=== PATIENT | male | born 1940 | race Caucasian/White ===

== ENCOUNTER → 2016-12-31 | Outpatient (CLI) | payer BC ==
[~2016-12-31] MED LIST: AMOX875T PO; ASPI81TA28 PO; CALC-20 PO; CALCTAB5 PO; CEPH500C2 PO; EPP3/2 IM; LAMO1TAB21 PO; LAMO200T PO; LAMO25TA PO; LATA0.5S OPR; LEVE500T PO; METO25TA3 PO; SIMV40TA2 PO; SPIR25TA PO; WARF5TAB90 PO; WARF7.5T4 PO
[2016-12-31 11:02] LABS: BASO % 0.8 %; BASO ABS # 0.04 K/uL (0-0.2); COMPLETE YES; EOS % 1.9 %; HEMATOCRIT 43.8 % (42-52); IG% 0.2 %; LYMPH % 28.3 %; LYMPH ABS # 1.47 K/uL (1.2-3.4); MEAN CELL VOLUME 88.8 fL (80-100); MEAN CORPUSCULAR HEMOGLOBIN 27.6 pg (25-34); MEAN CORPUSCULAR HGB CONC 31.1 g/dl (32-36); MEAN PLATELET VOLUME 10.1 fL (7.4-10.4); MONO % 8.1 %; NEUT % 60.7 %; PLATELET COUNT 172 K/uL (130-400); RED BLOOD COUNT 4.93 M/uL (4.7-6.1); WHITE BLOOD COUNT 5.19 K/uL (4.8-10.8)
[2016-12-31 11:06] LABS: ALT/SGPT 27 U/L (12-78); AST/SGOT 15 U/L (15-37); BLOOD UREA NITROGEN 18 mg/dl (7-18); BUN/CREATININE RATIO 14.6 (10-20); CALCIUM 9.4 mg/dl (8.5-10.1); CARBON DIOXIDE 35 mmol/L (21-32); CHLORIDE 104 mmol/L (98-107); CHOLESTEROL 156 mg/dl (0-200); GLUCOSE 95 mg/dl (70-99); POTASSIUM 4.7 mmol/L (3.5-5.1); SODIUM 143 mmol/L (136-145)
[2016-12-31 11:16] LABS: ALB/GLOB RATIO 1.2 (0.9-2); ALKALINE PHOSPHATASE 49 U/L (45-117); CHOLESTEROL/HDL RATIO 3.8; HDL CHOLESTEROL 41 mg/dl; LDL CHOLESTEROL CALCULATED 97 mg/dl; TRIGLYCERIDES 90 mg/dl (0-150); VERY LOW DENSITY LIPOPROT CALC 18 mg/dl
== END | disposition home or self-care (01) ==
LOC: C.LABBC 08:14
PROVIDERS: ATTEND Internal Medicine Pulmonary Disease
DX: G40.909 Epilepsy, unspecified, not intractable, without status epilepticus (principal); I48.91 Unspecified atrial fibrillation; I48.92 Unspecified atrial flutter; G47.33 Obstructive sleep apnea (adult) (pediatric); K43.9 Ventral hernia without obstruction or gangrene; E78.5 Hyperlipidemia, unspecified; E66.9 Obesity, unspecified

== ENCOUNTER → 2017-03-25 | Outpatient (CLI) | payer BC ==
[~2017-03-25] MED LIST changes: -AMOX875T PO; -CALC-20 PO; -LATA0.5S OPR
[2017-03-25 11:56] LABS: BLOOD UREA NITROGEN 12 mg/dl (7-18); BUN/CREATININE RATIO 10.8 (10-20); CALCIUM 9.6 mg/dl (8.5-10.1); CARBON DIOXIDE 30 mmol/L (21-32); CHLORIDE 103 mmol/L (98-107); GLUCOSE 100 mg/dl (70-99); POTASSIUM 4.3 mmol/L (3.5-5.1); SODIUM 139 mmol/L (136-145)
== END | disposition home or self-care (01) ==
LOC: C.LAB1850 09:57
PROVIDERS: ATTEND Physician Assistant Medical
DX: R60.9 Edema, unspecified (principal)

== ENCOUNTER 2017-04-01 01:46 | Emergency (ER) | payer BC ==
[~2017-04-01] VITALS: Ht 167.6 cm; Wt 108.0 kg
[~2017-04-01 01:46] MED LIST changes: -CEPH500C2 PO; -LAMO200T PO; -LAMO25TA PO; -SPIR25TA PO
[2017-04-01 01:53] VITALS: Ht 167.6 cm; Wt 108.0 kg
[2017-04-01] MEDS ORDERED: OXYMETAZOLINE HCL 0.05% NA SPR 15 ML BTL ONE (02:05)
--- NOTE | 2017-04-01 02:25 | EMERGENCY ROOM VISIT NOTE ---
History Report prepared by Raegan: Milagro Acosta Under the Supervision of: Dr. Jose Barrientos D.O. First contact with patient: 01:56 Chief Complaint: NOSE BLEED (MINOR) Stated Complaint: NOSE BLEED, CAN'T STOP IT History of Present Illness The patient is a 76 year old male who presents to the Emergency Room with complaints of persistent nose bleed starting 2100 tonight. He is still bleeding. The bleeding started on the right side. He seems some bleeding from the left side now. He is on Coumadin, but has never had problems with nose bleeds before. His last INR check was 2 weeks ago. It was 2.2 at that time. The patient has no other complaints. Source of History: patient, family Onset: 2100 Position: nose Quality: other (bleed) Timing: other (persistent) Note: Pt denies other complaints. Review of Systems See HPI for pertinent positives & negatives. A total of 10 systems reviewed and were otherwise negative. Past Medical & Surgical Medical Problems: (1) Atrial fibrillation and flutter (2) Bee sting (3) Stroke Surgical Problems: (1) H/O vasectomy Family History Cancer Social History Smoking Status: Never Smoker Drug Use: none Marital Status: Housing Status: lives with significant other Occupation Status: retired Current/Historical Medications Scheduled Aspirin (Aspirin Ec), 81 MG PO DAILY Calcium (Caltrate), 600 MG PO BID Cephalexin Monohydrate (Keflex), 500 MG PO QID Epinephrine (Epipen), 0.3 MG IM UD Lamotrigine (Lamotrigine), 200 MG PO BID Levetiractam (Levetiracetam), 1,000 MG PO BID Metoprolol Succ (Toprol Xl) (Toprol-Xl), 25 MG PO DAILY Simvastatin (Zocor), 40 MG PO QPM Warfarin Sod (Jantoven), 7.5 MG PO UD Warfarin Sodium (Coumadin), 5 MG PO WK Allergies Coded Allergies: BEE STING (Unverified Allergy, Unknown, UNKN, 12/06/15) Physical Exam Vital Signs Date Time Temp Pulse Resp B/P (MAP) Pulse Ox O2 Delivery O2 Flow Rate FiO2 04/01/17 01:53 36.5 110 19 152/91 94 Room Air Physical Exam GENERAL: Patient is awake, alert, and mildly anxious appearing. EYES: The conjunctivae are clear. The pupils are round and reactive. EARS, NOSE, MOUTH AND THROAT: No active bleeding in the left naris, active bleeding noted in the anterior septum on the right. Posterior oropharynx showed clotted blood but no active bleeding. NECK: The neck is nontender and supple. RESPIRATORY: Normal respiratory effort is noted there is no evidence of wheezing rhonchi or rales CARDIOVASCULAR: Irregular rhythm noted to auscultation, systolic murmur suggested on auscultation. GASTROINTESTINAL: The abdomen is mildly distended with ventral hernia noted. MUSCULOSKELETAL/EXTREMITIES: There is no evidence of gross deformity full range of motion is noted in the hips and shoulders SKIN: There is pedal edema bilaterally with venous stasis changes noted. NEUROLOGIC: Patient is awake alert and oriented x3 Medical Decision & Procedures Laboratory Results 04/01/17 02:15 Red Blood Count 4.87, Mean Corpuscular Volume 86.7, Mean Corpuscular Hemoglobin 29.2, Mean Corpuscular Hemoglobin Concent 33.6, Mean Platelet Volume 9.1, Neutrophils (%) (Auto) 64.1, Lymphocytes (%) (Auto) 24.3, Monocytes (%) (Auto) 9.0, Eosinophils (%) (Auto) 2.1, Basophils (%) (Auto) 0.3, Neutrophils # (Auto) 4.01, Lymphocytes # (Auto) 1.52, Monocytes # (Auto) 0.56, Eosinophils # (Auto) 0.13, Basophils # (Auto) 0.02 04/01/17 02:15 Test 04/01/17 02:15 White Blood Count 6.25 K/uL (4.8-10.8) Red Blood Count 4.87 M/uL (4.7-6.1) Hemoglobin 14.2 g/dL (14.0-18.0) Hematocrit 42.2 % (42-52) Mean Corpuscular Volume 86.7 fL (80-100) Mean Corpuscular Hemoglobin 29.2 pg (25-34) Mean Corpuscular Hemoglobin Concent 33.6 g/dl (32-36) Platelet Count 183 K/uL (130-400) Mean Platelet Volume 9.1 fL (7.4-10.4) Neutrophils (%) (Auto) 64.1 % Lymphocytes (%) (Auto) 24.3 % Monocytes (%) (Auto) 9.0 % Eosinophils (%) (Auto) 2.1 % Basophils (%) (Auto) 0.3 % Neutrophils # (Auto) 4.01 K/uL (1.4-6.5) Lymphocytes # (Auto) 1.52 K/uL (1.2-3.4) Monocytes # (Auto) 0.56 K/uL (0.11-0.59) Eosinophils # (Auto) 0.13 K/uL (0-0.5) Basophils # (Auto) 0.02 K/uL (0-0.2) RDW Standard Deviation 43.9 fL (36.4-46.3) RDW Coefficient of Variation 13.9 % (11.5-14.5) Immature Granulocyte % (Auto) 0.2 % Immature Granulocyte # (Auto) 0.01 K/uL (0.00-0.02) Prothrombin Time 34.7 SECONDS (9.0-12.0) Prothromb Time International Ratio 3.1 (0.9-1.1) Activated Partial Thromboplast Time 42.7 SECONDS (21.0-31.0) Partial Thromboplastin Ratio 1.6 Anion Gap 8.0 mmol/L (3-11) Est Creatinine Clear Calc Drug Dose 66.9 ml/min Estimated GFR () 75.7 Estimated GFR (Non- 65.3 BUN/Creatinine Ratio 14.3 (10-20) Calcium Level 9.6 mg/dl (8.5-10.1) Total Bilirubin 0.4 mg/dl (0.2-1) Direct Bilirubin 0.1 mg/dl (0-0.2) Aspartate Amino Transf (AST/SGOT) 18 U/L (15-37) Alanine Aminotransferase (ALT/SGPT) 26 U/L (12-78) Alkaline Phosphatase 63 U/L (45-117) Total Protein 7.6 gm/dl (6.4-8.2) Albumin 4.0 gm/dl (3.4-5.0) Laboratory results per my review. Medications Administered Medications (Trade) Dose Ordered Sig/Rachid Route Start Time Stop Time Status Last Admin Dose Admin Oxymetazoline HCl (Afrin 0.05% Nasal Bend) 75 sprays STK-MED ONCE .ROUTE 04/01/17 02:05 04/01/17 02:06 DC 04/01/17 02:07 75 SPRAYS Cephalexin Monohydrate (Keflex Cap) 500 mg NOW ONCE PO 04/01/17 03:15 04/01/17 03:16 DC 04/01/17 03:22 500 MG Cephalexin Monohydrate (Keflex 500MG Home Pack) 1 homepack NOW ONCE PO 04/01/17 03:15 04/01/17 03:16 DC 04/01/17 03:22 1 HOMEPACK Procedure Anterior Nasal Packing Indication: anterior epistaxis Verbal consent obtained. Risks and benefits were explained with the usual customary discussion. A time out was taken. Clots were removed with suction. The right naris was prepped with Afrin and lidocaine. A 5.5-cm nasal balloon was placed in a standard fashion. The patient tolerated this well. Hemostasis was achieved. No complications. ED Course 0204: The patient was evaluated in room B11B. A complete history and physical examination were performed. 0205: Afrin 0.05% Nasal Bend INH. 0254: I performed an anterior nasal packing according to the procedure note above. 0315: Cephalexin Monohydrate 1 homepack PO, Keflex Cap 500 mg PO. 0342: Upon reevaluation, the patient is resting comfortably. I discussed the results and treatment plan with him. He verbalized agreement of the treatment plan. He was discharged home. Medical Decision Prior records/ancillary studies reviewed. Triage Nursing notes reviewed. Additional history obtained from family. The patient's history was concerning for epistaxis. Differential diagnosis: Etiologies such as anterior epistaxis, coagulopathy, traumatic injury, fracture , septal hematoma, posterior epistaxis as well as other pathologies were entertained. Medication Reconciliation: I attest that I have personally reviewed the patient' s current medications list. Patient was found to have a slightly elevated blood pressure due to circumstances. I do not believe that the patient requires hypertension monitoring. The patient is a 76-year-old male who presented to the emergency department for an evaluation of epistaxis. The patient was noted to have right-sided anterior epistaxis which did not resolve using Afrin spray and pressure. The patient is currently on Coumadin and his INR is therapeutic. The patient had a Rhino Rocket placed in the right nares which appeared to stop the epistaxis nicely. The patient tolerated this procedure well. I discussed the patient's laboratory studies with him. He was encouraged to follow-up with either his family doctor or ENT or return to the emergency department in 48 hours to have the packing removed but also he was encouraged to return to the emergency department immediately if symptoms change worsen or the need arises. Impression Primary Impression: Anterior epistaxis Scribe Attestation The scribe's documentation has been prepared under my direction and personally reviewed by me in its entirety. I confirm that the note above accurately reflects all work, treatment, procedures, and medical decision making performed by me. Departure Information Dispostion Home / Self-Care Prescriptions Cephalexin Monohydrate (KEFLEX) 500 Mg Cap 500 MG PO QID, #20 CAP Prov: Jose Barrientos, DO 04/01/17 Referrals Felipe Blackburn M.D. (PCP) Mc Barnes M.D. Forms HOME CARE DOCUMENTATION FORM, IMPORTANT VISIT INFORMATION, WORK / SCHOOL INSTRUCTIONS Patient Instructions ED Nasal Packing Anterior Removable, My [facility], [facility] Additional Instructions Continue all medications as prescribed. Follow-up with your family doctor or the ear nose and throat physician in 48 hours to have the nasal packing removed. Return to the emergency department immediately if symptoms change worsen or the need arises.
[2017-04-01 02:28] LABS: BASO % 0.3 %; BASO ABS # 0.02 K/uL (0-0.2); COMPLETE YES; EOS % 2.1 %; HEMATOCRIT 42.2 % (42-52); IG% 0.2 %; LYMPH % 24.3 %; LYMPH ABS # 1.52 K/uL (1.2-3.4); MEAN CELL VOLUME 86.7 fL (80-100); MEAN CORPUSCULAR HEMOGLOBIN 29.2 pg (25-34); MEAN CORPUSCULAR HGB CONC 33.6 g/dl (32-36); MEAN PLATELET VOLUME 9.1 fL (7.4-10.4); NEUT % 64.1 %; PLATELET COUNT 183 K/uL (130-400); RED BLOOD COUNT 4.87 M/uL (4.7-6.1); WHITE BLOOD COUNT 6.25 K/uL (4.8-10.8)
[2017-04-01 02:37] LABS: INR 3.1 (0.9-1.1); PARTIAL THROMBOPLASTIN RATIO 1.6; PROTHROMBIN TIME (PATIENT) 34.7 SECONDS (9.0-12.0)
[2017-04-01 02:46] LABS: BUN/CREATININE RATIO 14.3 (10-20); CALCIUM 9.6 mg/dl (8.5-10.1); CREATININE 1.1 mg/dl (0.60-1.40)
[2017-04-01] MEDS ORDERED: CEPH500C2 PO (03:03)
[2017-04-01] MEDS ORDERED: CEPHALEXIN 500MG HOME PACK 1 EA BTL PO ONE (03:15)
[2017-04-01] MEDS ORDERED: CEPHALEXIN MONOHYDRATE 250 MG CAP PO ONE (03:15)
[2017-04-01 03:59] VITALS: BP 170/88; PULSE 78; TEMP 36.5; O2SAT 95
[2017-04-02] MEDS ORDERED: LAMO200T PO (20:07)
[2017-04-02] MEDS ORDERED: LAMO25TA PO (20:08)
[2017-04-02] MEDS ORDERED: SPIR25TA PO (20:38)
[2017-04-02] MEDS ORDERED: CEPH500C2 PO (20:41)
== END 2017-04-01 04:00 | disposition home or self-care (01) ==
LOC: C.EDB 01:47
DX: R04.0 Epistaxis (principal); I48.91 Unspecified atrial fibrillation; Z79.01 Long term (current) use of anticoagulants; Z86.73 Personal history of transient ischemic attack (TIA), and cerebral infarction without residual deficits; Z79.82 Long term (current) use of aspirin; Z79.899 Other long term (current) drug therapy; Z91.030 Bee allergy status; Z80.9 Family history of malignant neoplasm, unspecified

== ENCOUNTER 2017-04-02 19:18 | Emergency (ER) | payer BC ==
[~2017-04-02] VITALS: Ht 167.6 cm; Wt 106.8 kg
[~2017-04-02 19:18] MED LIST changes: +CEPH500C2 PO
[2017-04-02 19:26] VITALS: TEMP 37.2; Ht 167.6 cm; Wt 106.8 kg
[2017-04-02] MEDS ORDERED: OXYMETAZOLINE HCL 0.05% NA SPR 15 ML BTL ONE (20:00)
[2017-04-02] MEDS ORDERED: LAMO200T PO (20:07)
[2017-04-02] MEDS ORDERED: LAMO25TA PO (20:08)
--- NOTE | 2017-04-02 20:15 | EMERGENCY ROOM VISIT NOTE ---
ED Visit Note First contact with patient: 19:34 I have seen and examined this patient with Carter Marsh and generally agree with the treatment plan as discussed. Problem List Medical Problems: (1) Atrial fibrillation and flutter Status: Chronic (2) Bee sting Status: Resolved (3) Stroke Status: Resolved Surgical Problems: (1) H/O vasectomy Status: Resolved Current/Historical Medications Scheduled Aspirin (Aspirin Ec), 81 MG PO DAILY Calcium (Caltrate), 600 MG PO BID Cephalexin Monohydrate (Keflex), 500 MG PO QID Epinephrine (Epipen), 0.3 MG IM UD Lamotrigine (Lamotrigine), 200 MG PO BID Lamotrigine (Lamictal), 200 MG PO BID Lamotrigine (Lamictal), 25 MG PO BID Levetiractam (Levetiracetam), 1,000 MG PO BID Metoprolol Succ (Toprol Xl) (Toprol-Xl), 25 MG PO DAILY Simvastatin (Zocor), 40 MG PO QPM Warfarin Sod (Jantoven), 7.5 MG PO UD Warfarin Sodium (Coumadin), 5 MG PO WK Allergies Coded Allergies: BEE STING (Unverified Allergy, Unknown, UNKN, 04/02/17) Vital Signs Date Time Temp Pulse Resp B/P (MAP) Pulse Ox O2 Delivery O2 Flow Rate FiO2 04/02/17 19:26 37.2 92 20 147/84 96 Room Air Departure Information Referrals Felipe Blackburn M.D. (PCP) Patient Instructions My [facility]
[2017-04-02] MEDS ORDERED: SPIR25TA PO (20:38)
[2017-04-02] MEDS ORDERED: CEPH500C2 PO (20:41)
--- NOTE | 2017-04-02 21:04 | EMERGENCY ROOM VISIT NOTE ---
History First contact with patient: 19:34 Chief Complaint: PACKING REMOVAL Stated Complaint: REMOVE NOSE PACKING PUT IN HERE 2 DAYS AGO Nursing Triage Summary: Patient has a rhino rocket in the right nare. Patient is here to have it removed. Patient had it placed on Saturday morning at 0300. History of Present Illness The patient is a 76 year old male who presents to the Emergency Room for packing removal from the right nostril after being here approximately 18 hours ago for a nosebleed. The patient required a rapid Rhino placement because of persistent bleeding. The patient reports that he has had persistent blood- tinged clear fluid, L from around the packing. He also reports that the packing feels very tight. He denies any postnasal drip, headache, fevers or chills. The patient reports that he does have an up with his scheduled with ENT on . He has been taking Keflex antibiotics as prescribed. Review of Systems 6 system review was performed and was negative except for pertinent positives and negatives as indicated in history of present illness Past Medical/Surgical History Medical Problems: (1) Atrial fibrillation and flutter (2) Bee sting (3) Stroke Surgical Problems: (1) H/O vasectomy Family History Cancer Social History Smoking Status: Never Smoker Drug Use: none Marital Status: Housing Status: lives with significant other Occupation Status: retired Current/Historical Medications Scheduled Aspirin (Aspirin Ec), 81 MG PO DAILY Calcium (Caltrate), 600 MG PO BID Cephalexin Monohydrate (Keflex), 500 MG PO QID Epinephrine (Epipen), 0.3 MG IM UD Lamotrigine (Lamictal), 200 MG PO BID Lamotrigine (Lamictal), 25 MG PO BID Levetiractam (Levetiracetam), 1,000 MG PO BID Metoprolol Succ (Toprol Xl) (Toprol-Xl), 25 MG PO DAILY Simvastatin (Zocor), 40 MG PO QPM Spironolactone (Aldactone), 25 MG PO BID Warfarin Sod (Jantoven), 7.5 MG PO UD Warfarin Sodium (Coumadin), 5 MG PO WK Allergies Coded Allergies: BEE STING (Unverified Allergy, Unknown, UNKN, 04/02/17) Lactose (Verified Adverse Reaction, Intermediate, GI UPSET, 04/02/17) Physical Exam Vital Signs Date Time Temp Pulse Resp B/P (MAP) Pulse Ox O2 Delivery O2 Flow Rate FiO2 04/02/17 19:26 37.2 92 20 147/84 96 Room Air Physical Exam CONSTITUTIONAL: Healthy and well nourished. Alert and oriented X 3 with positive affect. HEENT: Normocephalic, atraumatic. Pupils equal, round and reactive. There is no drainage from around the packing. NECK: Full active range of motion without discomfort. RESPIRATORY: Clear to auscultation bilaterally with no wheezing, crackles, rhonchi or stridor. INTEGUMENTARY: No rash or other significant dermatologic conditions noted. NEUROLOGIC: Facial sensations are intact. Medical Decision & Procedures ED Course Patient history and physical exam were performed. Nurse's notes were reviewed. Vital signs were reviewed and normal. Rapid Rhino packing was carefully removed. The patient had minimal serosanguineous drainage from the nose. Examination with an otoscope shows significantly friable tissue without any active bleeding. At this point, I administered 3 Afrin sprays in the right nostril, followed by a nasal clamp. His was left in place for 30 minutes and removed with no active bleeding. The patient was given the bottle of Afrin spray and another nasal clamp, and encouraged to perform two Afrin sprays before bedtime with nasal clamps as needed. The patient usually wears a CPAP, but reports that he can sleep in a seated position without CPAP. He was encouraged to do that tonight. If he has any persistent active bleeding that he cannot control with direct pressure, he was instructed to return to the emergency department. Otherwise he will keep his appointment on with ENT as scheduled. The patient voiced understanding of all discharge instructions, and was happy with plan of care. The patient was also examined by Dr. Barry, ED attending physician, who agrees with workup and plan of care. Medical Decision Impression Primary Impression: Right-sided epistaxis Departure Information Dispostion Home / Self-Care Forms HOME CARE DOCUMENTATION FORM, IMPORTANT VISIT INFORMATION Patient Instructions My [facility] Additional Instructions Continue with direct pressure this evening. Administer to Afrin sprays in the right nostril before bedtime, and upon awakening in the morning. Return to the emergency department for any persistent/uncontrollable bleeding. Keep your appointment on with ENT as scheduled.
[2017-04-02 21:20] VITALS: BP 148/78; PULSE 88; O2SAT 98
== END 2017-04-02 21:22 | disposition home or self-care (01) ==
LOC: C.EDB 19:20 → C.EDD 21:22
DX: R04.0 Epistaxis (principal); I48.91 Unspecified atrial fibrillation; Z79.82 Long term (current) use of aspirin; Z79.01 Long term (current) use of anticoagulants

== ENCOUNTER 2017-08-22 00:07 | Emergency (ER) | payer BC ==
[~2017-08-22] VITALS: Ht 168.9 cm; Wt 108.9 kg
[~2017-08-22 00:07] MED LIST changes: -CEPH500C2 PO; -LAMO1TAB21 PO; +LAMO200T PO; +LAMO25TA PO
[2017-08-22 00:18] VITALS: Ht 168.9 cm; Wt 108.9 kg
[2017-08-22 01:04] VITALS: TEMP 37
--- NOTE | 2017-08-22 02:28 | EMERGENCY ROOM VISIT NOTE ---
History Report prepared by Raegan: Milagro Acosta Under the Supervision of: Dr. Norma Neal D.O. First contact with patient: 01:35 Chief Complaint: WOUND INFECTION Stated Complaint: HAS RIGHT LEG WOUND THAT IS RED AND HOT/NOT HEALIN Nursing Triage Summary: Two weeks ago patient got scrape on his right leg, patient is on blood thinners and was having a hard time healing. Patient to be seen in wound clinic on saturday. R lower leg that is red, hot and swollen, mcmillan draining clear fluids. History of Present Illness The patient is a 77 year old male who presents to the Emergency Room with complaints of worsening right leg infection starting 1-2 weeks ago. The patient tripped and scraped his right leg on concrete 1-2 weeks ago. He has been applying bandages. He has had some drainage. Today, his leg became more painful , hot, and red. He has had increased drainage. He has not had an infection there before. He has been eating and drinking well. He denies any nausea, vomiting, fever, or abdominal pain. He has a history of fluid on the legs. He is on Warfarin. He denies any history of DVT or diabetes. He has a history of stroke, hernia, and heart murmur. Source of History: patient, spouse/significant other Onset: 1-2 weeks ago Position: leg (right) Quality: other (infection) Timing: worsening Associated Symptoms: No fevers, No nausea, No vomiting, No abdominal pain Review of Systems See HPI for pertinent positives & negatives. A total of 10 systems reviewed and were otherwise negative. Past Medical & Surgical Medical Problems: (1) Atrial fibrillation and flutter (2) Bee sting (3) Stroke Surgical Problems: (1) H/O vasectomy Family History Cancer Social History Smoking Status: Never Smoker Drug Use: none Marital Status: Housing Status: lives with significant other Occupation Status: retired Current/Historical Medications Scheduled Amoxicillin & Pot Clavulanate (Augmentin 875-125 mg), 875 MG PO BID Aspirin (Aspirin Ec), 81 MG PO DAILY Calcium Carbonate-Vitamin D (Calcium 600 + D), 1 TAB PO BID Epinephrine (Epipen), 0.3 MG IM UD Lamotrigine (Lamictal), 200 MG PO BID Lamotrigine (Lamictal), 25 MG PO BID Latanoprost (Xalatan 0.005% Oph Alejandra), 1 DROPS OPR HS Levetiractam (Levetiracetam), 1,000 MG PO BID Metoprolol Succ (Toprol Xl) (Toprol-Xl), 25 MG PO DAILY Simvastatin (Zocor), 40 MG PO QPM Warfarin Sod (Jantoven), 7.5 MG PO UD Warfarin Sodium (Coumadin), 5 MG PO WK Allergies Coded Allergies: BEE STING (Unverified Allergy, Unknown, UNKN, 08/22/17) Lactose (Verified Adverse Reaction, Intermediate, GI UPSET, 08/22/17) Physical Exam Vital Signs Date Time Temp Pulse Resp B/P (MAP) Pulse Ox O2 Delivery O2 Flow Rate FiO2 08/22/17 05:45 60 18 138/71 97 08/22/17 05:17 60 18 138/71 97 Room Air 08/22/17 03:16 67 18 104/69 97 Room Air 08/22/17 01:04 37.0 56 20 125/65 95 Room Air 08/22/17 00:18 36.7 76 18 143/83 96 Room Air Physical Exam HEENT: Head - normocephalic and atraumatic Pupils are equal, round, and reactive to light. Extraocular eye muscles are intact, and sclera are anicteric. Nose - moist nasal mucosa without discharge. Mouth - moist buccal mucosa. Oropharynx is nonerythematous and there is no tonsillar exudate or edema noted. Neck: Supple; no JVD, nuchal rigidity, cervical lymphadenopathy. Heart: Regular rate and rhythm. There is a 4/6 systolic ejection murmur. No clicks or gallops appreciated. Lungs: Clear to auscultation bilaterally with no wheezes, rales, or rhonchi. Abdomen: Large anterior abdominal wall hernia which is easily reducible. Soft, nontender, nondistended, with good bowel sounds. There are no palpable pulsatile masses or hepatosplenomegaly. There is no guarding, rigidity, or rebound noted. Extremities: RLE with significant venous stasis and an open wound to the right anterior tib fib region, surrounding erythema and warmth. There are easily palpable peripheral pulses. Skin: warm and dry with good turgor and no rashes. Medical Decision & Procedures ER Provider Diagnostic Interpretation: Radiology results as stated below per my review and the [facility] radiologist's interpretation: US Venous Right Lower Extremity: Comparison with exam from 03/23/11. No DVT. Probably lymph node measuring up to 2.7 cm. This may be reactive. Correlate clinically. Fluid collection in the popliteal fossa measuring up to 5.7 cm. This is smaller size compared to the prior study. Laboratory Results 08/22/17 02:35 Red Blood Count 4.67, Mean Corpuscular Volume 88.4, Mean Corpuscular Hemoglobin 29.1, Mean Corpuscular Hemoglobin Concent 32.9, Mean Platelet Volume 9.9, Neutrophils (%) (Auto) 73.8, Lymphocytes (%) (Auto) 12.1, Monocytes (%) (Auto) 12.2, Eosinophils (%) (Auto) 1.4, Basophils (%) (Auto) 0.1, Neutrophils # (Auto ) 7.84, Lymphocytes # (Auto) 1.28, Monocytes # (Auto) 1.29, Eosinophils # (Auto ) 0.15, Basophils # (Auto) 0.01 08/22/17 02:35 Test 08/22/17 02:35 White Blood Count 10.61 K/uL (4.8-10.8) Red Blood Count 4.67 M/uL (4.7-6.1) Hemoglobin 13.6 g/dL (14.0-18.0) Hematocrit 41.3 % (42-52) Mean Corpuscular Volume 88.4 fL (80-100) Mean Corpuscular Hemoglobin 29.1 pg (25-34) Mean Corpuscular Hemoglobin Concent 32.9 g/dl (32-36) Platelet Count 192 K/uL (130-400) Mean Platelet Volume 9.9 fL (7.4-10.4) Neutrophils (%) (Auto) 73.8 % Lymphocytes (%) (Auto) 12.1 % Monocytes (%) (Auto) 12.2 % Eosinophils (%) (Auto) 1.4 % Basophils (%) (Auto) 0.1 % Neutrophils # (Auto) 7.84 K/uL (1.4-6.5) Lymphocytes # (Auto) 1.28 K/uL (1.2-3.4) Monocytes # (Auto) 1.29 K/uL (0.11-0.59) Eosinophils # (Auto) 0.15 K/uL (0-0.5) Basophils # (Auto) 0.01 K/uL (0-0.2) RDW Standard Deviation 45.2 fL (36.4-46.3) RDW Coefficient of Variation 14.0 % (11.5-14.5) Immature Granulocyte % (Auto) 0.4 % Immature Granulocyte # (Auto) 0.04 K/uL (0.00-0.02) Prothrombin Time 29.9 SECONDS (9.0-12.0) Prothromb Time International Ratio 2.9 (0.9-1.1) Activated Partial Thromboplast Time 42.0 SECONDS (21.0-31.0) Partial Thromboplastin Ratio 1.6 Anion Gap 2.0 mmol/L (3-11) Est Creatinine Clear Calc Drug Dose 72.6 ml/min Estimated GFR () 83.4 Estimated GFR (Non- 71.9 BUN/Creatinine Ratio 11.2 (10-20) Calcium Level 9.4 mg/dl (8.5-10.1) Laboratory results per my review. Medications Administered Medications (Trade) Dose Ordered Sig/Rachid Route Start Time Stop Time Status Last Admin Dose Admin Ceftriaxone Sodium (Rocephin Inj) 1 gm NOW STAT IV 08/22/17 04:48 08/22/17 04:49 DC 08/22/17 05:13 1 GM Procedure Medications: Rocephin Inj 1 gm IV. ED Course 0208: The patient was evaluated in room C6. A complete history and physical examination were performed. Nursing notes and previous electronic medical records were reviewed. IV lock was established and labs were drawn as above. The patient went for ultrasound of the right lower extremity to rule out DVT. This is negative. 0443: Upon reevaluation, the patient was resting comfortably. I discussed findings and results with him. He verbalized agreement of the treatment plan. He will be discharged home after IV antibiotics. 0448: Rocephin Inj 1 gm IV. Medical Decision The patient is a 77 year old male who presents to the ED with right leg infection. Differential diagnosis includes cellulitis, wound infection, DVT. Labs: white count 10.3, hemoglobin 13.6, normal renal function, glucose 119, INR 2.9. This is a 77-year-old male patient with a long-standing history of venous stasis. Unfortunately, the patient scratched his right lower leg a couple of days ago. It has now become infected. There is some surrounding cellulitis. The patient has no significant leukocytosis or fever. His INR is therapeutic. I will start him on antibiotics after he receives an IV dose here in the emergency department. He does have a follow-up scheduled in 36 hours with the wound care clinic. This would be appropriate. Medication Reconcilliation Current Medication List: was personally reviewed by me Blood Pressure Screening Patient's blood pressure: Normal blood pressure Blood pressure disposition: Did not require urgent referral Impression Primary Impression: Traumatic open wound of right lower leg with infection Scribe Attestation The scribe's documentation has been prepared under my direction and personally reviewed by me in its entirety. I confirm that the note above accurately reflects all work, treatment, procedures, and medical decision making performed by me. Departure Information Dispostion Home / Self-Care Prescriptions Amoxicillin & Pot Clavulanate (Augmentin 875-125 mg) 1 Tab Tab 875 MG PO BID, #20 TAB Prov: Norma Neal D.O. 08/22/17 Referrals Felipe Blackburn M.D. (PCP) Forms HOME CARE DOCUMENTATION FORM, IMPORTANT VISIT INFORMATION, WORK / SCHOOL INSTRUCTIONS Patient Instructions My [facility], Wound Care Additional Instructions Rest with your right leg elevated. Keep the wound clean and covered. augmentin - 1 tab. ever 12 hours Problem Qualifiers Primary Impression: Traumatic open wound of right lower leg with infection Encounter type: initial encounter Qualified Codes: S81.801A - Unspecified open wound, right lower leg, initial encounter; L08.9 - Local infection of the skin and subcutaneous tissue, unspecified
[2017-08-22 02:45] LABS: BASO % 0.1 %; BASO ABS # 0.01 K/uL (0-0.2); COMPLETE YES; EOS % 1.4 %; HEMATOCRIT 41.3 % (42-52); IG% 0.4 %; LYMPH % 12.1 %; LYMPH ABS # 1.28 K/uL (1.2-3.4); MEAN CELL VOLUME 88.4 fL (80-100); MEAN CORPUSCULAR HEMOGLOBIN 29.1 pg (25-34); MEAN CORPUSCULAR HGB CONC 32.9 g/dl (32-36); MEAN PLATELET VOLUME 9.9 fL (7.4-10.4); MONO % 12.2 %; NEUT % 73.8 %; PLATELET COUNT 192 K/uL (130-400); RED BLOOD COUNT 4.67 M/uL (4.7-6.1); WHITE BLOOD COUNT 10.61 K/uL (4.8-10.8)
[2017-08-22 02:54] LABS: INR 2.9 (0.9-1.1); PARTIAL THROMBOPLASTIN RATIO 1.6; PROTHROMBIN TIME (PATIENT) 29.9 SECONDS (9.0-12.0)
[2017-08-22 03:00] LABS: BUN/CREATININE RATIO 11.2 (10-20); CALCIUM 9.4 mg/dl (8.5-10.1); CREATININE 1.01 mg/dl (0.60-1.40); POTASSIUM 3.9 mmol/L (3.5-5.1)
[2017-08-22] MEDS ORDERED: CALC-20 PO (04:12)
[2017-08-22] MEDS ORDERED: LATA0.5S OPR (04:13)
[2017-08-22] MEDS ORDERED: CEFTRIAXONE SOD INJ 1 GM ADDVIAL IV STA (04:48)
[2017-08-22] MEDS ORDERED: AMOX875T PO (05:30)
[2017-08-22 05:45] VITALS: BP 138/71; PULSE 60; O2SAT 97
--- NOTE | 2017-08-22 06:34 | DIAGNOSTIC IMAGING REPORT ---
ULTRASOUND R VENOUS DOPP LOWER EXT UNILAT CLINICAL HISTORY: Right leg redness and swelling. COMPARISON STUDY: 03/23/2011 FINDINGS: Real-time and color flow Doppler imaging were performed. Flow was seen within the femoral, popliteal and calf veins with no intraluminal thrombus demonstrated. The saphenous vein is patent. There is a 27 x 12 x 2 cm right inguinal lymph node with a large fatty hilum. There is a complex right popliteal fossa cyst measuring 57 x 15 x 29 mm. IMPRESSION: No evidence of right lower extremity DVT. Electronically signed by: Tushar Pak M.D. 08/22/2017 6:33 AM Dictated Date/Time: 08/22/2017 6:31 AM
== END 2017-08-22 05:52 | disposition home or self-care (01) ==
LOC: C.EDB 00:08 → C.EDA 05:52
DX: S81.801A Unspecified open wound, right lower leg, initial encounter (principal); W45.8XXA Other foreign body or object entering through skin, initial encounter; I48.91 Unspecified atrial fibrillation; Z79.82 Long term (current) use of aspirin; Z79.01 Long term (current) use of anticoagulants; Z51.81 Encounter for therapeutic drug level monitoring

== ENCOUNTER 2017-09-21 11:00 | Emergency (ER) | payer BC ==
[~2017-09-21] VITALS: Ht 167.6 cm; Wt 110.0 kg
[~2017-09-21 11:00] MED LIST changes: +CALC-20 PO; -CALCTAB5 PO; +LATA0.5S OPR
[2017-09-21 11:09] VITALS: TEMP 36.6; Ht 167.6 cm; Wt 110.0 kg
--- NOTE | 2017-09-21 11:30 | EMERGENCY ROOM VISIT NOTE ---
History First contact with patient: 11:18 Chief Complaint: FALL Stated Complaint: LOWER LEG History of Present Illness The patient is a 77 year old male who presents to the Emergency Room via private vehicle with complaints of "fall, lower leg pain". The patient states about 9 days ago he was wearing a jacket which caused him to slip out of bed because it was slippery. He states he fell to the ground striking the anterior portion of his left leg. There is no pain then however now since the time of the fall there is no increased swelling and pain in the left anterior mcmillan region. He also notes redness. There are no fevers or chills. He takes Coumadin with last INR done 1 week ago. He denies other injuries. Review of Systems A complete 6-point Review of Systems was discussed with the patient, with pertinent positives and negatives listed in the History of Present Illness. All remaining Review of Systems questions can be considered negative unless otherwise specified. Past Medical/Surgical History Medical Problems: (1) Atrial fibrillation and flutter (2) Bee sting (3) Stroke Surgical Problems: (1) H/O vasectomy Family History Cancer Social History Smoking Status: Never Smoker Drug Use: none Marital Status: Housing Status: lives with significant other Occupation Status: retired Current/Historical Medications Scheduled Aspirin (Aspirin Ec), 81 MG PO DAILY Calcium Carbonate-Vitamin D (Calcium 600 + D), 1 TAB PO BID Cephalexin Monohydrate (Keflex), 500 MG PO QID Doxycycline (Monohydrate) (Doxycycline), 100 MG PO BID Epinephrine (Epipen), 0.3 MG IM UD Lamotrigine (Lamictal), 200 MG PO BID Lamotrigine (Lamictal), 25 MG PO BID Latanoprost (Xalatan 0.005% Oph Alejandra), 1 DROPS OPR HS Levetiractam (Levetiracetam), 1,000 MG PO BID Metoprolol Succ (Toprol Xl) (Toprol-Xl), 25 MG PO DAILY Simvastatin (Zocor), 40 MG PO QPM Warfarin Sod (Jantoven), 7.5 MG PO [id number] Warfarin Sodium (Coumadin), 5 MG PO WK Physical Exam Vital Signs Date Time Temp Pulse Resp B/P (MAP) Pulse Ox O2 Delivery O2 Flow Rate FiO2 09/21/17 14:24 71 18 139/78 96 09/21/17 13:34 71 18 181/112 96 Room Air 09/21/17 11:09 36.6 83 20 184/90 98 Room Air Physical Exam VITAL SIGNS - Vital signs and nursing notes were reviewed. Stable. Afebrile. Hypertensive. GENERAL -77 -year-old male appearing his stated age who is in no acute distress. Communicates well with provider and answers questions appropriately. SKIN - the left lower leg from the knee down is larger than the right leg. There is no calf tenderness. There is erythema extending from the tibial plateau region inferiorly. This region is the same temperature to palpation as the right leg. There is no drainage. No breaks in the integument. There is tenderness to palpation overlying the left anterior mcmillan. EXTREMITIES - +5/5 strength noted in UE/LE bilaterally. Neurovascularly intact in lower external ease. Please refer to skin for remainder of exam. Medical Decision & Procedures ER Provider Diagnostic Interpretation: ULTRASOUND L VENOUS DOPP LOWER EXT UNILAT CLINICAL HISTORY: L leg pain COMPARISON STUDY: No previous studies for comparison. FINDINGS: Real-time and color flow Doppler imaging were performed. Flow was seen within the femoral, popliteal and calf veins with no intraluminal thrombus demonstrated. The saphenous vein is patent. There is a left popliteal/Mcneal cyst measuring 52 x 29 x 13 mm. IMPRESSION: No evidence of left lower extremity DVT. Electronically signed by: Tushar Pak M.D. 09/21/2017 12:43 PM Dictated Date/Time: 09/21/2017 12:42 PM L TIBIA/FIBULA 2 VIEWS ROUTINE CLINICAL HISTORY: Left lower leg pain status post trauma COMPARISON: None. DISCUSSION: 4 views are provided for interpretation. There are moderate osteoarthritic changes present the level the knee. There are no acute fractures. There is pretibial soft tissue swelling. IMPRESSION: 1. No acute fractures 2. Osteoarthritic changes 3. Soft tissue edema Electronically signed by: Tushar Pak M.D. 09/21/2017 12:21 PM Dictated Date/Time: 09/21/2017 12:20 PM Laboratory Results 09/21/17 11:40 Red Blood Count 4.70, Mean Corpuscular Volume 89.1, Mean Corpuscular Hemoglobin 29.1, Mean Corpuscular Hemoglobin Concent 32.7, Mean Platelet Volume 10.0, Neutrophils (%) (Auto) 73.9, Lymphocytes (%) (Auto) 17.1, Monocytes (%) (Auto) 7.2, Eosinophils (%) (Auto) 1.2, Basophils (%) (Auto) 0.3, Neutrophils # (Auto) 4.92, Lymphocytes # (Auto) 1.14, Monocytes # (Auto) 0.48, Eosinophils # (Auto) 0.08, Basophils # (Auto) 0.02 09/21/17 11:40 Test 09/21/17 11:40 White Blood Count 6.66 K/uL (4.8-10.8) Red Blood Count 4.70 M/uL (4.7-6.1) Hemoglobin 13.7 g/dL (14.0-18.0) Hematocrit 41.9 % (42-52) Mean Corpuscular Volume 89.1 fL (80-100) Mean Corpuscular Hemoglobin 29.1 pg (25-34) Mean Corpuscular Hemoglobin Concent 32.7 g/dl (32-36) Platelet Count 154 K/uL (130-400) Mean Platelet Volume 10.0 fL (7.4-10.4) Neutrophils (%) (Auto) 73.9 % Lymphocytes (%) (Auto) 17.1 % Monocytes (%) (Auto) 7.2 % Eosinophils (%) (Auto) 1.2 % Basophils (%) (Auto) 0.3 % Neutrophils # (Auto) 4.92 K/uL (1.4-6.5) Lymphocytes # (Auto) 1.14 K/uL (1.2-3.4) Monocytes # (Auto) 0.48 K/uL (0.11-0.59) Eosinophils # (Auto) 0.08 K/uL (0-0.5) Basophils # (Auto) 0.02 K/uL (0-0.2) RDW Standard Deviation 47.2 fL (36.4-46.3) RDW Coefficient of Variation 14.6 % (11.5-14.5) Immature Granulocyte % (Auto) 0.3 % Immature Granulocyte # (Auto) 0.02 K/uL (0.00-0.02) Prothrombin Time 33.8 SECONDS (9.0-12.0) Prothromb Time International Ratio 3.3 (0.9-1.1) Activated Partial Thromboplast Time 45.1 SECONDS (21.0-31.0) Partial Thromboplastin Ratio 1.7 Anion Gap 2.0 mmol/L (3-11) Est Creatinine Clear Calc Drug Dose 64.7 ml/min Estimated GFR () 72.8 Estimated GFR (Non- 62.8 BUN/Creatinine Ratio 9.8 (10-20) Calcium Level 9.7 mg/dl (8.5-10.1) Total Bilirubin 0.9 mg/dl (0.2-1) Aspartate Amino Transf (AST/SGOT) 15 U/L (15-37) Alanine Aminotransferase (ALT/SGPT) 24 U/L (12-78) Alkaline Phosphatase 67 U/L (45-117) Total Protein 8.3 gm/dl (6.4-8.2) Albumin 4.2 gm/dl (3.4-5.0) Globulin 4.1 gm/dl (2.5-4.0) Albumin/Globulin Ratio 1.0 (0.9-2) Medications Administered Medications (Trade) Dose Ordered Sig/Rachid Route Start Time Stop Time Status Last Admin Dose Admin Ceftriaxone Sodium (Rocephin Inj) 1 gm NOW STAT IV 09/21/17 13:15 09/21/17 13:16 DC 09/21/17 13:28 1 GM Medical Decision Patient was seen and evaluated as above. He presents to us today with left lower leg pain. There is erythematous on exam. IV access was initiated, and the above workup was performed. He is afebrile. Normal blood cell count slight anemia noted. No evidence of kidney or liver failure. The concern is that this could be cellulitis. He was also seen by the attending physician. He was given 1 g Rocephin here. He'll be placed on doxycycline as well as Keflex. He is on Coumadin with an INR currently of 3.3. This is slightly elevated. I recommend he has this repeated on Saturday. He notes that he will arrange this. He was offered inpatient admission secondary to the amount of erythema just below the knee extending down to the left ankle. It is difficult to appreciate if this is also within the middle portion of the tibia because there is venous stasis changes of the leg. He declined admission, and notes he would like to go home. I believe this is reasonable. He was given strict return precautions in the event that this would worsen. He was educated upon worrisome symptoms in which to return, had questions about discharge, and was discharged home in good condition. DVT was well the ultrasound, and there is no fracture on the x-ray. Blood pressure elevated of late secondary to situation. This was found to be improved upon his departure. Medications reviewed. In evaluation treatment this patient the following differential diagnoses entertained: Cellulitis, DVT, venous stasis skin changes, compartment syndrome, among others. Impression Primary Impression: Fall Additional Impressions: Contusion of leg, left Anemia Departure Information Dispostion Home / Self-Care Condition GOOD Prescriptions Cephalexin Monohydrate (Keflex) 500 Mg Cap 500 MG PO QID for 10 Days, #40 CAP Prov: Iraj Stewart PA-C 09/21/17 Doxycycline (Monohydrate) (Doxycycline) 100 Mg Cap 100 MG PO BID for 10 Days, #20 TABS Prov: Iraj Stewart PA-C 09/21/17 Referrals Felipe Blackburn M.D. (PCP) Patient Instructions My [facility] Additional Instructions You were seen in the emergency Department for leg pain. The antibiotics you're receiving may make your blood thinner, meaning your INR may increase. I highly recommend having your INR rechecked on Saturday to identify of dose adjustments of your Coumadin are necessary At this time the concern is that you're developing an infection of the leg. You were given an IV dose of antibiotics here. I will prescribe you Keflex 500 mg every 6 hours 10 days. Doxycycline 100 mg every 12 hours 10 days. As we discussed if the redness would worsen please return. Your INR was 3.3. There is a Mcneal cyst behind your left knee. This is harmless, however follow- up with the family doctor is recommended. You have been prescribed Doxycycline to be taken as prescribed. This is an antibiotic. All antibiotics have the potential to cause diarrhea. Stop this medication and contact a medical provider if you were to develop any significant adverse side effects including: wheezing, shortness of breath, passing out, vomiting, or a diffuse rash. Always take antibiotics as directed and COMPLETE the ENTIRE course regardless of the improvement of your symptoms. Protect yourself with sunscreen while on this antibiotic as it increases your skin's sensitivity to the light and cause bad sunburns. In addition, you should be sure to take this pill after eating. Make sure the pill is completely swallowed as this medication can cause irritation to the lining of the esophagus. Do NOT drink milk or eat anything with large amounts of Calcium in them 1 hour prior to taking this medication as this will decrease the effectiveness of the medication. Please return if you have any fevers, chills, increased redness. Please call your family doctor to schedule follow-up. Please return with any new/concerning symptoms. Problem Qualifiers
[2017-09-21 11:56] LABS: BASO % 0.3 %; BASO ABS # 0.02 K/uL (0-0.2); EOS % 1.2 %; EOS ABS # 0.08 K/uL (0-0.5); HEMATOCRIT 41.9 % (42-52); HEMOGLOBIN 13.7 g/dL (14.0-18.0); IG# 0.02 K/uL (0.00-0.02); LYMPH % 17.1 %; LYMPH ABS # 1.14 K/uL (1.2-3.4); MEAN CELL VOLUME 89.1 fL (80-100); MEAN CORPUSCULAR HEMOGLOBIN 29.1 pg (25-34); MEAN CORPUSCULAR HGB CONC 32.7 g/dl (32-36); MONO % 7.2 %; MONO ABS # 0.48 K/uL (0.11-0.59); NEUT % 73.9 %; NEUT ABS # 4.92 K/uL (1.4-6.5); PLATELET COUNT 154 K/uL (130-400); RED CELL DISTRIBUTION WIDTH CV 14.6 % (11.5-14.5); RED CELL DISTRIBUTION WIDTH SD 47.2 fL (36.4-46.3); WHITE BLOOD COUNT 6.66 K/uL (4.8-10.8)
[2017-09-21 12:17] LABS: INR 3.3 (0.9-1.1)
[2017-09-21 12:21] LABS: ALBUMIN 4.2 gm/dl (3.4-5.0); CALCIUM 9.7 mg/dl (8.5-10.1); CREATININE 1.13 mg/dl (0.60-1.40); POTASSIUM 4.9 mmol/L (3.5-5.1)
[2017-09-21 12:23] LABS: PTT PATIENT 45.1 SECONDS (21.0-31.0); TOTAL PROTEIN 8.3 gm/dl (6.4-8.2)
--- NOTE | 2017-09-21 12:23 | DIAGNOSTIC IMAGING REPORT ---
L TIBIA/FIBULA 2 VIEWS ROUTINE CLINICAL HISTORY: Left lower leg pain status post trauma COMPARISON: None. DISCUSSION: 4 views are provided for interpretation. There are moderate osteoarthritic changes present the level the knee. There are no acute fractures. There is pretibial soft tissue swelling. IMPRESSION: 1. No acute fractures 2. Osteoarthritic changes 3. Soft tissue edema Electronically signed by: Tushar Pak M.D. 09/21/2017 12:21 PM Dictated Date/Time: 09/21/2017 12:20 PM
--- NOTE | 2017-09-21 12:44 | DIAGNOSTIC IMAGING REPORT ---
ULTRASOUND L VENOUS DOPP LOWER EXT UNILAT CLINICAL HISTORY: L leg pain COMPARISON STUDY: No previous studies for comparison. FINDINGS: Real-time and color flow Doppler imaging were performed. Flow was seen within the femoral, popliteal and calf veins with no intraluminal thrombus demonstrated. The saphenous vein is patent. There is a left popliteal/Mcneal cyst measuring 52 x 29 x 13 mm. IMPRESSION: No evidence of left lower extremity DVT. Electronically signed by: Tushar Pak M.D. 09/21/2017 12:43 PM Dictated Date/Time: 09/21/2017 12:42 PM
--- NOTE | 2017-09-21 13:11 | EMERGENCY ROOM VISIT NOTE ---
ED Visit Note First contact with patient: 11:18 I did evaluate and examine this patient myself. I did guide management for the patient. I agree with the APC's assessment as discussed. Please see the APC's dictation for further details. I did independently review the ultrasound and blood work. He does not have a DVT. He does have cellulitis to his left leg. He was advised to stop using the roller at his gym on his leg. He was given IV antibiotics and discharged on oral antibiotic with close follow up.
[2017-09-21] MEDS ORDERED: CEFTRIAXONE SOD INJ 1 GM ADDVIAL IV STA (13:15)
[2017-09-21] MEDS ORDERED: DOXY-300 PO (13:46)
[2017-09-21] MEDS ORDERED: CEPH500C PO (13:47)
[2017-09-21 14:24] VITALS: BP 139/78; PULSE 71; O2SAT 96
== END 2017-09-21 14:25 | disposition home or self-care (01) ==
LOC: C.EDB 11:01 → C.EDD 14:25
DX: S80.12XA Contusion of left lower leg, initial encounter (principal); W19.XXXA Unspecified fall, initial encounter; I48.92 Unspecified atrial flutter; Z86.73 Personal history of transient ischemic attack (TIA), and cerebral infarction without residual deficits; Z79.01 Long term (current) use of anticoagulants; Z79.82 Long term (current) use of aspirin; Z79.899 Other long term (current) drug therapy; Z98.52 Vasectomy status

== ENCOUNTER → 2017-12-25 | Outpatient (CLI) | payer BC ==
[~2017-12-25] MED LIST changes: +DOXY-300 PO
[2017-12-25 17:18] LABS: BASO % 0.4 %; BASO ABS # 0.02 K/uL (0-0.2); EOS % 1.8 %; HEMATOCRIT 40.7 % (42-52); HEMOGLOBIN 13.3 g/dL (14.0-18.0); IG# 0.01 K/uL (0.00-0.02); LYMPH % 19.5 %; LYMPH ABS # 1.08 K/uL (1.2-3.4); MEAN CELL VOLUME 88.9 fL (80-100); MEAN CORPUSCULAR HGB CONC 32.7 g/dl (32-36); MONO % 8.8 %; MONO ABS # 0.49 K/uL (0.11-0.59); NEUT % 69.3 %; NEUT ABS # 3.84 K/uL (1.4-6.5); PLATELET COUNT 147 K/uL (130-400); RED CELL DISTRIBUTION WIDTH CV 14.5 % (11.5-14.5); RED CELL DISTRIBUTION WIDTH SD 47.2 fL (36.4-46.3); WHITE BLOOD COUNT 5.54 K/uL (4.8-10.8)
[2017-12-25 17:23] LABS: ALBUMIN 3.6 gm/dl (3.4-5.0); ALT/SGPT 23 U/L (12-78); AST/SGOT 18 U/L (15-37); BLOOD UREA NITROGEN 12 mg/dl (7-18); CALCIUM 9.4 mg/dl (8.5-10.1); CARBON DIOXIDE 34 mmol/L (21-32); CREATININE 1.09 mg/dl (0.60-1.40); GLUCOSE 116 mg/dl (70-99); POTASSIUM 3.7 mmol/L (3.5-5.1); SODIUM 139 mmol/L (136-145)
[2017-12-25 17:25] LABS: ALKALINE PHOSPHATASE 62 U/L (45-117); TOTAL PROTEIN 7.2 gm/dl (6.4-8.2)
== END | disposition home or self-care (01) ==
LOC: C.LABBC 12:43
PROVIDERS: ATTEND Psychiatry & Neurology Neurology
DX: G40.909 Epilepsy, unspecified, not intractable, without status epilepticus (principal)

== ENCOUNTER → 2018-01-15 | Outpatient (CLI) | payer BC ==
[2018-01-15 11:12] LABS: BASO % 0.6 %; BASO ABS # 0.03 K/uL (0-0.2); EOS % 2.4 %; EOS ABS # 0.13 K/uL (0-0.5); HEMATOCRIT 41.3 % (42-52); HEMOGLOBIN 13.4 g/dL (14.0-18.0); IG# 0.01 K/uL (0.00-0.02); LYMPH % 20.8 %; LYMPH ABS # 1.13 K/uL (1.2-3.4); MEAN CELL VOLUME 87.1 fL (80-100); MEAN CORPUSCULAR HEMOGLOBIN 28.3 pg (25-34); MEAN CORPUSCULAR HGB CONC 32.4 g/dl (32-36); MEAN PLATELET VOLUME 9.5 fL (7.4-10.4); MONO % 10.3 %; MONO ABS # 0.56 K/uL (0.11-0.59); NEUT % 65.7 %; NEUT ABS # 3.56 K/uL (1.4-6.5); PLATELET COUNT 179 K/uL (130-400); RED CELL DISTRIBUTION WIDTH CV 14.4 % (11.5-14.5); RED CELL DISTRIBUTION WIDTH SD 46.5 fL (36.4-46.3); WHITE BLOOD COUNT 5.42 K/uL (4.8-10.8)
[2018-01-15 11:24] LABS: ALBUMIN 3.8 gm/dl (3.4-5.0); ALT/SGPT 22 U/L (12-78); AST/SGOT 20 U/L (15-37); BLOOD UREA NITROGEN 16 mg/dl (7-18); CALCIUM 9.2 mg/dl (8.5-10.1); CARBON DIOXIDE 31 mmol/L (21-32); CREATININE 1.24 mg/dl (0.60-1.40); GLUCOSE 99 mg/dl (70-99); POTASSIUM 3.6 mmol/L (3.5-5.1); SODIUM 139 mmol/L (136-145)
[2018-01-15 11:35] LABS: ALKALINE PHOSPHATASE 67 U/L (45-117); CHOLESTEROL 146 mg/dl (0-200); LDL CHOLESTEROL CALCULATED 93 mg/dl; TOTAL PROTEIN 7.7 gm/dl (6.4-8.2)
== END | disposition home or self-care (01) ==
LOC: C.LABBC 08:42
PROVIDERS: ATTEND Internal Medicine Pulmonary Disease
DX: G40.909 Epilepsy, unspecified, not intractable, without status epilepticus (principal); I48.91 Unspecified atrial fibrillation; E78.5 Hyperlipidemia, unspecified; G47.33 Obstructive sleep apnea (adult) (pediatric); M17.10 Unilateral primary osteoarthritis, unspecified knee; E66.9 Obesity, unspecified

== ENCOUNTER 2019-06-18 22:44 | Observation (INO) ==
[2019-06-18 23:34] LABS: Basophils # (auto) 0.01 K/uL (0-0.2); Basophils % (auto) 0.1 %; Eosinophils # (auto) 0.11 K/uL (0-0.5); Eosinophils % (auto) 1.3 %; Hematocrit (blood only) 43.8 % (42-52); Hemoglobin 14.5 g/dL (14.0-18.0); Immature Granulocytes # (auto) 0.04 K/uL (0.00-0.02); Immature Granulocytes % (auto) 0.5 %; Lymphocytes # (auto) 2.13 K/uL (1.2-3.4); Lymphocytes % (auto) 25.4 %; Mean Corpuscular Hemoglobin 29.5 pg (25-34); Mean Corpuscular Hgb Conc 33.1 g/dL (32-36); Mean Platelet Volume 9.6 fL (7.4-10.4); Monocytes # (auto) 0.73 K/uL (0.11-0.59); Monocytes % (auto) 8.7 %; Neutrophils # (auto) 5.38 K/uL (1.4-6.5); Platelet Count 175 K/uL (130-400); RDW Coefficient of Variation 14.2 % (11.5-14.5); RDW Standard Deviation 46.2 fL (36.4-46.3); Red Blood Count 4.92 M/uL (4.7-6.1)
[2019-06-19 00:04] LABS: Albumin Globulin Ratio 1.2 (0.9-2); Albumin Level 4.3 gm/dl (3.4-5.0); BUN Creatinine Ratio 17.1 (10-20); Bilirubin,Total 0.4 mg/dl (0.2-1); Calcium 9.1 mg/dl (8.5-10.1); Creatinine Clr Calc Pharmacy 64.8 ml/min; Est GFR (African American) 74.7; Est GFR (Non-African American) 64.4; Globulin 3.6 gm/dl (2.5-4.0); Potassium 3.9 mmol/L (3.5-5.1); Total Protein 7.9 gm/dl (6.4-8.2); Troponin I 0.081 ng/ml (0-0.045)
[2019-06-19] MEDS ORDERED: ASPIRIN CHEW 324 MG PO STA (00:26)
--- NOTE | 2019-06-19 00:37 | Emergency Department Note ---
Entered by Fadi Wallace acting as a scribe for Gerardo Lobo DO History of Present Illness General Chief complaint: Arrhythmia/Palpitations Stated complaint: AFIB Time Seen by Provider: 06/18/19 22:54 Source: patient Limitations: no limitations History of Present Illness Onset (ago): hour(s) 5 Location: chest Pain Consistency: + constant Quality: + other (vibration) Associated symptoms: + denies other symptoms (trouble breathing) The patient is a 78 year old male who presents to the Emergency Room with complaints of constant vibration in his heart starting 5 hours ago. The patient states he had 2 strokes and a seizure 5 years ago. He states he started to feel vibration in his heart a couple days ago but it eventually went away. He notes he occasionally in A-Fib. He denies having any trouble breathing. He notes he feels like a nerve is getting pinched in his right hip, and notes that happens occasionally. Home Medications Home Medications Medication Instructions Recorded Confirmed Type aspirin [Aspirin Low Dose] 81 mg PO DAILY 06/03/18 06/18/19 History calcium carbonate-vitamin D3 1 tab PO BID 06/03/18 06/18/19 History [Calcium 600 + D(3)] epinephrine 0.3 mg IM DIRECTED PRN 06/03/18 06/18/19 History lamotrigine 25 mg PO BID 06/03/18 06/18/19 History lamotrigine 200 mg PO BID 06/03/18 06/18/19 History latanoprost [Xalatan] 1 drp OPR PM 06/03/18 06/18/19 History levetiracetam 1,000 mg PO BID 06/03/18 06/18/19 History metoprolol succinate 25 mg PO DAILY 06/03/18 06/18/19 History simvastatin 40 mg PO PM 06/03/18 06/18/19 History apixaban 5 mg tablet 5 mg PO BID #60 tab 05/13/19 06/18/19 Rx Allergies Allergy/AdvReac Type Severity Reaction Status Date / Time bee venom protein (honey bee) Allergy Unknown UNKN Unverified 06/18/19 23:08 lactose AdvReac Intermediate GI UPSET Verified 06/18/19 23:08 Past Med/Surg History Medical History Atrial fibrillation (Chronic) CVA (cerebral vascular accident) (Chronic) Dyslipidemia (Chronic) Vascular insufficiency (Chronic) Cerebral hemorrhage (Resolved) Vasectomy status (Resolved) Surgical History S/P hernia repair (Resolved) Family History Other No pertinent family history Social History Preferred Language: Burmese Communication Ability: Effective Visual Impairment: No Limitations Hearing Ability: Normal Spa Host Required: No Beliefs That Will Affect Care: None marital status: Current Living Situation: Spouse current occupational status: retired Feels Safe at Home: Yes Smoking Status: Never smoker Tobacco Type: cigarettes ; Hx Alcohol Use: No Hx Substance Use: No Review of Systems See HPI for pertinent positives & negatives. and A total of 10 systems reviewed and were otherwise negative Physical Exam Vital Signs Vital Signs - 24 hr 06/18/19 22:50 06/18/19 23:15 06/19/19 00:17 Temperature 36.8 C Temperature Source Oral Sepsis Recent Fever Within 48 Hours No Sepsis Action Taken by Nursing No Action Required Pulse Rate 68 Pulse Rate [Right] 55 L Pulse Rhythm Regular Pulse Rhythm [Right] Regular Pulse Strength Normal Pulse Strength [Right] Normal Respiratory Rate 18 16 Respiratory Effort / Characteristics Non-Labored Spontaneous Non-Labored Spontaneous Respiratory Depth Normal Normal Respiratory Pattern Regular Blood Pressure 178/89 H Blood Pressure [Right Arm] 118/85 Blood Pressure Mean 118 Blood Pressure Mean [Right Arm] 96 Blood Pressure Position Sitting Blood Pressure Position [Right Arm] Sitting Pulse Oximetry 96 99 95 Oxygen Delivery Method Room Air Room Air Room Air CONSTITUTIONAL/VITAL SIGNS: Reviewed / noted above. GENERAL: Non-toxic in appearance. INTEGUMENTARY: Warm, dry, and Victor. HEAD: Normocephalic. EYES: without scleral icterus or trauma. ENT/OROPHARYNX: clear and moist. LYMPHADENOPATHY/NECK: Is supple without lymphadenopathy or meningismus. RESPIRATORY: Lungs clear and equal. CARDIOVASCULAR: Regular rate and rhythm. GI/ABDOMEN: Soft and nontender. No organomegaly or pulsatile mass. No rebound or guarding. Normal bowel sounds. Patient has a chronic abdominal hernia. EXTREMITIES: Warm and well perfused. BACK: No CVA tenderness. NEUROLOGICAL: Intact without focal deficits. PSYCHIATRIC: normal affect. MUSCULOSKELETAL: Normally developed with good muscle tone. Course 2259: The patient was evaluated in room A10, and a complete history and physical examination were performed. 0035: I discussed the patient's case with Dr. Benítez [facility]. He will evaluate the patient for further management Administered Medications Discontinued Medications Aspirin (Aspirin) 324 mg PO NOW STA Stop: 06/19/19 00:27 Last Admin: 06/19/19 00:34 Dose: 324 mg Documented by: [id number] Medical Decision Making Differential Diagnosis Differential diagnoses includes but is not limited to acute coronary syndrome, myocardial infarction, pericarditis, pulmonary embolus, aortic dissection, pneumonia, pneumothorax, musculoskeletal, shingles, esophageal. Medical Records Attestation: I reviewed the patient's medical records. Home Medications Current Medication List: was personally reviewed by me Laboratory Data Attestation: I reviewed the patient's lab results. Result diagrams: 06/18/19 23:02 06/18/19 23:02 Lab Results 06/18/19 06/18/19 Range/Units 23:02 23:02 WBC 8.40 (4.8-10.8) K/uL RBC 4.92 (4.7-6.1) M/uL Hgb 14.5 (14.0-18.0) g/dL Hct 43.8 (42-52) % MCV 89.0 (80-100) fL MCH 29.5 (25-34) pg MCHC 33.1 (32-36) g/dL RDW Std Deviation 46.2 (36.4-46.3) fL RDW Coeff of Claire 14.2 (11.5-14.5) % Plt Count 175 (130-400) K/uL MPV 9.6 (7.4-10.4) fL Immature Gran % (Auto) 0.5 % Neut % (Auto) 64.0 % Lymph % (Auto) 25.4 % [place] % (Auto) 8.7 % Eos % (Auto) 1.3 % Baso % (Auto) 0.1 % Immature Gran # (Auto) 0.04 H (0.00-0.02) K/uL Neut # (Auto) 5.38 (1.4-6.5) K/uL Lymph # (Auto) 2.13 (1.2-3.4) K/uL [place] # (Auto) 0.73 H (0.11-0.59) K/uL Eos # (Auto) 0.11 (0-0.5) K/uL Baso # (Auto) 0.01 (0-0.2) K/uL Sodium 144 (136-145) mmol/L Potassium 3.9 (3.5-5.1) mmol/L Chloride 103 (98-107) mmol/L Carbon Dioxide 33 H (21-32) mmol/L Anion Gap 8.0 (3-11) BUN 19 H (7-18) mg/dl Creatinine 1.10 (0.6-1.4) mg/dl Est Cr Clr Drug Dosing 64.8 ml/min Est GFR ( Amer) 74.7 Est GFR (Non-Af Amer) 64.4 BUN/Creatinine Ratio 17.1 (10-20) Glucose 98 (70-99) mg/dl Calcium 9.1 (8.5-10.1) mg/dl Total Bilirubin 0.4 (0.2-1) mg/dl AST 17 (15-37) U/L ALT 38 (12-78) U/L Alkaline Phosphatase 68 (45-117) U/L Troponin I 0.081 H* (0-0.045) ng/ml Total Protein 7.9 (6.4-8.2) gm/dl Albumin 4.3 (3.4-5.0) gm/dl Globulin 3.6 (2.5-4.0) gm/dl Albumin/Globulin Ratio 1.2 (0.9-2) Imaging Data Attestation: I personally reviewed and interpreted this imaging study as follows: My Impression: Chest X-Ray 1 View: Cardiomegaly otherwise no acute disease. No pneumonia. No pneumothorax. ECG Data Attestation: I personally reviewed and interpreted this ECG as follows: Indication: palpitations Rate (beats per minute): 85 Rhythm: sinus rhythm Findings: + 1st degree AV block and + RBBB Comparison ECG Date: from (06/03/18) Change: no significant change Blood Pressure Blood Pressure Findings: Elevated blood pressure Blood Pressure Disposition: further management by hospitalist LEIDY Calderón This is a 78-year-old male who presents to the ED with a chief complaint of a vibrating sensation in his chest. The patient states that it occurred about 5 hours ago and lasted until shortly before he came in. The patient was concerned about his heart. He does have a previous history of paroxysmal atrial fibrillation. He is on Eliquis for this. The patient denied any associated symptoms such as shortness of breath, nausea, diaphoresis or palpitations. His physical exam is normal. His EKG shows a sinus rhythm at a rate of 73 with a first-degree AV block and a right bundle branch block. There is some T wave inversions in the inferolateral leads. These appear similar to a previous EKG. the patient CBC and chemistry panel were unremarkable. Troponin is slightly elevated. Chest x-ray did not show acute process. The patient was reassessed until the results of the test. The patient was given aspirin p.o. He will be seen by the hospitalist for further evaluation and care. Impression & Plan Chest pain, Elevated troponin Discharge Plan Visit Data Chief Complaint: Arrhythmia/Palpitations Stated Complaint: AFIB ED Provider: Gerardo Lobo Discharge Problem: Chest pain, Elevated troponin Patient Disposition: Being Evaluated by Hospitalist Forms Stand Alone Forms: My [facility] Prescriptions Prescriptions: No Action Eliquis 5 mg tablet 5 mg PO BID Qty: 60 RF: 2 latanoprost [Xalatan] 0.005 % Drops 1 drp OPR PM RF: 0 lamotrigine 200 mg Tablet 200 mg PO BID RF: 0 calcium carbonate-vitamin D3 [Calcium 600 + D(3)] 600 mg(1,500mg) -200 unit Tablet 1 tab PO BID RF: 0 aspirin [Aspirin Low Dose] 81 mg Tablet,Delayed Release (Dr/Ec) 81 mg PO DAILY RF: 0 simvastatin 40 mg Tablet 40 mg PO PM RF: 0 lamotrigine 25 mg Tablet 25 mg PO BID RF: 0 metoprolol succinate 25 mg Tablet Extended Release 24 Hr 25 mg PO DAILY RF: 0 epinephrine 0.3 mg/0.3 mL Auto-Injector 0.3 mg IM DIRECTED PRN (Reason: Allergic Reaction) RF: 0 levetiracetam 1,000 mg Tablet 1,000 mg PO BID RF: 0 Referrals Referrals: Felipe Blackburn MD [Primary Care Provider] - Discharge Problem: Chest pain Qualifiers: Chest pain type: precordial pain Qualified Code(s): R07.2 - Precordial pain The scribe's documentation has been prepared under my direction and personally reviewed by me in its entirety. I confirm that the note above accurately reflects all work, treatment, procedures, and medical decision making performed by me.
--- NOTE | 2019-06-19 00:57 | History & Physical Report ---
Date of Service June 19, 2019 Assessment & Plan (1) Elevated troponin: 78 y/o M Hx HLD, PAF, , PAD, seizure disorder. Presents with an unusual complaint stating he felt like his chest was vibrating. He compared this to a sensation of running an electric shaver over the chest. He denies pain, SOB, nausea or diaphoresis. He insists that he was not experiencing palpitations. The pt was in a sinus rhythm on arrival to the ER. Initial labs were notable for a mild troponin elevation. An EKG was unchanged from prior and did not support acute ischemia. 1) Vibration in chest with elevated trop - despite a lack of traditional symptoms, this could have resulted from a significant arrhythmia. We will monitor overnight, obtain serial trops, a card consult and an AM echo - ASA is added to Eliquis - statin increased, cont Metoprolol. 2) Seizure disorder - cont Keppra, lamotrigine. 3) HLD - cont statin 4) PAF - Eliquis was taken as scheduled and has now been held pending the echo result and cardiology assessment. Rate is controlled with Metoprolol. Full code, Eliquis prophylaxis Total time for this admit including review of labs, meds, imaging, records - discussion with pt and ER attending - 38 min Present on Admission?: Yes History of Present Illness Chief Complaint: Vibration in chest - elevated troponin Primary Care Provider: Felipe Blackburn MD 78 y/o M Hx HLD, PAF, , PAD, seizure disorder. Presents with an unusual complaint stating he felt like his chest was vibrating. He compared this to a sensation of running an electric shaver over the chest. He denies pain, SOB, nausea or diaphoresis. He insists that he was not experiencing palpitations. The pt was in a sinus rhythm on arrival to the ER. Initial labs were notable for a mild troponin elevation. An EKG was unchanged from prior and did not support acute ischemia. 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 Family: Father age 79 - cause not known Mother age 71 - COPD Allergies Allergy/AdvReac Type Severity Reaction Status Date / Time bee venom protein (honey bee) Allergy Unknown UNKN Unverified 06/18/19 23:08 lactose AdvReac Intermediate GI UPSET Verified 06/18/19 23:08 Home Medications Home Medications Medication Instructions Recorded Confirmed Type aspirin [Aspirin Low Dose] 81 mg PO DAILY 06/03/18 06/18/19 History calcium carbonate-vitamin D3 1 tab PO BID 06/03/18 06/18/19 History [Calcium 600 + D(3)] epinephrine 0.3 mg IM DIRECTED PRN 06/03/18 06/18/19 History lamotrigine 25 mg PO BID 06/03/18 06/18/19 History lamotrigine 200 mg PO BID 06/03/18 06/18/19 History latanoprost [Xalatan] 1 drp OPR PM 06/03/18 06/18/19 History levetiracetam 1,000 mg PO BID 06/03/18 06/18/19 History metoprolol succinate 25 mg PO DAILY 06/03/18 06/18/19 History simvastatin 40 mg PO PM 06/03/18 06/18/19 History apixaban 5 mg tablet 5 mg PO BID #60 tab 05/13/19 06/18/19 Rx Past Med/Surg History Medical History Atrial fibrillation (Chronic) CVA (cerebral vascular accident) (Chronic) Dyslipidemia (Chronic) Vascular insufficiency (Chronic) Cerebral hemorrhage (Resolved) Vasectomy status (Resolved) Surgical History S/P hernia repair (Resolved) Family History Other No pertinent family history Social History Preferred Language: German Communication Ability: Effective Visual Impairment: No Limitations Hearing Ability: Normal Ambulatory Care Nurse Required: No Beliefs That Will Affect Care: None marital status: Current Living Situation: Spouse current occupational status: retired Feels Safe at Home: Yes Smoking Status: Never smoker Tobacco Type: cigarettes ; Hx Alcohol Use: No Hx Substance Use: No Review of Systems Review of Systems: .Gen: Denies fevers, night sweats, rigors, fatigue, malaise, weight loss/gain ENT: Denies congestion, throat pain, hearing loss Eyes: Denies acute visual changes CV: Denies CP - vibration in chest as per HPI Pulmonary: Denies SOB, cough, wheezing GI: Denies N/V, diarrhea, constipation Neuro: Denies acute or unilateral weakness, acute gait impairment, headache or acute visual changes Musculoskeletal: Denies joint pain, inflammation Endocrine: Denies polydipsia, polyuria Skin: Denies acute rashes or ulcers Physical Exam Physical Exam: General: AAO x 2, no distress ENT: No erythema or exudates, no thrush Eyes: JORDYN, EOMI Head and neck: Normocephalic, atraumatic, No JVD, neck is supple. Chest/heart: Nontender, S1,2, RRR - 3/6 systolic murmur Lungs: CTAB, no wheezing or crackles Abdomen: Massive abdominal wall hernia Neuro: AAO x 2, speech is clear, no unilateral weakness or loss of sensation, coordination intact Musculoskeletal: No joint inflammation, muscle tenderness, FROM Skin: No acute rashes or ulcers - stasis discoloration of LEs Extremities: Stasis discoloration and BL edema Results & Data Vital Signs (Past 12 Hours) Vital Signs Temp Pulse Pulse Resp BP BP Pulse Ox 06/19/19 00:17 55 L 16 118/85 95 06/18/19 23:15 99 06/18/19 22:50 98.2 F 68 18 178/89 H 96 Code Status & VTE Plan VTE Prophylaxis Plan VTE Prophylaxis will be ordered: Yes PG Care Time/CCT Total # of Minutes Spent Total Time Spent with Patient: Total time spent is greater than 50% in coordination of care (as documented) at patient's floor/unit and/or counseling patient:
[2019-06-19] MEDS ORDERED: ACETAMINOPHEN 325 MG TAB PO PRN (01:18)
[2019-06-19] MEDS ORDERED: NITROGLYCERIN SL 0.4 MG/TAB TAB SL PRN (01:18)
[2019-06-19] MEDS ORDERED: ONDANSETRON INJ 2 MG/ML 2 ML VIAL IV PRN (01:18)
[2019-06-19] MEDS ORDERED: MAGNESIUM HYDROXIDE SUSP 30 ML UDC PO PRN (01:18)
[2019-06-19] MEDS ORDERED: POLYETHYLENE (MIRALAX) 17 GM PACK PO PRN (01:18)
[2019-06-19] MEDS ORDERED: ALUMINUM/MAGNESIUM SUSP 30 ML UDC PO PRN (01:18)
[2019-06-19] MEDS ORDERED: D5NSS + 20MEQ KCL 20 MEQ/1,000 ML BAG IV SCH (02:00)
--- NOTE | 2019-06-19 07:04 | XRay Report ---
XR chest 1V portable CLINICAL HISTORY: 78 years-old Male presenting with Chest Pain. TECHNIQUE: Portable upright AP view of the chest was obtained. COMPARISON: 12/06/2015. FINDINGS: Atherosclerosis of the aortic arch. Cardiac silhouette enlarged. No focal opacity. No large effusion or pneumothorax. Degenerative changes of the thoracic spine. Upper abdomen normal. IMPRESSION: 1. Cardiomegaly. No other convincing evidence of acute cardiopulmonary disease. Electronically signed by: Jamal Duncan M.D. 06/19/2019 7:03 AM
[2019-06-19] MEDS ORDERED: PERFLUTREN LIPID MICROSPHERE (DEFINITY) IV ONE (07:21)
[2019-06-19] MEDS ORDERED: lamoTRIgine 100 MG TAB PO SCH (09:00)
[2019-06-19] MEDS ORDERED: ASPIRIN 81 MG ECTAB PO SCH ×2 (09:00)
[2019-06-19] MEDS ORDERED: levETIRAcetam 500 MG TAB PO SCH (09:00)
[2019-06-19] MEDS ORDERED: lamoTRIgine 25 MG TAB PO SCH (09:00)
[2019-06-19] MEDS ORDERED: METOPROLOL SUCC 25MG EXT REL TAB PO SCH (09:00)
--- NOTE | 2019-06-19 13:07 | Cardiology Consultation ---
Date of Consultation June 19, 2019 Assessment & Plan (1) Chest pain: The patient's description of chest discomfort is atypical for classic angina pectoris. 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 No further cardiac testing necessary at this time. (2) Elevated troponin: Suspect subendocardial ischemia potentially related to a paroxysm of atrial fibrillation or his elevated blood pressure at time of presentation. (3) Hypercholesterolemia: Continue simvastatin. (4) Hypertension: Adequate control on current regimen. (5) PAF (paroxysmal atrial fibrillation): Continue Eliquis and metoprolol succinate. (6) Aortic stenosis: Moderate to severe aortic stenosis noted on echocardiogram performed earlier today. We will continue to follow surveillance echocardiograms. History of Present Illness Attending Physician: Amos Nichole MD History of Present Illness Mr. Dominique is a 78-year-old male admitted yesterday with a chest pain syndrome in a mildly elevated troponin. This consultation was ordered to assist in his management. Of note, the patient is well known to me from the outpatient setting. Patient was in his usual state of health until last evening when he began to develop a vibratory sensation across his anterior chest. The patient was sitting quietly in a chair watching television at that time. There were no other associated symptoms such as shortness of breath, nausea, vomiting, diaphoresis, or radiation of the discomfort. Total duration of his chest discomfort was less than 10 minutes. The patient proceeded to the emergency room for further care. The patient is active on a daily basis caring for his home and property. He also exercises for 60 minutes at least 1 if not 3 times every week. He has never experienced exertional angina pectoris or limiting dyspnea. He further denies syncope, presyncope, PND, orthopnea, palpitations, lower extremity edema, and claudication. The patient carries a history of paroxysmal atrial fibrillation. He tolerates rate control long-term anticoagulation without difficulty. His medications reviewed in detail. Past medical history 1. Hypertension 2. Hypercholesterolemia 3. Paroxysmal atrial fibrillation 4. CVA x2-2007 5. Word searching residual following CVA 6. Ventral hernia 7. Obstructive sleep apnea 8. RBBB 9. Peripheral vascular disease 10. Glaucoma 11. Moderate aortic stenosis Social history and lives with his Retired No tobacco or alcohol. Family history No early coronary artery disease Review of systems A 10 point review of systems was undertaken and negative except for that described above. Allergies Allergy/AdvReac Type Severity Reaction Status Date / Time bee venom protein (honey bee) Allergy Unknown UNKN Unverified 06/18/19 23:08 lactose AdvReac Intermediate GI UPSET Verified 06/18/19 23:08 Home Medications Home Medications Medication Instructions Recorded Confirmed Type aspirin [Aspirin Low Dose] 81 mg PO DAILY 06/03/18 06/18/19 History calcium carbonate-vitamin D3 1 tab PO BID 06/03/18 06/18/19 History [Calcium 600 + D(3)] epinephrine 0.3 mg IM DIRECTED PRN 06/03/18 06/18/19 History lamotrigine 25 mg PO BID 06/03/18 06/18/19 History lamotrigine 200 mg PO BID 06/03/18 06/18/19 History latanoprost [Xalatan] 1 drp OPR PM 06/03/18 06/18/19 History levetiracetam 1,000 mg PO BID 06/03/18 06/18/19 History metoprolol succinate 25 mg PO DAILY 06/03/18 06/18/19 History simvastatin 40 mg PO PM 06/03/18 06/18/19 History apixaban 5 mg tablet 5 mg PO BID #60 tab 05/13/19 06/18/19 Rx Patient History Medical History Atrial fibrillation (Chronic) CVA (cerebral vascular accident) (Chronic) Dyslipidemia (Chronic) Vascular insufficiency (Chronic) Cerebral hemorrhage (Resolved) Vasectomy status (Resolved) Surgical History S/P hernia repair (Resolved) Family History Other No pertinent family history Social History Preferred Language: Syriac Communication Ability: Effective Visual Impairment: No Limitations Hearing Ability: Normal Health Club Manager Required: No Beliefs That Will Affect Care: None marital status: Current Living Situation: Spouse current occupational status: retired Feels Safe at Home: Yes Smoking Status: Former smoker Tobacco Type: cigarettes ; Hx Alcohol Use: No Hx Substance Use: No Physical Exam Physical Exam: In general this is an obese white male seated in a bedside chair without complaints. HEENT exam is negative. Neck is supple with full carotid upstrokes. There are no obvious bruits. Jugular venous pressure is flat at 90 degrees. There is no thyromegaly. Cardiovascular exam reveals an irregular rhythm with distant heart sounds. A 2/6 basal systolic ejection murmur is noted. No S3. Lungs are clear without rales, rhonchi, or wheezes. Abdomen is obese without bruits. Extremities reveal intact radial artery pulses bilaterally. Trace pretibial edema is noted. Results & Data Vital Signs (Past 12 Hours) Vital Signs Temp Pulse Resp BP Pulse Ox Pulse Ox 06/19/19 11:15 36.9 C 52 L 16 151/78 H 95 06/19/19 08:00 36.9 C 52 L 16 151/78 H 95 06/19/19 04:00 36.7 C 50 L 15 157/94 H 96 06/19/19 01:51 37.1 C 54 L 16 155/99 H 98 06/19/19 01:18 36.9 C 59 L 20 155/99 H 96 96 PG Care Time/CCT Total # of Minutes Spent Total Time Spent with Patient: Total time spent is greater than 50% in coordination of care (as documented) at patient's floor/unit and/or counseling patient: (1) Chest pain Chest pain type: precordial pain Qualified Code(s): R07.2 - Precordial pain
--- NOTE | 2019-06-19 15:20 | Discharge Summary ---
Date of Service June 19, 2019 Admission HPI Per Admitting Provider 78 y/o M Hx HLD, PAF, , PAD, seizure disorder. Presents with an unusual complaint stating he felt like his chest was vibrating. He compared this to a sensation of running an electric shaver over the chest. He denies pain, SOB, nausea or diaphoresis. He insists that he was not experiencing palpitations. The pt was in a sinus rhythm on arrival to the ER. Initial labs were notable for a mild troponin elevation. An EKG was unchanged from prior and did not support acute ischemia. 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 Family: Father age 79 - cause not known Mother age 71 - COPD Principal Diagnosis Possible afib episode Discharge Exam Constitutional WD/WN, vitals as above Eyes EOM intact bilaterally; no conjunctival abnormality ENMT external ear and nose normal, oropharynx normal Neck trachea midline, no thyromegaly normal visual inspection Respiratory normal respiratory effort, lungs clear to auscultation no respiratory distress Cardiovascular RRR, no murmur, no edema Gastrointestinal (Abdomen) Inspection/Auscultation: abdomen normal to inspection; abdomen not distended Musculoskeletal no cyanosis or clubbing, extremities motor strength 5/5 Skin no rashes, warm and dry Neurologic moves all extremities and awake Psychiatric Orientation: alert, oriented to person and cooperative Discharge Data Allergies Allergy/AdvReac Type Severity Reaction Status Date / Time bee venom protein (honey bee) Allergy Unknown UNKN Unverified 06/18/19 23:08 lactose AdvReac Intermediate GI UPSET Verified 06/18/19 23:08 Consultations 06/19/19 00:59 ED Decision to Admit Stat 06/19/19 01:10 Consult Cardiology Routine Hospital Course (1) Elevated troponin: 78 y/o M Hx HLD, PAF, , PAD, seizure disorder. Presents with an unusual complaint stating he felt like his chest was vibrating. He compared this to a sensation of running an electric shaver over the chest. He denies pain, SOB, nausea or diaphoresis. He insists that he was not experiencing palpitations. The pt was in a sinus rhythm on arrival to the ER. Initial labs were notable for a mild troponin elevation. An EKG was unchanged from prior and did not support acute ischemia. 1) Vibration in chest with elevated trop - Could have been an episode of his PAF. However, he was in sinus in the hospital. Seen by Dr. Johns who felt no further testing was needed. Discharged with outpatient follow up. If it recurs, he will call the office. Could consider outpatient Holter monitor. 2) Seizure disorder - cont Keppra, lamotrigine. 3) HLD - cont statin 4) PAF - Eliquis was taken as scheduled and has now been held pending the echo result and cardiology assessment. Rate is controlled with Metoprolol. Total Time Total Time Spent Total Time Spent (In Minutes): 25 Discharge Plan Discharge Items Patient Disposition: Home - Self-Care Reason For Visit: VIBRATIONS IN CHEST - ELEVEATED TROP Discharge Diagnosis: Possible paroxsymal afib Activity: Resume your previous activity Non-emergency contact: Primary Care Provider and Community Program Assistant Call non-emergency contact if: your symptoms worsen Follow-up/Referrals: Felipe Blackburn MD [Primary Care Provider] - Diet: Heart Healthy Addtl Attending Provider Instructions: Mr. Dominique, You were admitted with a funny sensation in your chest. Your troponins (cardiac enzymes) do not indicate you had a heart attack. Your echo from today is stable from your prior one except for the aortic stenosis which Dr. Johns will monitor with you. Please follow up with Dr. Johns as normal. If these sensations return or persist, please contact his office for a sooner appointment or return to the Emergency Department if you are concerned. Pending Studies at Discharge: No Stand-Alone Forms: My [facility] Medications and DC Order Prescriptions: Continued Eliquis 5 mg tablet 5 mg PO BID Qty: 60 RF: 2 latanoprost [Xalatan] 0.005 % Drops 1 drp OPR PM RF: 0 lamotrigine 200 mg Tablet 200 mg PO BID RF: 0 calcium carbonate-vitamin D3 [Calcium 600 + D(3)] 600 mg(1,500mg) -200 unit Tablet 1 tab PO BID RF: 0 aspirin [Aspirin Low Dose] 81 mg Tablet,Delayed Release (Dr/Ec) 81 mg PO DAILY RF: 0 simvastatin 40 mg Tablet 40 mg PO PM RF: 0 lamotrigine 25 mg Tablet 25 mg PO BID RF: 0 metoprolol succinate 25 mg Tablet Extended Release 24 Hr 25 mg PO DAILY RF: 0 epinephrine 0.3 mg/0.3 mL Auto-Injector 0.3 mg IM DIRECTED PRN (Reason: Allergic Reaction) RF: 0 levetiracetam 1,000 mg Tablet 1,000 mg PO BID RF: 0 Discharge Orders: Discharge Order (Routine); Ordered 06/19/19 Ordered By: Amos Nichole Admission Data Admit Date/Time: 06/19/19 00:38 Attending Provider: Amos Nichole Admit Provider: Sergio Benítez Primary Care Provider: Felipe Blackburn Other Providers: Jose Johns ; Amos Nichole Other Interventions: Discharge Summary Assessment (RN) Last Done: 06/19/19 11:15 DC Date/Time DO NOT enter until pt leaves facility: 06/19/19 11:41
[2019-06-19] MEDS ORDERED: LATANOPROST 0.005% OP SOLN 2.5 ML BTL OPR SCH (21:00)
[2019-06-19] MEDS ORDERED: ATORVASTATIN 40 MG TAB PO SCH (21:00)
== END 2019-06-19 11:41 | disposition home or self-care (01) ==
LOC: ED 22:44 → 1E 22:44 → SUATTDRO 06-19 00:38 → 1E 06-19 00:55

== ENCOUNTER 2024-01-22 14:58 | Inpatient (IN) ==
--- NOTE | 2024-01-22 16:52 | History & Physical Report ---
Date of Service January 22, 2024 Assessment & Plan (1) C. difficile colitis: Plan: C. difficile colitis Patient with C. difficile ongoing diarrhea and poor p.o. intake. Discussed with patient's provider Dr. Blackburn. Not been tachycardic, has not passed out, has not had any dysrhythmia or tachycardia but due to his severe diarrhea, poor p.o. 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 Outpatient C. difficile test confirmed Vancomycin continued. Given recurrent episodes will ultimately give pulsed taper. (2) PAF (paroxysmal atrial fibrillation): Plan: Paroxysmal A-fib, history of AMS, history of lower extremity edema On admission he is rate controlled with no RVR and no chest pain Continue metoprolol Continue apixaban While patient does have some venous stasis and lower extremity edema he does not have hypoxia, has had severe diarrhea and is clinically volume contracted. He is also likely to be preload dependent due to his severe aortic stenosis and is preload dependent. 1 L of LR given at time of admission, with 1 L of maintenance supplement given. If hypoxia or pulmonary evidence of pulmonary edema develops then we will get an x-ray and consider switching to diuresis at that time. Optimize magnesium 2.0, potassium 4.0 (3) CAD (coronary artery disease): Plan: CAD No anginal symptoms EKG on arrival reviewed. Patient does have some ST changes versus right bundle with repolarization change in the lateral and inferior lateral leads initially concerning for ischemia however on comparison with his baseline EKG appears with a similar morphology and suspect is right bundle branch block with r epolarization abnormalities. Patient has had no chest pain chest pressure or exertional anginal symptoms at any point and is pain-free on admission. Will check a troponin, may have some demand ischemia with hypotension from his volume loss and C. difficile, inconsistent with ACS on admission. Hypertension Slightly hypotensive in the setting of volume depletion. Lasix held Continue metoprolol, hold for hypotension (4) Aortic stenosis: Plan: As noted Has followed with cardiology, TAVR not indicated based on symptoms. Has had some intermittent volume overload, but at last follow-up was doing well and had not needed diuresis in the previous month (5) Hypertension: Plan: Hold antihypertensives temporarily (6) Hypercholesterolemia: Plan Chronic stable issues: Intermittent transient blurry vision No blurry vision on admission. Has had suspicion of this from recrudescence of old deficits with illness/metabolic derangements No CT indicated at time of admission History of prior left occipital stroke, patient is on aspirin/Eliquis/statin. No acute change History of seizures Lamotrigine/Keppra continued, patient reports he has been stable and doing well on this Admission and Anticipated Discharge Date Admission Date: January 22, 2024 History of Present Illness Primary Care Provider: Felipe Blackburn MD Tristan is seen at the bedside. He is a somewhat limited historian and notes "my answers most of these questions "but is oriented to year, place, and hospital. He reports that he has episodes of C. difficile before this is his second treated episode with antibiotics. He denies fever, chills, sweats. He denies syncope/presyncope. Feels tired and slightly lightheaded. He is having continual bowel movements sometimes incontinent with urgency and completely liquid. Denies blood. He has some abdominal pain around a hernia, thinks this is a little worse but "not too bad ". No pain at rest, somewhat tender around hernia on palpation but without rigidity/guarding. He denies vision change diet bedside assessment. He reports he did take his morning medications today, but would have to check with his to know which medication was which. He thinks that this did include his blood thinner. He reports he has had no chest pain or chest pressure at any point, and is pain- free on admission. Denies shortness of breath although notes he gets winded easily. To call patient's for collateral, was not available at [phone]. Additional collateral pending Full Code Allergies Allergy/AdvReac Type Severity Reaction Status Date / Time bee venom protein (honey bee) Allergy Unknown UNKN Verified 12/31/23 15:15 No Known Drug Allergies Allergy Verified 12/31/23 15:15 lactose AdvReac Intermediate GI UPSET Verified 12/31/23 15:15 Home Medications Medication Instructions Recorded Confirmed Type aspirin 81 mg tablet,delayed 81 mg PO DAILY 06/03/18 01/01/24 History release (Raissa Low Dose Aspirin) calcium carbonate 600 mg-vitamin 1 tab PO BID 06/03/18 01/01/24 History D3 5 mcg (200 unit) tablet (Calcium 600 + D(3)) epinephrine 0.3 mg/0.3 mL 0.3 mg (0.3 mL) IM DIRECTED PRN 05/02/20 01/01/24 Rx injection, auto-injector Allergic Reaction #2 ea latanoprost 0.005 % eye drops 1 drp ophthalmic (eye) PM 03/26/22 01/01/24 History (Xalatan) ascorbic acid (vitamin C) 500 mg 500 mg PO BID 07/10/22 01/01/24 History capsule zinc acetate 50 mg (zinc) capsule 50 mg PO DAILY 07/10/22 01/01/24 History apixaban 5 mg tablet (Eliquis) 5 mg PO BID #180 tabs 02/12/23 01/01/24 Rx lamotrigine 100 mg tablet 200 mg (2 x 100 mg) PO BID #120 03/06/23 01/01/24 Rx tabs lamotrigine 25 mg tablet 25 mg PO BID 30 days #60 tabs 03/06/23 01/01/24 Rx levetiracetam 500 mg tablet See Rx Instructions .Route 05/27/23 01/01/24 Rx .COMPLEX #360 tabs simvastatin 40 mg tablet See Rx Instructions .Route 07/07/23 01/01/24 Rx .COMPLEX #90 tabs metoprolol succinate 25 mg See Rx Instructions .Route 09/02/23 01/01/24 Rx tablet,extended release 24 hr .COMPLEX #90 tabs Spacer for Inhaler #1 ea 11/27/23 01/01/24 Rx potassium chloride 10 mEq 10 meq PO DAILY #90 caps 12/11/23 01/01/24 Rx capsule,extended release furosemide 40 mg tablet (Lasix) 40 mg PO DAILY #60 tabs 01/09/24 Rx vancomycin 125 mg capsule 125 mg PO QID #40 caps 01/21/24 Rx Past Med/Surg History Medical History (Updated 01/22/24 @ 18:04 by Jamal Alfaro MD) Osteoarthritis of both knees senior care (current) use of anticoagulants Cerebral hemorrhage Vascular insufficiency Dyslipidemia Atrial fibrillation CVA (cerebral vascular accident) Surgical History S/P hernia repair Vasectomy status H/O vasectomy Family History Other No pertinent family history Social History Smoking Status: Never smoker Second Hand Exposure: Yes; Do You Dip or Chew Tobacco: No; Hx Alcohol Use: No Hx Substance Use: No Preferred Language: Mohawk Communication Ability: Effective Visual Impairment: Diminished Hearing Ability: Hard of Hearing Golf Course Keeper Required: No Beliefs That Will Affect Care: None marital status: Current Living Situation: Spouse current occupational status: retired Other Information That Helps Us Care for You: No Feels Safe at Home: Yes Safety Concerns: Feels Safe At This Time Diet: regular caffeine: No Seatbelt Use: always Sunscreen Use: Yes Do you think of yourself as: straight/heterosexual Gender Identity: Male Assistive Devices: Contacts, CPAP and Glasses Physical Exam Physical Exam: General: A&O to name, year, building. NAD. Cooperative. HEENT: Atraumatic, normocephalic. Pulm: CTAB A&P. -wheezes, -rales, -rhonchi. Symmetrical chest rise. No increased work of breathing. No respiratory distress. Cardiac: RRR, +sm. Radial pulses intact and symmetrical. No jvd Abdominal: Nontender, nondistended, soft. BS present. Ext: warm/dry. Results & Data Results & Data Vital Signs (Past 12 Hours) Vital Signs Temp Pulse Resp BP Pulse Ox O2 Del Method 01/22/24 16:23 36.6 C 66 18 99/60 L 98 Room Air PG Care Time/CCT Total # of Minutes Spent Total Time Spent with Patient: Total time spent is greater than 50% in coordination of care (as documented) at patient's floor/unit and/or counseling patient: Coding Level of Care Code 37142 INT INP/OBS CARE 3/75MIN Diagnoses C. difficile colitis A04.72 PAF (paroxysmal atrial fibrillation) I48.0 CAD (coronary artery disease) I25.10 Aortic stenosis I35.0 Hypertension I10 Hypercholesterolemia E78.00
[2024-01-22] MEDS: LACTATED RINGER'S 1,000 ML IV ONE (16:57)
[2024-01-22 17:07] LABS: Basophils # (auto) 0.04 K/uL (0.00-0.20); Basophils % (auto) 0.4 %; Eosinophils # (auto) 0.01 K/uL (0.00-0.50); Eosinophils % (auto) 0.1 %; Hematocrit (blood only) 30.1 % (42.0-52.0); Hemoglobin 9.5 g/dl (14.0-18.0); Immature Granulocytes # (auto) 0.08 K/uL (0.01-0.20); Immature Granulocytes % (auto) 0.8 %; Lymphocytes % (auto) 6.3 %; Mean Corpuscular Hemoglobin 26.8 pg (25.0-34.0); Mean Corpuscular Hgb Conc 31.6 g/dL (32.0-36.0); Mean Platelet Volume 9.4 fL (9.4-12.4); Monocytes # (auto) 0.57 K/uL (0.11-0.59); Neutrophils # (auto) 8.21 K/uL (1.40-6.50); Neutrophils % (auto) 86.4 %; Platelet Count 169 K/uL (130-400); RDW Coefficient of Variation 16.4 % (11.5-14.5); RDW Standard Deviation 51.6 fL (36.4-46.3); Red Blood Count 3.54 M/uL (4.70-6.10); White Blood Count 9.51 K/ul (4.8-10.8)
[2024-01-22 17:30] LABS: Albumin Level 2.9 gm/dl (3.4-5.0); BUN Creatinine Ratio 19.6 (10-20); Bilirubin,Total 0.7 mg/dl (0.2-1.0); Calcium 8.6 mg/dl (8.6-10.3); Creatinine Clr Calc Pharmacy 60.4 ml/min; Est GFR (African American) 83.9 ml/min; Est GFR (Non-African American) 72.4 ml/min; Globulin 2.9 gm/dl (2.5-4.0); Potassium 4.3 mmol/L (3.5-5.1); Total Protein 5.8 gm/dl (6.0-8.3)
[2024-01-22] MEDS: LACTATED RINGER'S 1,000 ML IV SCH (17:53)
[2024-01-22 18:04] LABS: INR 1.5 (0.9-1.1); Partial Thromboplastin Ratio 1.3; Partial Thromboplastin Time 34 Seconds (21-31); Prothrombin Time 16.1 Seconds (9.0-12.0)
[2024-01-22 18:05] LABS: Troponin I High Sensitivity 40.4 pg/ml (0-20)
[2024-01-22] MEDS: CHERRY SYRUP 5 ML UDP PO SCH (19:06)
[2024-01-22] MEDS: VANCOMYCIN HCL 125 MG/2.5ML SOLN PO SCH (19:06)
[2024-01-22] MEDS: levETIRAcetam 500 MG TAB PO SCH (19:45)
[2024-01-22] MEDS: LATANOPROST 0.005% OP SOLN 2.5 ML BTL OP SCH (19:45)
[2024-01-22] MEDS: lamoTRIgine 100 MG TAB PO SCH (19:45)
[2024-01-22] MEDS: lamoTRIgine 25 MG TAB PO SCH (19:45)
[2024-01-22] MEDS: OPTIRAY 320 100ml IV ONE (20:19)
[2024-01-22] MEDS ORDERED: lamoTRIgine 25 MG TAB PO SCH (21:00)
--- NOTE | 2024-01-22 21:08 | CT Scan Report ---
Exam(s): CT ABDOMEN + PELVIS With Contrast IV Amt: 92ml optiray 320 EXAM: CT Abdomen and Pelvis With Intravenous Contrast CLINICAL HISTORY: Reason for exam: abdominal pain, c diff. TECHNIQUE: Axial computed tomography images of the abdomen and pelvis with intravenous contrast. CTDI is 24.38 mGy and DLP is 1099.61 mGy-cm. Automated exposure control was utilized for the study. A dose lowering technique was utilized adhering to the principles of ALARA. CONTRAST: Patient received 92ml optiray 320 of IV contrast COMPARISON: No relevant prior studies available. FINDINGS: Lung bases: Unremarkable. No mass. No consolidation. ABDOMEN: Liver: Unremarkable. No mass. Gallbladder and bile ducts: Unremarkable. No calcified stones. No ductal dilation. Pancreas: Unremarkable. No mass. No ductal dilation. Spleen: Unremarkable. No splenomegaly. Adrenals: Unremarkable. No mass. Kidneys and ureters: Unremarkable. No solid mass. No hydronephrosis. Stomach and bowel: Large ventral abdominal wall hernia which contains 2 loops of colon. These loops are severely thickened and inflamed, consistent with colitis. No definite colonic obstruction. Wall thickening of small bowel in the RIGHT lower quadrant, consistent with enteritis. Diarrheal disease. PELVIS: Appendix: No findings to suggest acute appendicitis. Bladder: Unremarkable. No mass. Reproductive: Unremarkable as visualized. ABDOMEN and PELVIS: Intraperitoneal space: Unremarkable. No free air. No significant fluid collection. Bones/joints: Degenerative changes of the spine. No acute fracture. No dislocation. Soft tissues: Soft tissue hematoma overlying the RIGHT greater trochanter. Vasculature: Atherosclerotic changes of the aorta. No abdominal aortic aneurysm. Lymph nodes: Unremarkable. No enlarged lymph nodes. IMPRESSION: 1. Large ventral abdominal wall hernia which contains 2 loops of colon. These loops are severely thickened and inflamed, consistent with colitis. No definite colonic obstruction. 2. Soft tissue hematoma overlying the RIGHT greater trochanter. 3. Wall thickening of small bowel in the RIGHT lower quadrant, consistent with enteritis. 4. Diarrheal disease. Electronically signed by: Medhat Alba MD 01/22/24 21:07 PM
[2024-01-22] MEDS: APIXABAN 5 MG TABLET PO SCH (23:28)
[2024-01-23 03:42] LABS: Hemoglobin 9.1 g/dl (14.0-18.0); Mean Corpuscular Hemoglobin 26.6 pg (25.0-34.0); Mean Corpuscular Hgb Conc 31.4 g/dL (32.0-36.0); Mean Corpuscular Volume 84.8 fL (80.0-100.0); Mean Platelet Volume 9.5 fL (9.4-12.4); Platelet Count 174 K/uL (130-400); RDW Coefficient of Variation 16.6 % (11.5-14.5); RDW Standard Deviation 51.5 fL (36.4-46.3); Red Blood Count 3.42 M/uL (4.70-6.10); White Blood Count 6.76 K/ul (4.8-10.8)
[2024-01-23 03:52] LABS: Albumin Level 2.6 gm/dl (3.4-5.0); BUN Creatinine Ratio 19.3 (10-20); Bilirubin,Total 0.6 mg/dl (0.2-1.0); Calcium 8.1 mg/dl (8.6-10.3); Creatinine Clr Calc Pharmacy 70.6 ml/min; Est GFR (Non-African American) 81.9 ml/min; Globulin 2.6 gm/dl (2.5-4.0); Magnesium 1.9 mg/dl (1.7-2.4); Potassium 3.7 mmol/L (3.5-5.1); Total Protein 5.2 gm/dl (6.0-8.3)
[2024-01-23 03:58] LABS: Troponin I High Sensitivity 35.3 pg/ml (0-20)
[2024-01-23 03:59] LABS: INR 1.5 (0.9-1.1); Partial Thromboplastin Ratio 1.3; Partial Thromboplastin Time 35 Seconds (21-31); Prothrombin Time 15.6 Seconds (9.0-12.0)
[2024-01-23 04:10] LABS: Basophils # (auto) 0.02 K/uL (0.00-0.20); Basophils % (auto) 0.3 %; Eosinophils # (auto) 0.05 K/uL (0.00-0.50); Eosinophils % (auto) 0.7 %; Immature Granulocytes # (auto) 0.05 K/uL (0.01-0.20); Immature Granulocytes % (auto) 0.7 %; Lymphocytes # (auto) 0.62 K/uL (1.20-3.40); Lymphocytes % (auto) 9.2 %; Monocytes # (auto) 0.51 K/uL (0.11-0.59); Monocytes % (auto) 7.5 %; Neutrophils # (auto) 5.51 K/uL (1.40-6.50); Neutrophils % (auto) 81.6 %; Ovalocytes 1+; Polychromasia 1+
--- NOTE | 2024-01-23 05:56 | Communication Note ---
Date of Service: January 23, 2024 I was notified by nursing that Mr. Dominique was having pauses on telemetry, up to 2.6s in duration. I reviewed his recently completed labs and ordered repletion for his potassium and magnesium levels to optimize his electrolytes.
[2024-01-23] MEDS: MAGNESIUM SULFATE / D5W 1 GM/100 ML BAG IV SCH (06:34)
[2024-01-23] MEDS: POTASSIUM CHLORIDE CRTAB 20 MEQ TABCR PO STA (06:39)
--- NOTE | 2024-01-23 07:15 | Hospitalist Progress Note ---
Date of Service January 23, 2024 Assessment & Plan (1) C. difficile colitis: Plan: C. difficile colitis Patient with C. difficile ongoing diarrhea and poor p.o. intake and concern for progressive volume depletion Outpatient C. difficile test confirmed Vancomycin continued. Given recurrent episodes will ultimately give pulsed taper. follow electroltytes with diarrhea (2) PAF (paroxysmal atrial fibrillation): Plan: Paroxysmal A-fib, history of Aortic Stenosis, history of lower extremity edema rate controlled with metoprolol Continue apixaban (3) CAD (coronary artery disease): Plan: CAD, baseline abnormal ecg, elevated troponin secondary to demand ischemia, acs not suspected Hypertension Slightly hypotensive in the setting of volume depletion. Lasix held Continue metoprolol, (4) Moderate protein-calorie malnutrition: Plan: Patient with low protein and albumin likely exacerbated with diarrheal state likely poor p.o. intake. Will offer nutritional shakes. (5) Anemia: Plan: Patient with chronic stable anemia hemoglobin 9 g range Will check iron iron-binding capacity B12 and folic acid Plan Chronic stable issues: Intermittent transient blurry vision No blurry vision on admission. Has had suspicion of this from recrudescence of old deficits with illness/metabolic derangements No CT indicated at time of admission History of prior left occipital stroke, patient is on aspirin/Eliquis/statin. No acute change History of seizures Lamotrigine/Keppra continued, patient reports he has been stable and doing well on this Admission and Anticipated Discharge Date Admission Date: January 22, 2024 Subjective When I saw the patient was without complaints however in the afternoon become more paranoid. Redirecting him but offering Zyprexa ODT as needed for agitation Patient cannot give me a clear answer other is having more less diarrheal stools. Nursing states it continues to be liquid but not voluminous. Physical Exam Physical Exam: Patient was oriented x 2 he was forgetful and hard of hearing His abdominal examination was slightly protuberant he was with hypoactive bowel sounds soft there is no focal area of tenderness Results & Data Results & Data Vital Signs (Past 12 Hours) Vital Signs Temp Pulse Pulse Resp BP Pulse Ox O2 Del Method 01/23/24 04:00 98.6 F 70 18 100/59 L 93 Room Air 01/22/24 23:00 98.6 F 73 18 109/58 L 93 Room Air 01/22/24 22:03 70 01/22/24 21:00 69 01/22/24 20:35 99.3 F 75 18 111/63 94 Room Air 01/22/24 19:33 Room Air 01/22/24 19:28 97.9 F 72 16 114/53 L 97 Room Air Laboratory Results Reviewed CBC reviewed chemistry PG Care Time/CCT Total # of Minutes Spent Total Time Spent with Patient: Total time spent is greater than 50% in coordination of care (as documented) at patient's floor/unit and/or counseling patient: Coding Level of Care Code 68965 SUB INP/OBS CARE 2/35MIN Diagnoses C. difficile colitis A04.72 PAF (paroxysmal atrial fibrillation) I48.0 CAD (coronary artery disease) I25.10 Moderate protein-calorie malnutrition E44.0 Anemia D64.9
[2024-01-23] MEDS: ASPIRIN 81 MG ECTAB PO SCH (08:33)
[2024-01-23] MEDS: METOPROLOL SUCC 25MG EXT REL TAB PO SCH (08:33)
[2024-01-23] MEDS: POTASSIUM CHLORIDE 10 MEQ TABCR PO SCH (08:34)
[2024-01-24 06:58] LABS: Hematocrit (blood only) 33.8 % (42.0-52.0); Hemoglobin 10.8 g/dl (14.0-18.0); Mean Corpuscular Hemoglobin 26.9 pg (25.0-34.0); Mean Corpuscular Volume 84.3 fL (80.0-100.0); Mean Platelet Volume 9.6 fL (9.4-12.4); Platelet Count 210 K/uL (130-400); RDW Coefficient of Variation 16.2 % (11.5-14.5); RDW Standard Deviation 50.4 fL (36.4-46.3); Red Blood Count 4.01 M/uL (4.70-6.10); White Blood Count 5.36 K/ul (4.8-10.8)
[2024-01-24 07:23] LABS: Basophils # (auto) 0.03 K/uL (0.00-0.20); Basophils % (auto) 0.6 %; Eosinophils # (auto) 0.08 K/uL (0.00-0.50); Eosinophils % (auto) 1.5 %; Immature Granulocytes # (auto) 0.04 K/uL (0.01-0.20); Immature Granulocytes % (auto) 0.7 %; Lymphocytes # (auto) 0.65 K/uL (1.20-3.40); Lymphocytes % (auto) 12.1 %; Monocytes # (auto) 0.53 K/uL (0.11-0.59); Monocytes % (auto) 9.9 %; Neutrophils # (auto) 4.03 K/uL (1.40-6.50); Neutrophils % (auto) 75.2 %
[2024-01-24 07:39] LABS: Albumin Level 2.9 gm/dl (3.4-5.0); Bilirubin,Total 0.6 mg/dl (0.2-1.0); Calcium 8.2 mg/dl (8.6-10.3); Potassium 3.8 mmol/L (3.5-5.1)
[2024-01-24 07:45] LABS: BUN Creatinine Ratio 18.6 (10-20); Creatinine Clr Calc Pharmacy 81.4 ml/min; Est GFR (African American) 101.9 ml/min; Est GFR (Non-African American) 87.9 ml/min; Globulin 2.9 gm/dl (2.5-4.0); Total Protein 5.8 gm/dl (6.0-8.3)
[2024-01-24 07:49] LABS: Folate (Folic Acid),Ser orPlas 7.08 ng/ml (>5.38)
[2024-01-24] MEDS: OLANZapine ZYDIS 5 MG ORALLY DIS. TAB PO PRN (11:58)
[2024-01-24] MEDS: SODIUM CHLORIDE 0.9% 1,000 ML IV SCH (11:58)
--- NOTE | 2024-01-24 11:58 | CT Scan Report ---
CT OF THE HEAD WITHOUT CONTRAST CLINICAL HISTORY: eval for subdural or subarachnoid bleed COMPARISON STUDY: Head CT January 22, 2024. MRI of the brain December 28, 2011. CT DOSE: 547.75 mGy.cm TECHNIQUE: Helical axial images of the head were obtained without IV contrast. Automated exposure con trol was utilized for the study. A dose lowering technique was utilized adhering to the principles o f ALARA. FINDINGS: This study is mildly compromised by motion artifact. No acute intracranial hemorrhage, midl ine shift or mass effect is present. Ventricular system is unremarkable. The basal cisterns are paten t. There are no extra-axial collections. Encephalomalacia within the posterior left MCA distribution is unchanged. This suggests an old infarct. The appearance of the brain is unchanged. There are no ca lvarial fractures. Chronic right maxillary sinus opacification is partially imaged. The right ethmoid air cells are partially opacified, unchanged. Old left nasal bone deformity. IMPRESSION: No acute intracranial findings. No change in appearance of the brain. ACT 112: Negative or not required by law. Electronically signed by: Mitchel Scruggs M.D. 01/24/2024 11:57 AM
[2024-01-24] MEDS: cefTRIAXone SODIUM 2,000 MG/50 ML BAG IV SCH (12:59)
[2024-01-24] MEDS: METOPROLOL TARTRATE 25 MG TAB PO SCH (13:01)
--- NOTE | 2024-01-24 18:14 | Hospitalist Progress Note ---
Date of Service January 24, 2024 Assessment & Plan (1) C. difficile colitis: Plan: C. difficile colitis Patient with C. difficile ongoing diarrhea and poor p.o. intake and concern for progressive volume depletion Outpatient C. difficile test confirmed Vancomycin continued. Given recurrent episodes will ultimately give pulsed taper. follow electrolytes with diarrhea pt with metabolic encephalopathy, did head ct to rule out bleed CVA, labs are stable consider this from infection, checking UA and one dose of Ceftriaxone given (2) PAF (paroxysmal atrial fibrillation): Plan: Paroxysmal A-fib, history of Aortic Stenosis, history of lower extremity edema rate controlled with metoprolol Continue apixaban (3) CAD (coronary artery disease): Plan: CAD, baseline abnormal ecg, elevated troponin secondary to demand ischemia, acs not suspected Hypertension Slightly hypotensive in the setting of volume depletion. Lasix held Continue metoprolol, (4) Moderate protein-calorie malnutrition: Plan: Patient with low protein and albumin likely exacerbated with diarrheal state likely poor p.o. intake. Will offer nutritional shakes. Plan Chronic stable issues: Intermittent transient blurry vision No blurry vision on admission. Has had suspicion of this from recrudescence of old deficits with illness/metabolic derangements No CT indicated at time of admission History of prior left occipital stroke, patient is on aspirin/Eliquis/statin. No acute change History of seizures Lamotrigine/Keppra continued, patient reports he has been stable and doing well on this Admission and Anticipated Discharge Date Admission Date: January 22, 2024 Subjective pt is confused at times a big difference from his baseline according to did have a fall and was on anticoagulation, CT head 01/22 was without issues offering Zyprexa ODT as needed for agitation labs rechecked and not alarming Physical Exam Physical Exam: Patient was oriented x 2 he was forgetful and hard of hearing His abdominal examination was slightly protuberant he was with hypoactive bowel sounds soft there is no focal area of tenderness PG Care Time/CCT Total # of Minutes Spent Total Time Spent with Patient: Total time spent is greater than 50% in coordination of care (as documented) at patient's floor/unit and/or counseling patient: Coding Level of Care Code 40462 SUB INP/OBS CARE 2/35MIN Diagnoses C. difficile colitis A04.72 PAF (paroxysmal atrial fibrillation) I48.0 CAD (coronary artery disease) I25.10 Moderate protein-calorie malnutrition E44.0
[2024-01-24] MEDS: levETIRAcetam IV 1,000 MG in 0.9 % SODIUM CHLORIDE 100 ML IV SCH (21:44)
[2024-01-24] MEDS: OLANZapine ZYDIS 5 MG ORALLY DIS. TAB PO SCH (23:02)
[2024-01-24] MEDS ORDERED: Nursing to Pharmacy Communication SCH (23:15)
--- NOTE | 2024-01-24 23:26 | Electrocardiogram Report ---
Test Reason : Blood Pressure : / mmHG Vent. Rate : 074 BPM Atrial Rate : 094 BPM P-R Int : 000 ms QRS Dur : 176 ms QT Int : 472 ms P-R-T Axes : 000 -35 -72 degrees QTc Int : 523 ms Atrial fibrillation Left axis deviation Right bundle branch block T wave abnormality, consider lateral ischemia Abnormal ECG When compared with ECG of 22-JAN-2024 16:20, No significant change Confirmed by Kael Philippe ([id number]) on 01/24/2024 11:25:41 PM Referred By: Felipe Blackburn Confirmed By:Kael Philippe
[2024-01-25 08:35] LABS: Basophils # (auto) 0.02 K/uL (0.00-0.20); Basophils % (auto) 0.5 %; Eosinophils # (auto) 0.06 K/uL (0.00-0.50); Eosinophils % (auto) 1.4 %; Hematocrit (blood only) 28.3 % (42.0-52.0); Hemoglobin 8.9 g/dl (14.0-18.0); Immature Granulocytes # (auto) 0.03 K/uL (0.01-0.20); Immature Granulocytes % (auto) 0.7 %; Lymphocytes # (auto) 0.75 K/uL (1.20-3.40); Lymphocytes % (auto) 17.2 %; Mean Corpuscular Hemoglobin 26.8 pg (25.0-34.0); Mean Corpuscular Hgb Conc 31.4 g/dL (32.0-36.0); Mean Corpuscular Volume 85.2 fL (80.0-100.0); Mean Platelet Volume 9.8 fL (9.4-12.4); Monocytes # (auto) 0.39 K/uL (0.11-0.59); Monocytes % (auto) 8.9 %; Neutrophils # (auto) 3.11 K/uL (1.40-6.50); Neutrophils % (auto) 71.3 %; Platelet Count 190 K/uL (130-400); RDW Coefficient of Variation 16.4 % (11.5-14.5); RDW Standard Deviation 51.2 fL (36.4-46.3); Red Blood Count 3.32 M/uL (4.70-6.10); White Blood Count 4.36 K/ul (4.8-10.8)
[2024-01-25 08:59] LABS: Albumin Globulin Ratio 0.9 (0.9-2); Albumin Level 2.3 gm/dl (3.4-5.0); BUN Creatinine Ratio 12.5 (10-20); Bilirubin,Total 0.5 mg/dl (0.2-1.0); Calcium 7.5 mg/dl (8.6-10.3); Creatinine Clr Calc Pharmacy 70.6 ml/min; Est GFR (African American) 96.4 ml/min; Est GFR (Non-African American) 83.2 ml/min; Globulin 2.5 gm/dl (2.5-4.0); Potassium 3.6 mmol/L (3.5-5.1); Total Protein 4.8 gm/dl (6.0-8.3)
[2024-01-25] MEDS: THIAMINE HCL 500 MG in SODIUM CHLORIDE 0.9% 50 ML IV STA (11:50)
--- NOTE | 2024-01-25 12:48 | Hospitalist Progress Note ---
Date of Service January 25, 2024 Assessment & Plan (1) Encephalopathy: Plan: Patient with changes in mental status concerning for metabolic encephalopathy versus progression of dementia or in hospital delirium Using Zyprexa as needed for behavior control to prevent injury Initial CT scan serology did not reveal any changes Will attempt to give thiamine therapy 01/25/2024 pursue MRI of the brain. Patient was given dose of ceftriaxone until urine analysis came back this is negative for infection ceftriaxone discontinued (2) C. difficile colitis: Plan: C. difficile colitis Patient with C. difficile ongoing diarrhea and poor p.o. intake and concern for progressive volume depletion Outpatient C. difficile test confirmed Vancomycin continued. Given recurrent episodes will ultimately give pulsed taper. follow electrolytes with diarrhea (3) PAF (paroxysmal atrial fibrillation): Plan: Paroxysmal A-fib, history of Aortic Stenosis, history of lower extremity edema rate controlled with metoprolol Continue apixaban (4) CAD (coronary artery disease): Plan: CAD, baseline abnormal ecg, elevated troponin secondary to demand ischemia, acs not suspected Hypertension Slightly hypotensive in the setting of volume depletion. Lasix held Continue metoprolol, (5) Moderate protein-calorie malnutrition: Plan: Patient with low protein and albumin likely exacerbated with diarrheal state likely poor p.o. intake. Will offer nutritional shakes. Plan Chronic stable issues: Intermittent transient blurry vision No blurry vision on admission. Has had suspicion of this from recrudescence of old deficits with illness/metabolic derangements No CT indicated at time of admission History of prior left occipital stroke, patient is on aspirin/Eliquis/statin. No acute change History of seizures Lamotrigine/Keppra continued, patient variable p.o. intake Keppra was changed to IV Lamictal still offered p.o. Admission and Anticipated Discharge Date Admission Date: January 22, 2024 Subjective Patient with in hospital delirium versus encephalopathy. Patient did have evaluation for infectious etiologies negative so far. Laboratories also been fairly unrevealing. He is suffering from C. difficile and being treated for this however he variably will refuse oral intake. CT scan performed on 01/23 did not show any overt bleeding or large stroke however he may have a small stroke as this is a change in his behavior per his will pursue MRI scan this evening Urine culture is negative has resulted on 01/25/2024 Physical Exam Physical Exam: Resting and mumbling incoherently. When attempting to examine spontaneously moves all extremities resist examination When resting is comfortable no respiratory distress Card exam is regular lungs are with fair air movement Results & Data Results & Data Vital Signs (Past 12 Hours) Vital Signs Temp Pulse Resp BP Pulse Ox O2 Del Method 01/25/24 08:50 99.0 F 67 16 96/57 L 93 Room Air 01/25/24 02:05 Room Air Laboratory Results Reviewed CBC reviewed chemistry PG Care Time/CCT Total # of Minutes Spent Total Time Spent with Patient: Total time spent is greater than 50% in coordination of care (as documented) at patient's floor/unit and/or counseling patient: Coding Level of Care Code 33463 SUB INP/OBS CARE 3/50MIN Diagnoses Encephalopathy G93.40 C. difficile colitis A04.72 PAF (paroxysmal atrial fibrillation) I48.0 CAD (coronary artery disease) I25.10 Moderate protein-calorie malnutrition E44.0
[2024-01-25] MEDS: HALOPERIDOL LACTATE 5 MG/ML 1 ML VIAL IM STA (16:33)
[2024-01-25] MEDS: LORazepam 0.25 MG in SYRINGE 0.125 ML IV PRN (17:12)
--- NOTE | 2024-01-25 19:42 | Magnetic Resonance Report ---
MR brain wo con CLINICAL HISTORY: Evaluate for subacute stroke TECHNIQUE: Multiplanar and multisequence MR images of the brain were obtained without intravenous con trast. Comparison: Comparison is made to MRI brain 12/28/[address] abdomen 01/24/2024 FINDINGS: No abnormal restricted diffusion is identified. Foci of T2 and FLAIR hyperintensity are noted in the paraventricular areas consistent with chronic small vessel ischemic disease. Ex vacuo ventriculomegal y and sulcal enlargement is noted compatible with diffuse volume loss. Focal encephalomalacia is in t he left parietal-occipital region. No mass is seen. There is no mass effect or midline shift. There i s no evidence of acute intraparenchymal hemorrhage. No extra axial fluid collections are seen. The co rpus callosum, pituitary gland, and cerebellar tonsils appear grossly unremarkable. Flow voids of the major intracranial arterial vessels are identified. Right maxillary opacification i s seen. IMPRESSION: 1. No acute abnormality and in particular no evidence of acute or subacute infarct. 2. Sinus disease. ACT 112: Negative or not required by law. Electronically signed by: Brendon Medeiros M.D. 01/25/2024 7:40 PM
[2024-01-25] MEDS: ACETAMINOPHEN 1,000 MG/100 ML VIAL IV STA (20:27)
[2024-01-26] MEDS: THIAMINE HCL 100 MG in SYRINGE 9 ML IV SCH (09:30)
--- NOTE | 2024-01-26 13:52 | Hospitalist Progress Note ---
Date of Service January 26, 2024 Assessment & Plan (1) Encephalopathy: Plan: Patient with changes in mental status concerning for metabolic encephalopathy versus progression of dementia or in hospital delirium family at the bedside feels he was intact at home two weeks ago Using Zyprexa as needed for behavior control to prevent injury Initial CT scan serology did not reveal any changes given thiamine therapy 01/25/2024 MRI of the brain 01/25 negative for acute changes, mentions sinusitis, no clinical symptoms Patient was given dose of ceftriaxone until urine analysis came back this is negative for infection ceftriaxone discontinued 01/25 does have abdominal pain, change from previous, attempt CT abdomen/pelvis with contrast (2) C. difficile colitis: Plan: C. difficile colitis Patient with C. difficile ongoing diarrhea and poor p.o. intake and concern for progressive volume depletion Outpatient C. difficile test confirmed Vancomycin continued. Given recurrent episodes will ultimately give pulsed taper. follow electrolytes with diarrhea (3) PAF (paroxysmal atrial fibrillation): Plan: Paroxysmal A-fib, history of Aortic Stenosis, history of lower extremity edema rate controlled with metoprolol Continue apixaban (4) CAD (coronary artery disease): Plan: CAD, baseline abnormal ecg, elevated troponin secondary to demand ischemia, acs not suspected Hypertension Slightly hypotensive in the setting of volume depletion. Lasix held Continue metoprolol, (5) Moderate protein-calorie malnutrition: Plan: Patient with low protein and albumin likely exacerbated with diarrheal state likely poor p.o. intake. Will offer nutritional shakes. Plan Chronic stable issues: Intermittent transient blurry vision No blurry vision on admission. Has had suspicion of this from recrudescence of old deficits with illness/metabolic derangements History of prior left occipital stroke, patient is on aspirin/Eliquis/statin. No acute change History of seizures Lamotrigine/Keppra continued, patient variable p.o. intake Keppra was changed to IV Lamictal still offered p.o. Admission and Anticipated Discharge Date Admission Date: January 22, 2024 Subjective Patient with in hospital delirium versus encephalopathy. Patient did have evaluation for infectious etiologies negative so far. Laboratories also been unrevealing. PT has increased abdominal pain on 01/25, ording CT abd pelvis, due to his not wanting to take po, he has not taken vanco for the last few days, did get dosing on 01/26/24 CT scan head performed on 01/23 did not show any overt bleeding or large stroke however he may have a small stroke as this is a change in his behavior per his will pursue MRI scan this evening Urine culture is negative has resulted on 01/25/2024 MRI of brain negative for acute changes Physical Exam Physical Exam: Resting and mumbling does speak and make sense when directly asked When resting is comfortable no respiratory distress Card exam is regular lungs are with fair air movement abd with reproducible hernias but much more tender than previous Results & Data Results & Data Vital Signs (Past 12 Hours) Vital Signs Temp Pulse Resp BP Pulse Ox O2 Del Method 01/26/24 09:35 Room Air 01/26/24 08:59 96.3 F L 74 14 127/64 95 Room Air PG Care Time/CCT Total # of Minutes Spent Total Time Spent with Patient: Total time spent is greater than 50% in coordination of care (as documented) at patient's floor/unit and/or counseling patient: Coding Level of Care Code 81042 SUB INP/OBS CARE 2/35MIN Diagnoses Encephalopathy G93.40 C. difficile colitis A04.72 PAF (paroxysmal atrial fibrillation) I48.0 CAD (coronary artery disease) I25.10 Moderate protein-calorie malnutrition E44.0
--- NOTE | 2024-01-26 20:32 | CT Scan Report ---
CT abd pelvis oral con only CLINICAL HISTORY: rebound tenderness TECHNIQUE: Helical axial images of the abdomen and pelvis were obtained. Automated dose lowering tech niques and/or adjustment according to patient size were utilized for this exam. This exam was perfor med without intravenous contrast. CT DOSE: 1931.62 mGy.cm COMPARISON: Comparison is made to CT abdomen pelvis 02/03/2024 FINDINGS: Lower chest: Small to moderate bilateral effusions are seen. Airspace opacities are seen in the left greater than right lower lung. Liver: Unremarkable. No focal lesions are seen. Gallbladder and biliary tree: No calcified gallstones. Normal caliber wall. No intra- or extrahepatic biliary ductal dilation. Pancreas: Unremarkable, no focal lesions. Spleen: Unremarkable. Adrenals: Unremarkable. Kidneys and ureters: Unremarkable. Bladder: Smith catheter is seen. Reproductive organs: Prostatic calcifications are seen which may represent prior hemorrhage or granul omatous disease. Bowel: Liquid contents are seen in the colon. Lymph nodes Retroperitoneal: Unremarkable. Pelvic: Unremarkable. Mesenteric: Unremarkable. Peritoneum: Small ascites is seen. Vessels: Atherosclerotic calcifications are seen. Abdominal wall: 2 abdominal wall defects are seen containing loops of nondilated bowel. Body wall shannan ma is seen. Bones: Degenerative changes in the visualized spine. IMPRESSION: 1. No acute intra-abdominal abnormality. There is nonspecific mild ascites. 2. Liquid contents are seen in the colon compatible with diarrhea. 3. Body wall edema. 4. Moderate bilateral pleural effusions. 5. Additional findings as above. ACT 112: Negative or not required by law. Electronically signed by: Brendon Medeiros M.D. 01/26/2024 8:30 PM
[2024-01-27 06:30] LABS: Hematocrit (blood only) 28.5 % (42.0-52.0); Mean Corpuscular Hemoglobin 26.9 pg (25.0-34.0); Mean Corpuscular Hgb Conc 31.6 g/dL (32.0-36.0); Mean Corpuscular Volume 85.1 fL (80.0-100.0); Mean Platelet Volume 9.5 fL (9.4-12.4); Platelet Count 190 K/uL (130-400); RDW Coefficient of Variation 16.5 % (11.5-14.5); RDW Standard Deviation 51.1 fL (36.4-46.3); Red Blood Count 3.35 M/uL (4.70-6.10); White Blood Count 5.74 K/ul (4.8-10.8)
[2024-01-27 07:24] LABS: Albumin Globulin Ratio 0.9 (0.9-2); Albumin Level 2.3 gm/dl (3.4-5.0); BUN Creatinine Ratio 10.8 (10-20); Bilirubin,Total 0.4 mg/dl (0.2-1.0); Calcium 7.4 mg/dl (8.6-10.3); Creatinine Clr Calc Pharmacy 87.4 ml/min; Est GFR (Non-African American) 90.6 ml/min; Globulin 2.7 gm/dl (2.5-4.0); Potassium 3.5 mmol/L (3.5-5.1)
[2024-01-27] MEDS: D5W AND LACTATED RINGERS 1,000 ML IV SCH (11:34)
--- NOTE | 2024-01-27 12:09 | Neurology Consultation ---
Date of Consultation January 27, 2024 Assessment & Plan (1) Encephalopathy: History of Present Illness Attending Physician: Yariel Arriaza MD History of Present Illness pt today very sleepy and drowsy. pt briefly opens eyes to verbal command. no abnormal movements. briefly making sound when asked name. chart reviewed. admission HPI: Tristan is seen at the bedside. He is a somewhat limited h istorian and notes "my answers most of these questions "but is oriented to year, place, and hospital. He reports that he has episodes of C. difficile before this is his second treated episode with antibiotics. He denies fever, chills, sweats. He denies syncope/presyncope. Feels tired and slightly lightheaded. He is having continual bowel movements sometimes incontinent with urgency and completely liquid. Denies blood. He has some abdominal pain around a hernia, thinks this is a little worse but "not too bad ". No pain at rest, somewhat tender around hernia on palpation but without rigidity/guarding. He denies vision change diet bedside assessment. He reports he did take his morning medications today, but would have to check with his to know which medication was which. He thinks that this did include his blood thinner. He reports he has had no chest pain or chest pressure at any point, and is pain- free on admission. Denies shortness of breath although notes he gets winded easily. Allergies Allergy/AdvReac Type Severity Reaction Status Date / Time bee venom protein (honey bee) Allergy Unknown UNKN Verified 12/31/23 15:15 No Known Drug Allergies Allergy Verified 12/31/23 15:15 lactose AdvReac Intermediate GI UPSET Verified 12/31/23 15:15 Home Medications Medication Instructions Recorded Confirmed Type aspirin 81 mg tablet,delayed 81 mg PO DAILY 06/03/18 01/23/24 History release (Raissa Low Dose Aspirin) calcium carbonate 600 mg-vitamin 1 tab PO BID 06/03/18 01/23/24 History D3 5 mcg (200 unit) tablet (Calcium 600 + D(3)) epinephrine 0.3 mg/0.3 mL 0.3 mg (0.3 mL) IM DIRECTED PRN 05/02/20 01/23/24 Rx injection, auto-injector Allergic Reaction #2 ea latanoprost 0.005 % eye drops 1 drp ophthalmic (eye) PM 03/26/22 01/23/24 History (Xalatan) ascorbic acid (vitamin C) 500 mg 500 mg PO BID 07/10/22 01/23/24 History capsule zinc acetate 50 mg (zinc) capsule 50 mg PO DAILY 07/10/22 01/23/24 History apixaban 5 mg tablet (Eliquis) 5 mg PO BID #180 tabs 02/12/23 01/23/24 Rx lamotrigine 100 mg tablet 200 mg (2 x 100 mg) PO BID #120 03/06/23 01/23/24 Rx tabs lamotrigine 25 mg tablet 25 mg PO BID 30 days #60 tabs 03/06/23 01/23/24 Rx levetiracetam 500 mg tablet See Rx Instructions .Route 05/27/23 01/23/24 Rx .COMPLEX #360 tabs simvastatin 40 mg tablet See Rx Instructions .Route 07/07/23 01/23/24 Rx .COMPLEX #90 tabs metoprolol succinate 25 mg See Rx Instructions .Route 09/02/23 01/23/24 Rx tablet,extended release 24 hr .COMPLEX #90 tabs Spacer for Inhaler #1 ea 11/27/23 01/01/24 Rx potassium chloride 10 mEq 10 meq PO DAILY #90 caps 12/11/23 01/23/24 Rx capsule,extended release furosemide 40 mg tablet (Lasix) 0 mg PO DAILY 01/23/24 01/23/24 History Patient History Medical History (Updated 01/25/24 @ 12:47 by Yariel Arriaza MD) Osteoarthritis of both knees [facility] (current) use of anticoagulants Cerebral hemorrhage Vascular insufficiency Dyslipidemia Atrial fibrillation CVA (cerebral vascular accident) Surgical History S/P hernia repair Vasectomy status H/O vasectomy Family History Other No pertinent family history Social History Smoking Status: Never smoker Second Hand Exposure: Yes; Do You Dip or Chew Tobacco: No; Hx Alcohol Use: No Hx Substance Use: No Preferred Language: Croatian Communication Ability: Effective Visual Impairment: Diminished Hearing Ability: Hard of Hearing Land Leveler Required: No Beliefs That Will Affect Care: None marital status: Current Living Situation: Spouse current occupational status: retired Other Information That Helps Us Care for You: No Feels Safe at Home: Yes Safety Concerns: Feels Safe At This Time Diet: regular caffeine: No Seatbelt Use: always Sunscreen Use: Yes Do you think of yourself as: straight/heterosexual Gender Identity: Male Assistive Devices: None Exam (Neuro) Physical Exam: HEENT: normocephalic Neuro: Mental: Drowsy, able to tell me name after several attempts. limited exam due to drowsiness. CN: PERRL, Full EOM, symmetric face grossly. Motor: No abnormal movements, normal tone and bulk, able to hold his arms up briefly on command. b/l leg edema. Sens: withdraws to pain b/l . Coord: deferred. DTR: 1+ sym b/l Gait: deferred. Impression: 83 yo male with drowsy state with likely metabolic encephalopathy from dehydration and baseline vascular dementia worsening from his C. diff infection and dehydration and malnutrition. pt well known to neurology as pt as seen by Dr. Hill and kusum lucero in neurology clinic for seizure. no suggestion of seizure activities at this point. Recommendations: avoid using sedative meds, including anticholingeric, antidopaminergic meds. agree with holding and not using zyprexa. focus on aggressive hydration and nutritional care as pt does appears very dry and malnourished. reduce keppra to 500mg po/IV bid also reduce lamictal to 150mg po bid, check levels. otherwise not much to add. mri brain negative. no need for EEG at this point. Chart reviewed I have spent more than 50% educating patient about potential diagnosis and neurological evaluation and coordinating care with patient's treatment team. Total time spent (including chart review and coordination of care): 60 min (this includes chart review). Results & Data Vital Signs (Past 12 Hours) Vital Signs Temp Pulse Resp BP Pulse Ox O2 Del Method 01/27/24 07:57 36.8 C 75 16 125/75 91 Room Air 01/27/24 07:30 Room Air 01/27/24 01:35 Room Air PG Care Time/CCT Total # of Minutes Spent Total Time Spent with Patient: Total time spent is greater than 50% in coordination of care (as documented) at patient's floor/unit and/or counseling patient: Coding Level of Care Code 57902 IN/OBS CONSULT LVL 4,60M Diagnoses Encephalopathy G93.40
--- NOTE | 2024-01-27 17:32 | Hospitalist Progress Note ---
Date of Service January 27, 2024 Assessment & Plan (1) Encephalopathy: Plan: Patient with changes in mental status concerning for metabolic encephalopathy versus progression of dementia or in hospital delirium family at the bedside feels he was intact at home two weeks ago Initial CT scan serology did not reveal any changes given thiamine therapy 01/25/2024-on going MRI of the brain 01/25 negative for acute changes, mentions sinusitis, no clinical symptoms Patient was given dose of ceftriaxone until urine analysis came back this is negative for infection ceftriaxone discontinued 01/25 CT abdomen/pelvis with contrast negative Neurology recommended hydration and focus on nutrition (2) C. difficile colitis: Plan: C. difficile colitis Patient with C. difficile ongoing diarrhea and poor p.o. intake and concern for progressive volume depletion Outpatient C. difficile test confirmed Vancomycin continued. Given recurrent episodes will ultimately give pulsed taper. follow electrolytes with diarrhea (3) PAF (paroxysmal atrial fibrillation): Plan: Paroxysmal A-fib, history of Aortic Stenosis, history of lower extremity edema rate controlled with metoprolol Continue apixaban (4) CAD (coronary artery disease): Plan: CAD, baseline abnormal ecg, elevated troponin secondary to demand ischemia, acs not suspected Hypertension Slightly hypotensive in the setting of volume depletion. Lasix held Continue metoprolol, (5) Moderate protein-calorie malnutrition: Plan: Patient with low protein and albumin likely exacerbated with diarrheal state likely poor p.o. intake. Will offer nutritional shakes. Plan Chronic stable issues: Intermittent transient blurry vision No blurry vision on admission. Has had suspicion of this from recrudescence of old deficits with illness/metabolic derangements History of prior left occipital stroke, patient is on aspirin/Eliquis/statin. No acute change History of seizures Lamotrigine/Keppra dose reduced as recommended by neurology Admission and Anticipated Discharge Date Admission Date: January 23, 2024 Subjective Patient with in hospital delirium versus encephalopathy. Patient did have evaluation for infectious etiologies negative so far. Laboratories also been unrevealing. neurology eval [facility] recommendation to reduce antiepileptic meds and hydrate Physical Exam Physical Exam: Resting and mumbling does speak and answer some questions When resting is comfortable no respiratory distress Card exam is regular lungs are with fair air movement abd with reproducible hernias but much more tender than previous Results & Data Results & Data Vital Signs (Past 12 Hours) Vital Signs Temp Pulse Resp BP Pulse Ox O2 Del Method 01/27/24 16:46 97.2 F L 61 16 168/81 H 91 Room Air 01/27/24 07:57 98.2 F 75 16 125/75 91 Room Air 01/27/24 07:30 Room Air Laboratory Results review cbc review chemistry PG Care Time/CCT Total # of Minutes Spent Total Time Spent with Patient: Total time spent is greater than 50% in coordination of care (as documented) at patient's floor/unit and/or counseling patient: Coding Level of Care Code 37580 SUB INP/OBS CARE 2/35MIN Diagnoses Encephalopathy G93.40 C. difficile colitis A04.72 PAF (paroxysmal atrial fibrillation) I48.0 CAD (coronary artery disease) I25.10 Moderate protein-calorie malnutrition E44.0
[2024-01-28 07:01] LABS: Hematocrit (blood only) 29.7 % (42.0-52.0); Hemoglobin 9.3 g/dl (14.0-18.0); Mean Corpuscular Hemoglobin 26.5 pg (25.0-34.0); Mean Corpuscular Hgb Conc 31.3 g/dL (32.0-36.0); Mean Corpuscular Volume 84.6 fL (80.0-100.0); Mean Platelet Volume 9.4 fL (9.4-12.4); Platelet Count 196 K/uL (130-400); RDW Coefficient of Variation 16.8 % (11.5-14.5); RDW Standard Deviation 51.4 fL (36.4-46.3); Red Blood Count 3.51 M/uL (4.70-6.10); White Blood Count 5.82 K/ul (4.8-10.8)
--- NOTE | 2024-01-28 08:01 | XRay Report ---
XR chest 1V portable HISTORY: 83 years-old Male eval pneumonmia acute shortness of breath COMPARISON: 12/25/2023 TECHNIQUE: AP view of the chest FINDINGS: Cardiac silhouette is enlarged. No pneumothorax. Layering pleural effusions with bibasilar predominat e consolidation. Pulmonary vascular congestion with interstitial coarsening. Bones appear grossly int act. IMPRESSION: 1. Cardiomegaly with pulmonary edema. 2. Layering pleural effusions with bibasilar predominant consolidation suggestive of atelectasis vers us pneumonitis. ACT 112: Negative or not required by law. The above report was generated using voice recognition software. It may contain grammatical, syntax o r spelling errors. Electronically signed by: Trenton Lundy M.D. 01/28/2024 8:00 AM
[2024-01-28 08:40] LABS: Albumin Globulin Ratio 0.9 (0.9-2); Albumin Level 2.4 gm/dl (3.4-5.0); Bilirubin,Total 0.4 mg/dl (0.2-1.0); Calcium 7.7 mg/dl (8.6-10.3); Creatinine Clr Calc Pharmacy 94.7 ml/min; Est GFR (African American) 108.5 ml/min; Est GFR (Non-African American) 93.6 ml/min; Globulin 2.8 gm/dl (2.5-4.0); Potassium 3.3 mmol/L (3.5-5.1); Total Protein 5.2 gm/dl (6.0-8.3)
[2024-01-28] MEDS: levETIRAcetam IV 500 MG in 0.9 % SODIUM CHLORIDE 100 ML IV SCH (09:07)
[2024-01-28] MEDS: lamoTRIgine 25 MG TAB PO SCH (09:43)
[2024-01-28] MEDS: lamoTRIgine 100 MG TAB PO SCH (09:43)
[2024-01-28] MEDS: FUROSEMIDE INJ 20 MG/2 ML VIAL IV ONE (10:05)
[2024-01-28] MEDS: PIPER/TAZO 4.5g in D5W MINI-B 100 ML IV ONE (10:05)
[2024-01-28 10:49] LABS: C Reactive Protein 6.05 mg/dl (0-0.5)
[2024-01-28] MEDS: POTASSIUM CHLORIDE / WTR 10 MEQ/100 ML PLCT IV SCH (11:07)
--- NOTE | 2024-01-28 11:17 | XCELERA ---
[id number]
[2024-01-28 12:28] LABS: Appearance CSF Clear; CSF Count Tube # 3; CSF Xanthrochromic No xanthochromia; Color CSF Colorless; Red Blood Cell CSF Manual 22 (0-); White Blood Cell CSF Manual 2 (0-5)
[2024-01-28 12:49] LABS: Total Protein CSF 49.7 mg/dl (15-45)
--- NOTE | 2024-01-28 13:28 | Fluoroscopy Report ---
Lumbar puncture under fluoroscopy INDICATION: Altered mental status PROCEDURE: Procedure and risks were explained. Informed consent was obtained. A final timeout was com pleted. The patient was placed prone on the fluoroscopic exam table. The lower lumbar region was prep ped and draped in sterile fashion. 1% lidocaine was utilized for skin anesthesia. Utilizing fluoroscopic guidance, a 22-gauge spinal needle was advanced into the intrathecal space at the L2-3 disc space level. Spot images were obtained. Approximately 8 mL of clear CSF fluid was remov ed and sent to lab for analysis. The needle was removed and Band-Aid applied. The patient tolerated t he procedure well. Vital signs will be monitored postprocedure. Total fluoroscopy time is 32 seconds. Study dose is 39.91mGy. IMPRESSION: Lumbar puncture as above. Performed, dictated, and signed by Alfred Adkins PA-C; to be co-signed by Dr. Trenton Lundy. Electronically signed by: Trenton Lundy M.D. 01/28/2024 1:36 PM
[2024-01-28 13:48] LABS: Cryptococcus neoformans/ga PCR Not Detected (NotDetected); Cytomegalovirus PCR Not Detected (NotDetected); Enterovirus PCR Not Detected (NotDetected); Escherichia coli K1 PCR Not Detected (NotDetected); Haemophilius influenzae PCR Not Detected (NotDetected); Herpes Simplex Virus 1 PCR Not Detected (NotDetected); Herpes Simplex Virus 2 PCR Not Detected (NotDetected); Human Herpes Virus 6 PCR Not Detected (NotDetected); Human Parechovirus PCR Not Detected (NotDetected); Listeria monocytogenes PCR Not Detected (NotDetected); Neisseria meningitidis PCR Not Detected (NotDetected); Streptococcus agalactiae PCR Not Detected (NotDetected); Streptococcus pneumoniae PCR Not Detected (NotDetected); Varicella Zoster Virus PCR Not Detected (NotDetected)
[2024-01-28] MEDS: PIPERACILLIN/TAZOBACTAM 4.5 GM in DEXTROSE 5% MINI-B 100 ML IV SCH (17:24)
--- NOTE | 2024-01-28 18:56 | Hospitalist Progress Note ---
Date of Service January 28, 2024 Assessment & Plan (1) Encephalopathy: Plan: Patient with changes in mental status concerning for metabolic encephalopathy versus progression of dementia or in hospital delirium After discussion with family was having a decline over the last year to 6 months Both and daughter feel this may be just progression of his baseline mental decline. Sons however which have been more removed from his day-to-day life are showing more concern. After janina discussion of and review of all of his testing including recent LP test and daughter are deciding whether we should pause to determine if reducing his antiepileptics, instituting new antibiotic for possibility of an occult infection/pneumonia, waiting for blood cultures and continuing thiamine therapy should be undertaken and then without improvement with regard to this may consider moving to palliative care. There is also discussion of possible referral to tertiary for another opinion versus his progressive delirium. Initial admission screening for infectious etiologies outside of C. difficile was negative including CT abdomen pelvi2 01/24/[address] negative for hemorrhage bleed or stroke. Empiric ceftriaxone began waiting for urine culture. 01/25/2024 urine culture results negative ceftriaxone stopped patient instituted on thiamine therapy patient given Zyprexa at bedtime due to control behavior for pulling at lines and tubes. 01/26/2024 Zyprexa discontinued brain MRI pursued for evaluation of stroke this was negative. Additional abdomen pelvis CT scan also was negative for intra- abdominal pathology 01/27/2024 neurology consult recommend decreasing doses of seizure medications. Lamictal dose and how it was ordered. Hydration started due to lack of p.o. intake subsequently on 01/28/2024 patient went into acute on chronic diastolic heart failure from severe attic stenosis. IV fluids were stopped and diuresis was undertaken 01/28/2024 lumbar puncture was pursued without significant infectious etiologies suggested. White cells were 2 on the tap total protein was 49 normal being 45 glucose was slightly elevated Lyme test on CSF was negative At this point time thiamine continues reduced dose of Keppra and Lamictal (2) C. difficile colitis: Plan: C. difficile colitis Patient with C. difficile confirmed outpatient testing ongoing diarrhea and poor p.o. intake Patient is sensitive to volume with his severe aortic stenosis Vancomycin continued. Given recurrent episodes will ultimately give pulsed taper. (3) PAF (paroxysmal atrial fibrillation): Plan: Paroxysmal A-fib, history of severe aortic Stenosis, with preserved ejection fraction on echocardiogram from 01/28/2024 Additionally was no valve vegetations seen on transthoracic echocardiogram. Sed rate and CRP come back middle range in the 70s and sixes rate controlled with metoprolol Continue apixaban elevated troponin secondary to demand ischemia, acs not suspected (4) Moderate protein-calorie malnutrition: Plan: Patient with low protein and albumin likely exacerbated with diarrheal state likely poor p.o. intake. Will offer nutritional shakes. Plan Sleep apnea. Patient was not known to be on CPAP at night until the . This was ordered for a chest examiners of water with oxygen bleed and to keep sats above 90 History of seizures Lamotrigine/Keppra dose reduced as recommended by neurology Admission and Anticipated Discharge Date Admission Date: January 23, 2024 Subjective Patient with in hospital delirium versus encephalopathy. Patient did have evaluation for infectious etiologies negative so far, including LP Laboratories also been unrevealing including tic borne. neurology eval with recommendation to reduce antiepileptic meds and hydration caused some acute on chronic diastolic heart failure Physical Exam Physical Exam: Resting and mumbling does speak in colorful profanities at times When resting is comfortable, morning respiratory distress has cleared with diuresis Card exam is regular shrill murmur lungs are with fair air movement, basilar rales improved abd with reducible hernias non tender Results & Data Results & Data Vital Signs (Past 12 Hours) Vital Signs Temp Pulse Resp BP Pulse Ox O2 Del Method O2 Flow Rate 01/28/24 15:47 98.2 F 56 L 18 158/82 H 97 Nasal Cannula 2 01/28/24 12:25 97.0 F L 61 20 143/80 H 97 Nasal Cannula 2 01/28/24 07:38 Nasal Cannula 2 01/28/24 07:32 67 20 170/92 H 95 Nasal Cannula 2 01/28/24 07:28 97.5 F L 69 22 204/101 H 80 L Room Air Laboratory Results review cbc review chemistry LP results reviewed PG Care Time/CCT Total # of Minutes Spent Total Time Spent with Patient: Total time spent is greater than 50% in coordination of care (as documented) at patient's floor/unit and/or counseling patient: Coding Level of Care Code 27168 SUB INP/OBS CARE 3/50MIN Diagnoses Encephalopathy G93.40 C. difficile colitis A04.72 PAF (paroxysmal atrial fibrillation) I48.0 Moderate protein-calorie malnutrition E44.0
[2024-01-29] MEDS: QUEtiapine FUMARATE 25 MG TABLET PO ONE (18:13)
[2024-01-29] MEDS: levETIRAcetam IV 500 MG in SODIUM CHLOR 0.9% MINI-B 100 ML IV SCH (19:40)
--- NOTE | 2024-01-29 22:07 | Hospitalist Progress Note ---
Date of Service January 29, 2024 Assessment & Plan (1) Encephalopathy: Plan: Patient with changes in mental status concerning for metabolic encephalopathy versus progression of dementia or in hospital delirium After discussion with family was having a decline over the last year to 6 months Both and daughter feel this may be just progression of his baseline mental decline. Sons however which have been more removed from his day-to-day life are showing more concern. After janina discussion of and review of all of his testing including recent LP test and daughter are deciding whether we should pause to determine if reducing his antiepileptics, instituting new antibiotic for possibility of an occult infection/pneumonia, waiting for blood cultures and continuing thiamine therapy should be undertaken and then without improvement with regard to this may consider moving to palliative care. There is also discussion of possible referral to tertiary for another opinion versus his progressive delirium. Initial admission screening for infectious etiologies outside of C. difficile was negative including CT abdomen pelvi2 01/24/[address] negative for hemorrhage bleed or stroke. Empiric ceftriaxone began waiting for urine culture. 01/25/2024 urine culture results negative ceftriaxone stopped patient instituted on thiamine therapy patient given Zyprexa at bedtime due to control behavior for pulling at lines and tubes. 01/26/2024 Zyprexa discontinued brain MRI pursued for evaluation of stroke this was negative. Additional abdomen pelvis CT scan also was negative for intra- abdominal pathology 01/27/2024 neurology consult recommend decreasing doses of seizure medications. Lamictal dose and how it was ordered. Hydration started due to lack of p.o. intake subsequently on 01/28/2024 patient went into acute on chronic diastolic heart failure from severe attic stenosis. IV fluids were stopped and diuresis was undertaken 01/28/2024 lumbar puncture was pursued without significant infectious etiologies suggested. White cells were 2 on the tap total protein was 49 normal being 45 glucose was slightly elevated Lyme test on CSF was negative At this point time thiamine continues reduced dose of Keppra and Lamictal Ordered seroquel on 01/28 will re-eval on 01/29 zosyn was stopped on 01/28 (2) C. difficile colitis: Plan: C. difficile colitis Patient with C. difficile confirmed outpatient testing ongoing diarrhea and poor p.o. intake Patient is sensitive to volume with his severe aortic stenosis Vancomycin continued. Given recurrent episodes will ultimately give pulsed taper. (3) PAF (paroxysmal atrial fibrillation): Plan: Paroxysmal A-fib, history of severe aortic Stenosis, with preserved ejection fraction on echocardiogram from 01/28/2024 Additionally was no valve vegetations seen on transthoracic echocardiogram. Sed rate and CRP come back middle range in the 70s and sixes rate controlled with metoprolol Continue apixaban elevated troponin secondary to demand ischemia, acs not suspected (4) Moderate protein-calorie malnutrition: Plan: Patient with low protein and albumin likely exacerbated with diarrheal state likely poor p.o. intake. Will offer nutritional shakes. Plan Sleep apnea. Patient was not known to be on CPAP at night until the . This was ordered for a chest examiners of water with oxygen bleed and to keep sats above 90 History of seizures Lamotrigine/Keppra dose reduced as recommended by neurology Admission and Anticipated Discharge Date Admission Date: January 23, 2024 Subjective Patient is confused and restless. Taking to himself Review of Systems Review of Systems: All systems reviewed & are unremarkable except as noted in HPI & below Physical Exam Physical Exam: Resting and mumbling does speak in colorful profanities at times When resting is comfortable, morning respiratory distress has cleared with diuresis Card exam is regular shrill murmur lungs are with fair air movement, basilar rales improved abd with reducible hernias non tender Results & Data Results & Data Vital Signs (Past 12 Hours) Vital Signs Temp Pulse Pulse Resp BP Pulse Ox O2 Del Method 01/29/24 20:00 Nasal Cannula 01/29/24 18:26 Nasal Cannula 01/29/24 15:38 36.6 C 93 H 20 154/77 H 95 Nasal Cannula 01/29/24 12:05 36.5 C 78 17 156/80 H 94 Room Air O2 Flow Rate 01/29/24 20:00 2 01/29/24 18:26 2 01/29/24 15:38 2 01/29/24 12:05 PG Care Time/CCT Total # of Minutes Spent Total Time Spent with Patient: Total time spent is greater than 50% in coordination of care (as documented) at patient's floor/unit and/or counseling patient: Coding Level of Care Code 80840 SUB INP/OBS CARE 2/35MIN Diagnoses Encephalopathy G93.40 C. difficile colitis A04.72 PAF (paroxysmal atrial fibrillation) I48.0 Moderate protein-calorie malnutrition E44.0
[2024-01-30] MEDS: ALBUT/IPRATROP 3MG/0.5MG NEB 3 ML VIAL NEB STA (07:07)
[2024-01-30 07:52] LABS: Hematocrit (blood only) 29.4 % (42.0-52.0); Hemoglobin 9.1 g/dl (14.0-18.0); Mean Corpuscular Hemoglobin 26.5 pg (25.0-34.0); Mean Corpuscular Volume 85.5 fL (80.0-100.0); Mean Platelet Volume 9.4 fL (9.4-12.4); Platelet Count 200 K/uL (130-400); RDW Coefficient of Variation 17.1 % (11.5-14.5); RDW Standard Deviation 52.5 fL (36.4-46.3); Red Blood Count 3.44 M/uL (4.70-6.10); White Blood Count 6.77 K/ul (4.8-10.8)
[2024-01-30 08:20] LABS: BUN Creatinine Ratio 10.1 (10-20); C Reactive Protein 5.31 mg/dl (0-0.5); Calcium 8.1 mg/dl (8.6-10.3); Creatinine Clr Calc Pharmacy 82.4 ml/min; Est GFR (African American) 102.5 ml/min; Est GFR (Non-African American) 88.4 ml/min; Potassium 3.4 mmol/L (3.5-5.1)
[2024-01-30 09:53] LABS: Basophils # (auto) 0.07 K/uL (0.00-0.20); Eosinophils # (auto) 0.13 K/uL (0.00-0.50); Eosinophils % (auto) 1.9 %; Immature Granulocytes # (auto) 0.05 K/uL (0.01-0.20); Immature Granulocytes % (auto) 0.7 %; Lymphocytes # (auto) 0.95 K/uL (1.20-3.40); Lymphocytes % (auto) 13.7 %; Monocytes % (auto) 5.8 %; Neutrophils # (auto) 5.31 K/uL (1.40-6.50); Neutrophils % (auto) 76.9 %
--- NOTE | 2024-01-30 10:16 | XRay Report ---
XR chest 1V portable HISTORY: hypoxia COMPARISON: Chest 01/28/2024. FINDINGS: No pneumothorax. The heart remains enlarged. There is mild central pulmonary vascular conge stion without overt edema. This has improved. Left greater than right bilateral layering pleural effu sions have also slightly improved. No acute fractures. IMPRESSION: 1. Stable cardiomegaly. 2. Mild improvement in the pulmonary vascular congestion and layering pleural effusions. ACT 112: Negative or not required by law. Electronically signed by: Thien Méndez M.D. 01/30/2024 10:14 AM
[2024-01-30] MEDS: POTASSIUM CHLORIDE PWD 20 MEQ PACK PO ONE (10:34)
--- NOTE | 2024-01-30 15:06 | XRay Report ---
XR KUB/Abdomen 1 view CLINICAL HISTORY: c diff colitis TECHNIQUE: 1 view of the abdomen was obtained. Comparison: None available at the time of this dictation. FINDINGS: Lung bases are unremarkable. Degenerative changes are seen in the visualized skeleton. The bowel gas pattern is nonobstructive. Large stool burden is seen without evidence of inspissated stool in the re ctum. IMPRESSION: Nonobstructive bowel gas pattern. ACT 112: Negative or not required by law. Electronically signed by: Brendon Medeiros M.D. 01/30/2024 3:05 PM
--- NOTE | 2024-01-30 20:20 | Hospitalist Progress Note ---
Date of Service January 30, 2024 Assessment & Plan (1) Encephalopathy: Plan: Patient with changes in mental status concerning for metabolic encephalopathy versus progression of dementia or in hospital delirium After discussion with family was having a decline over the last year to 6 months Both and daughter feel this may be just progression of his baseline mental decline. Sons however which have been more removed from his day-to-day life are showing more concern. After janina discussion of and review of all of his testing including recent LP test and daughter are deciding whether we should pause to determine if reducing his antiepileptics, instituting new antibiotic for possibility of an occult infection/pneumonia, waiting for blood cultures and continuing thiamine therapy should be undertaken and then without improvement with regard to this may consider moving to palliative care. There is also discussion of possible referral to tertiary for another opinion versus his progressive delirium. Initial admission screening for infectious etiologies outside of C. difficile was negative including CT abdomen pelvi2 01/24/[address] negative for hemorrhage bleed or stroke. Empiric ceftriaxone began waiting for urine culture. 01/25/2024 urine culture results negative ceftriaxone stopped patient instituted on thiamine therapy patient given Zyprexa at bedtime due to control behavior for pulling at lines and tubes. 01/26/2024 Zyprexa discontinued brain MRI pursued for evaluation of stroke this was negative. Additional abdomen pelvis CT scan also was negative for intra- abdominal pathology 01/27/2024 neurology consult recommend decreasing doses of seizure medications. Lamictal dose and how it was ordered. Hydration started due to lack of p.o. intake subsequently on 01/28/2024 patient went into acute on chronic diastolic heart failure from severe attic stenosis. IV fluids were stopped and diuresis was undertaken 01/28/2024 lumbar puncture was pursued without significant infectious etiologies suggested. White cells were 2 on the tap total protein was 49 normal being 45 glucose was slightly elevated Lyme test on CSF was negative At this point time thiamine continues reduced dose of Keppra and Lamictal Ordered seroquel on 01/28 will re-eval on 01/29 zosyn was stopped on 01/28 continue vancomycin. reviewed chest x ray on 01/29 (2) C. difficile colitis: Plan: C. difficile colitis Patient with C. difficile confirmed outpatient testing ongoing diarrhea and poor p.o. intake Patient is sensitive to volume with his severe aortic stenosis Vancomycin continued. Given recurrent episodes will ultimately give pulsed taper. (3) PAF (paroxysmal atrial fibrillation): Plan: Paroxysmal A-fib, history of severe aortic Stenosis, with preserved ejection fraction on echocardiogram from 01/28/2024 Additionally was no valve vegetations seen on transthoracic echocardiogram. Sed rate and CRP come back middle range in the 70s and sixes rate controlled with metoprolol Continue apixaban elevated troponin secondary to demand ischemia, acs not suspected (4) Moderate protein-calorie malnutrition: Plan: Patient with low protein and albumin likely exacerbated with diarrheal state likely poor p.o. intake. Will offer nutritional shakes. Plan Sleep apnea. Patient was not known to be on CPAP at night until the . This was ordered for a chest examiners of water with oxygen bleed and to keep sats above 90 History of seizures Lamotrigine/Keppra dose reduced as recommended by neurology Admission and Anticipated Discharge Date Admission Date: January 23, 2024 Subjective Patient is more alert, does not provide any new history. Review of Systems Review of Systems: All systems reviewed & are unremarkable except as noted in HPI & below Physical Exam Physical Exam: Patient appears to be more comfortable today. Patient is morer alert and able to have a conversation with his daughter. Card exam is regular shrill murmur lungs are with fair air movement, basilar rales improved abd with reducible hernias non tender Results & Data Results & Data Vital Signs (Past 12 Hours) Vital Signs Temp Pulse Resp BP BP Pulse Ox O2 Del Method 01/30/24 20:14 36.9 C 64 18 146/78 H 95 Nasal Cannula 01/30/24 18:17 149/79 H 01/30/24 13:56 36.7 C 84 18 166/68 H 95 Nasal Cannula 01/30/24 12:38 Nasal Cannula O2 Flow Rate 01/30/24 20:14 2 01/30/24 18:17 01/30/24 13:56 2 01/30/24 12:38 2 PG Care Time/CCT Total # of Minutes Spent Total Time Spent with Patient: Total time spent is greater than 50% in coordination of care (as documented) at patient's floor/unit and/or counseling patient: Coding Level of Care Code 34431 SUB INP/OBS CARE 2/35MIN Diagnoses Encephalopathy G93.40 C. difficile colitis A04.72 PAF (paroxysmal atrial fibrillation) I48.0 Moderate protein-calorie malnutrition E44.0
[2024-01-31 08:37] LABS: Hematocrit (blood only) 29.1 % (42.0-52.0); Hemoglobin 8.9 g/dl (14.0-18.0); Mean Corpuscular Hemoglobin 26.6 pg (25.0-34.0); Mean Corpuscular Hgb Conc 30.6 g/dL (32.0-36.0); Mean Corpuscular Volume 87.1 fL (80.0-100.0); Mean Platelet Volume 9.5 fL (9.4-12.4); Platelet Count 180 K/uL (130-400); RDW Coefficient of Variation 17.3 % (11.5-14.5); RDW Standard Deviation 54.2 fL (36.4-46.3); Red Blood Count 3.34 M/uL (4.70-6.10)
[2024-01-31 08:54] LABS: BUN Creatinine Ratio 12.9 (10-20); C Reactive Protein 4.64 mg/dl (0-0.5); Creatinine Clr Calc Pharmacy 91.7 ml/min; Est GFR (African American) 107.1 ml/min; Est GFR (Non-African American) 92.4 ml/min; Potassium 3.8 mmol/L (3.5-5.1)
[2024-01-31 14:09] LABS: Ehrlichia chaff DNA Bld Negative (Negative)
[2024-01-31] MEDS: QUEtiapine FUMARATE 25 MG TABLET PO ONE (19:50)
--- NOTE | 2024-01-31 22:46 | Hospitalist Progress Note ---
Date of Service January 31, 2024 Assessment & Plan (1) Encephalopathy: Plan: Patient with changes in mental status concerning for metabolic encephalopathy versus progression of dementia or in hospital delirium After discussion with family was having a decline over the last year to 6 months Both and daughter feel this may be just progression of his baseline mental decline. Sons however which have been more removed from his day-to-day life are showing more concern. After janina discussion of and review of all of his testing including recent LP test and daughter are deciding whether we should pause to determine if reducing his antiepileptics, instituting new antibiotic for possibility of an occult infection/pneumonia, waiting for blood cultures and continuing thiamine therapy should be undertaken and then without improvement with regard to this may consider moving to palliative care. There is also discussion of possible referral to tertiary for another opinion versus his progressive delirium. Initial admission screening for infectious etiologies outside of C. difficile was negative including CT abdomen pelvi2 01/24/[address] negative for hemorrhage bleed or stroke. Empiric ceftriaxone began waiting for urine culture. 01/25/2024 urine culture results negative ceftriaxone stopped patient instituted on thiamine therapy patient given Zyprexa at bedtime due to control behavior for pulling at lines and tubes. 01/26/2024 Zyprexa discontinued brain MRI pursued for evaluation of stroke this was negative. Additional abdomen pelvis CT scan also was negative for intra- abdominal pathology 01/27/2024 neurology consult recommend decreasing doses of seizure medications. Lamictal dose and how it was ordered. Hydration started due to lack of p.o. intake subsequently on 01/28/2024 patient went into acute on chronic diastolic heart failure from severe attic stenosis. IV fluids were stopped and diuresis was undertaken 01/28/2024 lumbar puncture was pursued without significant infectious etiologies suggested. White cells were 2 on the tap total protein was 49 normal being 45 glucose was slightly elevated Lyme test on CSF was negative At this point time thiamine continues reduced dose of Keppra and Lamictal Ordered seroquel on 01/28 will re-eval on 01/29 zosyn was stopped on 01/28 continue vancomycin. reviewed chest x ray on 01/29 Seroquel ordered again on 01/30 Though patient is talking to himself. He is able to be reoriented and have a conversation. Patient is waxing and waning. WIll continue to monitor. reviewed crp, bmp, cbc (2) C. difficile colitis: Plan: C. difficile colitis Patient with C. difficile confirmed outpatient testing ongoing diarrhea and poor p.o. intake Patient is sensitive to volume with his severe aortic stenosis Vancomycin continued. Given recurrent episodes will ultimately give pulsed taper. Appears to be improving. will monitor. (3) PAF (paroxysmal atrial fibrillation): Plan: Paroxysmal A-fib, history of severe aortic Stenosis, with preserved ejection fraction on echocardiogram from 01/28/2024 Additionally was no valve vegetations seen on transthoracic echocardiogram. Sed rate and CRP come back middle range in the 70s and sixes rate controlled with metoprolol Continue apixaban elevated troponin secondary to demand ischemia, acs not suspected (4) Moderate protein-calorie malnutrition: Plan: Patient with low protein and albumin likely exacerbated with diarrheal state likely poor p.o. intake. Will offer nutritional shakes. Plan Sleep apnea. Patient was not known to be on CPAP at night until the . This was ordered for a chest examiners of water with oxygen bleed and to keep sats above 90 History of seizures Lamotrigine/Keppra dose reduced as recommended by neurology Admission and Anticipated Discharge Date Admission Date: January 23, 2024 Subjective Patient talking to himself, but quickly reorients himself. Physical Exam Physical Exam: Patient appears to be more comfortable today. Patient is morer alert and able to have a conversation with his daughter. Card exam is regular shrill murmur lungs are with fair air movement, basilar rales improved abd with reducible hernias non tender Results & Data Results & Data Vital Signs (Past 12 Hours) Vital Signs Temp Pulse Resp BP BP Pulse Ox O2 Del Method 01/31/24 19:40 Nasal Cannula 01/31/24 19:32 36.2 C L 62 18 107/57 L 96 Nasal Cannula 01/31/24 14:25 36.6 C 57 L 16 120/66 97 Nasal Cannula O2 Flow Rate 01/31/24 19:40 2 01/31/24 19:32 2 01/31/24 14:25 2 PG Care Time/CCT Total # of Minutes Spent Total Time Spent with Patient: Total time spent is greater than 50% in coordination of care (as documented) at patient's floor/unit and/or counseling patient: Coding Level of Care Code 35640 SUB INP/OBS CARE 3/50MIN Diagnoses Encephalopathy G93.40 C. difficile colitis A04.72 PAF (paroxysmal atrial fibrillation) I48.0 Moderate protein-calorie malnutrition E44.0
[2024-02-01 07:54] LABS: Hematocrit (blood only) 32.2 % (42.0-52.0); Hemoglobin 9.9 g/dl (14.0-18.0); Mean Corpuscular Hemoglobin 26.8 pg (25.0-34.0); Mean Corpuscular Hgb Conc 30.7 g/dL (32.0-36.0); Mean Corpuscular Volume 87.3 fL (80.0-100.0); Mean Platelet Volume 9.9 fL (9.4-12.4); Platelet Count 209 K/uL (130-400); RDW Coefficient of Variation 17.1 % (11.5-14.5); RDW Standard Deviation 53.6 fL (36.4-46.3); Red Blood Count 3.69 M/uL (4.70-6.10); White Blood Count 6.63 K/ul (4.8-10.8)
[2024-02-01 10:02] LABS: BUN Creatinine Ratio 12.7 (10-20); C Reactive Protein 4.29 mg/dl (0-0.5); Calcium 8.3 mg/dl (8.6-10.3); Creatinine Clr Calc Pharmacy 90.2 ml/min; Est GFR (African American) 106.4 ml/min; Est GFR (Non-African American) 91.8 ml/min
--- NOTE | 2024-02-01 21:17 | Hospitalist Progress Note ---
Date of Service February 01, 2024 Assessment & Plan (1) Encephalopathy: Plan: Patient with changes in mental status concerning for metabolic encephalopathy versus progression of dementia or in hospital delirium After discussion with family was having a decline over the last year to 6 months Both and daughter feel this may be just progression of his baseline mental decline. Sons however which have been more removed from his day-to-day life are showing more concern. After janina discussion of and review of all of his testing including recent LP test and daughter are deciding whether we should pause to determine if reducing his antiepileptics, instituting new antibiotic for possibility of an occult infection/pneumonia, waiting for blood cultures and continuing thiamine therapy should be undertaken and then without improvement with regard to this may consider moving to palliative care. There is also discussion of possible referral to tertiary for another opinion versus his progressive delirium. Initial admission screening for infectious etiologies outside of C. difficile was negative including CT abdomen pelvi2 01/24/[address] negative for hemorrhage bleed or stroke. Empiric ceftriaxone began waiting for urine culture. 01/25/2024 urine culture results negative ceftriaxone stopped patient instituted on thiamine therapy patient given Zyprexa at bedtime due to control behavior for pulling at lines and tubes. 01/26/2024 Zyprexa discontinued brain MRI pursued for evaluation of stroke this was negative. Additional abdomen pelvis CT scan also was negative for intra- abdominal pathology 01/27/2024 neurology consult recommend decreasing doses of seizure medications. Lamictal dose and how it was ordered. Hydration started due to lack of p.o. intake subsequently on 01/28/2024 patient went into acute on chronic diastolic heart failure from severe attic stenosis. IV fluids were stopped and diuresis was undertaken 01/28/2024 lumbar puncture was pursued without significant infectious etiologies suggested. White cells were 2 on the tap total protein was 49 normal being 45 glucose was slightly elevated Lyme test on CSF was negative At this point time thiamine continues reduced dose of Keppra and Lamictal Ordered seroquel on 01/28 will re-eval on 01/29 zosyn was stopped on 01/28 continue vancomycin. reviewed chest x ray on 01/29 Seroquel ordered again on 01/30 Though patient is talking to himself. He is able to be reoriented and have a conversation. Patient is waxing and waning. WIll continue to monitor. ON 01/31 Patien sen on multiple visits. Patient appears to be doing well. Able to reorient himself when communicating. However, nurses reports he sundowns in the evening. Reviewed CRP cbc, bmp stable (2) C. difficile colitis: Plan: C. difficile colitis Patient with C. difficile confirmed outpatient testing ongoing diarrhea and poor p.o. intake Patient is sensitive to volume with his severe aortic stenosis Vancomycin continued. Given recurrent episodes will ultimately give pulsed taper. Appears to be improving. will monitor. (3) PAF (paroxysmal atrial fibrillation): Plan: Paroxysmal A-fib, history of severe aortic Stenosis, with preserved ejection fraction on echocardiogram from 01/28/2024 Additionally was no valve vegetations seen on transthoracic echocardiogram. Sed rate and CRP come back middle range in the 70s and sixes rate controlled with metoprolol Continue apixaban elevated troponin secondary to demand ischemia, acs not suspected (4) Moderate protein-calorie malnutrition: Plan: Patient with low protein and albumin likely exacerbated with diarrheal state likely poor p.o. intake. Will offer nutritional shakes. Plan Sleep apnea. Patient was not known to be on CPAP at night until the . This was ordered for a chest examiners of water with oxygen bleed and to keep sats above 90 History of seizures Lamotrigine/Keppra dose reduced as recommended by neurology Admission and Anticipated Discharge Date Admission Date: January 23, 2024 Subjective 83 yo male reports no new symptoms. Review of Systems Review of Systems: All systems reviewed & are unremarkable except as noted in HPI & below Physical Exam Physical Exam: Patient appears to be more comfortable today. Patient is morer alert and able to have a conversation with his daughter. Card exam is regular shrill murmur lungs are with fair air movement, basilar rales improved abd with reducible hernias non tender Results & Data Results & Data Vital Signs (Past 12 Hours) Vital Signs Temp Pulse Pulse Resp BP BP Pulse Ox 02/01/24 19:19 36.8 C 64 18 157/88 H 95 02/01/24 14:17 36.6 C 60 16 155/65 H 95 O2 Del Method O2 Flow Rate 02/01/24 19:19 Nasal Cannula 2 02/01/24 14:17 Nasal Cannula 2 PG Care Time/CCT Total # of Minutes Spent Total Time Spent with Patient: Total time spent is greater than 50% in coordination of care (as documented) at patient's floor/unit and/or counseling patient: Coding Level of Care Code 12969 SUB INP/OBS CARE MIN Diagnoses Encephalopathy G93.40 C. difficile colitis A04.72 PAF (paroxysmal atrial fibrillation) I48.0 Moderate protein-calorie malnutrition E44.0
[2024-02-02 07:42] LABS: Hematocrit (blood only) 30.9 % (42.0-52.0); Hemoglobin 9.4 g/dl (14.0-18.0); Mean Corpuscular Hemoglobin 26.6 pg (25.0-34.0); Mean Corpuscular Hgb Conc 30.4 g/dL (32.0-36.0); Mean Corpuscular Volume 87.3 fL (80.0-100.0); Mean Platelet Volume 9.5 fL (9.4-12.4); Platelet Count 194 K/uL (130-400); RDW Coefficient of Variation 16.8 % (11.5-14.5); RDW Standard Deviation 52.4 fL (36.4-46.3); Red Blood Count 3.54 M/uL (4.70-6.10)
[2024-02-02 07:55] LABS: C Reactive Protein 4.43 mg/dl (0-0.5); Calcium 8.1 mg/dl (8.6-10.3); Creatinine Clr Calc Pharmacy 105.3 ml/min; Est GFR (African American) 113.3 ml/min; Est GFR (Non-African American) 97.8 ml/min; Potassium 3.8 mmol/L (3.5-5.1)
[2024-02-02 08:51] LABS: Basophils # (auto) 0.05 K/uL (0.00-0.20); Basophils % (auto) 0.9 %; Eosinophils # (auto) 0.15 K/uL (0.00-0.50); Eosinophils % (auto) 2.8 %; Immature Granulocytes # (auto) 0.06 K/uL (0.01-0.20); Immature Granulocytes % (auto) 1.1 %; Lymphocytes # (auto) 0.72 K/uL (1.20-3.40); Lymphocytes % (auto) 13.6 %; Monocytes # (auto) 0.33 K/uL (0.11-0.59); Monocytes % (auto) 6.3 %; Neutrophils # (auto) 3.97 K/uL (1.40-6.50); Neutrophils % (auto) 75.3 %
[2024-02-02] MEDS: POLYETHYLENE (MIRALAX) 17 GM PACK PO SCH (12:21)
[2024-02-02] MEDS: QUEtiapine FUMARATE 25 MG TABLET PO SCH (19:40)
--- NOTE | 2024-02-02 22:44 | Hospitalist Progress Note ---
Date of Service February 02, 2024 Assessment & Plan (1) Encephalopathy: Plan: Patient with changes in mental status concerning for metabolic encephalopathy versus progression of dementia or in hospital delirium After discussion with family was having a decline over the last year to 6 months Both and daughter feel this may be just progression of his baseline mental decline. Sons however which have been more removed from his day-to-day life are showing more concern. After janina discussion of and review of all of his testing including recent LP test and daughter are deciding whether we should pause to determine if reducing his antiepileptics, instituting new antibiotic for possibility of an occult infection/pneumonia, waiting for blood cultures and continuing thiamine therapy should be undertaken and then without improvement with regard to this may consider moving to palliative care. There is also discussion of possible referral to tertiary for another opinion versus his progressive delirium. Initial admission screening for infectious etiologies outside of C. difficile was negative including CT abdomen pelvi2 01/24/[address] negative for hemorrhage bleed or stroke. Empiric ceftriaxone began waiting for urine culture. 01/25/2024 urine culture results negative ceftriaxone stopped patient instituted on thiamine therapy patient given Zyprexa at bedtime due to control behavior for pulling at lines and tubes. 01/26/2024 Zyprexa discontinued brain MRI pursued for evaluation of stroke this was negative. Additional abdomen pelvis CT scan also was negative for intra- abdominal pathology 01/27/2024 neurology consult recommend decreasing doses of seizure medications. Lamictal dose and how it was ordered. Hydration started due to lack of p.o. intake subsequently on 01/28/2024 patient went into acute on chronic diastolic heart failure from severe attic stenosis. IV fluids were stopped and diuresis was undertaken 01/28/2024 lumbar puncture was pursued without significant infectious etiologies suggested. White cells were 2 on the tap total protein was 49 normal being 45 glucose was slightly elevated Lyme test on CSF was negative At this point time thiamine continues reduced dose of Keppra and Lamictal Ordered seroquel on 01/28 will re-eval on 01/29 zosyn was stopped on 01/28 continue vancomycin. reviewed chest x ray on 01/29 Seroquel ordered again on 01/30 Though patient is talking to himself. He is able to be reoriented and have a conversation. Patient is waxing and waning. WIll continue to monitor. ON 01/31 Patien sen on multiple visits. Patient appears to be doing well. Able to reorient himself when communicating. However, nurses reports he sundowns in the evening. Reviewed CRP cbc, bmp stable ON 02/01 Patient is more confused today. Added miralax as patient has been constipated. Will continue to monitor crp, will also oder scheduled seroquel. (2) C. difficile colitis: Plan: C. difficile colitis Patient with C. difficile confirmed outpatient testing ongoing diarrhea and poor p.o. intake Patient is sensitive to volume with his severe aortic stenosis Vancomycin continued. Given recurrent episodes will ultimately give pulsed taper. Appears to be improving. will monitor. (3) PAF (paroxysmal atrial fibrillation): Plan: Paroxysmal A-fib, history of severe aortic Stenosis, with preserved ejection fraction on echocardiogram from 01/28/2024 Additionally was no valve vegetations seen on transthoracic echocardiogram. Sed rate and CRP come back middle range in the 70s and sixes rate controlled with metoprolol Continue apixaban elevated troponin secondary to demand ischemia, acs not suspected (4) Moderate protein-calorie malnutrition: Plan: Patient with low protein and albumin likely exacerbated with diarrheal state likely poor p.o. intake. Will offer nutritional shakes. Plan Sleep apnea. Patient was not known to be on CPAP at night until the . This was ordered for a chest examiners of water with oxygen bleed and to keep sats above 90 History of seizures Lamotrigine/Keppra dose reduced as recommended by neurology Admission and Anticipated Discharge Date Admission Date: January 23, 2024 Subjective Patient confused today. Review of Systems Review of Systems: Unobtainable due to cognitive status Physical Exam Physical Exam: Patient appears to be more comfortable today. Patient is morer alert and able to have a conversation with his daughter. Card exam is regular shrill murmur lungs are with fair air movement, basilar rales improved abd with reducible hernias non tender Results & Data Results & Data Vital Signs (Past 12 Hours) Vital Signs Temp Pulse Pulse Resp BP BP Pulse Ox 02/02/24 19:50 02/02/24 19:41 36.7 C 54 L 16 151/71 H 98 02/02/24 14:59 36.8 C 58 L 16 130/65 96 O2 Del Method O2 Flow Rate 02/02/24 19:50 Nasal Cannula 2 02/02/24 19:41 Nasal Cannula 2 02/02/24 14:59 Room Air PG Care Time/CCT Total # of Minutes Spent Total Time Spent with Patient: Total time spent is greater than 50% in coordination of care (as documented) at patient's floor/unit and/or counseling patient: Coding Level of Care Code 51417 SUB INP/OBS CARE 2/35MIN Diagnoses Encephalopathy G93.40 C. difficile colitis A04.72 PAF (paroxysmal atrial fibrillation) I48.0 Moderate protein-calorie malnutrition E44.0
[2024-02-03 07:01] LABS: Hematocrit (blood only) 28.6 % (42.0-52.0); Hemoglobin 8.8 g/dl (14.0-18.0); Mean Corpuscular Hemoglobin 26.7 pg (25.0-34.0); Mean Corpuscular Hgb Conc 30.8 g/dL (32.0-36.0); Mean Corpuscular Volume 86.7 fL (80.0-100.0); Mean Platelet Volume 9.7 fL (9.4-12.4); Platelet Count 220 K/uL (130-400); RDW Coefficient of Variation 17.3 % (11.5-14.5); RDW Standard Deviation 54.3 fL (36.4-46.3); White Blood Count 5.64 K/ul (4.8-10.8)
[2024-02-03 07:21] LABS: BUN Creatinine Ratio 10.6 (10-20); C Reactive Protein 3.96 mg/dl (0-0.5); Calcium 8.1 mg/dl (8.6-10.3); Creatinine Clr Calc Pharmacy 86.1 ml/min; Est GFR (African American) 104.4 ml/min; Potassium 3.6 mmol/L (3.5-5.1)
[2024-02-03 20:52] LABS: Babesia microti DNA Not Detected (Not Detected); EBV DNA Quant PCR <200 Detected copies/mL; EBV DNA Quant Source Whole Blood; Q Fever IgG, Phase I NEGATIVE; Q Fever Phase I IgM Antibody NEGATIVE; Q Fever Phase II IgG Antibody NEGATIVE; Q Fever Phase II IgM Antibody NEGATIVE; R. typhi IgG Ab NOT DETECTED; R. typhi IgM Ab NOT DETECTED; RMSF IgG Ab NOT DETECTED; RMSF IgM Ab NOT DETECTED
--- NOTE | 2024-02-03 22:17 | Hospitalist Progress Note ---
Date of Service February 03, 2024 Assessment & Plan (1) Encephalopathy: Plan: Patient with changes in mental status concerning for metabolic encephalopathy versus progression of dementia or in hospital delirium After discussion with family was having a decline over the last year to 6 months Both and daughter feel this may be just progression of his baseline mental decline. Sons however which have been more removed from his day-to-day life are showing more concern. After janina discussion of and review of all of his testing including recent LP test and daughter are deciding whether we should pause to determine if reducing his antiepileptics, instituting new antibiotic for possibility of an occult infection/pneumonia, waiting for blood cultures and continuing thiamine therapy should be undertaken and then without improvement with regard to this may consider moving to palliative care. There is also discussion of possible referral to tertiary for another opinion versus his progressive delirium. Initial admission screening for infectious etiologies outside of C. difficile was negative including CT abdomen pelvi2 01/24/[address] negative for hemorrhage bleed or stroke. Empiric ceftriaxone began waiting for urine culture. 01/25/2024 urine culture results negative ceftriaxone stopped patient instituted on thiamine therapy patient given Zyprexa at bedtime due to control behavior for pulling at lines and tubes. 01/26/2024 Zyprexa discontinued brain MRI pursued for evaluation of stroke this was negative. Additional abdomen pelvis CT scan also was negative for intra- abdominal pathology 01/27/2024 neurology consult recommend decreasing doses of seizure medications. Lamictal dose and how it was ordered. Hydration started due to lack of p.o. intake subsequently on 01/28/2024 patient went into acute on chronic diastolic heart failure from severe attic stenosis. IV fluids were stopped and diuresis was undertaken 01/28/2024 lumbar puncture was pursued without significant infectious etiologies suggested. White cells were 2 on the tap total protein was 49 normal being 45 glucose was slightly elevated Lyme test on CSF was negative At this point time thiamine continues reduced dose of Keppra and Lamictal Ordered seroquel on 01/28 will re-eval on 01/29 zosyn was stopped on 01/28 continue vancomycin. reviewed chest x ray on 01/29 Seroquel ordered again on 01/30 Though patient is talking to himself. He is able to be reoriented and have a conversation. Patient is waxing and waning. WIll continue to monitor. ON 01/31 Patien sen on multiple visits. Patient appears to be doing well. Able to reorient himself when communicating. However, nurses reports he sundowns in the evening. Reviewed CRP cbc, bmp stable ON 02/01 Patient is more confused today. Added miralax as patient has been constipated. Will continue to monitor crp, will also oder scheduled seroquel. On 02/02 Patient's encephalopathy appears to be much more improved. Patient also had a BM. was concerned with fecal retention ileus in the setting of c diff and rising inflammatory markers. will monitor. (2) C. difficile colitis: Plan: C. difficile colitis Patient with C. difficile confirmed outpatient testing ongoing diarrhea and poor p.o. intake Patient is sensitive to volume with his severe aortic stenosis Vancomycin continued. Given recurrent episodes will ultimately give pulsed taper. Appears to be improving. will monitor. (3) PAF (paroxysmal atrial fibrillation): Plan: Paroxysmal A-fib, history of severe aortic Stenosis, with preserved ejection fraction on echocardiogram from 01/28/2024 Additionally was no valve vegetations seen on transthoracic echocardiogram. Sed rate and CRP come back middle range in the 70s and sixes rate controlled with metoprolol Continue apixaban elevated troponin secondary to demand ischemia, acs not suspected (4) Moderate protein-calorie malnutrition: Plan: Patient with low protein and albumin likely exacerbated with diarrheal state likely poor p.o. intake. Will offer nutritional shakes. Plan Sleep apnea. Patient was not known to be on CPAP at night until the . This was ordered for a chest examiners of water with oxygen bleed and to keep sats ab ove 90 History of seizures Lamotrigine/Keppra dose reduced as recommended by neurology Admission and Anticipated Discharge Date Admission Date: January 23, 2024 Subjective 83 yo male is less confused. Patient denies any new complaints. D/W nurse, patient participated with physical therapy. Patient also had a large Bowel movement. Review of Systems Review of Systems: All systems reviewed & are unremarkable except as noted in HPI & below Physical Exam Physical Exam: Patient appears to be more comfortable today. Patient is morer alert and able to have a conversation with his daughter. Card exam is regular shrill murmur lungs are with fair air movement, basilar rales improved abd with reducible hernias non tender Results & Data Results & Data Vital Signs (Past 12 Hours) Vital Signs Temp Pulse Pulse Resp BP BP Pulse Ox 02/03/24 21:06 36.7 C 55 L 18 122/62 97 02/03/24 14:04 36.6 C 58 L 16 138/65 97 O2 Del Method O2 Flow Rate 02/03/24 21:06 Nasal Cannula 2 02/03/24 14:04 Nasal Cannula 2 PG Care Time/CCT Total # of Minutes Spent Total Time Spent with Patient: Total time spent is greater than 50% in coordination of care (as documented) at patient's floor/unit and/or counseling patient: Coding Level of Care Code 33300 SUB INP/OBS CARE 235MIN Diagnoses Encephalopathy G93.40 C. difficile colitis A04.72 PAF (paroxysmal atrial fibrillation) I48.0 Moderate protein-calorie malnutrition E44.0
[2024-02-04 06:59] LABS: Hemoglobin 9.6 g/dl (14.0-18.0); Mean Corpuscular Volume 87.1 fL (80.0-100.0); Mean Platelet Volume 9.8 fL (9.4-12.4); Platelet Count 220 K/uL (130-400); RDW Coefficient of Variation 17.5 % (11.5-14.5); RDW Standard Deviation 54.5 fL (36.4-46.3); Red Blood Count 3.56 M/uL (4.70-6.10)
[2024-02-04 07:18] LABS: C Reactive Protein 3.08 mg/dl (0-0.5); Calcium 8.3 mg/dl (8.6-10.3); Creatinine Clr Calc Pharmacy 99.7 ml/min; Est GFR (African American) 110.8 ml/min; Est GFR (Non-African American) 95.6 ml/min; Potassium 3.6 mmol/L (3.5-5.1)
[2024-02-04 13:37] LABS: Cryptococcal Antigen Not Detected (Not Detected); Lyme IgG Band Pattern CSF DNR; Lyme IgG CSF NO BANDS DETECTED; Lyme IgM Band Pattern CSF DNR; Lyme IgM CSF NO BANDS DETECTED; Source CSF; West Nile Virus, PCR Source CSF; West Nile Virus, PCR, CSF NOT DETECTED (NOT DETECTED)
[2024-02-04 16:33] LABS: CSF, LDH 26 U/L (<=25); Lyme DNA PCR CSF or Synovial Not Detected (Not Detected); Lyme DNA Source CSF; VDRL Qualitative CSF Nonreactive (Nonreactive)
--- NOTE | 2024-02-04 20:00 | Hospitalist Progress Note ---
Date of Service February 04, 2024 Assessment & Plan (1) Encephalopathy: Plan: Patient with changes in mental status concerning for metabolic encephalopathy versus progression of dementia or in hospital delirium After discussion with family was having a decline over the last year to 6 months Both and daughter feel this may be just progression of his baseline mental decline. Patient however has improved over the course of the past week, appears to be due to resolving infection, institution of mirlax (as patient was constipated, as well as starting zyprexa. Patient will continue vancomycin on an extended taper. For past 48 hours, patient has been awake and alert during the day, even participating in conversation and with physical therapy. Initial admission screening for infectious etiologies outside of C. difficile was negative including CT abdomen pelvi2 01/24/[address] negative for hemorrhage bleed or stroke. Empiric ceftriaxone began waiting for urine culture. 01/25/2024 urine culture results negative ceftriaxone stopped patient instituted on thiamine therapy patient given Zyprexa at bedtime due to control behavior for pulling at lines and tubes. 01/26/2024 Zyprexa discontinued brain MRI pursued for evaluation of stroke this was negative. Additional abdomen pelvis CT scan also was negative for intra- abdominal pathology 01/27/2024 neurology consult recommend decreasing doses of seizure medications. Lamictal dose and how it was ordered. Hydration started due to lack of p.o. intake subsequently on 01/28/2024 patient went into acute on chronic diastolic heart failure from severe attic stenosis. IV fluids were stopped and diuresis was undertaken 01/28/2024 lumbar puncture was pursued without significant infectious etiologies suggested. White cells were 2 on the tap total protein was 49 normal being 45 glucose was slightly elevated Lyme test on CSF was negative At this point time thiamine continues reduced dose of Keppra and Lamictal Seroquel ordered intermittently on 01/28, 01/30 and then on02/01 ongoing as patient showed decreased confusion on dthe following days in which he had taken drug. . (2) C. difficile colitis: Plan: C. difficile colitis Patient with C. difficile confirmed outpatient testing ongoing diarrhea and poor p.o. intake Patient is sensitive to volume with his severe aortic stenosis Vancomycin continued. Given recurrent episodes will ultimately give pulsed taper. Appears to be improving. Added miralax on 02/01 as patient has been constipated. concerned with fecal retention ileus in the setting of c diff and rising inflammatory markers. CRP showing improvement. (3) PAF (paroxysmal atrial fibrillation): Plan: Paroxysmal A-fib, history of severe aortic Stenosis, with preserved ejection fraction on echocardiogram from 01/28/2024 Additionally was no valve vegetations seen on transthoracic echocardiogram. Sed rate and CRP come back middle range in the 70s and sixes rate controlled with metoprolol Continue apixaban elevated troponin secondary to demand ischemia, acs not suspected (4) Moderate protein-calorie malnutrition: Plan: Patient with low protein and albumin likely exacerbated with diarrheal state likely poor p.o. intake. Will offer nutritional shakes. Plan Sleep apnea. Patient was not known to be on CPAP at night until the . This was ordered for a chest examiners of water with oxygen bleed and to keep sats above 90 History of seizures Lamotrigine/Keppra dose reduced as recommended by neurology Admission and Anticipated Discharge Date Admission Date: January 23, 2024 Subjective Patient no longer appears confused. NO new complaints. Review of Systems Review of Systems: All systems reviewed & are unremarkable except as noted in HPI & below Physical Exam Physical Exam: Patient appears to be more comfortable today. Patient is morer alert and able to have a conversation with his daughter. Card exam is regular shrill murmur lungs are with fair air movement, basilar rales improved abd with reducible hernias non tender Results & Data Results & Data Vital Signs (Past 12 Hours) Vital Signs Temp Pulse Resp BP BP Pulse Ox O2 Del Method 02/04/24 15:57 Room Air 02/04/24 14:47 36.8 C 69 17 135/71 94 Room Air 02/04/24 12:30 36.7 C 56 L 16 131/60 94 Room Air 02/04/24 08:00 Nasal Cannula O2 Flow Rate 02/04/24 15:57 02/04/24 14:47 02/04/24 12:30 02/04/24 08:00 2 PG Care Time/CCT Total # of Minutes Spent Total Time Spent with Patient: Total time spent is greater than 50% in coordination of care (as documented) at patient's floor/unit and/or counseling patient: Coding Level of Care Code 14638 SUB INP/OBS CARE 2/35MIN Diagnoses Encephalopathy G93.40 C. difficile colitis A04.72 PAF (paroxysmal atrial fibrillation) I48.0 Moderate protein-calorie malnutrition E44.0
[2024-02-04 21:53] LABS: Appearance Urine Turbid (Clear); Bilirubin Urine Negative (Negative); Blood Urine 3+ (Negative); Color Urine Red; Glucose Urine UA Negative (Negative); Ketones Urine Negative (Negative); Leukocyte Esterase Urine Negative (Negative); Nitrite Urine Negative (Negative); Protein Urine 3+ (Negative); Specific Gravity Urine >= 1.030 (1.000-1.030); Urobilinogen Urine Negative (Negative)
[2024-02-04 22:04] LABS: Bacteria Urine None Seen (None Seen); RBC Urine >20 /hpf (0-2)
[2024-02-04 22:05] LABS: Calcium Oxalate Crystals Urine Present (None Prsent); Hyaline Casts Urine Present /lpf (None Presnt)
--- NOTE | 2024-02-04 22:48 | Communication Note ---
Date of Service: February 04, 2024 Notified of new hematuria in patient's Smith bag. Urine presented clear with blood tinge, no evidence of clots in the bag. Patient noted to be without urinar y symptoms, abdominal pain, or flank pain. Smith catheter was placed 01/25/24 w/o incident. Urinalysis revealed hematuria and elevated WBC count. Patient recently treated for UTI w/ negative urine culture following. Urine culture remains pending. Will start Ceftriaxone for suspected UTI given new hematuria with elevated urinary WBC in the absence of additional symptoms or clots in urine. Continue to follow clinically. Additional workup warranted if symptoms persist despite antibiotic therapy. Aspirin and Eliquis held. Resident Activity Tracking Resident Involvement: Resident Care Provided Care Provided: Adult [facility]
[2024-02-04] MEDS ORDERED: cefTRIAXone SODIUM 1,000 MG/50 ML BAG IV SCH (23:00)
[2024-02-04] MEDS: cefTRIAXone SODIUM 2,000 MG/50 ML BAG IV SCH (23:36)
[2024-02-05] MEDS: ACETAMINOPHEN 1,000 MG/100 ML VIAL IV STA (01:00)
[2024-02-05 07:43] LABS: Hematocrit (blood only) 28.9 % (42.0-52.0); Hemoglobin 9.1 g/dl (14.0-18.0); Mean Corpuscular Hemoglobin 27.1 pg (25.0-34.0); Mean Corpuscular Hgb Conc 31.5 g/dL (32.0-36.0); Mean Platelet Volume 9.5 fL (9.4-12.4); Platelet Count 215 K/uL (130-400); RDW Coefficient of Variation 17.3 % (11.5-14.5); Red Blood Count 3.36 M/uL (4.70-6.10); White Blood Count 4.14 K/ul (4.8-10.8)
[2024-02-05 08:06] LABS: BUN Creatinine Ratio 15.2 (10-20); C Reactive Protein 1.99 mg/dl (0-0.5); Calcium 8.3 mg/dl (8.6-10.3); Creatinine Clr Calc Pharmacy 86.1 ml/min; Est GFR (African American) 104.4 ml/min; Potassium 3.7 mmol/L (3.5-5.1)
--- NOTE | 2024-02-05 08:53 | Hospitalist Progress Note ---
Date of Service February 05, 2024 Assessment & Plan (1) Encephalopathy: Plan: Patient with changes in mental status concerning for metabolic encephalopathy versus progression of dementia or in hospital delirium After discussion with family was having a decline over the last year to 6 months Both and daughter feel this may be just progression of his baseline mental decline. Patient however has improved appears to be due to resolving infection, using quetiapine at night for sleep Patient will continue vancomycin on an extended taper for C. difficile colitis present on admission.. Initial admission screening for infectious etiologies outside of C. difficile was negative including CT abdomen pelvi2 01/24/[address] negative for hemorrhage bleed or stroke. Empiric ceftriaxone began waiting for urine culture. 01/25/2024 urine culture results negative ceftriaxone stopped patient instituted on thiamine therapy patient given Zyprexa at bedtime due to control behavior for pulling at lines and tubes. 01/26/2024 Zyprexa discontinued brain MRI pursued for evaluation of stroke this was negative. Additional abdomen pelvis CT scan also was negative for intra- abdominal pathology 01/27/2024 neurology consult recommend decreasing doses of seizure medications. Lamictal dose and how it was ordered. Hydration started due to lack of p.o. intake subsequently on 01/28/2024 patient went into acute on chronic diastolic heart failure from severe attic stenosis. IV fluids were stopped and diuresis was undertaken 01/28/2024 lumbar puncture was pursued without significant infectious etiologies suggested. White cells were 2 on the tap total protein was 49 normal being 45 glucose was slightly elevated Lyme test on CSF was negative time thiamine continues reduced dose of Keppra and Lamictal (2) C. difficile colitis: Plan: C. difficile colitis Patient with C. difficile confirmed outpatient testing ongoing diarrhea and poor p.o. intake Patient is sensitive to volume with his severe aortic stenosis Vancomycin continued. Given recurrent episodes will ultimately give pulsed taper. (3) PAF (paroxysmal atrial fibrillation): Plan: Paroxysmal A-fib, history of severe aortic Stenosis, with preserved ejection fraction on echocardiogram from 01/28/2024 Additionally was no valve vegetations seen on transthoracic echocardiogram. Sed rate and CRP come back middle range in the 70s and sixes rate controlled with metoprolol Continue apixaban elevated troponin secondary to demand ischemia, acs not suspected (4) Moderate protein-calorie malnutrition: Plan: Patient with low protein and albumin likely exacerbated with diarrheal state Nutritional supplementation as ordered Plan Sleep apnea. Patient was not known to be on CPAP at night until the 14. This was ordered for a chest examiners of water with oxygen bleed and to keep sats above 90 History of seizures Lamotrigine/Keppra dose reduced as recommended by neurology Admission and Anticipated Discharge Date Admission Date: January 23, 2024 Subjective Patient more awake and conversant. Still confused different point in time but definitely making much more sense. and son are in the room and are pleased with his progress. He is excepted to transport to [facility] on 02/05. Due to some transient hematuria this morning would likely may be from traumatic Smith Physical Exam Physical Exam: Patient is awake oriented x 2 Card exam is regular Abdomen was slightly tender but reducible hernias At this time Smith is draining clear liquid Results & Data Results & Data Vital Signs (Past 12 Hours) Vital Signs Temp Pulse Resp BP Pulse Ox O2 Del Method 02/05/24 07:48 97.7 F 51 L 18 117/66 91 Room Air Laboratory Results Reviewed CBC reviewed chemistry UA from 521 does show 3+ blood, cultures from that same day does not show infectious etiology PG Care Time/CCT Total # of Minutes Spent Total Time Spent with Patient: Total time spent is greater than 50% in coordination of care (as documented) at patient's floor/unit and/or counseling patient: Coding Level of Care Code 68685 SUB INP/OBS CARE 2/35MIN Diagnoses Encephalopathy G93.40 C. difficile colitis A04.72 PAF (paroxysmal atrial fibrillation) I48.0 Moderate protein-calorie malnutrition E44.0
--- NOTE | 2024-02-06 16:57 | Discharge Summary ---
Discharge Summary Date of Service February 06, 2024 Notes For Next Care Provider pt had encephalopathy secondary to possible antiepileptic medication and possible infection since resolved Admission HPI Per Admitting Provider Tristan is seen at the bedside. He is a somewhat limited historian and notes "my answers most of these questions "but is oriented to year, place, and hospital. He reports that he has episodes of C. difficile before this is his second treated episode with antibiotics. He denies fever, chills, sweats. He denies syncope/presyncope. Feels tired and slightly lightheaded. He is having continual bowel movements sometimes incontinent with urgency and completely liquid. Denies blood. He has some abdominal pain around a hernia, thinks this is a little worse but "not too bad ". No pain at rest, somewhat tender around hernia on palpation but without rigidity/guarding. He denies vision change diet bedside assessment. He reports he did take his morning medications today, but would have to check with his to know which medication was which. He thinks that this did include his blood thinner. He reports he has had no chest pain or chest pressure at any point, and is pain- free on admission. Denies shortness of breath although notes he gets winded easily. To call patient's for collateral, was not available at [phone]. Additional collateral pending Full Code Principal Dx & Hospital Course #1 = Principal Diagnosis (1) Encephalopathy: Patient with changes in mental status concerning for metabolic encephalopathy versus progression of dementia or in hospital delirium After discussion with family was having a decline over the last year to 6 months Both and daughter feel this may be just progression of his baseline mental decline. Patient however has improved appears to be due to resolving infection, using quetiapine at night for sleep Patient will continue vancomycin on an extended taper for C. difficile colitis present on admission.. Initial admission screening for infectious etiologies outside of C. difficile was negative including CT abdomen pelvi2 01/24/[address] negative for hemorrhage bleed or stroke. Empiric ceftriaxone began waiting for urine culture. 01/25/2024 urine culture results negative ceftriaxone stopped patient instituted on thiamine therapy patient given Zyprexa at bedtime due to control behavior for pulling at lines and tubes. 01/26/2024 Zyprexa discontinued brain MRI pursued for evaluation of stroke this was negative. Additional abdomen pelvis CT scan also was negative for intra- abdominal pathology 01/27/2024 neurology consult recommend decreasing doses of seizure medications. Lamictal dose and how it was ordered. Hydration started due to lack of p.o. intake subsequently on 01/28/2024 patient went into acute on chronic diastolic heart failure from severe attic stenosis. IV fluids were stopped and diuresis was undertaken 01/28/2024 lumbar puncture was pursued without significant infectious etiologies suggested. White cells were 2 on the tap total protein was 49 normal being 45 glucose was slightly elevated Lyme test on CSF was negative continues reduced dose of Keppra and Lamictal consider thiamine supplementation or at least a multivitamin (2) C. difficile colitis: C. difficile colitis Patient with C. difficile confirmed outpatient testing ongoing diarrhea and poor p.o. intake Patient is sensitive to volume with his severe aortic stenosis Vancomycin continued. Given recurrent episodes will ultimately give pulsed taper. (3) PAF (paroxysmal atrial fibrillation): Paroxysmal A-fib, history of severe aortic Stenosis, with preserved ejection fraction on echocardiogram from 01/28/2024 Additionally was no valve vegetations seen on transthoracic echocardiogram. Sed rate and CRP come back middle range in the 70s and sixes rate controlled with metoprolol Continue apixaban elevated troponin secondary to demand ischemia, acs not suspected (4) Moderate protein-calorie malnutrition: Patient with low protein and albumin likely exacerbated with diarrheal state Nutritional supplementation as ordered Plan Sleep apnea. Patient was not known to be on CPAP at night until the . This was ordered for a chest examiners of water with oxygen bleed and to keep sats above 90 History of seizures Lamotrigine/Keppra dose reduced as recommended by neurology Discharge Exam pt is much more conversant, still with obvious abdominal hernias that are reducible a &ox3 but still some confusion at times Updated Medication List Medication Instructions Recorded Confirmed Type aspirin 81 mg tablet,delayed 81 mg PO DAILY 06/03/18 01/23/24 History release (Raissa Low Dose Aspirin) calcium carbonate 600 mg-vitamin 1 tab PO BID 06/03/18 01/23/24 History D3 5 mcg (200 unit) tablet (Calcium 600 + D(3)) epinephrine 0.3 mg/0.3 mL 0.3 mg (0.3 mL) IM DIRECTED PRN 05/02/20 01/23/24 Rx injection, auto-injector Allergic Reaction #2 ea latanoprost 0.005 % eye drops 1 drp ophthalmic (eye) PM 03/26/22 01/23/24 History (Xalatan) ascorbic acid (vitamin C) 500 mg 500 mg PO BID 07/10/22 01/23/24 History capsule zinc acetate 50 mg (zinc) capsule 50 mg PO DAILY 07/10/22 01/23/24 History apixaban 5 mg tablet (Eliquis) 5 mg PO BID #180 tabs 02/12/23 01/23/24 Rx levetiracetam 500 mg tablet See Rx Instructions .Route 05/27/23 01/23/24 Rx .COMPLEX #360 tabs simvastatin 40 mg tablet See Rx Instructions .Route 07/07/23 01/23/24 Rx .COMPLEX #90 tabs Spacer for Inhaler #1 ea 11/27/23 01/01/24 Rx potassium chloride 10 mEq 10 meq PO DAILY #90 caps 12/11/23 01/23/24 Rx capsule,extended release lamotrigine 100 mg tablet 100 mg PO BID #120 tabs 02/06/24 01/23/24 Rx lamotrigine 25 mg tablet 50 mg (2 x 25 mg) PO BID 30 days 02/06/24 01/23/24 Rx #60 tabs quetiapine 25 mg tablet 25 mg PO PM #30 tabs 02/06/24 Rx vancomycin 125 mg capsule 125 mg PO DIRECTED #40 caps 02/06/24 Rx Hospital Stay Data Consultations 01/27/24 11:19 Consult Neurology Routine Diagnostic Imagining Performed 01/22/24 17:57 CT Abd and Pelvis [CT abd pelvis IV con only] Urgent 01/24/24 10:35 CT head/brain wo con Routine 01/25/24 12:48 MRI Brain [MR brain wo con] Routine 01/26/24 11:23 CT Abd and Pelvis [CT abd pelvis oral con only] Routine 01/28/24 11:30 IR lumbar puncture diagnostic Routine Pending Results Patient Have Any Pending Studies at Discharge: No Discharge Instructions Given to Patient (Per Discharging Provider) Patient presented for routine C. difficile colitis however developed a fairly profound delirium and dementia while here. During that time course she did fairly extensive workup to rule out infectious etiologies which we did however we did also reduce his antiseizure medications for the concern of toxicity and institute thiamine therapy. He was treated with prophylactic antibiotics awaiting culture results, which eventually did not appear to show any infection Patient will need to be on a prolonged tapering course for recurrent C. difficile colitis Total Time Total Time Spent Total Time Spent (In Minutes): It required greater than 30 minutes to prepare this patient for discharge. Coding Level of Care Code 71971 INP/OBS DISCH >30 MIN Diagnoses Encephalopathy G93.40 C. difficile colitis A04.72 PAF (paroxysmal atrial fibrillation) I48.0 Moderate protein-calorie malnutrition E44.0
== END 2024-02-06 13:54 | DRG 371 ==
LOC: 3E 15:33 → SUATTDRO 15:33 → 2N 20:05 → SUATTDRO 01-23 09:07 → 3W 01-28 22:11

== ENCOUNTER 2024-08-17 14:28 | Inpatient (IN) ==
--- NOTE | 2024-08-17 14:46 | Emergency Department Note ---
Impression & Plan TALBERT (dyspnea on exertion), Acute anemia, Melena ED Provider Note Provider: Tre Ontiveros MD CHIEF COMPLAINT: Dyspnea on exertion, unresponsive episode HISTORY OF PRESENT ILLNESS: Patient is a 84-year-old gentleman with a past medical history including aortic stenosis, atrial fibrillation on Eliquis, CVA, seizure on Keppra, C. difficile colitis, arthritis, right hearing loss, and sleep apnea presenting here via ambulance from home today. Patient evidently last several weeks of some worsening shortness of breath. Was recently placed on some Lasix and has been taking his home medications including Eliquis. Follows with [facility] cardiology. Denies any pain. States even walking across the room more more frequently walking up the stairs go to the bathroom at home gets very short of breath. Yesterday came down the stairs sat in his chair shortly thereafter had a period where he went "catatonic "according to him. He reports his states for several minutes he was not responding. No trauma or syncope however reported. Does have some chronic swelling of the lower legs. Has some chronic large abdominal hernias he states are unchanged and nonpainful. Denies any significant nausea or vomiting. Denies significant congestion or fevers at home to his knowledge. Patient states he had a seizure after having a stroke years ago presenting for an episode like yesterday. States again he has been taking his home medications including his Eliquis and Keppra. Given his significant issues with breathing came here for evaluation today. Denies feeling significantly short of breath at rest. PAST MEDICAL HISTORY: As noted above MEDICATIONS: Reviewed home medication list and states he did take them this morning includes Eliquis as well as Keppra. SOCIAL HISTORY: PHYSICAL EXAM: GENERAL: alert and oriented in no acute distress on stretcher Head: normocephalic and atraumatic EYES: No injection, discharge or icterus. EOMI. NECK: Trachea midline. Good range of motion ENT: Mucous membranes pink and moist. LUNGS: Airway patent. No retractions. Breath sounds diminished in the bases HEART: Regular rate and rhythm. No chest wall tenderness ABDOMEN: Soft and non-tender, with 2 large mid ventral left greater than right hernia is nontender or erythematous. SKIN: Acyanotic, warm, dry, without rashes EXTREMITIES: With 2+ edema of the lower extremities with chronic stasis changes. NEUROLOGICAL: No focal deficits moving all extremities. No aphasia. No facial droop or slurred speech. EK bpm atrial fibrillation. No clear acute ST segment elevation or depression with a right bundle branch block and nonspecific T wave changes. QTc 482. Some lateral to inferior T wave changes perhaps some slight lateral ST depression. CONTINUOUS CARDIAC MONITORING: was ordered and showed a heart rate of 60s-70s bpm in atrial fibrillation Patient's laboratory studies and imaging reviewed. Differential includes Reactive airway disease, pneumonia, pneumothorax, COPD, CHF, infections including URI, cardiac ischemia, pulmonary embolism, musculoskeletal, gastrointestinal, seizure, stroke, ICH, as well as other pathologies. IMPRESSION/MEDICAL DECISION MAKING: Patient talkative interactive and in no distress upon initial exam. Vitals reassuring upon arrival not hypoxic or tachypneic. Respiratory viral panel was sent for completeness. Question some degree of fluid overload versus arrhythmia given underlying history of A-fib versus related to his underlying aortic stenosis and possible fluid overload. Has been chronic swelling by report in the medical record of his lower extremities and does have some swelling here. No significant GI symptoms related. No focal numbness or weakness. Basic labs obtained as well as EKG. Low suspicion for VTE with the use of Eliquis. Yesterday's episode does not sound like classic seizure but cannot totally exclude at this time. There is no trauma history and do not believe we need specific trauma injury but chest x-ray obtained to look for any signs of fluid overload and a CT head given she is anticoagulation the transient unresponsive episode yesterday exclude acute and cranial bleed will be obtained. BMP basic blood work including respiratory viral panel is ordered. Chest x-ray with some pulmonary vascular congestion and small bilateral effusions and cardiomegaly. CBC without thrombocytopenia or leukocytosis/leukopenia but significant anemia hemoglobin of 5.9. Explains some of his dyspnea on exertion the symptoms. Type and screen ordered as well as iron panel. Patient was consented for blood. 1 unit of packed red blood cells was ordered. Rectal exam completed to exclude this as source of bleeding. No other epistaxis or bleeding reported other than occasionally a trace bit of blood from the right ear. Black stools but is on iron. Hemoccult positive here on exam. Given a IV bolus of Protonix. Consented for blood. Patient reports has had colonoscopy some years ago that was normal. No history of transfusion reported in the past. Troponin elevated likely in the setting of significant anemia but BNP is also elevated 568. This BNP is downtrending but will again will need to watch fluid status during transfusion. Negative respiratory viral panel. Patient requires admission for transfusion and further GI workup. DIAGNOSIS: Dyspnea on exertion, acute anemia, aortic stenosis, melena, elevated troponin DISPOSITION: Hospitalist will evaluate Patient was agreeable with this plan. Critical Care I have personally spent 37 minutes of critical care time in the direct management of this patient. This includes bedside care, interpretation of diagnostic studies, and testing, discussion with consultants, patient, and family members, and other required patient management activities. These 37 minutes is in excess of all separately billable procedures. Past Med/Surg History Problem List (Updated 08/17/24 @ 17:40 by Thien Mccoy PA-C) Aortic stenosis Leg edema Elevated troponin PAF (paroxysmal atrial fibrillation) Upper GI bleed Melena (Acute) Acute anemia (Acute) TALBERT (dyspnea on exertion) (Acute) Blood in right ear canal (Acute) Conductive hearing loss in right ear (Acute) Encephalopathy Moderate protein-calorie malnutrition C. 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 Cerebral hemorrhage Vascular insufficiency Dyslipidemia Atrial fibrillation CVA (cerebral vascular accident) Surgical History S/P hernia repair Vasectomy status H/O vasectomy Family History Other No pertinent family history Social History Smoking Status: Former smoker Second Hand Exposure: Yes; Do You Dip or Chew Tobacco: No; Hx Alcohol Use: No Hx Substance Use: No Preferred Language: Dominican Communication Ability: Effective Visual Impairment: Diminished Hearing Ability: Hard of Hearing Windows Vmware Administrator Required: No Beliefs That Will Affect Care: None marital status: Current Living Situation: Spouse current occupational status: retired Feels Safe at Home: Yes Diet: regular caffeine: No Seatbelt Use: always Sunscreen Use: Yes Do you think of yourself as: straight/heterosexual Gender Identity: Male Assistive Devices: None Allergies Allergies Allergy/AdvReac Type Severity Reaction Status Date / Time bee venom protein (honey bee) Allergy Unknown UNKN Verified 08/17/24 17:48 No Known Drug Allergies Allergy Verified 08/17/24 17:48 lactose AdvReac Intermediate GI UPSET Verified 08/17/24 17:48 Home Meds Home Medications Medication Instructions Recorded Confirmed lactase 9,000 unit tablet (Lactaid 9,000 unit PO QID PRN Milk food 03/06/24 08/17/24 Fast Act) products acetaminophen 650 mg 1,300 mg PO Q12H PRN Pain 08/17/24 08/17/24 tablet,extended release (Tylenol Arthritis Pain) furosemide 40 mg tablet 40 mg PO DAILY PRN Edema 08/17/24 08/17/24 simvastatin 40 mg tablet 40 mg PO QPM 08/17/24 08/17/24 Previous Rx's Medication Instructions Recorded Spacer for Inhaler #1 ea 11/27/23 epinephrine 0.3 mg/0.3 mL 0.3 mg (0.3 mL) IM DIRECTED PRN 02/25/24 injection, auto-injector Allergic Reaction #2 ea latanoprost 0.005 % eye drops 1 drp ophthalmic (eye) PM #2.5 mL 02/25/24 (Xalatan) aspirin 81 mg chewable tablet 81 mg PO DAILY #30 tabs 03/18/24 calcium 600 mg (as carbonate)-vit 1 tab PO BID #60 tabs 03/18/24 D3 10 mcg (400 unit) chewable tablet (Calcium 600 with Vitamin D3) potassium chloride 10 mEq 10 meq PO DAILY #30 caps 03/18/24 capsule,extended release ferrous sulfate 325 mg (65 mg 325 mg PO DAILY #90 tabs 04/28/24 iron) tablet apixaban 5 mg tablet (Eliquis) 5 mg PO BID #180 tabs 07/07/24 lamotrigine 25 mg tablet 50 mg (2 x 25 mg) PO BID 30 days 07/08/24 #120 tabs levetiracetam 500 mg tablet 1,000 mg (2 x 500 mg) PO BID #120 08/10/24 tabs Results & Data (ED) Vital Signs Vital Signs - 24 hr 08/17/24 14:31 08/17/24 14:31 08/17/24 14:31 Temperature 36.5 C Temperature Source Oral Pulse Rate Pulse Rate [Apical] Pulse Rhythm Pulse Rhythm [Apical] Pulse Strength [Apical] Respiratory Rate 20 Respiratory Effort / Characteristics Non-Labored Spontaneous Non-Labored Spontaneous Respiratory Depth Normal Normal Respiratory Pattern Regular Regular Blood Pressure 117/64 Blood Pressure [Left Arm] Blood Pressure Mean 81 Blood Pressure Mean [Left Arm] Blood Pressure Position Semi-fowlers Blood Pressure Position [Left Arm] Pulse Oximetry 96 100 Oxygen Delivery Method Room Air Room Air Oxygen Flow Rate Sepsis Recent Fever Within 48 Hours No Sepsis New/Unexplained Change in Mental Status N/A Sepsis Action Taken by Nursing No Action Required 08/17/24 14:31 08/17/24 14:37 08/17/24 14:51 Temperature Temperature Source Pulse Rate 83 78 Pulse Rate [Apical] 79 Pulse Rhythm Regular Pulse Rhythm [Apical] Regular Pulse Strength [Apical] Normal Respiratory Rate 18 18 Respiratory Effort / Characteristics Non-Labored Spontaneous Respiratory Depth Normal Respiratory Pattern Regular Blood Pressure Blood Pressure [Left Arm] 117/74 Blood Pressure Mean Blood Pressure Mean [Left Arm] 88 Blood Pressure Position Blood Pressure Position [Left Arm] Semi-fowlers Pulse Oximetry 100 100 Oxygen Delivery Method Room Air Room Air Oxygen Flow Rate Sepsis Recent Fever Within 48 Hours Sepsis New/Unexplained Change in Mental Status Sepsis Action Taken by Nursing 08/17/24 16:22 08/17/24 17:20 08/17/24 17:30 Temperature 36.5 C Temperature Source Axillary Pulse Rate 73 70 Pulse Rate [Apical] 72 Pulse Rhythm Pulse Rhythm [Apical] Pulse Strength [Apical] Respiratory Rate 16 21 19 Respiratory Effort / Characteristics Non-Labored Spontaneous Respiratory Depth Respiratory Pattern Blood Pressure 127/69 112/59 L Blood Pressure [Left Arm] 103/59 L Blood Pressure Mean 88 78 Blood Pressure Mean [Left Arm] 73 Blood Pressure Position Blood Pressure Position [Left Arm] Lying Pulse Oximetry 92 97 99 Oxygen Delivery Method Room Air Room Air Oxygen Flow Rate Sepsis Recent Fever Within 48 Hours Sepsis New/Unexplained Change in Mental Status Sepsis Action Taken by Nursing 08/17/24 17:40 08/17/24 17:40 Temperature 36.4 C L 36.4 C L Temperature Source Oral Oral Pulse Rate 66 71 Pulse Rate [Apical] Pulse Rhythm Pulse Rhythm [Apical] Pulse Strength [Apical] Respiratory Rate 18 18 Respiratory Effort / Characteristics Respiratory Depth Respiratory Pattern Blood Pressure 118/59 L 110/55 L Blood Pressure [Left Arm] Blood Pressure Mean 78 73 Blood Pressure Mean [Left Arm] Blood Pressure Position Lying Lying Blood Pressure Position [Left Arm] Pulse Oximetry 94 98 Oxygen Delivery Method Oxygen Flow Rate 0 Sepsis Recent Fever Within 48 Hours Sepsis New/Unexplained Change in Mental Status Sepsis Action Taken by Nursing Laboratory Data 08/17/24 15:06 08/17/24 15:06 Lab Results 08/17/24 08/17/24 08/17/24 Range/Units 14:39 15:06 15:38 WBC 7.79 (4.8-10.8) K/ul RBC 2.12 L (4.70-6.10) M/uL Hgb 5.9 L* (14.0-18.0) g/dl Hct 20.2 L* (42.0-52.0) % MCV 95.3 (80.0-100.0) fL MCH 27.8 (25.0-34.0) pg MCHC 29.2 L (32.0-36.0) g/dL RDW Std Deviation 70.7 H (36.4-46.3) fL RDW Coeff of Claire 20.8 H (11.5-14.5) % Plt Count 178 (130-400) K/uL MPV 10.5 (9.4-12.4) fL Immature Gran % (Auto) 0.5 % Neut % (Auto) 84.5 % Lymph % (Auto) 9.0 % [place] % (Auto) 5.6 % Eos % (Auto) 0.1 % Baso % (Auto) 0.3 % Neut # (Auto) 6.58 H (1.40-6.50) K/uL Lymph # (Auto) 0.70 L (1.20-3.40) K/uL [place] # (Auto) 0.44 (0.11-0.59) K/uL Eos # (Auto) 0.01 (0.00-0.50) K/uL Baso # (Auto) 0.02 (0.00-0.20) K/uL Immature Gran # (Auto) 0.04 (0.01-0.20) K/uL Polychromasia 1+ Anisocytosis Present Tear Drop Cells 1+ PT 14.3 H (9.0-12.0) Seconds INR 1.4 H (0.9-1.1) Sodium 138 (136-145) mmol/L Potassium 4.1 (3.5-5.1) mmol/L Chloride 102 (98-107) mmol/L Carbon Dioxide 25 (21-32) mmol/L Anion Gap 11 (3-11) BUN 44 H (6-23) mg/dl Creatinine 1.11 (0.6-1.4) mg/dl Est Cr Clr Drug Dosing Not Reportable eGFR 65.89 BUN/Creatinine Ratio 39.6 H (10-20) Glucose 134 H (70-99(Fasting)) mg/dl Calcium 9.3 (8.6-10.3) mg/dl Magnesium 2.1 (1.7-2.4) mg/dl Iron 123 (35-175) mcg/dl TIBC 408 (250-450) mcg/dl Unsaturated IBC 285 (155-355) mcg/dl Transferrin % Sat 30 (20-50) % Ferritin 31.6 (8-388) ng/ml Total Bilirubin 0.6 (0.2-1.0) mg/dl AST 14 (13-39) U/L ALT 10 (7-52) U/L Alkaline Phosphatase 59 (34-104) U/L Troponin I High Sens 332.3 H* (0-20) pg/ml B-Natriuretic Peptide 568 H (0-100) pg/ml Total Protein 6.4 (6.0-8.3) gm/dl Albumin 3.9 (3.4-5.0) gm/dl Globulin 2.5 (2.5-4.0) gm/dl Albumin/Globulin Ratio 1.6 (0.9-2) Urine Color Urine Appearance (Clear) Urine pH (4.5-7.5) Ur Specific [place] (1.000-1.030) Urine Protein (Negative) Urine Glucose (UA) (Negative) Urine Ketones (Negative) Urine Blood (Negative) Urine Nitrite (Negative) Urine Bilirubin (Negative) Urine Urobilinogen (Negative) Ur Leukocyte Esterase (Negative) POC Stool Occult Blood (Negative) Adenovirus (PCR) Not Detected (NotDetected) B. pertussis DNA (PCR) Not Detected (NotDetected) B.parapertussis DNA PCR Not Detected (NotDetected) C. pneumoniae DNA (PCR) Not Detected (NotDetected) Coronavirus OC43 (PCR) Not Detected (NotDetected) Coronavirus HKU1 (PCR) Not Detected (NotDetected) Coronavirus 229E (PCR) Not Detected (NotDetected) SARS-CoV-2 (PCR) Not Detected (NotDetected) Coronavirus NL63 (PCR) Not Detected (NotDetected) Human Metapneumovir PCR Not Detected (NotDetected) Influenza Type A (PCR) Not Detected (NotDetected) Influenza Type B (PCR) Not Detected (NotDetected) M. pneumoniae (PCR) Not Detected (NotDetected) Parainfluenza 1 (PCR) Not Detected (NotDetected) Parainfluenza 2 (PCR) Not Detected (NotDetected) Parainfluenza 3 (PCR) Not Detected (NotDetected) Parainfluenza 4 (PCR) Not Detected (NotDetected) RSV (PCR) Not Detected (NotDetected) Entero/Rhino (PCR) Not Detected (NotDetected) Blood Type A Positive Blood Type Recheck Cancelled Antibody Screen NEGATIVE Crossmatch See Detail 08/17/24 08/17/24 08/17/24 Range/Units 16:03 16:31 16:57 WBC (4.8-10.8) K/ul RBC (4.70-6.10) M/uL Hgb (14.0-18.0) g/dl Hct (42.0-52.0) % MCV (80.0-100.0) fL MCH (25.0-34.0) pg MCHC (32.0-36.0) g/dL RDW Std Deviation (36.4-46.3) fL RDW Coeff of Claire (11.5-14.5) % Plt Count (130-400) K/uL MPV (9.4-12.4) fL Immature Gran % (Auto) % Neut % (Auto) % Lymph % (Auto) % [place] % (Auto) % Eos % (Auto) % Baso % (Auto) % Neut # (Auto) (1.40-6.50) K/uL Lymph # (Auto) (1.20-3.40) K/uL [place] # (Auto) (0.11-0.59) K/uL Eos # (Auto) (0.00-0.50) K/uL Baso # (Auto) (0.00-0.20) K/uL Immature Gran # (Auto) (0.01-0.20) K/uL Polychromasia Anisocytosis Tear Drop Cells PT (9.0-12.0) Seconds INR (0.9-1.1) Sodium (136-145) mmol/L Potassium (3.5-5.1) mmol/L Chloride (98-107) mmol/L Carbon Dioxide (21-32) mmol/L Anion Gap (3-11) BUN (6-23) mg/dl Creatinine (0.6-1.4) mg/dl Est Cr Clr Drug Dosing eGFR BUN/Creatinine Ratio (10-20) Glucose (70-99(Fasting)) mg/dl Calcium (8.6-10.3) mg/dl Magnesium (1.7-2.4) mg/dl Iron (35-175) mcg/dl TIBC (250-450) mcg/dl Unsaturated IBC (155-355) mcg/dl Transferrin % Sat (20-50) % Ferritin (8-388) ng/ml Total Bilirubin (0.2-1.0) mg/dl AST (13-39) U/L ALT (7-52) U/L Alkaline Phosphatase (34-104) U/L Troponin I High Sens (0-20) pg/ml B-Natriuretic Peptide (0-100) pg/ml Total Protein (6.0-8.3) gm/dl Albumin (3.4-5.0) gm/dl Globulin (2.5-4.0) gm/dl Albumin/Globulin Ratio (0.9-2) Urine Color Yellow Urine Appearance Clear (Clear) Urine pH 5.5 (4.5-7.5) Ur Specific [place] 1.013 (1.000-1.030) Urine Protein Negative (Negative) Urine Glucose (UA) Negative (Negative) Urine Ketones Negative (Negative) Urine Blood Negative (Negative) Urine Nitrite Negative (Negative) Urine Bilirubin Negative (Negative) Urine Urobilinogen Negative (Negative) Ur Leukocyte Esterase Negative (Negative) POC Stool Occult Blood Positive A (Negative) Adenovirus (PCR) (NotDetected) B. pertussis DNA (PCR) (NotDetected) B.parapertussis DNA PCR (NotDetected) C. pneumoniae DNA (PCR) (NotDetected) Coronavirus OC43 (PCR) (NotDetected) Coronavirus HKU1 (PCR) (NotDetected) Coronavirus 229E (PCR) (NotDetected) SARS-CoV-2 (PCR) (NotDetected) Coronavirus NL63 (PCR) (NotDetected) Human Metapneumovir PCR (NotDetected) Influenza Type A (PCR) (NotDetected) Influenza Type B (PCR) (NotDetected) M. pneumoniae (PCR) (NotDetected) Parainfluenza 1 (PCR) (NotDetected) Parainfluenza 2 (PCR) (NotDetected) Parainfluenza 3 (PCR) (NotDetected) Parainfluenza 4 (PCR) (NotDetected) RSV (PCR) (NotDetected) Entero/Rhino (PCR) (NotDetected) Blood Type Blood Type Recheck A Positive Antibody Screen Crossmatch 08/17/24 Range/Units 17:40 WBC (4.8-10.8) K/ul RBC (4.70-6.10) M/uL Hgb (14.0-18.0) g/dl Hct (42.0-52.0) % MCV (80.0-100.0) fL MCH (25.0-34.0) pg MCHC (32.0-36.0) g/dL RDW Std Deviation (36.4-46.3) fL RDW Coeff of Claire (11.5-14.5) % Plt Count (130-400) K/uL MPV (9.4-12.4) fL Immature Gran % (Auto) % Neut % (Auto) % Lymph % (Auto) % [place] % (Auto) % Eos % (Auto) % Baso % (Auto) % Neut # (Auto) (1.40-6.50) K/uL Lymph # (Auto) (1.20-3.40) K/uL [place] # (Auto) (0.11-0.59) K/uL Eos # (Auto) (0.00-0.50) K/uL Baso # (Auto) (0.00-0.20) K/uL Immature Gran # (Auto) (0.01-0.20) K/uL Polychromasia Anisocytosis Tear Drop Cells PT (9.0-12.0) Seconds INR (0.9-1.1) Sodium (136-145) mmol/L Potassium (3.5-5.1) mmol/L Chloride (98-107) mmol/L Carbon Dioxide (21-32) mmol/L Anion Gap (3-11) BUN (6-23) mg/dl Creatinine (0.6-1.4) mg/dl Est Cr Clr Drug Dosing eGFR BUN/Creatinine Ratio (10-20) Glucose (70-99(Fasting)) mg/dl Calcium (8.6-10.3) mg/dl Magnesium (1.7-2.4) mg/dl Iron (35-175) mcg/dl TIBC (250-450) mcg/dl Unsaturated IBC (155-355) mcg/dl Transferrin % Sat (20-50) % Ferritin (8-388) ng/ml Total Bilirubin (0.2-1.0) mg/dl AST (13-39) U/L ALT (7-52) U/L Alkaline Phosphatase (34-104) U/L Troponin I High Sens 353.6 H* (0-20) pg/ml B-Natriuretic Peptide (0-100) pg/ml Total Protein (6.0-8.3) gm/dl Albumin (3.4-5.0) gm/dl Globulin (2.5-4.0) gm/dl Albumin/Globulin Ratio (0.9-2) Urine Color Urine Appearance (Clear) Urine pH (4.5-7.5) Ur Specific [place] (1.000-1.030) Urine Protein (Negative) Urine Glucose (UA) (Negative) Urine Ketones (Negative) Urine Blood (Negative) Urine Nitrite (Negative) Urine Bilirubin (Negative) Urine Urobilinogen (Negative) Ur Leukocyte Esterase (Negative) POC Stool Occult Blood (Negative) Adenovirus (PCR) (NotDetected) B. pertussis DNA (PCR) (NotDetected) B.parapertussis DNA PCR (NotDetected) C. pneumoniae DNA (PCR) (NotDetected) Coronavirus OC43 (PCR) (NotDetected) Coronavirus HKU1 (PCR) (NotDetected) Coronavirus 229E (PCR) (NotDetected) SARS-CoV-2 (PCR) (NotDetected) Coronavirus NL63 (PCR) (NotDetected) Human Metapneumovir PCR (NotDetected) Influenza Type A (PCR) (NotDetected) Influenza Type B (PCR) (NotDetected) M. pneumoniae (PCR) (NotDetected) Parainfluenza 1 (PCR) (NotDetected) Parainfluenza 2 (PCR) (NotDetected) Parainfluenza 3 (PCR) (NotDetected) Parainfluenza 4 (PCR) (NotDetected) RSV (PCR) (NotDetected) Entero/Rhino (PCR) (NotDetected) Blood Type Blood Type Recheck Antibody Screen Crossmatch Administered Medications Discontinued Medications Furosemide (Furosemide 40 Mg/4 Ml Vial) 40 mg IV ONE ONE Stop: 08/17/24 18:05 Last Admin: 08/17/24 18:36 Dose: 40 mg Documented By: DIANE Pantoprazole Sodium 80 mg/ (Dextrose) 120 mls @ 480 mls/hr IV ONE STA Stop: 08/17/24 16:17 Last Infusion: 08/17/24 16:42 Dose: Infused Documented By: Admin: 08/17/24 16:17 Dose: 480 mls/hr Documented By: DIANE Imaging Data Radiologist's Impression: Chest X-Ray 08/17/24 14:44 XR chest 1V portable CLINICAL HISTORY: Dyspnea on exertion. COMPARISON STUDY: Chest radiograph January 30, 2024. FINDINGS: There is no pneumothorax. Cardiomegaly is unchanged. Pulmonary vascular congestion is present. This is improved when compared to prior exam. There are small bilateral pleural effusions. There is no pneumothorax. No definite consolidation to suggest pneumonia. IMPRESSION: Cardiomegaly with pulmonary vascular congestion and small bilateral pleural effusions. ACT 112: Negative or not required by law. Electronically signed by: Mitchel Scruggs M.D. 08/17/2024 3:[address] 08/17/24 15:02 CT OF THE HEAD WITHOUT CONTRAST CLINICAL HISTORY: Syncope. COMPARISON STUDY: Head CT January 24, 2024. MRI of the brain January 25, 2024. CT DOSE: 547.75 mGy.cm TECHNIQUE: Helical axial images of the head were obtained without IV contrast. Automated exposure control was utilized for the study. A dose lowering technique was utilized adhering to the principles of ALARA. FINDINGS: No acute intracranial hemorrhage, midline shift or mass effect is present. Ventricular system is stable. Basal cisterns are patent. There are no extra axial collections. Left parieto-occipital encephalomalacia is unchanged. This suggests an old infarct. White matter hypodensities are unchanged. There are no findings to suggest acute dural sinus thrombosis or acute territorial infarct. Two smaller suspected old right frontal lobe infarcts are unchanged. As before, the right maxillary sinus is opacified. Right ethmoid air cells are partially opacified. Old left nasal bone fracture. No calvarial fractures. IMPRESSION: No acute intracranial findings. No change in appearance of the brain. ACT 112: Negative or not required by law. Electronically signed by: Mitchel Scruggs M.D. 08/17/2024 3:38 PM Discharge Plan Visit Data Chief Complaint: Shortness of Breath/Dyspnea Stated Complaint: SOB ED Provider: Tre Ontiveros Discharge Problem: TALBERT (dyspnea on exertion), Acute anemia, Melena Patient Disposition: Being Evaluated by Hospitalist
--- NOTE | 2024-08-17 15:03 | XRay Report ---
XR chest 1V portable CLINICAL HISTORY: Dyspnea on exertion. COMPARISON STUDY: Chest radiograph January 30, 2024. FINDINGS: There is no pneumothorax. Cardiomegaly is unchanged. Pulmonary vascular congestion is prese nt. This is improved when compared to prior exam. There are small bilateral pleural effusions. There is no pneumothorax. No definite consolidation to suggest pneumonia. IMPRESSION: Cardiomegaly with pulmonary vascular congestion and small bilateral pleural effusions. ACT 112: Negative or not required by law. Electronically signed by: Mitchel Scruggs M.D. 08/17/2024 3:01 PM
[2024-08-17 15:28] LABS: Hematocrit (blood only) 20.2 % (42.0-52.0); Hemoglobin 5.9 g/dl (14.0-18.0); Mean Corpuscular Hemoglobin 27.8 pg (25.0-34.0); Mean Corpuscular Hgb Conc 29.2 g/dL (32.0-36.0); Mean Corpuscular Volume 95.3 fL (80.0-100.0); Mean Platelet Volume 10.5 fL (9.4-12.4); Platelet Count 178 K/uL (130-400); RDW Coefficient of Variation 20.8 % (11.5-14.5); RDW Standard Deviation 70.7 fL (36.4-46.3); Red Blood Count 2.12 M/uL (4.70-6.10); White Blood Count 7.79 K/ul (4.8-10.8)
[2024-08-17 15:31] LABS: INR 1.4 (0.9-1.1); Prothrombin Time 14.3 Seconds (9.0-12.0)
--- NOTE | 2024-08-17 15:40 | CT Scan Report ---
CT OF THE HEAD WITHOUT CONTRAST CLINICAL HISTORY: Syncope. COMPARISON STUDY: Head CT January 24, 2024. MRI of the brain January 25, 2024. CT DOSE: 547.75 mGy.cm TECHNIQUE: Helical axial images of the head were obtained without IV contrast. Automated exposure con trol was utilized for the study. A dose lowering technique was utilized adhering to the principles o f ALARA. FINDINGS: No acute intracranial hemorrhage, midline shift or mass effect is present. Ventricular syst em is stable. Basal cisterns are patent. There are no extra axial collections. Left parieto-occipital encephalomalacia is unchanged. This suggests an old infarct. White matter hypodensities are unchange d. There are no findings to suggest acute dural sinus thrombosis or acute territorial infarct. Two sm aller suspected old right frontal lobe infarcts are unchanged. As before, the right maxillary sinus i s opacified. Right ethmoid air cells are partially opacified. Old left nasal bone fracture. No calvar ial fractures. IMPRESSION: No acute intracranial findings. No change in appearance of the brain. ACT 112: Negative or not required by law. Electronically signed by: Mitchel Scruggs M.D. 08/17/2024 3:38 PM
[2024-08-17 15:49] LABS: Anisocytosis Present; Basophils # (auto) 0.02 K/uL (0.00-0.20); Basophils % (auto) 0.3 %; Eosinophils # (auto) 0.01 K/uL (0.00-0.50); Eosinophils % (auto) 0.1 %; Immature Granulocytes # (auto) 0.04 K/uL (0.01-0.20); Immature Granulocytes % (auto) 0.5 %; Monocytes # (auto) 0.44 K/uL (0.11-0.59); Monocytes % (auto) 5.6 %; Neutrophils # (auto) 6.58 K/uL (1.40-6.50); Neutrophils % (auto) 84.5 %; Polychromasia 1+; Tear Drop Cells 1+
[2024-08-17 16:01] LABS: Adenovirus PCR Not Detected (NotDetected); Bordetella parapertussis PCR Not Detected (NotDetected); Bordetella pertussis PCR Not Detected (NotDetected); Chlamydia pneumoniae PCR Not Detected (NotDetected); Coronavirus 229E PCR Not Detected (NotDetected); Coronavirus CoV-2 (COVID19)PCR Not Detected (NotDetected); Coronavirus HKU1 PCR Not Detected (NotDetected); Coronavirus NL63 PCR Not Detected (NotDetected); Coronavirus OC43PCR Not Detected (NotDetected); Human Metapneumovirus PCR Not Detected (NotDetected); Influenza A PCR Not Detected (NotDetected); Influenza B PCR Not Detected (NotDetected); Mycoplasma pneumoniae PCR Not Detected (NotDetected); Parainfluenza Virus 1 PCR Not Detected (NotDetected); Parainfluenza Virus 2 PCR Not Detected (NotDetected); Parainfluenza Virus 3 PCR Not Detected (NotDetected); Parainfluenza Virus 4 PCR Not Detected (NotDetected); Respiratory Syncytial VirusPCR Not Detected (NotDetected); Rhinovirus/Enterovirus PCR Not Detected (NotDetected)
[2024-08-17] MEDS ORDERED: SODIUM CHLORIDE 0.9% 50 ML IV PRN (16:03)
[2024-08-17] MEDS ORDERED: SODIUM CHLORIDE 0.9% 100 ML IV PRN (16:03)
[2024-08-17 16:10] LABS: Troponin I High Sensitivity 332.3 pg/ml (0-20)
[2024-08-17 16:13] LABS: Albumin Level 3.9 gm/dl (3.4-5.0); Anion Gap 11 (3-11); Bilirubin,Total 0.6 mg/dl (0.2-1.0); Calcium 9.3 mg/dl (8.6-10.3); Carbon Dioxide 25 mmol/L (21-32); Chloride 102 mmol/L (98-107); Magnesium 2.1 mg/dl (1.7-2.4); Potassium 4.1 mmol/L (3.5-5.1); Sodium 138 mmol/L (136-145)
[2024-08-17] MEDS: PANTOprazole 80 MG in DEXTROSE 5% 100 ML IV STA (16:17)
[2024-08-17 16:19] LABS: Alanine Aminotransferase 10 U/L (7-52); Albumin Globulin Ratio 1.6 (0.9-2); Alkaline Phosphatase 59 U/L (34-104); Aspartate Aminotransferase 14 U/L (13-39); BUN Creatinine Ratio 39.6 (10-20); Blood Urea Nitrogen 44 mg/dl (6-23); Ferritin 31.6 ng/ml (8-388); Globulin 2.5 gm/dl (2.5-4.0); Glucose 134 mg/dl (70-99(Fasting)); Iron 123 mcg/dl (35-175); Total Iron Binding Cap Calc 408 mcg/dl (250-450); Total Protein 6.4 gm/dl (6.0-8.3); Transferrin (FE) Percent Satur 30 % (20-50); Unsaturated Iron Binding Cap 285 mcg/dl (155-355)
--- NOTE | 2024-08-17 16:58 | History & Physical Report ---
Date of Service August 17, 2024 Assessment & Plan (1) Upper GI bleed: Plan: Worsening TALBERT x 2 weeks Patient does endorse melena, but initially thought it was secondary to his iron supplements Hgb 5.9 on arrival Hemoccult (+) on arrival BUN/creatinine ratio >30 Iron panel WNL on arrival 2 units PRBCs ordered for transfusion Per discussion with Dr. Pedraza, recommend increasing transfusion criteria (Hgb < 9.0) in the setting of severe aortic stenosis Trend H&H q6h Protonix 40 mg IV BID N.p.o. for now except for p.o. medications Gastroenterology consult appreciated (2) Aortic stenosis: Plan: Monitor for TACO/TRALI in the setting of blood transfusion/fluid overload Lasix 40 mg IV x 1 Cardiology consult for clearance prior to potential EGD (3) Leg edema: Plan: +2 pitting edema bilaterally on exam BNP 568 on arrival (most recently 1180 on 01/31/2024) Patient was originally scheduled for repeat echocardiogram at next cardio visit () Unclear if acute on chronic heart failure contributing to TALBERT in addition to anemia A.m. echocardiogram ordered for the morning of 08/18 Continue Lasix (4) Elevated troponin: Plan: Troponin 332 on arrival, repeat pending Trend q6h to peak EKG may show new ST depressions in the lateral leads Patient denies chest pain at rest or with exertion (such as when he goes up steps) Clinically, lower suspicion for ACS at this time but will place on continuous telemetry monitoring; ?Secondary to demand ischemia/acute anemia Repeat EKG the morning of 08/18 to re-assess ST depressions (5) PAF (paroxysmal atrial fibrillation): Plan: Atrial fibrillation on arrival; rate controlled Hold Eliquis for now in the setting of acute GI bleed (6) Seizure disorder: Plan: Continue Keppra, lamotrigine (7) Obstructive sleep apnea syndrome: Plan: CPAP HS (8) Acute anemia: (9) Melena: Plan Disposition: Admit to PCU telemetry Full code N.p.o. except PO meds VTE PPx: Hold chemical DVT PPx in the setting of acute GI bleed; TEDs History of Present Illness Chief Complaint: SOB/dyspnea Primary Care Provider: Felipe Blackburn MD Tristan is a pleasant 84-year-old male with PMH of seizure disorder, FRANCHESKA, C. difficile colitis, atrial fibrillation (on Eliquis), and protein calorie malnutrition. Presented on 08/17 for worsening SOB x 2 weeks. He reports that he only has TALBERT, but reports it has been getting progressively worse over this past week. He is at the point where he can only take a couple steps before he is "gasping". He denies SOB at rest. He does use a CPAP at night, and reports that he does not have orthopnea, but tries to remain elevated at night. No supplemental oxygen at baseline. Patient was recently started on Lasix in February/March for LE edema. He reports good compliance with taking his Lasix daily. He took all of his regular morning medicine today. Only recent change in med ications was that he was placed on eardrops by an ENT for a dried blood clot in his ear to soften it up; this was stopped yesterday due to concern that one of the rare side effects was causing SOB. No prior history of GI bleeds or stomach ulcers. He denies NSAID use. 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 Additionally, patient reports an episode of unresponsiveness yesterday. He walked down the stairs, sat down and a chair to watch TV, and reportedly does not remember what happened after that. was present at the time, and reports that he was "catatonic" and not responding to questions for approximately 2 minutes. He also had an episode of urinary incontinence during this time, which she reports was new for him. No prior history of blood transfusions. Patient's last colonoscopy was >10y; when he was in his 50s. No prior cardiac history to his knowledge; no history of MIs; no history of heart stents. He denies any chest pain when walking up steps or at rest. He reports 0/10 chest pain on admission. He does follow with Dr. Johns ([facility]) outpatient, and has been told in the past that he might require a cardiac catheterization in the "next couple years". He denies smoking, tobacco use, or recent alcohol use. Patient is mildly hypotensive at 103/59 at time of admission; vitals otherwise stable. ED course: Pantoprazole 80 mg IV 2 units leukoreduced PRBCs ordered ROS: Patient endorses cold intolerance, dizziness/lightheadedness with standing and walking, new onset TALBERT, 1 episode of urinary incontinence, 1 episode of unresponsiveness, and ongoing dark tarry stool (which patient attributes to his iron supplementation). Patient denies fever, chills, night sweats, chest pain, chest palpitations, pleuritic CP, cough, SOB at rest, orthopnea, abdominal pain, N/V/D, burning with urination, blood in the urine, or bright red blood in the stool. Allergies Allergy/AdvReac Type Severity Reaction Status Date / Time bee venom protein (honey bee) Allergy Unknown UNKN Verified 08/17/24 17:48 No Known Drug Allergies Allergy Verified 08/17/24 17:48 lactose AdvReac Intermediate GI UPSET Verified 08/17/24 17:48 Home Medications Medication Instructions Recorded Confirmed Type Spacer for Inhaler #1 ea 11/27/23 07/27/24 Rx epinephrine 0.3 mg/0.3 mL 0.3 mg (0.3 mL) IM DIRECTED PRN 02/25/24 08/17/24 Rx injection, auto-injector Allergic Reaction #2 ea latanoprost 0.005 % eye drops 1 drp ophthalmic (eye) PM #2.5 mL 02/25/24 08/17/24 Rx (Xalatan) lactase 9,000 unit tablet (Lactaid 9,000 unit PO QID PRN Milk food 03/06/24 08/17/24 History Fast Act) products aspirin 81 mg chewable tablet 81 mg PO DAILY #30 tabs 03/18/24 08/17/24 Rx calcium 600 mg (as carbonate)-vit 1 tab PO BID #60 tabs 03/18/24 08/17/24 Rx D3 10 mcg (400 unit) chewable tablet (Calcium 600 with Vitamin D3) potassium chloride 10 mEq 10 meq PO DAILY #30 caps 03/18/24 08/17/24 Rx capsule,extended release ferrous sulfate 325 mg (65 mg 325 mg PO DAILY #90 tabs 04/28/24 08/17/24 Rx iron) tablet apixaban 5 mg tablet (Eliquis) 5 mg PO BID #180 tabs 07/07/24 08/17/24 Rx lamotrigine 25 mg tablet 50 mg (2 x 25 mg) PO BID 30 days 07/08/24 08/17/24 Rx #120 tabs levetiracetam 500 mg tablet 1,000 mg (2 x 500 mg) PO BID #120 08/10/24 08/17/24 Rx tabs acetaminophen 650 mg 1,300 mg PO Q12H PRN Pain 08/17/24 08/17/24 History tablet,extended release (Tylenol Arthritis Pain) furosemide 40 mg tablet 40 mg PO DAILY PRN Edema 08/17/24 08/17/24 History simvastatin 40 mg tablet 40 mg PO QPM 08/17/24 08/17/24 History Past Med/Surg History Problem List (Updated 08/17/24 @ 17:40 by Thien Mccoy PA-C) Aortic stenosis Leg edema Elevated troponin PAF (paroxysmal atrial fibrillation) Upper GI bleed Melena (Acute) Acute anemia (Acute) TALBERT (dyspnea on exertion) (Acute) Blood in right ear canal (Acute) Conductive hearing loss in right ear (Acute) Encephalopathy Moderate protein-calorie malnutrition C. 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 pen[facility] (current) use of anticoagulants Cerebral hemorrhage Vascular insufficiency Dyslipidemia Atrial fibrillation CVA (cerebral vascular accident) Surgical History S/P hernia repair Vasectomy status H/O vasectomy Family History Other No pertinent family history Social History Smoking Status: Never smoker Second Hand Exposure: Yes; Do You Dip or Chew Tobacco: No; Hx Alcohol Use: No Hx Substance Use: No Preferred Language: Arabic Communication Ability: Effective Visual Impairment: Diminished Hearing Ability: Hard of Hearing Criminal Defense Attorney Required: No Beliefs That Will Affect Care: None marital status: Current Living Situation: Spouse current occupational status: retired Other Information That Helps Us Care for You: No Feels Safe at Home: Yes Safety Concerns: Feels Safe At This Time Diet: regular caffeine: No Seatbelt Use: always Sunscreen Use: Yes Do you think of yourself as: straight/heterosexual Gender Identity: Male Assistive Devices: None Review of Systems Review of Systems: See HPI above Physical Exam Physical Exam: General: no acute distress; pleasant affect; at bedside; non-toxic appearing; well-nourished; cooperative; SpO2 97% on RA HEENT: normocephalic, atraumatic; no scleral icterus; PERRLA; vision and hearing grossly intact Neck: supple; trachea midline Skin: warm, dry without signs of tenting; no cyanosis; no rashes, bruising, lesions, or erythema noted CV: chest wall NTP; irregular irregular rhythm; S1/S2 normal; 4/6 systolic ejection murmur auscultated at the second ICS MCL; pulses intact and symmetric at radial, DP, and PT Lungs: no acute respiratory distress; symmetrical chest wall expansion; clear breath sounds across all lung lua w/o adventitious sounds; no wheezing ABD: Large left-sided umbilical hernia appreciated; soft, NTP in all 4 quadrants; BS present; no rebound/guarding; significant distention secondary to hernia; no rashes or bruising on the abdomen or flanks bilaterally MSK: no tics or fasciculations; +2 pitting edema in the lower extremities bilaterally, nonerythematous but dark in color / wooden texture Neuro: A&Ox3; normal mood and affect; fluent speech; no focal deficits; patient reports that sensation is intact and symmetric in the lower extremities bilaterally Results & Data Results & Data Vital Signs (Past 12 Hours) Vital Signs Temp Pulse Pulse Resp BP BP Pulse Ox 08/17/24 16:22 72 16 103/59 L 92 08/17/24 14:51 78 18 100 08/17/24 14:37 83 08/17/24 14:31 79 18 117/74 100 08/17/24 14:31 100 08/17/24 14:31 36.5 C 20 117/64 96 O2 Del Method 08/17/24 16:22 Room Air 08/17/24 14:51 Room Air 08/17/24 14:37 12/02/24 14:31 Room Air 08/17/24 14:31 Room Air 08/17/24 14:31 Room Air Laboratory Results Abnormal lab results 08/17/24 08/17/24 08/17/24 Range/Units 15:06 15:38 16:03 RBC 2.12 L (4.70-6.10) M/uL Hgb 5.9 L* (14.0-18.0) g/dl Hct 20.2 L* (42.0-52.0) % MCHC 29.2 L (32.0-36.0) g/dL RDW Std Deviation 70.7 H (36.4-46.3) fL RDW Coeff of Claire 20.8 H (11.5-14.5) % Neut # (Auto) 6.58 H (1.40-6.50) K/uL Lymph # (Auto) 0.70 L (1.20-3.40) K/uL PT 14.3 H (9.0-12.0) Seconds INR 1.4 H (0.9-1.1) BUN 44 H (6-23) mg/dl BUN/Creatinine Ratio 39.6 H (10-20) Glucose 134 H (70-99(Fasting)) mg/dl Troponin I High Sens 332.3 H* (0-20) pg/ml B-Natriuretic Peptide 568 H (0-100) pg/ml POC Stool Occult Blood Positive A (Negative) Crossmatch See Detail Diagnostic Findings Chest X-Ray 08/17/24 14:44 XR chest 1V portable CLINICAL HISTORY: Dyspnea on exertion. COMPARISON STUDY: Chest radiograph January 30, 2024. FINDINGS: There is no pneumothorax. Cardiomegaly is unchanged. Pulmonary vascular congestion is present. This is improved when compared to prior exam. There are small bilateral pleural effusions. There is no pneumothorax. No definite consolidation to suggest pneumonia. IMPRESSION: Cardiomegaly with pulmonary vascular congestion and small bilateral pleural effusions. ACT 112: Negative or not required by law. Electronically signed by: Mitchel Scruggs M.D. 08/17/2024 3:[address] 08/17/24 15:02 CT OF THE HEAD WITHOUT CONTRAST CLINICAL HISTORY: Syncope. COMPARISON STUDY: Head CT January 24, 2024. MRI of the brain January 25, 2024. CT DOSE: 547.75 mGy.cm TECHNIQUE: Helical axial images of the head were obtained without IV contrast. Automated exposure control was utilized for the study. A dose lowering technique was utilized adhering to the principles of ALARA. FINDINGS: No acute intracranial hemorrhage, midline shift or mass effect is present. Ventricular system is stable. Basal cisterns are patent. There are no extra axial collections. Left parieto-occipital encephalomalacia is unchanged. This suggests an old infarct. White matter hypodensities are unchanged. There are no findings to suggest acute dural sinus thrombosis or acute territorial infarct. Two smaller suspected old right frontal lobe infarcts are unchanged. As before, the right maxillary sinus is opacified. Right ethmoid air cells are partially opacified. Old left nasal bone fracture. No calvarial fractures. IMPRESSION: No acute intracranial findings. No change in appearance of the brain. ACT 112: Negative or not required by law. Electronically signed by: Mitchel Scruggs M.D. 08/17/2024 3:38 PM ECG Additional Comments: ECG revealed atrial fibrillation at 77 bpm; RBBB; QTc 482; ?New ST depressions noted in the lateral leads when compared to last EKG in January 2024 Code Status & VTE Plan Code Status Full code (discussed with both patient and patient's at bedside) VTE Prophylaxis Plan VTE Prophylaxis will be ordered: Yes Supervising Physician Co-Signing Physician Notes I personally saw and examined the patient. I independently reviewed the labs, EKG, imaging, problem list, medication list, past medical history and family history. I verified all aguilar points and agree with Thien Mccoy PA-C with the following exceptions and/or additions: 84 year old male presents to the ER with progressively worsening shortness of breath on exertion O/E HS RRR, systolic late opening murmur, Chest CTAB, Abdo SNT, pedal edema 1+ b/l equal A/P Acute GI bleed, acute blood loss anemia - FOB +ve, Pantoprazole 40mg IV BID, NPO, consult GI, Transfuse < 9 (increased threshold due to elevated troponin and severe aortic stenosis), hold antiplatelets/anticoagulation Severe aortic stenosis - appears to be symptomatic from this as now needing Lasix, will consult cardiology and repeat his TTE for consideration of referral for TAVR Elevated troponin - in setting of anemia and severe aortic stenosis PG Care Time/CCT Total # of Minutes Spent Total Time Spent with Patient: Total time spent is greater than 50% in coordination of care (as documented) at patient's floor/unit and/or counseling patient: Coding [place] [address] INT INP/OBS CARE 3/75MIN Patient Type Established Medical Decision Making High Complexity Diagnoses Upper GI bleed K92.2 Aortic stenosis I35.0 Leg edema R60.0 Elevated troponin R79.89 PAF (paroxysmal atrial fibrillation) I48.0 Seizure disorder G40.909 Obstructive sleep apnea syndrome G47.33 Acute anemia D64.9 Melena K92.1
[2024-08-17 17:15] LABS: Appearance Urine Clear (Clear); Bilirubin Urine Negative (Negative); Blood Urine Negative (Negative); Color Urine Yellow; Glucose Urine UA Negative (Negative); Ketones Urine Negative (Negative); Leukocyte Esterase Urine Negative (Negative); Nitrite Urine Negative (Negative); Protein Urine Negative (Negative); Specific Gravity Urine 1.013 (1.000-1.030); Urobilinogen Urine Negative (Negative); pH Urine 5.5 (4.5-7.5)
[2024-08-17] MEDS: FUROSEMIDE 40 MG/4 ML VIAL IV ONE (18:36)
[2024-08-17] MEDS ORDERED: ACETAMINOPHEN 325 MG TAB PO PRN (20:58)
[2024-08-17] MEDS ORDERED: ONDANSETRON INJ 2 MG/ML 2 ML VIAL IV PRN (20:58)
[2024-08-17] MEDS: PANTOprazole 40 MG/10 ML SYR IV SCH (21:36)
[2024-08-17] MEDS: SIMVASTATIN 40 MG TAB PO SCH (21:45)
[2024-08-17] MEDS: levETIRAcetam 500 MG TAB PO SCH (21:47)
[2024-08-17] MEDS: lamoTRIgine 25 MG TAB PO SCH (21:47)
[2024-08-17] MEDS: LATANOPROST 0.005% OP SOLN 2.5 ML BTL OP SCH (21:59)
[2024-08-18] MEDS ORDERED: SODIUM CHLORIDE 0.9% 50 ML IV PRN ×3 (01:39→08:42)
[2024-08-18] MEDS ORDERED: SODIUM CHLORIDE 0.9% 100 ML IV PRN ×3 (01:39→08:42)
--- NOTE | 2024-08-18 02:53 | Communication Note ---
Date of Service: August 18, 2024 Repeat Hgb=7 s/p 2 units pRBC, was 5.9 prior. Due to his severe aortic stenosis transfusion threshold of 9. Troponin is also increased from prior 353-> 568. I talked to patient at bedside. He remains asymptomatic denies chest pain, notes dyspnea with exertion, which is what prompted him to come to ED-> has gotten better since admission. Lungs clear to auscultation B/L- no signs of fluid overload. Will order an additional 1 unit pRBC and put an additional 1 unit on hold. Repeat H/H 1 hour post transfusion. Remains asymptomatic with elevated troponin- still believe this is demand ischemia in the setting of acute anemia/GI bleed- will continue to trend to peak.
[2024-08-18 06:42] LABS: Basophils # (auto) 0.04 K/uL (0.00-0.20); Basophils % (auto) 0.5 %; Eosinophils # (auto) 0.03 K/uL (0.00-0.50); Eosinophils % (auto) 0.4 %; Hematocrit (blood only) 23.9 % (42.0-52.0); Hemoglobin 7.5 g/dl (14.0-18.0); Immature Granulocytes # (auto) 0.02 K/uL (0.01-0.20); Immature Granulocytes % (auto) 0.3 %; Lymphocytes # (auto) 1.06 K/uL (1.20-3.40); Lymphocytes % (auto) 13.3 %; Mean Corpuscular Hemoglobin 28.6 pg (25.0-34.0); Mean Corpuscular Hgb Conc 31.4 g/dL (32.0-36.0); Mean Corpuscular Volume 91.2 fL (80.0-100.0); Mean Platelet Volume 10.4 fL (9.4-12.4); Monocytes # (auto) 0.65 K/uL (0.11-0.59); Monocytes % (auto) 8.2 %; Neutrophils # (auto) 6.16 K/uL (1.40-6.50); Neutrophils % (auto) 77.3 %; Nucleated RBC # (auto) 0.02 K/uL (0.00-0.12); Nucleated RBC % (auto) 0.3 %; Platelet Count 170 K/uL (130-400); RDW Coefficient of Variation 18.6 % (11.5-14.5); RDW Standard Deviation 58.7 fL (36.4-46.3); Red Blood Count 2.62 M/uL (4.70-6.10); White Blood Count 7.96 K/ul (4.8-10.8)
[2024-08-18 07:04] LABS: BUN Creatinine Ratio 34.5 (10-20); Calcium 8.5 mg/dl (8.6-10.3); Creatinine Clr Calc Pharmacy 48.4 ml/min; Potassium 3.8 mmol/L (3.5-5.1)
[2024-08-18 07:10] LABS: Anisocytosis Present; Polychromasia 1+; Tear Drop Cells 1+
[2024-08-18 07:15] LABS: Troponin I High Sensitivity 695.1 pg/ml (0-20)
[2024-08-18] MEDS: FUROSEMIDE 40 MG TAB PO SCH (07:55)
[2024-08-18] MEDS: POTASSIUM CHLORIDE 10 MEQ TABCR PO SCH (08:04)
--- NOTE | 2024-08-18 08:52 | Gastrointestinal Consultation ---
Date of Consultation August 18, 2024 Assessment & Plan (1) Upper GI bleed: 84 year old male with history of seizure disorder, FRANCHESKA, C. difficile colitis, atrial fibrillation (on Eliquis, last dose thought to be yesterday) with report of dark, stools and anemia requiring RBCs x 3 units. Maintain NPO status Hold Eliquis Continue IV PPI Discuss EGD timing with my attending Trend H&H Transfuse PRN Monitor and document GI output We appreciate assistance in the management of any serological abnormality and corrections to include: hemoglobin >7, INR <2, platelets >50,000, potassium levels >3.5 but <5.3, and sodium levels within 5 points of the reference range prior to endoscopic evaluation. Thank you for allowing us to participate in the care of this patient. Please call with any acute changes, questions or concerns. Please see addendum below with additional recommendation from my supervising melisa sewell. I spent a total of 60 minutes on the date of service in review of patient's record, and previously obtained information in person and appropriate medical visit, discussion and education of plan, with patient and/or caregiver, placing orders for tests/referral/procedures as medically necessary and documentation of pertinent clinical information in patient's medical records for their visit today. Supervising Physician Co-Signing Physician Notes I saw and examined this patient with our nurse practitioner and agree with her assessment and plan. Clinical picture consistent with a subacute upper GI bleed as symptoms have been going on for the last few weeks. No further episodes of melena hemodynamically stable tolerating transfusions well. Most likely etiology is peptic ulcer disease. Continue IV proton pump inhibitor. Will proceed with endoscopy in a.m. History of Present Illness Reason for Consultation: acute GI bleeding Requesting Physician: Yariel Arriaza MD Attending Physician: Yariel Arriaza MD History of Present Illness 84 year old male with history of seizure disorder, FRANCHESKA, C. difficile colitis, atrial fibrillation (on Eliquis), and protein calorie malnutrition admitted through the ED w/ dyspnea and a ?unresponsive episode - GI was asked to evaluate for anemia. Pt was seen and evaluated, chart reviewed. Endorses dark stools but suggests he is on oral iron and stool are always dark. Denies any BRBPR. No nausea, vomiting. Tolerating PO intake. No fever, chills, CP, SOB. He believes his last dose of Eliquis was yesterday. HGB 5.9 --> 3 units --> 7.5 BUN 41 Last EGD/Colon were years ago by Dr. Walker. CTAP 01/2024: No acute intra-abdominal abnormality. There is nonspecific mild ascites. Liquid contents are seen in the colon compatible with diarrhea. Body wall edema.Moderate bilateral pleural effusions. Additional findings as above. Allergies Allergy/AdvReac Type Severity Reaction Status Date / Time bee venom protein (honey bee) Allergy Unknown UNKN Verified 08/17/24 17:48 No Known Drug Allergies Allergy Verified 08/17/24 17:48 lactose AdvReac Intermediate GI UPSET Verified 08/17/24 17:48 Home Medications Medication Instructions Recorded Confirmed Type Spacer for Inhaler #1 ea 11/27/23 07/27/24 Rx epinephrine 0.3 mg/0.3 mL 0.3 mg (0.3 mL) IM DIRECTED PRN 02/25/24 08/17/24 Rx injection, auto-injector Allergic Reaction #2 ea latanoprost 0.005 % eye drops 1 drp ophthalmic (eye) PM #2.5 mL 02/25/24 08/17/24 Rx (Xalatan) lactase 9,000 unit tablet (Lactaid 9,000 unit PO QID PRN Milk food 03/06/24 08/17/24 History Fast Act) products aspirin 81 mg chewable tablet 81 mg PO DAILY #30 tabs 03/18/24 08/17/24 Rx calcium 600 mg (as carbonate)-vit 1 tab PO BID #60 tabs 03/18/24 08/17/24 Rx D3 10 mcg (400 unit) chewable tablet (Calcium 600 with Vitamin D3) potassium chloride 10 mEq 10 meq PO DAILY #30 caps 03/18/24 08/17/24 Rx capsule,extended release ferrous sulfate 325 mg (65 mg 325 mg PO DAILY #90 tabs 04/28/24 08/17/24 Rx iron) tablet apixaban 5 mg tablet (Eliquis) 5 mg PO BID #180 tabs 07/07/24 08/17/24 Rx lamotrigine 25 mg tablet 50 mg (2 x 25 mg) PO BID 30 days 07/08/24 08/17/24 Rx #120 tabs levetiracetam 500 mg tablet 1,000 mg (2 x 500 mg) PO BID #120 08/10/24 08/17/24 Rx tabs acetaminophen 650 mg 1,300 mg PO Q12H PRN Pain 08/17/24 08/17/24 History tablet,extended release (Tylenol Arthritis Pain) furosemide 40 mg tablet 40 mg PO DAILY PRN Edema 08/17/24 08/17/24 History simvastatin 40 mg tablet 40 mg PO QPM 08/17/24 08/17/24 History Patient History Medical History (Updated 08/17/24 @ 17:40 by Thien Mccoy PA-C) CAD (coronary artery disease) Hypertension Hypercholesterolemia care home (current) use of anticoagulants Cerebral hemorrhage Vascular insufficiency Dyslipidemia Atrial fibrillation CVA (cerebral vascular accident) Surgical History S/P hernia repair Vasectomy status H/O vasectomy Family History Other No pertinent family history Social History Smoking Status: Never smoker Second Hand Exposure: Yes; Do You Dip or Chew Tobacco: No; Hx Alcohol Use: No Hx Substance Use: No Preferred Language: Bengali Communication Ability: Effective Visual Impairment: Diminished Hearing Ability: Hard of Hearing 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 Physical Exam Constitutional: WD/WN, vitals as above Respiratory: normal respiratory effort, lungs clear to auscultation Cardiovascular: Rate/Rhythm: regular rate and regular rhythm Skin: no rashes, warm and dry Results & Data Vital Signs (Past 12 Hours) Vital Signs Temp Pulse Pulse Resp BP BP Pulse Ox 08/18/24 08:23 36.5 C 70 18 135/54 L 96 08/18/24 05:15 37.1 C 63 18 102/55 L 95 08/18/24 04:53 37.2 C 70 14 120/50 L 96 08/18/24 03:53 37 C 69 18 110/76 93 08/18/24 03:23 37.2 C 58 L 18 120/56 L 99 08/18/24 03:08 37.3 C 70 16 110/60 95 08/18/24 02:53 36.8 C 71 18 129/71 96 08/18/24 02:10 63 18 105/57 L 96 08/18/24 01:40 37 C 59 L 18 97/43 L 97 08/17/24 23:45 37.1 C 66 16 111/53 L 98 08/17/24 23:15 36.8 C 62 16 118/61 95 08/17/24 22:40 68 18 108/61 98 08/17/24 22:15 36.8 C 67 18 119/55 L 95 08/17/24 21:45 36.6 C 75 18 107/68 98 08/17/24 21:30 36.9 C 74 20 92/69 L 99 08/17/24 21:27 93 H 08/17/24 21:13 36.8 C 74 18 108/56 L 95 O2 Del Method 08/18/24 08:23 Room Air 08/18/24 05:15 08/18/24 04:53 08/18/24 03:53 08/18/24 03:23 08/18/24 03:08 08/18/24 02:53 08/18/24 02:10 Room Air 08/18/24 01:40 Room Air 08/17/24 23:45 08/17/24 23:15 08/17/24 22:40 Room Air 08/17/24 22:15 08/17/24 21:45 08/17/24 21:30 08/17/24 21:27 08/17/24 21:13 Laboratory Results 08/18/24 08/18/24 08/17/24 Range/Units 06:16 00:24 17:40 WBC 7.96 (4.8-10.8) K/ul RBC 2.62 L (4.70-6.10) M/uL Hgb 7.5 L 7.0 L (14.0-18.0) g/dl Hct 23.9 L 23.0 L (42.0-52.0) % MCV 91.2 (80.0-100.0) fL MCH 28.6 (25.0-34.0) pg MCHC 31.4 L (32.0-36.0) g/dL RDW Std Deviation 58.7 H (36.4-46.3) fL RDW Coeff of Claire 18.6 H (11.5-14.5) % Plt Count 170 (130-400) K/uL MPV 10.4 (9.4-12.4) fL Immature Gran % (Auto) 0.3 % Neut % (Auto) 77.3 % Lymph % (Auto) 13.3 % [place] % (Auto) 8.2 % Eos % (Auto) 0.4 % Baso % (Auto) 0.5 % Neut # (Auto) 6.16 (1.40-6.50) K/uL Lymph # (Auto) 1.06 L (1.20-3.40) K/uL [place] # (Auto) 0.65 H (0.11-0.59) K/uL Eos # (Auto) 0.03 (0.00-0.50) K/uL Baso # (Auto) 0.04 (0.00-0.20) K/uL Immature Gran # (Auto) 0.02 (0.01-0.20) K/uL Absolute Nucleated RBC 0.02 (0.00-0.12) K/uL Nucleated RBC % (auto) 0.3 % Polychromasia 1+ Anisocytosis Present Tear Drop Cells 1+ PT (9.0-12.0) Seconds INR (0.9-1.1) Sodium 141 (136-145) mmol/L Potassium 3.8 (3.5-5.1) mmol/L Chloride 105 (98-107) mmol/L Carbon Dioxide 30 (21-32) mmol/L Anion Gap 6 (3-11) BUN 41 H (6-23) mg/dl Creatinine 1.19 (0.6-1.4) mg/dl Est Cr Clr Drug Dosing 48.4 eGFR 60.61 BUN/Creatinine Ratio 34.5 H (10-20) Glucose 95 (70-99(Fasting)) mg/dl Calcium 8.5 L (8.6-10.3) mg/dl Magnesium (1.7-2.4) mg/dl Iron (35-175) mcg/dl TIBC (250-450) mcg/dl Unsaturated IBC (155-355) mcg/dl Transferrin % Sat (20-50) % Ferritin (8-388) ng/ml Total Bilirubin (0.2-1.0) mg/dl AST (13-39) U/L ALT (7-52) U/L Alkaline Phosphatase (34-104) U/L Troponin I High Sens 695.1 H* D 568.5 H* D 353.6 H* (0-20) pg/ml B-Natriuretic Peptide (0-100) pg/ml Total Protein (6.0-8.3) gm/dl Albumin (3.4-5.0) gm/dl Globulin (2.5-4.0) gm/dl Albumin/Globulin Ratio (0.9-2) Urine Color Urine Appearance (Clear) Urine pH (4.5-7.5) Ur Specific [place] (1.000-1.030) Urine Protein (Negative) Urine Glucose (UA) (Negative) Urine Ketones (Negative) Urine Blood (Negative) Urine Nitrite (Negative) Urine Bilirubin (Negative) Urine Urobilinogen (Negative) Ur Leukocyte Esterase (Negative) POC Stool Occult Blood (Negative) Adenovirus (PCR) (NotDetected) B. pertussis DNA (PCR) (NotDetected) B.parapertussis DNA PCR (NotDetected) C. pneumoniae DNA (PCR) (NotDetected) Coronavirus OC43 (PCR) (NotDetected) Coronavirus HKU1 (PCR) (NotDetected) Coronavirus 229E (PCR) (NotDetected) SARS-CoV-2 (PCR) (NotDetected) Coronavirus NL63 (PCR) (NotDetected) Human Metapneumovir PCR (NotDetected) Influenza Type A (PCR) (NotDetected) Influenza Type B (PCR) (NotDetected) M. pneumoniae (PCR) (NotDetected) Parainfluenza 1 (PCR) (NotDetected) Parainfluenza 2 (PCR) (NotDetected) Parainfluenza 3 (PCR) (NotDetected) Parainfluenza 4 (PCR) (NotDetected) RSV (PCR) (NotDetected) Entero/Rhino (PCR) (NotDetected) Blood Type Blood Type Recheck Antibody Screen Crossmatch 08/17/24 08/17/24 08/17/24 Range/Units 16:57 16:31 16:03 WBC (4.8-10.8) K/ul RBC (4.70-6.10) M/uL Hgb (14.0-18.0) g/dl Hct (42.0-52.0) % MCV (80.0-100.0) fL MCH (25.0-34.0) pg MCHC (32.0-36.0) g/dL RDW Std Deviation (36.4-46.3) fL RDW Coeff of Claire (11.5-14.5) % Plt Count (130-400) K/uL MPV (9.4-12.4) fL Immature Gran % (Auto) % Neut % (Auto) % Lymph % (Auto) % [place] % (Auto) % Eos % (Auto) % Baso % (Auto) % Neut # (Auto) (1.40-6.50) K/uL Lymph # (Auto) (1.20-3.40) K/uL [place] # (Auto) (0.11-0.59) K/uL Eos # (Auto) (0.00-0.50) K/uL Baso # (Auto) (0.00-0.20) K/uL Immature Gran # (Auto) (0.01-0.20) K/uL Absolute Nucleated RBC (0.00-0.12) K/uL Nucleated RBC % (auto) % Polychromasia Anisocytosis Tear Drop Cells PT (9.0-12.0) Seconds INR (0.9-1.1) Sodium (136-145) mmol/L Potassium (3.5-5.1) mmol/L Chloride (98-107) mmol/L Carbon Dioxide (21-32) mmol/L Anion Gap (3-11) BUN (6-23) mg/dl Creatinine (0.6-1.4) mg/dl Est Cr Clr Drug Dosing eGFR BUN/Creatinine Ratio (10-20) Glucose (70-99(Fasting)) mg/dl Calcium (8.6-10.3) mg/dl Magnesium (1.7-2.4) mg/dl Iron (35-175) mcg/dl TIBC (250-450) mcg/dl Unsaturated IBC (155-355) mcg/dl Transferrin % Sat (20-50) % Ferritin (8-388) ng/ml Total Bilirubin (0.2-1.0) mg/dl AST (13-39) U/L ALT (7-52) U/L Alkaline Phosphatase (34-104) U/L Troponin I High Sens (0-20) pg/ml B-Natriuretic Peptide (0-100) pg/ml Total Protein (6.0-8.3) gm/dl Albumin (3.4-5.0) gm/dl Globulin (2.5-4.0) gm/dl Albumin/Globulin Ratio (0.9-2) Urine Color Yellow Urine Appearance Clear (Clear) Urine pH 5.5 (4.5-7.5) Ur Specific [place] 1.013 (1.000-1.030) Urine Protein Negative (Negative) Urine Glucose (UA) Negative (Negative) Urine Ketones Negative (Negative) Urine Blood Negative (Negative) Urine Nitrite Negative (Negative) Urine Bilirubin Negative (Negative) Urine Urobilinogen Negative (Negative) Ur Leukocyte Esterase Negative (Negative) POC Stool Occult Blood Positive A (Negative) Adenovirus (PCR) (NotDetected) B. pertussis DNA (PCR) (NotDetected) B.parapertussis DNA PCR (NotDetected) C. pneumoniae DNA (PCR) (NotDetected) Coronavirus OC43 (PCR) (NotDetected) Coronavirus HKU1 (PCR) (NotDetected) Coronavirus 229E (PCR) (NotDetected) SARS-CoV-2 (PCR) (NotDetected) Coronavirus NL63 (PCR) (NotDetected) Human Metapneumovir PCR (NotDetected) Influenza Type A (PCR) (NotDetected) Influenza Type B (PCR) (NotDetected) M. pneumoniae (PCR) (NotDetected) Parainfluenza 1 (PCR) (NotDetected) Parainfluenza 2 (PCR) (NotDetected) Parainfluenza 3 (PCR) (NotDetected) Parainfluenza 4 (PCR) (NotDetected) RSV (PCR) (NotDetected) Entero/Rhino (PCR) (NotDetected) Blood Type Blood Type Recheck A Positive Antibody Screen Crossmatch 08/17/24 08/17/24 08/17/24 Range/Units 15:38 15:06 14:39 WBC 7.79 (4.8-10.8) K/ul RBC 2.12 L (4.70-6.10) M/uL Hgb 5.9 L* (14.0-18.0) g/dl Hct 20.2 L* (42.0-52.0) % MCV 95.3 (80.0-100.0) fL MCH 27.8 (25.0-34.0) pg MCHC 29.2 L (32.0-36.0) g/dL RDW Std Deviation 70.7 H (36.4-46.3) fL RDW Coeff of Claire 20.8 H (11.5-14.5) % Plt Count 178 (130-400) K/uL MPV 10.5 (9.4-12.4) fL Immature Gran % (Auto) 0.5 % Neut % (Auto) 84.5 % Lymph % (Auto) 9.0 % [place] % (Auto) 5.6 % Eos % (Auto) 0.1 % Baso % (Auto) 0.3 % Neut # (Auto) 6.58 H (1.40-6.50) K/uL Lymph # (Auto) 0.70 L (1.20-3.40) K/uL [place] # (Auto) 0.44 (0.11-0.59) K/uL Eos # (Auto) 0.01 (0.00-0.50) K/uL Baso # (Auto) 0.02 (0.00-0.20) K/uL Immature Gran # (Auto) 0.04 (0.01-0.20) K/uL Absolute Nucleated RBC (0.00-0.12) K/uL Nucleated RBC % (auto) % Polychromasia 1+ Anisocytosis Present Tear Drop Cells 1+ PT 14.3 H (9.0-12.0) Seconds INR 1.4 H (0.9-1.1) Sodium 138 (136-145) mmol/L Potassium 4.1 (3.5-5.1) mmol/L Chloride 102 (98-107) mmol/L Carbon Dioxide 25 (21-32) mmol/L Anion Gap 11 (3-11) BUN 44 H (6-23) mg/dl Creatinine 1.11 (0.6-1.4) mg/dl Est Cr Clr Drug Dosing Not Reportable eGFR 65.89 BUN/Creatinine Ratio 39.6 H (10-20) Glucose 134 H (70-99(Fasting)) mg/dl Calcium 9.3 (8.6-10.3) mg/dl Magnesium 2.1 (1.7-2.4) mg/dl Iron 123 (35-175) mcg/dl TIBC 408 (250-450) mcg/dl Unsaturated IBC 285 (155-355) mcg/dl Transferrin % Sat 30 (20-50) % Ferritin 31.6 (8-388) ng/ml Total Bilirubin 0.6 (0.2-1.0) mg/dl AST 14 (13-39) U/L ALT 10 (7-52) U/L Alkaline Phosphatase 59 (34-104) U/L Troponin I High Sens 332.3 H* (0-20) pg/ml B-Natriuretic Peptide 568 H (0-100) pg/ml Total Protein 6.4 (6.0-8.3) gm/dl Albumin 3.9 (3.4-5.0) gm/dl Globulin 2.5 (2.5-4.0) gm/dl Albumin/Globulin Ratio 1.6 (0.9-2) Urine Color Urine Appearance (Clear) Urine pH (4.5-7.5) Ur Specific [place] (1.000-1.030) Urine Protein (Negative) Urine Glucose (UA) (Negative) Urine Ketones (Negative) Urine Blood (Negative) Urine Nitrite (Negative) Urine Bilirubin (Negative) Urine Urobilinogen (Negative) Ur Leukocyte Esterase (Negative) POC Stool Occult Blood (Negative) Adenovirus (PCR) Not Detected (NotDetected) B. pertussis DNA (PCR) Not Detected (NotDetected) B.parapertussis DNA PCR Not Detected (NotDetected) C. pneumoniae DNA (PCR) Not Detected (NotDetected) Coronavirus OC43 (PCR) Not Detected (NotDetected) Coronavirus HKU1 (PCR) Not Detected (NotDetected) Coronavirus 229E (PCR) Not Detected (NotDetected) SARS-CoV-2 (PCR) Not Detected (NotDetected) Coronavirus NL63 (PCR) Not Detected (NotDetected) Human Metapneumovir PCR Not Detected (NotDetected) Influenza Type A (PCR) Not Detected (NotDetected) Influenza Type B (PCR) Not Detected (NotDetected) M. pneumoniae (PCR) Not Detected (NotDetected) Parainfluenza 1 (PCR) Not Detected (NotDetected) Parainfluenza 2 (PCR) Not Detected (NotDetected) Parainfluenza 3 (PCR) Not Detected (NotDetected) Parainfluenza 4 (PCR) Not Detected (NotDetected) RSV (PCR) Not Detected (NotDetected) Entero/Rhino (PCR) Not Detected (NotDetected) Blood Type A Positive Blood Type Recheck Cancelled Antibody Screen NEGATIVE Crossmatch See Detail PG Care Time/CCT Total # of Minutes Spent Total Time Spent with Patient: Total time spent is greater than 50% in coordination of care (as documented) at patient's floor/unit and/or counseling patient: Coding Level of Care Code 49173 INT INP/OBS CARE 2/55MIN Diagnoses Upper GI bleed K92.2
--- NOTE | 2024-08-18 09:05 | Hospitalist Progress Note ---
Date of Service August 18, 2024 Assessment & Plan (1) Upper GI bleed: Plan: Presented with worsening TALBERT x 2 weeks. Patient endorsed melena, but initially thought it was secondary to his iron supplements - Hgb 5.9 on arrival. Hemoccult (+) on arrival. Iron panel WNL on arrival - Increased transfusion criteria (Hgb < 9.0) in the setting of severe aortic stenosis - Repeat hgb=7.5 s/p 3 units pRBC - Will order another 1 unit pRBC to be transfused with 2 additional units placed on hold - Monitor H&H 1 hour post-transfusion - Continue Protonix 40 mg IV BID - N.p.o. for now except for p.o. medications - Gastroenterology consult appreciated -- scheduled for EGD 08/19 (2) Aortic stenosis: Plan: Known history of CAD, PAF, severe aortic stenosis; follows with Dr. Johns outpatient. Per cardiology note on 03/17/2024, his aortic stenosis remains stable and asymptomatic - BNP 560 on arrival (most recently 11 ED on 01/31/2024) with 2+ pitting edema bilaterally on admission - Unclear if acute on chronic heart failure contributing to TALBERT in addition to anemia - Continue Lasix 40 mg p.o. QAM - Atrial fibrillation on arrival; rate controlled -- hold Eliquis in setting of acute GI bleed - Monitor for TACO/TRALI in the setting of blood transfusion/fluid overload - Echo showed EF=60-65%, severe valvular , mild AR, mildly dilated ascending aorta 4.2 cm. Compared with study from January 2024, no significant change - Troponin increased at 332 on arrival; asymptomatic > Troponin peaked at 847.2, then downtrended; patient remains asymptomatic > Believe this to be demand ischemia in setting of acute anemia/GI bleed - Cardiology consulted for clearance prior to EGD (3) Acute anemia: Plan Updated at bedside Ordered additional pRBC transfusion Placed 2 units pRBC on hold Repeated troponin level Discussed case with cardiology Chronic stable issues: Paroxysmal A-fib: Rate controlled; hold Eliquis for now in setting of acute GI bleed Seizure disorder: Continue Keppra, lamotrigine FRANCHESKA: CPAP at bedtime N.p.o. except PO meds VTE PPx: Hold chemical DVT PPx in the setting of acute GI bleed; TEDs CODE STATUS: Full code Admission and Anticipated Discharge Date Admission Date: August 17, 2024 Subjective Patient seen and evaluated at bedside with his present. He reports increased TALBERT for about 2 weeks prior to admission. He notes that his lower extremity swelling is much improved compared to how it used to be previously. He reports dark stools, which he attributes to his iron supplementation. He denies bright red blood in his stool, hematuria, hematemesis, or hemoptysis. He denies lightheadedness, dizziness, SOB at rest, or chest pain. He denies recent NSAID use. We discussed his response to transfusions so far, and the plan for additional transfusions and EGD. No additional complaints or concerns at this time. Physical Exam Physical Exam: General: No acute distress, nondiaphoretic, well-developed, well-nourished. Skin: Warm, dry. Chronic venous insufficiency lower extremities bilaterally, no edema. Cardiac: Irregularly irregular, rates in 70s. Systolic murmur noted. Pulm: Clear to auscultation bilaterally without wheezes, rales or rhonchi. No respiratory distress. 96% on room air. Abdominal: Soft, nontender, nondistended. Bowel sounds present. Large left-si ded umbilical hernia noted. Neuro: A&O x3. No focal neurological deficits. Results & Data Results & Data Vital Signs (Past 12 Hours) Vital Signs Temp Pulse Pulse Resp BP BP Pulse Ox 08/18/24 08:23 97.7 F 70 18 135/54 L 96 08/18/24 05:15 98.8 F 63 18 102/55 L 95 08/18/24 04:53 99.0 F 70 14 120/50 L 96 08/18/24 03:53 98.6 F 69 18 110/76 93 08/18/24 03:23 99.0 F 58 L 18 120/56 L 99 08/18/24 03:08 99.1 F 70 16 110/60 95 08/18/24 02:53 98.2 F 71 18 129/71 96 08/18/24 02:10 63 18 105/57 L 96 08/18/24 01:40 98.6 F 59 L 18 97/43 L 97 08/17/24 23:45 98.8 F 66 16 111/53 L 98 08/17/24 23:15 98.2 F 62 16 118/61 95 08/17/24 22:40 68 18 108/61 98 08/17/24 22:15 98.2 F 67 18 119/55 L 95 08/17/24 21:45 97.9 F 75 18 107/68 98 08/17/24 21:30 98.4 F 74 20 92/69 L 99 08/17/24 21:27 93 H 08/17/24 21:13 98.2 F 74 18 108/56 L 95 O2 Del Method 08/18/24 08:23 Room Air 08/18/24 05:15 08/18/24 04:53 08/18/24 03:53 08/18/24 03:23 08/18/24 03:08 08/18/24 02:53 08/18/24 02:10 Room Air 08/18/24 01:40 Room Air 08/17/24 23:45 08/17/24 23:15 08/17/24 22:40 Room Air 08/17/24 22:15 08/17/24 21:45 08/17/24 21:30 08/17/24 21:27 08/17/24 21:13 Laboratory Results Reviewed CBC Reviewed coags Reviewed chemistries Reviewed UA Diagnostic Findings Reviewed CXR Reviewed Head CT Reviewed echocardiogram Interpretation summary Left ventricular systolic function is normal. No regional wall motion abnormalities noted. There is mild concentric left ventricular hypertrophy. Left ventricular ejection fraction= 60-65%. Severe valvular aortic stenosis. Mild aortic regurgitation. Mildly dilated ascending aorta (4.2 cm). Compared with study of 01/28/2024, no significant change. PG Care Time/CCT Total # of Minutes Spent Total Time Spent with Patient: Total time spent is greater than 50% in coordination of care (as documented) at patient's floor/unit and/or counseling patient: Coding Level of Care Code 58495 SUB INP/OBS CARE 3/50MIN Diagnoses Upper GI bleed K92.2 Aortic stenosis I35.0 Acute anemia D64.9
--- NOTE | 2024-08-18 12:00 | Cardiology Consultation ---
Date of Consultation August 18, 2024 Assessment & Plan (1) Upper GI bleed: -Patient scheduled for upper endoscopy later today. -Acceptable cardiac risk for procedure. -Management per GI and the hospitalist team. (2) Aortic stenosis: -Severe stenosis noted on last several echocardiograms. -Has been asymptomatic thus far. -Repeat echocardiogram pending. (3) PAF (paroxysmal atrial fibrillation): -Currently in rate controlled atrial fibrillation. -Obviously, Eliquis is on hold. -Does not require rate controlling medications. (4) Ascending aorta dilatation: -Last measured at 4.2 cm in diameter, stable. -Repeat echocardiogram pending. History of Present Illness Attending Physician: Yariel Arriaza MD History of Present Illness Mr. Dominique is an 84-year-old male admitted yesterday with progressive exertional dyspnea and a profound anemia. This consultation was ordered to assist in his cardiac management. Of note, the patient is well-known to me from the outpatient setting. The patient was in his usual state of health until several weeks ago. He began to note progressive exertional dyspnea with less and less exertion. By the day of presentation, he could only take several steps before "gasping." He presented to the emergency room was found to have a hemoglobin of 5.9. He did receive a blood transfusion at that time. He has been since experiencing dark tarry stools which he has attributed to his iron supplementation. He does carry history of severe aortic stenosis which has been asymptomatic. His most recent valve area was 0.9 cm back in January of this year. He also carries a history of paroxysmal atrial fibrillation and has been stable on rate control and long-term anticoagulation. Currently, patient is resting comfortably in bed without complaints. Past medical and surgical history 1. Hypertension 2. Hypercholesterolemia 3. Severe aortic stenosis0.9 cm, January 2024 4. Dilated ascending thoracic aorta4.2 cm, January 2024 5. Paroxysmal atrial fibrillation 6. RBBB 7. CVA x2-2007 8. Word searching residual following CVA 9. Ventral hernia 10. Obstructive sleep apnea 11. Peripheral vascular disease 12. Glaucoma 13. Seizure disorder Social history and lives with his Retired No tobacco or alcohol Family history No early coronary artery disease Review of systems A 10 point review of systems was undertaken and negative except for that described above. Allergies Allergy/AdvReac Type Severity Reaction Status Date / Time bee venom protein (honey bee) Allergy Unknown UNKN Verified 08/17/24 17:48 No Known Drug Allergies Allergy Verified 08/17/24 17:48 lactose AdvReac Intermediate GI UPSET Verified 08/17/24 17:48 Home Medications Medication Instructions Recorded Confirmed Type Spacer for Inhaler #1 ea 11/27/23 07/27/24 Rx epinephrine 0.3 mg/0.3 mL 0.3 mg (0.3 mL) IM DIRECTED PRN 02/25/24 08/17/24 Rx injection, auto-injector Allergic Reaction #2 ea latanoprost 0.005 % eye drops 1 drp ophthalmic (eye) PM #2.5 mL 02/25/24 08/17/24 Rx (Xalatan) lactase 9,000 unit tablet (Lactaid 9,000 unit PO QID PRN Milk food 03/06/24 08/17/24 History Fast Act) products aspirin 81 mg chewable tablet 81 mg PO DAILY #30 tabs 03/18/24 08/17/24 Rx calcium 600 mg (as carbonate)-vit 1 tab PO BID #60 tabs 03/18/24 08/17/24 Rx D3 10 mcg (400 unit) chewable tablet (Calcium 600 with Vitamin D3) potassium chloride 10 mEq 10 meq PO DAILY #30 caps 03/18/24 08/17/24 Rx capsule,extended release ferrous sulfate 325 mg (65 mg 325 mg PO DAILY #90 tabs 04/28/24 08/17/24 Rx iron) tablet apixaban 5 mg tablet (Eliquis) 5 mg PO BID #180 tabs 07/07/24 08/17/24 Rx lamotrigine 25 mg tablet 50 mg (2 x 25 mg) PO BID 30 days 07/08/24 08/17/24 Rx #120 tabs levetiracetam 500 mg tablet 1,000 mg (2 x 500 mg) PO BID #120 08/10/24 08/17/24 Rx tabs acetaminophen 650 mg 1,300 mg PO Q12H PRN Pain 08/17/24 08/17/24 History tablet,extended release (Tylenol Arthritis Pain) furosemide 40 mg tablet 40 mg PO DAILY PRN Edema 08/17/24 08/17/24 History simvastatin 40 mg tablet 40 mg PO QPM 08/17/24 08/17/24 History Patient History Medical History (Updated 08/17/24 @ 17:40 by Thien Mccoy PA-C) CAD (coronary artery disease) Hypertension 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 Cerebral hemorrhage Vascular insufficiency Dyslipidemia Atrial fibrillation CVA (cerebral vascular accident) Surgical History S/P hernia repair Vasectomy status H/O vasectomy Family History Other No pertinent family history Social History Smoking Status: Never smoker Second Hand Exposure: Yes; Do You Dip or Chew Tobacco: No; Hx Alcohol Use: No Hx Substance Use: No Preferred Language: Kiswahili Communication Ability: Effective Visual Impairment: Diminished Hearing Ability: Hard of Hearing 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 HEENT exam is negative. Neck reveals delayed and prolonged carotid upstrokes. A quiet transmitted murmurs noted bilaterally. No jugular venous distention. There is no thyromegaly. Cardiovascular exam reveals a regular rhythm with a 2/6 crescendo decrescendo systolic murmur heard loudest at the base. S2 is not audible at the apex. Lungs are clear without rales, rhonchi, or wheezes. Abdomen is soft without bruits. Extremities reveal intact radial artery pulses bilaterally. There is 1+ peripheral edema. Hyperpigmentation changes also noted. Results & Data Vital Signs (Past 12 Hours) Vital Signs Temp Pulse Pulse Resp BP BP Pulse Ox 08/18/24 08:37 08/18/24 08:23 36.5 C 70 18 135/54 L 96 08/18/24 05:15 37.1 C 63 18 102/55 L 95 12/03/24 04:53 37.2 C 70 14 120/50 L 96 08/18/24 03:53 37 C 69 18 110/76 93 08/18/24 03:23 37.2 C 58 L 18 120/56 L 99 08/18/24 03:08 37.3 C 70 16 110/60 95 08/18/24 02:53 36.8 C 71 18 129/71 96 08/18/24 02:10 63 18 105/57 L 96 08/18/24 01:40 37 C 59 L 18 97/43 L 97 O2 Del Method 08/18/24 08:37 Room Air 08/18/24 08:23 Room Air 08/18/24 05:15 08/18/24 04:53 08/18/24 03:53 08/18/24 03:23 08/18/24 03:08 08/18/24 02:53 08/18/24 02:10 Room Air 08/18/24 01:40 Room Air Laboratory Results Hemoglobin on presentation was 5.9, currently 7.5. Hematocrit is 23.9, white count 7.9, and a platelet count 170,000. Electrolytes noted sodium 141, potassium 3.8, chloride 105, bicarb 30, BUN 41, creatinine 1.2, and a glucose of 95. Initial high-sensitivity troponin was 332 with follow-up values of 354, 569, and 695. Diagnostic Findings EKG notes atrial fibrillation and a complete right bundle branch block. There is an inferolateral T wave abnormality. Chest x-ray notes cardiomegaly, but no active disease. PG Care Time/CCT Total # of Minutes Spent Total Time Spent with Patient: Total time spent is greater than 50% in coordination of care (as documented) at patient's floor/unit and/or counseling patient: Coding Level of Care Code 07372 INT INP/OBS CARE 3/75MIN Diagnoses Upper GI bleed K92.2 Aortic stenosis I35.0 PAF (paroxysmal atrial fibrillation) I48.0 Ascending aorta dilatation I77.810
--- NOTE | 2024-08-18 13:40 | Electrocardiogram Report ---
Test Reason : Blood Pressure : */* mmHG Vent. Rate : 77 BPM Atrial Rate : * BPM P-R Int : * ms QRS Dur : 174 ms QT Int : 426 ms P-R-T Axes : * 49 -49 degrees QTcB Int : 482 ms Atrial fibrillation Right bundle branch block Abnormal ECG When compared with ECG of 23-Jan-2024 04:15, QRS axis Shifted right T wave inversion no longer evident in Lateral leads Confirmed by Jose Johns ([id number]) on 08/18/2024 1:39:39 PM Referred By: REFERRED SELF Confirmed By: Jose Johns
--- NOTE | 2024-08-18 14:15 | Electrocardiogram Report ---
Test Reason : Blood Pressure : */* mmHG Vent. Rate : 64 BPM Atrial Rate : 72 BPM P-R Int : * ms QRS Dur : 160 ms QT Int : 430 ms P-R-T Axes : * 94 -73 degrees QTcB Int : 443 ms Atrial fibrillation Right bundle branch block Possible Right ventricular hypertrophy Lateral infarct , age undetermined T wave abnormality, consider inferior ischemia T wave abnormality, consider anterior ischemia Abnormal ECG When compared with ECG of 17-Aug-2024 14:36, (unconfirmed) Lateral infarct is now Present Confirmed by Jose Johns ([id number]) on 08/18/2024 2:14:59 PM Referred By: REFERRED SELF Confirmed By: Jose Johns
--- NOTE | 2024-08-18 14:33 | XCELERA ---
[id number]
[2024-08-18 17:48] LABS: Hemoglobin 8.3 g/dl (14.0-18.0)
--- NOTE | 2024-08-19 08:06 | Anesthesiology Consultation ---
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 Sydni Troy MD Height/Weight Height: 5 ft 6 in Weight: 86.5 kg Allergies Allergy/AdvReac Type Severity Reaction Status Date / Time bee venom protein (honey bee) Allergy Unknown UNKN Verified 08/17/24 17:48 No Known Drug Allergies Allergy Verified 08/17/24 17:48 lactose AdvReac Intermediate GI UPSET Verified 08/17/24 17:48 Medications Home Medications Medication Instructions Recorded Confirmed Last Taken Spacer for Inhaler #1 ea 11/27/23 07/27/24 Unknown epinephrine 0.3 mg/0.3 mL 0.3 mg (0.3 mL) IM DIRECTED PRN 02/25/24 08/17/24 Unknown injection, auto-injector Allergic Reaction #2 ea latanoprost 0.005 % eye drops 1 drp ophthalmic (eye) PM #2.5 mL 02/25/24 08/17/24 Unknown (Xalatan) lactase 9,000 unit tablet (Lactaid 9,000 unit PO QID PRN Milk food 03/06/24 08/17/24 Unknown Fast Act) products aspirin 81 mg chewable tablet 81 mg PO DAILY #30 tabs 03/18/24 08/17/24 Unknown calcium 600 mg (as carbonate)-vit 1 tab PO BID #60 tabs 03/18/24 08/17/24 Unknown D3 10 mcg (400 unit) chewable tablet (Calcium 600 with Vitamin D3) potassium chloride 10 mEq 10 meq PO DAILY #30 caps 03/18/24 08/17/24 Unknown capsule,extended release ferrous sulfate 325 mg (65 mg 325 mg PO DAILY #90 tabs 04/28/24 08/17/24 Unknown iron) tablet apixaban 5 mg tablet (Eliquis) 5 mg PO BID #180 tabs 07/07/24 08/17/24 Unknown lamotrigine 25 mg tablet 50 mg (2 x 25 mg) PO BID 30 days 07/08/24 08/17/24 Unknown #120 tabs levetiracetam 500 mg tablet 1,000 mg (2 x 500 mg) PO BID #120 08/10/24 08/17/24 Unknown tabs acetaminophen 650 mg 1,300 mg PO Q12H PRN Pain 08/17/24 08/17/24 Unknown tablet,extended release (Tylenol Arthritis Pain) furosemide 40 mg tablet 40 mg PO DAILY PRN Edema 08/17/24 08/17/24 Unknown simvastatin 40 mg tablet 40 mg PO QPM 08/17/24 08/17/24 Unknown Active Medications Generic Name Dose Route Start Last Admin Trade Name Freq PRN Reason Stop Dose Admin Furosemide 40 mg 08/18/24 09:00 08/18/24 07:55 Furosemide 40 Mg Tab PO 09/17/24 08:59 40 mg QAM IMANI Administration Pantoprazole Sodium 40 mg in 10 mls @ 5 mls/min 08/17/24 21:00 08/18/24 21:41 Protonix IV 09/16/24 20:59 5 mls/min BID IMANI Administration Lamotrigine 50 mg 08/17/24 21:00 08/18/24 21:42 Lamotrigine 25 Mg Tab PO 09/16/24 20:59 50 mg BID IMANI Administration Protocol Latanoprost 1 drops 08/17/24 21:00 08/18/24 21:40 Latanoprost 0.005% Op Soln 2.5 Ml Btl OP 09/16/24 20:59 1 drops PM IMANI Administration Levetiracetam 1,000 mg 08/17/24 21:00 08/18/24 21:42 Levetiracetam 500 Mg Tab PO 09/16/24 20:59 1,000 mg BID IMANI Administration Potassium Chloride 10 meq 08/18/24 09:00 08/18/24 08:04 Potassium Chloride 10 Meq Tabcr PO 09/17/24 08:59 10 meq DAILY IMANI Administration Simvastatin 40 mg 08/17/24 21:00 08/18/24 21:42 Simvastatin 40 Mg Tab PO 09/16/24 20:59 40 mg QPM IMANI Administration NPO Date Last Intake of Fluids: 08/17/24 Time Last Intake of Fluids: 11:59 Date Last Intake of Solids: 08/17/24 Time Last Intake of Solids: 11:59 Past Medical History Medical History CAD (coronary artery disease) Hypertension 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 Cerebral hemorrhage Vascular insufficiency Dyslipidemia Atrial fibrillation CVA (cerebral vascular accident) Exercise / Class Metabolic Activity III < 4 Walking/Shop/Light housework Past Family History Family History Other No pertinent family history Past Surgical History Surgical History S/P hernia repair Vasectomy status H/O vasectomy Past Anesthesia History No Hx of Anesthesia Complications and No Family Hx of Anesthesia Complications History of PONV No Hx of PONV and No Hx of Motion Sickness Social History Smoking Status: Never smoker tobacco type: cigarettes Do You Dip or Chew Tobacco: No Hx Alcohol Use: No Hx Substance Use: No substance use type: does not use Physical Exam Vital Signs Last Vital Signs Temp 37.4 C 08/19/24 08:23 Pulse 70 08/19/24 07:44 Resp 16 08/19/24 08:23 BP 136/77 08/19/24 08:23 Pulse Ox 95 08/19/24 08:23 O2 Del Method Room Air 08/19/24 08:23 O2 Flow Rate 0 08/17/24 17:40 Constitutional no acute distress ENMT Mouth: + chipped teeth; no loose teeth Thyromental Distance: > or= 3.5 Finger Breadths Mallampati Class: II Neck normal visual inspection, trachea midline and + limited neck extension Respiratory normal respiratory effort; no respiratory distress Auscultation: lungs clear to auscultation bilaterally; no crackles, no rhonchi and no wheezes Cardiovascular Rate/Rhythm: regular rate and regular rhythm Heart Sounds: + murmur (4-5/6); no gallop and no cardiac rub Musculoskeletal Head/Neck/Chest: + limited ROM of neck Neurologic moves all extremities and awake Psychiatric Orientation: alert and oriented x 3 Testing Laboratory Results 08/19/24 07:21 08/19/24 07:21 PT 14.3 Seconds (9.0-12.0) H 08/17/24 15:06 INR 1.4 (0.9-1.1) H 08/17/24 15:06 Urine Color Yellow 08/17/24 16:57 Urine Appearance Clear (Clear) 08/17/24 16:57 Urine pH 5.5 (4.5-7.5) 08/17/24 16:57 Ur Specific [place] 1.013 (1.000-1.030) 08/17/24 16:57 Urine Protein Negative (Negative) 08/17/24 16:57 Urine Glucose (UA) Negative (Negative) 08/17/24 16:57 Urine Ketones Negative (Negative) 08/17/24 16:57 Urine Nitrite Negative (Negative) 08/17/24 16:57 Ur Leukocyte Esterase Negative (Negative) 08/17/24 16:57 Blood Type A Positive 08/17/24 15:38 Antibody Screen NEGATIVE 08/17/24 15:38 Electrocardiogram Date: 08/18/24 Findings: + AFIB @ (64), + RBBB, + T wave inversion (T wave changes inferiorly) and + IN (lateral) Chest X-Ray Date: 08/17/24 CLINICAL HISTORY: Dyspnea on exertion. COMPARISON STUDY: Chest radiograph January 30, 2024. FINDINGS: There is no pneumothorax. Cardiomegaly is unchanged. Pulmonary vascular congestion is present. This is improved when compared to prior exam. There are small bilateral pleural effusions. There is no pneumothorax. No definite consolidation to suggest pneumonia. IMPRESSION: Cardiomegaly with pulmonary vascular congestion and small bilateral pleural effusions. Echocardiogram Date: 08/18/24 EF: 60-65 LV Function: normal RWMA: + none Other Findings: + LVH (mild) Valvular Disease: + (severe) and + AI (mild) Day of Procedure Evaluation. Date of Surgery August 19, 2024 Height/Weight Height: 5 ft 6 in Weight: 86.5 kg Vital Signs Last Vital Signs Temp 37.4 C 08/19/24 08:23 Pulse 70 08/19/24 07:44 Resp 16 08/19/24 08:23 BP 136/77 08/19/24 08:23 Pulse Ox 95 08/19/24 08:23 O2 Del Method Room Air 08/19/24 08:23 O2 Flow Rate 0 08/17/24 17:40 Allergies Allergy/AdvReac Type Severity Reaction Status Date / Time bee venom protein (honey bee) Allergy Unknown UNKN Verified 08/17/24 17:48 No Known Drug Allergies Allergy Verified 08/17/24 17:48 lactose AdvReac Intermediate GI UPSET Verified 08/17/24 17:48 Medications Home Medications Medication Instructions Recorded Confirmed Last Taken Spacer for Inhaler #1 ea 11/27/23 07/27/24 Unknown epinephrine 0.3 mg/0.3 mL 0.3 mg (0.3 mL) IM DIRECTED PRN 02/25/24 08/17/24 Unknown injection, auto-injector Allergic Reaction #2 ea latanoprost 0.005 % eye drops 1 drp ophthalmic (eye) PM #2.5 mL 02/25/24 08/17/24 Unknown (Xalatan) lactase 9,000 unit tablet (Lactaid 9,000 unit PO QID PRN Milk food 03/06/24 08/17/24 Unknown Fast Act) products aspirin 81 mg chewable tablet 81 mg PO DAILY #30 tabs 03/18/24 08/17/24 Unknown calcium 600 mg (as carbonate)-vit 1 tab PO BID #60 tabs 03/18/24 08/17/24 Unknown D3 10 mcg (400 unit) chewable tablet (Calcium 600 with Vitamin D3) potassium chloride 10 mEq 10 meq PO DAILY #30 caps 03/18/24 08/17/24 Unknown capsule,extended release ferrous sulfate 325 mg (65 mg 325 mg PO DAILY #90 tabs 04/28/24 08/17/24 Unknown iron) tablet apixaban 5 mg tablet (Eliquis) 5 mg PO BID #180 tabs 07/07/24 08/17/24 Unknown lamotrigine 25 mg tablet 50 mg (2 x 25 mg) PO BID 30 days 07/08/24 08/17/24 Unknown #120 tabs levetiracetam 500 mg tablet 1,000 mg (2 x 500 mg) PO BID #120 08/10/24 08/17/24 Unknown tabs acetaminophen 650 mg 1,300 mg PO Q12H PRN Pain 08/17/24 08/17/24 Unknown tablet,extended release (Tylenol Arthritis Pain) furosemide 40 mg tablet 40 mg PO DAILY PRN Edema 08/17/24 08/17/24 Unknown simvastatin 40 mg tablet 40 mg PO QPM 08/17/24 08/17/24 Unknown Active Medications Generic Name Dose Route Start Last Admin Trade Name Renae PRN Reason Stop Dose Admin Furosemide 40 mg 08/18/24 09:00 08/18/24 07:55 Furosemide 40 Mg Tab PO 09/17/24 08:59 40 mg QAM IMANI Administration Pantoprazole Sodium 40 mg in 10 mls @ 5 mls/min 08/17/24 21:00 08/18/24 21:41 Protonix IV 09/16/24 20:59 5 mls/min BID IMANI Administration Lamotrigine 50 mg 08/17/24 21:00 08/18/24 21:42 Lamotrigine 25 Mg Tab PO 09/16/24 20:59 50 mg BID IMANI Administration Protocol Latanoprost 1 drops 08/17/24 21:00 08/18/24 21:40 Latanoprost 0.005% Op Soln 2.5 Ml Btl OP 09/16/24 20:59 1 drops PM IMANI Administration Levetiracetam 1,000 mg 08/17/24 21:00 08/18/24 21:42 Levetiracetam 500 Mg Tab PO 09/16/24 20:59 1,000 mg BID IMANI Administration Potassium Chloride 10 meq 08/18/24 09:00 08/18/24 08:04 Potassium Chloride 10 Meq Tabcr PO 09/17/24 08:59 10 meq DAILY IMANI Administration Simvastatin 40 mg 08/17/24 21:00 08/18/24 21:42 Simvastatin 40 Mg Tab PO 09/16/24 20:59 40 mg QPM IMANI Administration Past Anesthesia History No Hx of Anesthesia Complications and No Family Hx of Anesthesia Complications History of PONV No Hx of PONV and No Hx of Motion Sickness NPO Date Last Intake of Fluids: 08/17/24 Time Last Intake of Fluids: 11:59 Date Last Intake of Solids: 08/17/24 Time Last Intake of Solids: 11:59 Home Medications Home Medications Medication Instructions Recorded Confirmed Last Taken Spacer for Inhaler #1 ea 11/27/23 07/27/24 Unknown epinephrine 0.3 mg/0.3 mL 0.3 mg (0.3 mL) IM DIRECTED PRN 02/25/24 08/17/24 Unknown injection, auto-injector Allergic Reaction #2 ea latanoprost 0.005 % eye drops 1 drp ophthalmic (eye) PM #2.5 mL 02/25/24 08/17/24 Unknown (Xalatan) lactase 9,000 unit tablet (Lactaid 9,000 unit PO QID PRN Milk food 03/06/24 08/17/24 Unknown Fast Act) products aspirin 81 mg chewable tablet 81 mg PO DAILY #30 tabs 03/18/24 08/17/24 Unknown calcium 600 mg (as carbonate)-vit 1 tab PO BID #60 tabs 03/18/24 08/17/24 Unknown D3 10 mcg (400 unit) chewable tablet (Calcium 600 with Vitamin D3) potassium chloride 10 mEq 10 meq PO DAILY #30 caps 03/18/24 08/17/24 Unknown capsule,extended release ferrous sulfate 325 mg (65 mg 325 mg PO DAILY #90 tabs 04/28/24 08/17/24 Unknown iron) tablet apixaban 5 mg tablet (Eliquis) 5 mg PO BID #180 tabs 07/07/24 08/17/24 Unknown lamotrigine 25 mg tablet 50 mg (2 x 25 mg) PO BID 30 days 07/08/24 08/17/24 Unknown #120 tabs levetiracetam 500 mg tablet 1,000 mg (2 x 500 mg) PO BID #120 08/10/24 08/17/24 Unknown tabs acetaminophen 650 mg 1,300 mg PO Q12H PRN Pain 08/17/24 08/17/24 Unknown tablet,extended release (Tylenol Arthritis Pain) furosemide 40 mg tablet 40 mg PO DAILY PRN Edema 08/17/24 08/17/24 Unknown simvastatin 40 mg tablet 40 mg PO QPM 08/17/24 08/17/24 Unknown Active Medications Generic Name Dose Route Start Last Admin Trade Name Freq PRN Reason Stop Dose Admin Furosemide 40 mg 08/18/24 09:00 08/18/24 07:55 Furosemide 40 Mg Tab PO 09/17/24 08:59 40 mg QAM IMANI Administration Pantoprazole Sodium 40 mg in 10 mls @ 5 mls/min 08/17/24 21:00 08/18/24 21:41 Protonix IV 09/16/24 20:59 5 mls/min BID IMANI Administration Lamotrigine 50 mg 08/17/24 21:00 08/18/24 21:42 Lamotrigine 25 Mg Tab PO 09/16/24 20:59 50 mg BID IMANI Administration Protocol Latanoprost 1 drops 08/17/24 21:00 08/18/24 21:40 Latanoprost 0.005% Op Soln 2.5 Ml Btl OP 09/16/24 20:59 1 drops PM IMANI Administration Levetiracetam 1,000 mg 08/17/24 21:00 08/18/24 21:42 Levetiracetam 500 Mg Tab PO 09/16/24 20:59 1,000 mg BID IMANI Administration Potassium Chloride 10 meq 08/18/24 09:00 08/18/24 08:04 Potassium Chloride 10 Meq Tabcr PO 09/17/24 08:59 10 meq DAILY IMANI Administration Simvastatin 40 mg 08/17/24 21:00 08/18/24 21:42 Simvastatin 40 Mg Tab PO 09/16/24 20:59 40 mg QPM IMANI Administration Laboratory Results Hgb 8.3 Exercise / Class Metabolic Activity Metabolic Activity: III < 4 Walking/Shop/Light housework Physical Exam Constitutional: no acute distress Mouth: + chipped teeth; no loose teeth Thyromental Distance: > or= 3.5 Finger Breadths Mallampati Class: II Neck: + visual inspection normal, + trachea midline and + limited neck extension Respiratory: + respiratory effort normal and + clear to auscultation bilaterally; no respiratory distress, no crackles, no rhonchi and no wheezes Cardiovascular: + regular rate, + regular rhythm and + murmur (4-5/6) Neurologic: + moves all extremities Psychiatric: + alert and + oriented x 3 ASA ASA3 Proposed Anesthesia Proposed Anesthesia: MAC Risk / Benefits Reviewed With: PT / POA / Parent / Guardian, Accepts Plan and Informed Consent Obtained
[2024-08-19 08:09] LABS: Basophils # (auto) 0.03 K/uL (0.00-0.20); Basophils % (auto) 0.4 %; Eosinophils # (auto) 0.08 K/uL (0.00-0.50); Hematocrit (blood only) 26.1 % (42.0-52.0); Hemoglobin 8.2 g/dl (14.0-18.0); Immature Granulocytes # (auto) 0.03 K/uL (0.01-0.20); Immature Granulocytes % (auto) 0.4 %; Lymphocytes # (auto) 0.77 K/uL (1.20-3.40); Mean Corpuscular Hemoglobin 29.2 pg (25.0-34.0); Mean Corpuscular Hgb Conc 31.4 g/dL (32.0-36.0); Mean Corpuscular Volume 92.9 fL (80.0-100.0); Mean Platelet Volume 10.6 fL (9.4-12.4); Monocytes % (auto) 9.1 %; Neutrophils # (auto) 6.11 K/uL (1.40-6.50); Neutrophils % (auto) 79.1 %; Platelet Count 155 K/uL (130-400); RDW Coefficient of Variation 18.9 % (11.5-14.5); RDW Standard Deviation 62.8 fL (36.4-46.3); Red Blood Count 2.81 M/uL (4.70-6.10); White Blood Count 7.72 K/ul (4.8-10.8)
--- NOTE | 2024-08-19 08:18 | Hospitalist Progress Note ---
Date of Service August 19, 2024 Assessment & Plan (1) Upper GI bleed: Plan: Presented with worsening TALBERT x 2 weeks. Patient endorsed melena, but initially thought it was secondary to his iron supplements - Acute blood loss anemia with Hgb 5.9 on arrival. Hemoccult (+) on arrival. Iron panel WNL - Increased transfusion threshold in the setting of severe aortic stenosis - Repeat hgb = 8.2 s/p 4 units pRBC; 2 additional units on hold - Continue Protonix 40 mg IV BID - Clear liquid diet; NPO at midnight - Gastroenterology consult appreciated > EGD negative 08/19 > Scheduled for colonoscopy 08/20 (2) Aortic stenosis: Plan: Known history of CAD, PAF, severe aortic stenosis; follows with Dr. Johns outpatient. Per cardiology note on 03/17/2024, his aortic stenosis remains stable and asymptomatic - BNP 560 on arrival (most recently 11 ED on 01/31/2024) with 2+ pitting edema bilaterally on admission - Unclear if acute on chronic heart failure contributing to TALBERT in addition to anemia - Continue Lasix 40 mg p.o. QAM - Atrial fibrillation on arrival; rate controlled -- hold Eliquis in setting of acute GI bleed - Monitor for TACO/TRALI in the setting of blood transfusion/fluid overload - Echo showed EF=60-65%, severe valvular , mild AR, mildly dilated ascending aorta 4.2 cm. Compared with study from January 2024, no significant change - Troponin increased at 332 on arrival; asymptomatic. Possible NSTEMI, type 2 > Troponin peaked at 847.2, then downtrended; patient remains asymptomatic > Believe this to be demand ischemia in setting of acute anemia/GI bleed - Cardiology consulted for clearance prior to EGD (3) Acute anemia: Plan: As noted above Plan Chronic stable issues: Paroxysmal A-fib: Rate controlled; hold Eliquis for now in setting of acute GI bleed Seizure disorder: Continue Keppra, lamotrigine FRANCHESKA: CPAP at bedtime VTE PPx: Hold chemical DVT PPx in the setting of acute GI bleed; TEDs CODE STATUS: Full code Admission and Anticipated Discharge Date Admission Date: August 17, 2024 Subjective Patient seen and evaluated at bedside. He is in good spirits today. We discussed the plan of colonoscopy tomorrow given his EGD was negative today. He denies any abdominal pain or acute complaints at this time. He is well tolerating his clear liquid diet so far. No additional complaints or concerns at this time. Physical Exam Physical Exam: General: No acute distress, nondiaphoretic, well-developed, well-nourished. Skin: Warm, dry. Chronic venous insufficiency lower extremities bilaterally, no edema. Cardiac: Irregularly irregular, rates in 70s. Systolic murmur noted. Pulm: Clear to auscultation bilaterally without wheezes, rales or rhonchi. No respiratory distress. 96% on room air. Abdominal: Soft, nontender, nondistended. Bowel sounds present. Large left- sided umbilical hernia noted. Neuro: A&O x3. No focal neurological deficits. Results & Data Results & Data Vital Signs (Past 12 Hours) Vital Signs Temp Pulse Pulse Resp BP Pulse Ox O2 Del Method 08/19/24 07:44 97.7 F 70 18 119/74 94 Room Air 08/19/24 03:16 98.1 F 69 18 110/61 95 Room Air 08/18/24 23:00 98.1 F 65 18 105/54 L 92 Room Air 08/18/24 21:56 69 08/18/24 21:20 Room Air 08/18/24 20:38 97.9 F 70 18 109/63 94 Room Air Laboratory Results Reviewed CBC Reviewed BMP PG Care Time/CCT Total # of Minutes Spent Total Time Spent with Patient: Total time spent is greater than 50% in coordination of care (as documented) at patient's floor/unit and/or counseling patient: Coding Level of Care Code 21913 SUB INP/OBS CARE 2/35MIN Diagnoses Upper GI bleed K92.2 Aortic stenosis I35.0 Acute anemia D64.9
--- NOTE | 2024-08-19 08:21 | History & Physical Bridge Note ---
Date of Service August 19, 2024 History & Physical Bridge Note I have examined the patient, reviewed the History & Physical and in the interval since the performance of the History & Physical I have noted the following changes of clinical significance: no changes noted
[2024-08-19 08:23] LABS: BUN Creatinine Ratio 35.9 (10-20); Calcium 8.6 mg/dl (8.6-10.3); Potassium 3.6 mmol/L (3.5-5.1)
--- NOTE | 2024-08-19 09:27 | GI REPORT ---
[facility] Patient: MARK LEONARD : 1940 Sex at : Male Age: 84 Years Procedure: Upper GI endoscopy Date: 08/19/2024 Attending Physician: Arben Troy MD Referring MD: Yariel Arriaza Indications: Medications: - Monitored Anesthesia Care Complications: - No immediate complications. Procedure: - Prior to the procedure, a History and Physical was performed, and patient medications and allergies were reviewed. The patient's tolerance of previous anesthesia was also reviewed. The risks and benefits of the procedure and the sedation options and risks were discussed with the patient. All questions were answered, and informed consent was obtained. [Anticoagulant Agents] [Days Prior to Procedure]. [ASA Grade]. After reviewing the risks and benefits, the patient was deemed in satisfactory condition to undergo the procedure. - The egd scope was introduced through the mouth and advanced to the second part of the duodenum. 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 It was introduced through the mouth and advanced to the second part of the duodenum. - The upper GI endoscopy was accomplished without difficulty. - The patient tolerated the procedure well. - The upper GI endoscopy was technically difficult and complex due to extrinsic compression. Successful completion of the procedure was aided by changing endoscopes. Findings: - The examined esophagus was normal. - The entire examined stomach was normal except for a small hiatal hernia. - The examined duodenum was normal. Impression: - Normal esophagus. - Small hiatal hernia - Normal examined duodenum. - No specimens collected. Recommendation: - Resume previous diet. - Patient has a contact number available for emergencies. The signs and symptoms of potential delayed complications were discussed with the patient. Return to normal activities tomorrow. Written discharge instructions were provided to the patient. Procedure Code(s): - 04528, Esophagogastroduodenoscopy, flexible, transoral; diagnostic, including collection of specimen(s) by brushing or washing, when performed (separate procedure) CPT(R) - 2023 copyright [employer]. All Rights Reserved. The CPT codes, CCI edits and ICD codes generated are intended as suggestions and were generated based on input data. These codes are preliminary and upon ballet company artistic director review may be revised to meet current compliance and payer requirements. The provider is responsible for the final determination of appropriate codes, and modifiers. Arben Troy MD This document has been electronically signed. Note Initiated:08/19/2024 Note Completed:08/19/2024 9:26 AM [email or web address]\Results\[email or web address]\[id number]
[2024-08-19] MEDS: LIDOCAINE 2% 2 ML VIAL/AMP(20MG/ML) INFIL ONE (12:32)
[2024-08-19] MEDS: PROPOFOL IV EMULSION 10 MG/ML 20 ML VIAL IV ONE (12:32)
--- NOTE | 2024-08-19 14:44 | Anesthesiology Progress Note ---
Date of Service August 19, 2024 Anesthesia Post Procedure Vital Signs Vital Signs: Temp Pulse Pulse Resp BP Pulse Ox O2 Del Method 08/19/24 10:21 36.5 C 58 L 18 114/61 93 Room Air 08/19/24 09:52 20 117/59 L 96 Room Air 08/19/24 09:38 18 93/52 L 96 Room Air 08/19/24 09:23 12 89/53 L 95 Nasal Cannula 08/19/24 08:23 37.4 C 16 136/77 95 Room Air 08/19/24 07:44 36.5 C 70 18 119/74 94 Room Air 08/19/24 03:16 36.7 C 69 18 110/61 95 Room Air 08/18/24 23:00 36.7 C 65 18 105/54 L 92 Room Air 08/18/24 21:56 69 08/18/24 21:20 Room Air 08/18/24 20:38 36.6 C 70 18 109/63 94 Room Air 08/18/24 15:43 36.4 C L 57 L 25 H 102/57 L 95 Room Air O2 Flow Rate 08/19/24 10:21 08/19/24 09:52 08/19/24 09:38 08/19/24 09:23 5 08/19/24 08:23 08/19/24 07:44 08/19/24 03:16 08/18/24 23:00 08/18/24 21:56 08/18/24 21:20 08/18/24 20:38 08/18/24 15:43 Transfer of Care Handoff Completed per policy Notes Mental Status: alert / awake / arousable and participated in evaluation Patient Amnestic to Procedure: Yes Nausea / Vomiting: adequately controlled Pain: adequately controlled Airway Patency, RR, SpO2: stable & adequate BP & HR: stable & adequate Hydration State: stable & adequate Anesthetic Complications: no major complications apparent
[2024-08-19] MEDS: levETIRAcetam ORAL SOLN 100MG/ML PO SCH (16:23)
[2024-08-19] MEDS: LAVAGE SOLUTION 4000ML PO SCH (16:32)
[2024-08-19] MEDS: lamoTRIgine 100 MG TAB PO SCH (21:01)
[2024-08-19 23:53] LABS: BUN Creatinine Ratio 30.4 (10-20); Calcium 8.2 mg/dl (8.6-10.3); Creatinine Clr Calc Pharmacy 62.7 ml/min; Potassium 3.3 mmol/L (3.5-5.1)
[2024-08-20] MEDS: POTASSIUM CHLORIDE CRTAB 20 MEQ TABCR PO STA ×2 (00:08→18:08)
[2024-08-20 06:02] LABS: Basophils # (auto) 0.04 K/uL (0.00-0.20); Basophils % (auto) 0.5 %; Eosinophils # (auto) 0.13 K/uL (0.00-0.50); Eosinophils % (auto) 1.7 %; Hematocrit (blood only) 24.6 % (42.0-52.0); Hemoglobin 7.6 g/dl (14.0-18.0); Immature Granulocytes # (auto) 0.03 K/uL (0.01-0.20); Immature Granulocytes % (auto) 0.4 %; Lymphocytes # (auto) 0.91 K/uL (1.20-3.40); Lymphocytes % (auto) 12.1 %; Mean Corpuscular Hemoglobin 28.9 pg (25.0-34.0); Mean Corpuscular Hgb Conc 30.9 g/dL (32.0-36.0); Mean Corpuscular Volume 93.5 fL (80.0-100.0); Mean Platelet Volume 10.7 fL (9.4-12.4); Monocytes # (auto) 0.81 K/uL (0.11-0.59); Monocytes % (auto) 10.7 %; Neutrophils # (auto) 5.63 K/uL (1.40-6.50); Neutrophils % (auto) 74.6 %; Platelet Count 156 K/uL (130-400); RDW Coefficient of Variation 18.7 % (11.5-14.5); RDW Standard Deviation 63.7 fL (36.4-46.3); Red Blood Count 2.63 M/uL (4.70-6.10); White Blood Count 7.55 K/ul (4.8-10.8)
[2024-08-20 06:21] LABS: Polychromasia 1+
[2024-08-20 06:27] LABS: BUN Creatinine Ratio 29.4 (10-20); Calcium 8.1 mg/dl (8.6-10.3); Creatinine Clr Calc Pharmacy 66.4 ml/min; Potassium 3.4 mmol/L (3.5-5.1)
--- NOTE | 2024-08-20 08:10 | Hospitalist Progress Note ---
Date of Service August 20, 2024 Assessment & Plan (1) Upper GI bleed: Plan: Presented with worsening TALBERT x 2 weeks. Patient endorsed melena, but initially thought it was secondary to his iron supplements - Acute blood loss anemia with Hgb 5.9 on arrival. Hemoccult (+) on arrival. Iron panel WNL - Increased transfusion threshold in the setting of severe aortic stenosis - Repeat hgb = 8.2 s/p 4 units pRBC; 2 additional units on hold - Hgb=7.6 dropping again. Will transfuse additional 1 unit of pRBC and repeat H&H 1 hour post-transfusion. Monitor for TACO/TRALI in the setting of blood transfusion/fluid overload - Gastroenterology consult appreciated > EGD negative 08/19 > Colonoscopy 08/20 showed old blood throughout entire colon, but no source of active bleeding > Recommending outpatient capsule study for further evaluation - Continue Protonix 40 mg IV BID (2) Aortic stenosis: Plan: Known history of CAD, PAF, severe aortic stenosis; follows with Dr. Johns outpatient. Per cardiology note on 03/17/2024, his aortic stenosis remains stable and asymptomatic - BNP 560 on arrival (most recently 11 ED on 01/31/2024) with 2+ pitting edema bilaterally on admission. Unclear if acute on chronic heart failure contributing to TALBERT in addition to anemia - Echo showed EF=60-65%, severe valvular , mild AR, mildly dilated ascending aorta 4.2 cm. Compared with study from January 2024, no significant change - Atrial fibrillation on arrival; rate controlled -- hold Eliquis in setting of acute GI bleed - Cardiology consulted for clearance prior to EGD - Continue Lasix 40 mg p.o. QAM - 13 beat run of NSVT 08/20 - suspect due to electrolyte depletion from colonoscopy bowel prep; K repleted Possible NSTEMI, type 2 - Troponin increased at 332 on arrival; asymptomatic. - Troponin peaked at 847.2, then downtrended; patient remains asymptomatic - Believe this to be demand ischemia in setting of acute anemia/GI bleed (3) Acute anemia: Plan: As noted above Plan Repleted electrolytes Transfused 1 unit pRBC Updated via phone call Chronic stable issues: Paroxysmal A-fib: Rate controlled; hold Eliquis for now in setting of acute GI bleed Seizure disorder: Continue Keppra, lamotrigine FRANCHESKA: CPAP at bedtime VTE PPx: Hold chemical DVT PPx in the setting of acute GI bleed; TEDs CODE STATUS: Full code Admission and Anticipated Discharge Date Admission Date: August 17, 2024 Subjective Patient seen and evaluated at bedside after his colonoscopy. He reports feeling tired from the anesthesia after his procedure. He denies any other acute complaints. We discussed that his colonoscopy showed old blood throughout the entire rectum, but did not find a source of active bleeding. His afternoon repeat H&H showed his hemoglobin remaining at 7.6. We discussed giving another unit of blood transfusion. Talked to his , Shawna, at bedside via speaker phone to provide her an update. No additional complaints or concerns at this time. Physical Exam Physical Exam: General: No acute distress, nondiaphoretic, well-developed, well-nourished. Skin: Warm, dry. Chronic venous insufficiency lower extremities bilaterally, no edema. Cardiac: Irregularly irregular, rates in 70s. Systolic murmur noted. Pulm: Clear to auscultation bilaterally without wheezes, rales or rhonchi. No respiratory distress. 96% on room air. Abdominal: Soft, nontender, nondistended. Bowel sounds present. Large left- sided umbilical hernia noted. Neuro: A&O x3. No focal neurological deficits. Results & Data Results & Data Vital Signs (Past 12 Hours) Vital Signs Temp Pulse Pulse Resp BP Pulse Ox O2 Del Method 08/20/24 03:43 97.7 F 64 18 98/52 L 92 Room Air 08/19/24 22:07 97.9 F 55 L 18 100/59 L 95 Room Air 08/19/24 21:43 59 L 08/19/24 20:12 97.5 F L 68 20 110/63 95 Room Air Laboratory Results Reviewed CBC Reviewed BMP PG Care Time/CCT Total # of Minutes Spent Total Time Spent with Patient: Total time spent is greater than 50% in coordination of care (as documented) at patient's floor/unit and/or counseling patient: Coding Level of Care Code 65242 SUB INP/OBS CARE 3/50MIN Diagnoses Upper GI bleed K92.2 Aortic stenosis I35.0 Acute anemia D64.9
--- NOTE | 2024-08-20 08:34 | Gastroenterology Progress Note ---
Date of Service August 20, 2024 Assessment & Plan (1) Upper GI bleed: Plan: 84 year old male with history of seizure disorder, FRANCHESKA, C. difficile colitis, atrial fibrillation (on Eliquis, last dose thought to be yesterday) with report of dark, stools and anemia requiring RBCs x 3 units. EGD w/o obvious source of anemia, planned for a colonoscopy today Maintain NPO status Hold Eliquis Colonoscopy this AM PO PPI Trend H&H Transfuse PRN Monitor and document GI output We appreciate assistance in the management of any serological abnormality and corrections to include: hemoglobin >7, INR <2, platelets >50,000, potassium levels >3.5 but <5.3, and sodium levels within 5 points of the reference range prior to endoscopic evaluation. Thank you for allowing us to participate in the care of this patient. Please call with any acute changes, questions or concerns. Please see addendum below with additional recommendation from my supervising physician. Admission and Anticipated Discharge Date Admission Date: August 17, 2024 Supervising Physician Co-Signing Physician Notes I saw and examined this patient with our nurse practitioner and agree with her assessment and plan. No signs of overt GI bleeding. Tolerating bowel prep for colonoscopy today. Subjective Pt was seen and evaluated, chart reviewed. Tolerated nearly all of bowel prep. Stools are liquid but brown. He feels like he needs to move his bowels now. No nausea, vomiting. Review of Systems Review of Systems: All other findings negative except as noted in HPI. Physical Exam Constitutional: WD/WN, vitals as above Respiratory: normal respiratory effort, lungs clear to auscultation Cardiovascular: RRR, no murmur, no edema Gastrointestinal (Abdomen): normal bowel sounds, soft, nontender, no hepatosplenomegaly +hernia Skin: no rashes, warm and dry Results & Data Results & Data Vital Signs (Past 12 Hours) Vital Signs Temp Pulse Pulse Resp BP Pulse Ox O2 Del Method 08/20/24 08:15 36.9 C 59 L 18 107/62 92 Room Air 08/20/24 03:43 36.5 C 64 18 98/52 L 92 Room Air 08/19/24 22:07 36.6 C 55 L 18 100/59 L 95 Room Air 08/19/24 21:43 59 L Laboratory Results 12/05/24 12/04/24 Range/Units 05:26 23:23 WBC 7.55 (4.8-10.8) K/ul RBC 2.63 L (4.70-6.10) M/uL Hgb 7.6 L (14.0-18.0) g/dl Hct 24.6 L (42.0-52.0) % MCV 93.5 (80.0-100.0) fL MCH 28.9 (25.0-34.0) pg MCHC 30.9 L (32.0-36.0) g/dL RDW Std Deviation 63.7 H (36.4-46.3) fL RDW Coeff of Claire 18.7 H (11.5-14.5) % Plt Count 156 (130-400) K/uL MPV 10.7 (9.4-12.4) fL Immature Gran % (Auto) 0.4 % Neut % (Auto) 74.6 % Lymph % (Auto) 12.1 % [place] % (Auto) 10.7 % Eos % (Auto) 1.7 % Baso % (Auto) 0.5 % Neut # (Auto) 5.63 (1.40-6.50) K/uL Lymph # (Auto) 0.91 L (1.20-3.40) K/uL [place] # (Auto) 0.81 H (0.11-0.59) K/uL Eos # (Auto) 0.13 (0.00-0.50) K/uL Baso # (Auto) 0.04 (0.00-0.20) K/uL Immature Gran # (Auto) 0.03 (0.01-0.20) K/uL Polychromasia 1+ Sodium 142 141 (136-145) mmol/L Potassium 3.4 L 3.3 L (3.5-5.1) mmol/L Chloride 106 105 (98-107) mmol/L Carbon Dioxide 28 29 (21-32) mmol/L Anion Gap 8 7 (3-11) BUN 25 H 28 H (6-23) mg/dl Creatinine 0.85 0.92 (0.6-1.4) mg/dl Est Cr Clr Drug Dosing 66.4 62.7 ml/min eGFR 86.22 82.54 BUN/Creatinine Ratio 29.4 H 30.4 H (10-20) Glucose 90 96 (70-99(Fasting)) mg/dl Calcium 8.1 L 8.2 L (8.6-10.3) mg/dl Magnesium 2.0 (1.7-2.4) mg/dl PG Care Time/CCT Total # of Minutes Spent Total Time Spent with Patient: Total time spent is greater than 50% in coordination of care (as documented) at patient's floor/unit and/or counseling patient: Coding Level of Care Code None Diagnoses Upper GI bleed K92.2
[2024-08-20] MEDS: PANTOprazole 40 MG TAB PO SCH (09:54)
--- NOTE | 2024-08-20 14:07 | GI REPORT ---
[facility] Patient: MARK LEONARD : 1940 Sex at : Male Age: 84 Years Procedure: Colonoscopy Date: 08/20/2024 Attending Physician: Arben Troy MD Referring MD: Yariel Arriaza Indications: - Evaluation of unexplained GI bleeding presenting with Melena (upper GI source has been excluded) Medications: - Monitored Anesthesia Care Complications: - No immediate complications. Procedure: - Prior to the procedure, a History and Physical was performed, and patient medications, allergies and sensitivities were reviewed. The patient's tolerance of previous anesthesia was reviewed. - The risks and benefits of the procedure and the sedation options and risks were discussed with the patient. All questions were answered and informed consent was obtained. - ASA Grade Assessment: I - A normal, healthy patient. - Prior Anticoagulants: The patient has taken no anticoagulant or antiplatelet agents. - The Adult Colonoscope was introduced through the anus and advanced to the terminal ileum, with identification of the appendiceal orifice and ileocecal valve. - The appendiceal orifice and the ileocecal valve were photographed. - The colonoscopy was performed without difficulty. - The patient tolerated the procedure well. - The quality of the bowel preparation was adequate. Findings: - The perianal and digital rectal examinations were normal. - The terminal ileum appeared normal. - A moderate amount of old red blood was found in the entire colon. - No other significant abnormalities were identified in a careful examination of the remainder of the colon. Impression: - The examined portion of the ileum was normal. - Old blood in the entire examined colon. - No specimens collected. Recommendation: - Discharge patient to home. - Patient has a contact number available for emergencies. The signs and symptoms of potential delayed complications were discussed with the patient. Return to normal activities tomorrow. Written discharge instructions were provided to the patient. - Resume previous diet. - Outpatient capsule study unless recurrent active bleeding. Procedure Code(s): - 53528, Colonoscopy, flexible; diagnostic, including collection of specimen(s) by brushing or washing, when performed (separate procedure) Diagnosis Code(s): - K92.1, Melena (includes Hematochezia) - K92.2, Gastrointestinal hemorrhage, unspecified CPT(R) - 2022 copyright [employer]. All Rights Reserved. The CPT codes, CCI edits and ICD codes generated are intended as suggestions and were generated based on input data. These codes are preliminary and upon it support engineer review may be revised to meet current compliance and payer requirements. The provider is responsible for the final determination of appropriate codes, and modifiers. Arben Troy MD This document has been electronically signed. Note Initiated:08/20/2024 Note Completed:08/20/2024 2:06 PM [email or web address]\Results\[email or web address]\[id number]
[2024-08-20] MEDS: LIDOCAINE 2% 2 ML VIAL/AMP(20MG/ML) INFIL ONE (14:53)
[2024-08-20] MEDS: GLYCOPYRROLATE 0.2 MG/ML VIAL ONE (14:53)
[2024-08-20] MEDS: ePHEDrine sulfate 50 MG/ML AMP ONE (14:53)
[2024-08-20] MEDS: PROPOFOL IV EMULSION 10 MG/ML 20 ML VIAL IV ONE (14:53)
[2024-08-20] MEDS: SODIUM CHLORIDE 0.9% PF INJ 10 ML VIAL ONE (14:54)
--- NOTE | 2024-08-20 15:14 | Anesthesiology Progress Note ---
Date of Service August 20, 2024 Anesthesia Post Procedure Vital Signs Vital Signs: Temp Pulse Pulse Pulse Resp BP BP 08/20/24 14:34 82 16 98/54 L 08/20/24 14:21 81 16 92/49 L 08/20/24 14:05 86 14 108/55 L 08/20/24 12:47 36.8 C 82 18 115/57 L 08/20/24 11:04 36.6 C 52 L 20 100/55 L 08/20/24 08:15 36.9 C 59 L 18 107/62 08/20/24 03:43 36.5 C 64 18 98/52 L 08/19/24 22:07 36.6 C 55 L 18 100/59 L 08/19/24 21:43 59 L 08/19/24 20:12 36.4 C L 68 20 110/63 08/19/24 15:44 36.8 C 66 18 122/64 Pulse Ox O2 Del Method 08/20/24 14:34 95 Room Air 08/20/24 14:21 93 Room Air 08/20/24 14:05 99 Oxymask 08/20/24 12:47 97 Room Air 08/20/24 11:04 94 Room Air 08/20/24 08:15 92 Room Air 08/20/24 03:43 92 Room Air 08/19/24 22:07 95 Room Air 08/19/24 21:43 08/19/24 20:12 95 Room Air 08/19/24 15:44 96 Room Air Transfer of Care Handoff Completed per policy Notes Mental Status: alert / awake / arousable and participated in evaluation Patient Amnestic to Procedure: Yes Nausea / Vomiting: adequately controlled Pain: adequately controlled Airway Patency, RR, SpO2: stable & adequate BP & HR: stable & adequate Hydration State: stable & adequate Anesthetic Complications: no major complications apparent
[2024-08-20 15:21] LABS: Hematocrit (blood only) 24.8 % (42.0-52.0); Hemoglobin 7.6 g/dl (14.0-18.0)
[2024-08-20] MEDS ORDERED: SODIUM CHLORIDE 0.9% 100 ML IV PRN (16:21)
[2024-08-20] MEDS ORDERED: SODIUM CHLORIDE 0.9% 50 ML IV PRN (16:21)
[2024-08-21 00:54] LABS: Hematocrit (blood only) 27.8 % (42.0-52.0); Hemoglobin 8.5 g/dl (14.0-18.0)
[2024-08-21 06:16] LABS: Hematocrit (blood only) 25.5 % (42.0-52.0); Hemoglobin 7.8 g/dl (14.0-18.0); Mean Corpuscular Hemoglobin 28.6 pg (25.0-34.0); Mean Corpuscular Hgb Conc 30.6 g/dL (32.0-36.0); Mean Corpuscular Volume 93.4 fL (80.0-100.0); Mean Platelet Volume 10.8 fL (9.4-12.4); Platelet Count 149 K/uL (130-400); RDW Coefficient of Variation 17.8 % (11.5-14.5); RDW Standard Deviation 59.6 fL (36.4-46.3); Red Blood Count 2.73 M/uL (4.70-6.10); White Blood Count 6.28 K/ul (4.8-10.8)
--- NOTE | 2024-08-21 08:12 | Hospitalist Progress Note ---
Date of Service August 21, 2024 Assessment & Plan (1) Upper GI bleed: Plan: Presented with worsening TALBERT x 2 weeks. Patient endorsed melena, but initially thought it was secondary to his iron supplements - Acute blood loss anemia with Hgb 5.9 on arrival. Hemoccult (+) on arrival. Iron panel WNL - Increased transfusion threshold in the setting of severe aortic stenosis - Hgb remains low at 7.8 s/p 5 units of pRBCs; > Transfusing 1 unit pRBC -- 1 hour post-transfusion H&H ordered for 1900. Transfuse additional unit if hgb <8.5. > Lasix 40 mg IV x 1 ordered - Source of bleeding remains unclear - Gastroenterology consulted -- Recommending outpatient capsule study for further evaluation - EGD negative 08/19 - Colonoscopy 08/20 showed old blood throughout entire colon, but no source of active bleeding - NM bleeding scan negative - CT A/P negative for acute retroperitoneal hematoma or hemoperitoneum - Continue Protonix 40 mg IV BID (2) Aortic stenosis: Plan: Known history of CAD, PAF, severe aortic stenosis; follows with Dr. Johns outpatient. Per cardiology note on 03/17/2024, his aortic stenosis remains stable and asymptomatic - BNP 560 on arrival (most recently 11 ED on 01/31/2024) with 2+ pitting edema bilaterally on admission. Unclear if acute on chronic heart failure contributing to TALBERT in addition to anemia - Echo showed EF=60-65%, severe valvular , mild AR, mildly dilated ascending aorta 4.2 cm. Compared with study from January 2024, no significant change - Atrial fibrillation on arrival; rate controlled -- hold Eliquis in setting of acute GI bleed - Cardiology consulted for clearance prior to EGD - Continue Lasix 40 mg p.o. QAM - 13 beat run of NSVT 08/20 - suspect due to electrolyte depletion from colonoscopy bowel prep; K repleted Possible NSTEMI, type 2 - Troponin increased at 332 on arrival; asymptomatic. - Troponin peaked at 847.2, then downtrended; patient remains asymptomatic - Believe this to be demand ischemia in setting of acute anemia/GI bleed (3) Acute anemia: Plan: As noted above Plan Ordered NM bleeding scan Ordered CT A/P Ordered 1 unit pRBC Ordered Lasix Updated at bedside Chronic stable issues: Paroxysmal A-fib: Rate controlled; hold Eliquis for now in setting of acute GI bleed Seizure disorder: Continue Keppra, lamotrigine FRANCHESKA: CPAP at bedtime VTE PPx: Hold chemical DVT PPx in the setting of acute GI bleed; TEDs CODE STATUS: Full code Admission and Anticipated Discharge Date Admission Date: August 17, 2024 Subjective Patient seen and evaluated at bedside with his . He reports feeling well and denies any acute complaints. His hemoglobin continues to drop. We discussed that his nuclear medicine bleeding scan was negative. Will get CT A/P to look for retroperitoneal bleed. Discussed the plan for another blood transfusion after returning from CT. No additional complaints or concerns at this time. Physical Exam Physical Exam: General: No acute distress, nondiaphoretic, well-developed, well-nourished. Skin: Warm, dry. Chronic venous insufficiency lower extremities bilaterally, no edema. Cardiac: Irregularly irregular, rates in 70s. Systolic murmur noted. Pulm: Clear to auscultation bilaterally without wheezes, rales or rhonchi. No respiratory distress. 96% on room air. Abdominal: Soft, nontender, nondistended. Bowel sounds present. Large left- sided umbilical hernia noted. Neuro: A&O x3. No focal neurological deficits. Results & Data Results & Data Vital Signs (Past 12 Hours) Vital Signs Temp Pulse Pulse Resp BP BP BP 08/21/24 07:37 98.4 F 79 20 112/57 L 08/21/24 07:00 47 L 08/21/24 04:00 98.8 F 77 15 116/67 08/20/24 23:26 98.1 F 57 L 16 93/57 L 08/20/24 23:25 98.1 F 57 L 18 93/57 L 08/20/24 22:48 08/20/24 22:25 97.5 F L 61 18 97/61 L 08/20/24 21:25 97.7 F 63 18 110/67 08/20/24 20:55 97.9 F 53 L 20 106/66 08/20/24 20:25 96.8 F L 55 L 18 117/71 08/20/24 20:10 96.8 F L 63 18 116/60 Pulse Ox O2 Del Method 08/21/24 07:37 91 Room Air 08/21/24 07:00 08/21/24 04:00 92 Room Air 08/20/24 23:26 94 Room Air 08/20/24 23:25 94 08/20/24 22:48 Room Air 08/20/24 22:25 95 08/20/24 21:25 93 08/20/24 20:55 92 08/20/24 20:25 93 08/20/24 20:10 96 Laboratory Results Reviewed CBC Reviewed BMP PG Care Time/CCT Total # of Minutes Spent Total Time Spent with Patient: Total time spent is greater than 50% in coordination of care (as documented) at patient's floor/unit and/or counseling patient: Coding Level of Care Code 35606 SUB INP/OBS CARE 3/50MIN Diagnoses Upper GI bleed K92.2 Aortic stenosis I35.0 Acute anemia D64.9
[2024-08-21 08:32] LABS: INR 1.2 (0.9-1.1); Prothrombin Time 12.5 Seconds (9.0-12.0)
--- NOTE | 2024-08-21 09:01 | Gastroenterology Progress Note ---
Date of Service August 21, 2024 Assessment & Plan (1) Upper GI bleed: Plan: 84 year old male with history of seizure disorder, FRANCHESKA, C. difficile colitis, atrial fibrillation (on Eliquis, last dose thought to be yesterday) with report of dark, stools and anemia requiring RBCs x 3 units. EGD/Colonoscopy w/o obvious source of anemia, or active bleeding but old blood was seen during colonoscopy Diet as tolerated PO PPI Trend H&H Transfuse PRN Monitor and document GI output If signs of active GI bleeding w/ continued drop in H&H please arrange a CTA or nuc med bleeding scan We will arrange an OP VCE - task sent to [facility] to arrange I spent a total of 40 minutes on the date of service in review of patient's record, and previously obtained information in person and appropriate medical visit, discussion and education of plan, with patient and/or caregiver, placing orders for tests/referral/procedures as medically necessary and documentation of pertinent clinical information in patient's medical records for their visit today. Admission and Anticipated Discharge Date Admission Date: August 17, 2024 Supervising Physician Co-Signing Physician Notes I saw and examined this patient with our nurse practitioner and agree with her assessment and plan. No evidence of overt active bleeding at the present time. Abdominal exam benign. Tolerated blood transfusions. Etiology of GI bleed still unclear in light of normal endoscopy and colonoscopy. Will need small bowel capsule study as an outpatient. Can probably be discharged over the weekend if hemoglobin and hematocrit remained stable and that there is no further bleeding. Subjective Pt was seen and evaluated, chart reviewed. Feeling well. Tolerating PO intake. Requested additional food for breakfast. No abd pain. No nausea/vomiting. Reports her bowels are back to "normal." Suggests brown semiformed stool. No black or bloody stools. No fever, chills, CP, SOB. HGB on admission 5.9. He has had a total of 5 units RBC. This AM HGB 7.8, yesterday HGB 8.5. BUN 25 EGD 2023: Normal esophagus. Small hiatal hernia Normal examined duodenum. No specimens collected. Colonoscopy 2023: The examined portion of the ileum was normal.Old blood in the entire examined colon.No specimens collected. Review of Systems Review of Systems: All other findings negative except as noted in HPI. Physical Exam Constitutional: WD/WN, vitals as above Respiratory: normal respiratory effort Cardiovascular: Rate/Rhythm: regular rate and regular rhythm Gastrointestinal (Abdomen): normal bowel sounds, soft, nontender, no hepatosplenomegaly + hernia Skin: no rashes, warm and dry Results & Data Results & Data Vital Signs (Past 12 Hours) Vital Signs Temp Pulse Pulse Resp BP BP BP 08/21/24 07:37 36.9 C 79 20 112/57 L 08/21/24 07:00 47 L 08/21/24 04:00 37.1 C 77 15 116/67 08/20/24 23:26 36.7 C 57 L 16 93/57 L 08/20/24 23:25 36.7 C 57 L 18 93/57 L 08/20/24 22:48 08/20/24 22:25 36.4 C L 61 18 97/61 L 08/20/24 21:25 36.5 C 63 18 110/67 Pulse Ox O2 Del Method 08/21/24 07:37 91 Room Air 08/21/24 07:00 08/21/24 04:00 92 Room Air 08/20/24 23:26 94 Room Air 08/20/24 23:25 94 08/20/24 22:48 Room Air 08/20/24 22:25 95 08/20/24 21:25 93 Laboratory Results 08/21/24 08/21/24 08/21/24 Range/Units 07:50 05:24 00:20 WBC 6.28 (4.8-10.8) K/ul RBC 2.73 L (4.70-6.10) M/uL Hgb 7.8 L 8.5 L (14.0-18.0) g/dl Hct 25.5 L 27.8 L (42.0-52.0) % MCV 93.4 (80.0-100.0) fL MCH 28.6 (25.0-34.0) pg MCHC 30.6 L (32.0-36.0) g/dL RDW Std Deviation 59.6 H (36.4-46.3) fL RDW Coeff of Claire 17.8 H (11.5-14.5) % Plt Count 149 (130-400) K/uL MPV 10.8 (9.4-12.4) fL PT 12.5 H (9.0-12.0) Seconds INR 1.2 H (0.9-1.1) Sodium Pending Potassium Pending (3.5-5.1) mmol/L Chloride Pending Carbon Dioxide Pending Anion Gap Pending BUN Pending Creatinine Pending Est Cr Clr Drug Dosing Pending eGFR Pending BUN/Creatinine Ratio Pending Glucose Pending Calcium Pending Magnesium Pending Blood Type Antibody Screen Crossmatch 08/20/24 08/20/24 08/17/24 Range/Units 16:59 14:56 15:38 WBC (4.8-10.8) K/ul RBC (4.70-6.10) M/uL Hgb 7.6 L (14.0-18.0) g/dl Hct 24.8 L (42.0-52.0) % MCV (80.0-100.0) fL MCH (25.0-34.0) pg MCHC (32.0-36.0) g/dL RDW Std Deviation (36.4-46.3) fL RDW Coeff of Claire (11.5-14.5) % Plt Count (130-400) K/uL MPV (9.4-12.4) fL PT (9.0-12.0) Seconds INR (0.9-1.1) Sodium Potassium 3.4 L (3.5-5.1) mmol/L Chloride Carbon Dioxide Anion Gap BUN Creatinine Est Cr Clr Drug Dosing eGFR BUN/Creatinine Ratio Glucose Calcium Magnesium Blood Type A Positive Antibody Screen NEGATIVE Crossmatch See Detail See Detail PG Care Time/CCT Total # of Minutes Spent Total Time Spent with Patient: Total time spent is greater than 50% in coordination of care (as documented) at patient's floor/unit and/or counseling patient: Coding Level of Care Code 54761 SUB INP/OBS CARE 2/35MIN Diagnoses Upper GI bleed K92.2
[2024-08-21 09:58] LABS: BUN Creatinine Ratio 21.3 (10-20); Calcium 8.2 mg/dl (8.6-10.3); Creatinine Clr Calc Pharmacy 63.4 ml/min; Magnesium 2.1 mg/dl (1.7-2.4)
--- NOTE | 2024-08-21 11:50 | Nuclear Medicine Report ---
NM GI bleeding CLINICAL HISTORY: 84 years-old Male with persistent blood loss anemia. Acute anemia TECHNIQUE: Following the intravenous administration of red cells labeled with 26.0 mCi of technetium -99m Ultratag, sequential abdominal images were obtained for 60 minutes. COMPARISON: CT abdomen and pelvis 01/26/2024 FINDINGS: There is no abnormal focus of labeled red cell accumulation or extravasation. There is expected acti vity in the blood pool. IMPRESSION: No scintigraphic evidence for active gastro intestinal bleeding. ACT 112: Negative or not required by law. The above report was generated using voice recognition software. It may contain grammatical, syntax o r spelling errors. Electronically signed by: Trenton Lundy M.D. 08/21/2024 11:47 AM
[2024-08-21] MEDS ORDERED: SODIUM CHLORIDE 0.9% 100 ML IV PRN (12:17)
[2024-08-21] MEDS ORDERED: SODIUM CHLORIDE 0.9% 50 ML IV PRN (12:17)
[2024-08-21] MEDS: OPTIRAY 320 100ml IV ONE (14:23)
--- NOTE | 2024-08-21 14:59 | CT Scan Report ---
ABDOMEN AND PELVIS CT WITH IV CONTRAST CT DOSE: 1312.04 mGy.cm HISTORY: Acute onset abdominal pain with GI bleed. Eval for retroperitoneal bleed TECHNIQUE: Multiaxial CT images of the abdomen and pelvis were performed following the IV administrat ion of 94 cc of Optiray, A dose lowering technique was utilized adhering to the principles of ALARA. COMPARISON STUDY: GI bleeding scan of same day, CT abdomen and pelvis 01/26/2024 FINDINGS: Cardiomegaly. Trace pericardial effusion. Small layering pleural effusions with mild bibasi lar atelectasis. No pneumatosis or pneumoperitoneum. The spleen is upper limits of normal in size. Un remarkable pancreas, gallbladder and adrenal glands. Nonspecific diffuse heterogeneity of the liver. Coarse calcification of the right hepatic lobe. Scattered hypodense foci of the right kidney, likely cysts. No hydronephrosis. Distended urinary blad tc. Prostatomegaly. Atherosclerosis of the aorta and branch vessels. Retroaortic left renal vein. Di stention of the iliac veins and IVC. No lymphadenopathy. No acute retroperitoneal hemorrhage. Distal esophageal wall thickening. A large midline abdominal wall hernia is multiloculated containing stomach, large and small bowel along with mesenteric fat. No associated obstruction. No bowel obstru ction or bowel wall thickening. Moderate colonic fecal retention. The appendix is not diagnostically visualized. Degenerative changes of the spine, pelvis and hips. Body wall edema. IMPRESSION: 1. No acute retroperitoneal hematoma or hemoperitoneum identified. 2. Cardiomegaly with small pleural effusions and dependent bibasilar atelectasis with body wall edema . 3. Large midline abdominal hernias containing stomach as well as nonobstructed loops of large and sma ll bowel. 4. Additional findings as above. ACT 112: Negative or not required by law. The above report was generated using voice recognition software. It may contain grammatical, syntax o r spelling errors. Electronically signed by: Trenton Lundy M.D. 08/21/2024 2:55 PM
[2024-08-21] MEDS: FUROSEMIDE 40 MG/4 ML VIAL IV ONE (18:12)
[2024-08-21 19:11] LABS: Hematocrit (blood only) 28.2 % (42.0-52.0); Hemoglobin 8.7 g/dl (14.0-18.0)
[2024-08-22 06:20] LABS: Hematocrit (blood only) 26.5 % (42.0-52.0); Hemoglobin 8.2 g/dl (14.0-18.0); Mean Corpuscular Hemoglobin 29.1 pg (25.0-34.0); Mean Corpuscular Hgb Conc 30.9 g/dL (32.0-36.0); Mean Platelet Volume 10.7 fL (9.4-12.4); Platelet Count 135 K/uL (130-400); RDW Coefficient of Variation 16.9 % (11.5-14.5); RDW Standard Deviation 56.4 fL (36.4-46.3); Red Blood Count 2.82 M/uL (4.70-6.10); White Blood Count 5.83 K/ul (4.8-10.8)
[2024-08-22 06:37] LABS: Calcium 8.3 mg/dl (8.6-10.3); Creatinine Clr Calc Pharmacy 57.5 ml/min; Potassium 4.4 mmol/L (3.5-5.1)
--- NOTE | 2024-08-22 11:01 | Hospitalist Progress Note ---
Date of Service August 22, 2024 Assessment & Plan (1) Upper GI bleed: Plan: Presented with worsening TALBERT x 2 weeks. Patient endorsed melena, but initially thought it was secondary to his iron supplements - Acute blood loss anemia with Hgb 5.9 on arrival. Hemoccult (+) on arrival. Iron panel WNL - Increased transfusion threshold in the setting of severe aortic stenosis - Hgb=8.2 s/p 6 units of pRBCs. H&H rechecked this afternoon and stable at 8.8 -- will recheck with AM labs - Source of bleeding remains unclear - Of note, Lyudmilafortino and Carmen have anemia as side effect, however patient has been on fpc and though anemia is chronic, this acute episode is likely due to GI bleed - Gastroenterology consulted -- Recommending outpatient capsule study for further evaluation - EGD negative 08/19 - Colonoscopy 08/20 showed old blood throughout entire colon, but no source of active bleeding - NM bleeding scan negative - CT A/P negative for acute retroperitoneal hematoma or hemoperitoneum - Continue Protonix 40 mg IV BID (2) Aortic stenosis: Plan: Known history of CAD, PAF, severe aortic stenosis; follows with Dr. Johns outpatient. Per cardiology note on 03/17/2024, his aortic stenosis remains stable and asymptomatic - BNP 560 on arrival (most recently 11 ED on 01/31/2024) with 2+ pitting edema bilaterally on admission. Unclear if acute on chronic heart failure contributing to TALBERT in addition to anemia - Echo showed EF=60-65%, severe valvular , mild AR, mildly dilated ascending aorta 4.2 cm. Compared with study from January 2024, no significant change - Atrial fibrillation on arrival; rate controlled -- hold Eliquis in setting of acute GI bleed - Cardiology consulted for clearance prior to EGD - Continue Lasix 40 mg p.o. QAM - 13 beat run of NSVT 08/20 - suspect due to electrolyte depletion from colonoscopy bowel prep; K repleted Possible NSTEMI, type 2 - Troponin increased at 332 on arrival; asymptomatic. - Troponin peaked at 847.2, then downtrended; patient remains asymptomatic - Believe this to be demand ischemia in setting of acute anemia/GI bleed (3) Acute anemia: Plan: As noted above Plan Updated at bedside PT/OT ordered Ordered Lasix x 1 Chronic stable issues: Paroxysmal A-fib: Rate controlled; hold Eliquis for now in setting of acute GI bleed Seizure disorder: Continue Keppra, lamotrigine FRANCHESKA: CPAP at bedtime VTE PPx: Hold chemical DVT PPx in the setting of acute GI bleed; TEDs CODE STATUS: Full code Admission and Anticipated Discharge Date Admission Date: August 17, 2024 Subjective Patient seen and evaluated at bedside with his present. He reports feeling well overall. He had just walked two laps in the blanc with his . He said toward the end of the second lap he became a bit short of breath. He said it was not to the degree when he first came in and is more similar to his baseline status. We discussed his current hgb level, rechecking in afternoon again. PT/OT ordered to eval patient. No additional complaints or concerns at this time. Physical Exam Physical Exam: General: No acute distress, nondiaphoretic, well-developed, well-nourished. Skin: Warm, dry. Chronic venous insufficiency lower extremities bilaterally. 2+ pitting edema in feet bilaterally. Edema does not extend above the ankles. Cardiac: Irregularly irregular, rates in 60s. Systolic murmur noted. Pulm: Clear to auscultation bilaterally without wheezes, rales or rhonchi. No respiratory distress. 92% on room air. Abdominal: Soft, nontender, nondistended. Bowel sounds present. Large left- sided umbilical hernia noted. Neuro: A&O x3. No focal neurological deficits. Results & Data Results & Data Vital Signs (Past 12 Hours) Vital Signs Temp Pulse Pulse Resp BP Pulse Ox O2 Del Method 08/22/24 08:00 54 L 08/22/24 07:31 81 18 127/65 91 Room Air 08/22/24 03:00 97.3 F L 58 L 20 115/68 92 Room Air 08/21/24 23:00 52 L 08/21/24 23:00 97.9 F 60 19 95/55 L 96 Room Air Laboratory Results Reviewed CBC Reviewed BMP PG Care Time/CCT Total # of Minutes Spent Total Time Spent with Patient: Total time spent is greater than 50% in coordination of care (as documented) at patient's floor/unit and/or counseling patient: Coding Level of Care Code 34325 SUB INP/OBS CARE 3/50MIN Diagnoses Upper GI bleed K92.2 Aortic stenosis I35.0 Acute anemia D64.9
[2024-08-22] MEDS: POTASSIUM CHLORIDE PWD 20 MEQ PACK PO SCH (11:07)
[2024-08-22] MEDS: FUROSEMIDE 40 MG/4 ML VIAL IV ONE (14:25)
[2024-08-22 15:17] LABS: Hematocrit (blood only) 28.7 % (42.0-52.0); Hemoglobin 8.8 g/dl (14.0-18.0)
[2024-08-23 06:16] LABS: Hematocrit (blood only) 29.2 % (42.0-52.0); Mean Corpuscular Hemoglobin 28.8 pg (25.0-34.0); Mean Corpuscular Hgb Conc 30.8 g/dL (32.0-36.0); Mean Corpuscular Volume 93.6 fL (80.0-100.0); Mean Platelet Volume 10.6 fL (9.4-12.4); Platelet Count 159 K/uL (130-400); RDW Coefficient of Variation 16.5 % (11.5-14.5); RDW Standard Deviation 54.9 fL (36.4-46.3); Red Blood Count 3.12 M/uL (4.70-6.10); White Blood Count 5.68 K/ul (4.8-10.8)
[2024-08-23 10:38] VITALS: PULSE 64; RESP 18; TEMP 97.5; O2SAT 97
[2024-08-23 10:51] VITALS: BP 100/53
--- NOTE | 2024-08-23 10:52 | Discharge Summary ---
Discharge Summary Date of Service August 23, 2024 Principal Dx & Hospital Course #1 = Principal Diagnosis (1) Upper GI bleed: Presented with worsening TALBERT x 2 weeks. Patient endorsed melena, but initially thought it was secondary to his iron supplements - Acute blood loss anemia with Hgb 5.9 on arrival. Hemoccult (+) on arrival. 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 and though anemia is chronic, this acute episode is likely due to GI bleed - Source of bleeding remains unclear - Gastroenterology consulted -- Recommending outpatient capsule study for further evaluation - EGD negative 08/19 - Colonoscopy 08/20 showed old blood throughout entire colon, but no source of active bleeding - NM bleeding scan negative - CT A/P negative for acute retroperitoneal hematoma or hemoperitoneum - Hgb stabilized s/p 6 units pRBCs -- hgb=9.0 on day of discharge > H&H ordered for 08/25 with results sent to PCP - Hold Eliquis, aspirin, iron supplement until 08/26 after discussion with PCP - Continue Protonix 40 mg PO daily on discharge - Recommend PCP follow-up within 1 week (2) Aortic stenosis: Known history of CAD, PAF, severe aortic stenosis; follows with Dr. Johns outpatient. Per cardiology note on 03/17/2024, his aortic stenosis remains stable and asymptomatic - BNP 560 on arrival (most recently 11 ED on 01/31/2024) with 2+ pitting edema bilaterally on admission. Unclear if acute on chronic heart failure contributing to TALBERT in addition to anemia - Echo showed EF=60-65%, severe valvular , mild AR, mildly dilated ascending aorta 4.2 cm. Compared with study from January 2024, no significant change - Atrial fibrillation on arrival; rate controlled -- hold Eliquis in setting of acute GI bleed - Cardiology consulted for clearance prior to EGD - Continue Lasix 40 mg p.o. QAM - 13 beat run of NSVT 08/20 - suspect due to electrolyte depletion from colonoscopy bowel prep; K repleted Possible NSTEMI, type 2 - Troponin increased at 332 on arrival; asymptomatic. - Troponin peaked at 847.2, then downtrended; patient remains asymptomatic - Believe this to be demand ischemia in setting of acute anemia/GI bleed (3) Acute anemia: As noted above Plan Chronic stable issues: Paroxysmal A-fib: Rate controlled; hold Eliquis for now in setting of acute GI bleed Seizure disorder: Continue Keppra, lamotrigine FRANCHESKA: CPAP at bedtime VTE PPx: Held chemical DVT PPx in the setting of acute GI bleed; TEDs CODE STATUS: Full code Notes For Next Care Provider Monitor H&H - recheck scheduled for 08/25 Source of bleeding remains unclear. No active bleeding noted on imaging/scopes Follow-up with PCP within 1 week Follow-up with GI outpatient for further GI bleed workup Medication Changes From Visit Held Eliquis, aspirin, iron supplement Started Protonix Admission HPI Per Admitting Provider Tristan is a pleasant 84-year-old male with PMH of seizure disorder, FRANCHESKA, C. difficile colitis, atrial fibrillation (on Eliquis), and protein calorie malnutrition. Presented on 08/17 for worsening SOB x 2 weeks. He reports that he only has TALBERT, but reports it has been getting progressively worse over this past week. He is at the point where he can only take a couple steps before he is "gasping". He denies SOB at rest. He does use a CPAP at night, and reports that he does not have orthopnea, but tries to remain elevated at night. No supplemental oxygen at baseline. Patient was recently started on Lasix in February/March for LE edema. He reports good compliance with taking his Lasix daily. He took all of his regular morning medicine today. Only recent change in medications was that he was placed on eardrops by an ENT for a dried blood clot in his ear to soften it up; this was stopped yesterday due to concern that one of the rare side effects was causing SOB. No prior history of GI bleeds or stomach ulcers. He denies NSAID use. 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 Additionally, patient reports an episode of unresponsiveness yesterday. He walked down the stairs, sat down and a chair to watch TV, and reportedly does not remember what happened after that. was present at the time, and reports that he was "catatonic" and not responding to questions for approximately 2 minutes. He also had an episode of urinary incontinence during this time, which she reports was new for him. No prior history of blood transfusions. Patient's last colonoscopy was >10y; when he was in his 50s. No prior cardiac history to his knowledge; no history of MIs; no history of heart stents. He denies any chest pain when walking up steps or at rest. He reports 0/10 chest pain on admission. He does follow with Dr. Johns ([facility]) outpatient, and has been told in the past that he might require a cardiac catheterization in the "next couple years". He denies smoking, tobacco use, or recent alcohol use. Patient is mildly hypotensive at 103/59 at time of admission; vitals otherwise stable. ED course: Pantoprazole 80 mg IV 2 units leukoreduced PRBCs ordered ROS: Patient endorses cold intolerance, dizziness/lightheadedness with standing and walking, new onset TALBERT, 1 episode of urinary incontinence, 1 episode of unresponsiveness, and ongoing dark tarry stool (which patient attributes to his iron supplementation). Patient denies fever, chills, night sweats, chest pain, chest palpitations, pleuritic CP, cough, SOB at rest, orthopnea, abdominal pain, N/V/D, burning with urination, blood in the urine, or bright red blood in the stool. Discharge Exam General: No acute distress, nondiaphoretic, well-developed, well-nourished. Skin: Warm, dry. Chronic venous insufficiency lower extremities bilaterally. 1+ pitting edema in feet bilaterally. Edema does not extend above the ankles. Cardiac: Irregularly irregular, rates in 60s. Systolic murmur noted. Pulm: Clear to auscultation bilaterally without wheezes, rales or rhonchi. No respiratory distress. 97% on room air. Abdominal: Soft, nontender, nondistended. Bowel sounds present. Large left- sided umbilical hernia noted. Neuro: A&O x3. No focal neurological deficits. Discharge Plan Discharge Items Patient Disposition: Home - Self-Care Reason For Visit: GI BLEED Discharge Diagnosis: GI bleed Activity: Resume your previous activity Non-emergency contact: Primary Care Provider Call non-emergency contact if: you have any medication questions and your symp toms worsen Follow-up/Referrals: Felipe Blackburn MD [Primary Care Provider] - (Follow-up within 1 week) Arben Troy MD [Physician] - (Follow-up for OP VCE) Diet: Regular Ambulatory Orders: Hemoglobin and Hematocrit (Routine) Timeframe: 2 Days Location: Determined by Patient Ordered By: Saba Rubio Attending Provider Instructions: Mr. Dominique, You are admitted to the hospital with acute blood loss anemia. This is most likely what caused your shortness of breath with activity. I suspect your acute blood loss anemia is due to a GI bleed. However, no signs of active bleeding were identified during your workup. You had an EGD which was negative, a colonoscopy which showed old blood throughout the entire colon but no active bleeding, a bleeding scan which was negative, and a CT scan of your abdomen/pelvis which was negative for acute bleeding. You had 6 units of blood transfused during this hospital stay. Your hemoglobin is now remaining stable and not requiring additional blood transfusions. Upon discharge from the hospital: * Get blood work done on 08/25/2024. This is to check your hemoglobin level. A lab slip has been provided with your discharge paperwork. These results will be sent to your PCP. * HOLD your Eliquis, aspirin, and iron supplementation until 08/26/2024 after discussing the results of your blood work with your PCP. * Continue your other home medications as prescribed. * Continue taking Protonix 40 mg daily. This helps suppress acid secretion in your stomach to minimize incidence of rebleeding. This prescription has been sent to your [facility] pharmacy on [facility]. * Do NOT take NSAIDs, such as aspirin, ibuprofen, or naproxen. They can irritate the stomach and cause more bleeding. * Follow-up with your PCP within 1 week. * Follow-up with GI outpatient. Their office will call you to schedule a follow-up appointment. Please return to the hospital if you experience any of the following: Lightheadedness, dizziness, passing out, confusion, difficulty breathing, chest pain, palpitations, blood in your stool/urine/vomit/or from coughing, or any other symptoms concerning for you. It was a pleasure taking care of you while you were in the hospital, Saba Thompson PA-C Pending Studies at Discharge: No Stand-Alone Forms: My [facility] [employer], Smoking Cessation Medications and DC Order Prescriptions: New pantoprazole 40 mg Tablet,Delayed Release (Dr/Ec) 40 mg PO QAM Qty: 30 0RF Continued epinephrine 0.3 mg/0.3 mL auto-injector 0.3 mg IM DIRECTED PRN (Reason: Allergic Reaction) Qty: 2 3RF latanoprost [Xalatan] 0.005 % drops 1 drp ophthalmic (eye) PM Qty: 2.5 11RF potassium chloride 10 mEq capsule, extended release 10 meq PO DAILY Qty: 30 11RF Rx Instructions: Switched from tablets as patient is unable to swallow pills whole, verbal order given to [facility] pharmacy on 11/19/23. Patient may sprinkle capsules into food. Calcium 600 with Vitamin D3 600 mg-10 mcg (400 unit) tablet,chewable 1 tab PO BID Qty: 60 11RF lamotrigine 25 mg tablet 50 mg PO BID 30 Days Qty: 120 11RF levetiracetam 500 mg tablet 1,000 mg PO BID Qty: 120 5RF lactase [Lactaid Fast Act] 9,000 unit tablet 9,000 unit PO QID PRN (Reason: Milk food products) Rx Instructions: administer with meals and/or snacks (DME) Spacer for Inhaler Misc See Rx Instructions .Route Qty: 1 0RF Rx Instructions: As directed furosemide 40 mg tablet 40 mg PO DAILY PRN (Reason: Edema) Rx Instructions: 40 MG ORALLY DAILY NEEDED FOR EDEMA simvastatin 40 mg tablet 40 mg PO QPM Rx Instructions: TAKE 1 TABLET BY MOUTH EVERY EVENING acetaminophen [Tylenol Arthritis Pain] 650 mg tablet extended release 1,300 mg PO Q12H PRN (Reason: Pain) Held aspirin 81 mg tablet,chewable 81 mg PO DAILY Qty: 30 11RF Hold Instructions: Resume on 08/26/24. ferrous sulfate 325 mg (65 mg iron) tablet 325 mg PO DAILY Qty: 90 3RF Hold Instructions: Resume on 08/26/24. Eliquis 5 mg tablet 5 mg PO BID Qty: 180 3RF Hold Instructions: Resume on 08/26/24. Discharge Orders: Discharge Order (Routine); Ordered 08/23/24 Ordered By: Saba Wiley/Other Patient Handouts: ED Upper GI Bleeding (Stable) Admission Data Admit Date/Time: 08/17/24 17:45 Attending Provider: Yariel Arriaza Admit Provider: Ian Pedraza Primary Care Provider: Felipe Blackburn Other Providers: Ian Pedraza; Justin Araujo; Arben Troy I Other Interventions: Discharge Summary Assessment (RN) Last Done: 08/20/24 14:37 Hospital Stay Data Consultations 08/17/24 17:06 ED Decision to Admit Stat 08/17/24 20:58 Consult Cardiology Routine Consult Gastroenterology Routine Procedures Performed Operation Date: 08/20/24 16:30 Actual Procedures p Colonoscopy - Arben Troy MD Diagnostic Imagining Performed Chest X-Ray 08/17/24 14:44 XR chest 1V portable CLINICAL HISTORY: Dyspnea on exertion. COMPARISON STUDY: Chest radiograph January 30, 2024. FINDINGS: There is no pneumothorax. Cardiomegaly is unchanged. Pulmonary vascular congestion is present. This is improved when compared to prior exam. There are small bilateral pleural effusions. There is no pneumothorax. No definite consolidation to suggest pneumonia. IMPRESSION: Cardiomegaly with pulmonary vascular congestion and small bilateral pleural effusions. ACT 112: Negative or not required by law. Electronically signed by: Mitchel Scruggs M.D. 08/17/2024 3:[address] 08/17/24 15:02 CT OF THE HEAD WITHOUT CONTRAST CLINICAL HISTORY: Syncope. COMPARISON STUDY: Head CT January 24, 2024. MRI of the brain January 25, 2024. CT DOSE: 547.75 mGy.cm TECHNIQUE: Helical axial images of the head were obtained without IV contrast. Automated exposure control was utilized for the study. A dose lowering technique was utilized adhering to the principles of ALARA. FINDINGS: No acute intracranial hemorrhage, midline shift or mass effect is present. Ventricular system is stable. Basal cisterns are patent. There are no extra axial collections. Left parieto-occipital encephalomalacia is unchanged. This suggests an old infarct. White matter hypodensities are unchanged. There are no findings to suggest acute dural sinus thrombosis or acute territorial infarct. Two smaller suspected old right frontal lobe infarcts are unchanged. As before, the right maxillary sinus is opacified. Right ethmoid air cells are partially opacified. Old left nasal bone fracture. No calvarial fractures. IMPRESSION: No acute intracranial findings. No change in appearance of the brain. ACT 112: Negative or not required by law. Electronically signed by: Mitchel Scruggs M.D. 08/17/2024 3:38 PM GI Bleed Scan Nuclear Medicine 08/21/24 07:36 NM GI bleeding CLINICAL HISTORY: 84 years-old Male with persistent blood loss anemia. Acute anemia TECHNIQUE: Following the intravenous administration of red cells labeled with 26.0 mCi of technetium-99m Ultratag, sequential abdominal images were obtained for 60 minutes. COMPARISON: CT abdomen and pelvis 01/26/2024 FINDINGS: There is no abnormal focus of labeled red cell accumulation or extravasation. There is expected activity in the blood pool. IMPRESSION: No scintigraphic evidence for active gastro intestinal bleeding. ACT 112: Negative or not required by law. The above report was generated using voice recognition software. It may contain grammatical, syntax or spelling errors. Electronically signed by: Trenton Lundy M.D. 08/21/2024 11:47 AM Abdomen/Pelvis CT 08/21/24 13:[address] WITH IV CONTRAST CT DOSE: 1312.04 mGy.cm HISTORY: Acute onset abdominal pain with GI bleed. Eval for retroperitoneal bleed TECHNIQUE: Multiaxial CT images of the abdomen and pelvis were performed following the IV administration of 94 cc of Optiray, A dose lowering technique was utilized adhering to the principles of ALARA. COMPARISON STUDY: GI bleeding scan of same day, CT abdomen and pelvis 01/26/2024 FINDINGS: Cardiomegaly. Trace pericardial effusion. Small layering pleural effusions with mild bibasilar atelectasis. No pneumatosis or pneumoperitoneum. The spleen is upper limits of normal in size. Unremarkable pancreas, gallbladder and adrenal glands. Nonspecific diffuse heterogeneity of the liver. Coarse calcification of the right hepatic lobe. Scattered hypodense foci of the right kidney, likely cysts. No hydronephrosis. Distended urinary bladder. Prostatomegaly. Atherosclerosis of the aorta and branch vessels. Retroaortic left renal vein. Distention of the iliac veins and IVC. No lymphadenopathy. No acute retroperitoneal hemorrhage. Distal esophageal wall thickening. A large midline abdominal wall hernia is multiloculated containing stomach, large and small bowel along with mesenteric fat. No associated obstruction. No bowel obstruction or bowel wall thickening. Moderate colonic fecal retention. The appendix is not diagnostically visualized. Degenerative changes of the spine, pelvis and hips. Body wall edema. IMPRESSION: 1. No acute retroperitoneal hematoma or hemoperitoneum identified. 2. Cardiomegaly with small pleural effusions and dependent bibasilar atelectasis with body wall edema. 3. Large midline abdominal hernias containing stomach as well as nonobstructed loops of large and small bowel. 4. Additional findings as above. ACT 112: Negative or not required by law. The above report was generated using voice recognition software. It may contain grammatical, syntax or spelling errors. Electronically signed by: Trenton Lundy M.D. 08/21/2024 2:55 PM Pending Results Patient Have Any Pending Studies at Discharge: No Discharge Instructions Given to Patient (Per Discharging Provider) Mr. Dominique, You are admitted to the hospital with acute blood loss anemia. This is most likely what caused your shortness of breath with activity. I suspect your acute blood loss anemia is due to a GI bleed. However, no signs of active bleeding were identified during your workup. You had an EGD which was negative, a colonoscopy which showed old blood throughout the entire colon but no active bleeding, a bleeding scan which was negative, and a CT scan of your abdomen/pelvis which was negative for acute bleeding. You had 6 units of blood transfused during this hospital stay. Your hemoglobin is now remaining stable and not requiring additional blood transfusions. Upon discharge from the hospital: * Get blood work done on 08/25/2024. This is to check your hemoglobin level. A lab slip has been provided with your discharge paperwork. These results will be sent to your PCP. * HOLD your Eliquis, aspirin, and iron supplementation until 08/26/2024 after discussing the results of your blood work with your PCP. * Continue your other home medications as prescribed. * Continue taking Protonix 40 mg daily. This helps suppress acid secretion in your stomach to minimize incidence of rebleeding. This prescription has been sent to your [facility] pharmacy on [facility]. * Do NOT take NSAIDs, such as aspirin, ibuprofen, or naproxen. They can irritate the stomach and cause more bleeding. * Follow-up with your PCP within 1 week. * Follow-up with GI outpatient. Their office will call you to schedule a follow-up appointment. Please return to the hospital if you experience any of the following: Lightheadedness, dizziness, passing out, confusion, difficulty breathing, chest pain, palpitations, blood in your stool/urine/vomit/or from coughing, or any other symptoms concerning for you. It was a pleasure taking care of you while you were in the hospital, Saba Thompson PA-C Total Time Total Time Spent Total Time Spent (In Minutes): Greater than 30 minutes spent completing this discharge process including direct patient care, medication reconciliation, documentation, review of labs and images, and coordination of care. Coding Level of Care Code 98282 INP/OBS DISCH >30 MIN Diagnoses Upper GI bleed K92.2 Aortic stenosis I35.0 Acute anemia D64.9
== END 2024-08-23 11:35 | disposition home or self-care (01) | DRG 377 ==
LOC: SUATTDRO → ED 14:28 → SUATTDRO 17:45 → 2E 17:45

== ENCOUNTER 2024-09-05 02:53 | Observation (INO) ==
--- NOTE | 2024-09-05 03:27 | History & Physical Report ---
Date of Service September 05, 2024 Assessment & Plan (1) GI bleed: (2) Acute blood loss anemia: (3) Aortic stenosis: (4) PAF (paroxysmal atrial fibrillation): (5) Chronic venous insufficiency of lower extremity: (6) Obstructive sleep apnea syndrome: (7) Seizure disorder: Milan Hudson is a 84M w/ PMH of A Fib, Critical , Anemia, venous insufficiency, FRANCHESKA, osteoarthritis, and seizure disorder who transferred to [facility] for management of obscure GIB 09/02/24 and is now being transferred back to [facility] for ongoing care. 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 - Presented to [facility] 09/02/24 for obscure GIB and was transferred to [facility] - Angioectasia electrocauterized 09/03 - Received Protonix 40 mg IV BID at [facility] Continue PO Protonix on admission - Apixaban/Aspirin held for surgery x 48h OK to resume in AM if no GIB Hemoccult stools ordered - Tolerated full diet well, continue on admission Acute Anemia 2/2 GI Blood Loss - S/p 2 units PRBC at [facility] - Received Iron sucrose 300 mg IV x 3 days - B12 and Folate wnl - Follow Hgb, transfusion threshold of 8 - CBC in AM Severe - KYRA performed at [facility] EF 65-70%, sclerotic aortic valve w/ severe , severe pulmonary hypertension - Had episode of O2 desaturation/crackles prior to d/c Home Lasix dosing was restarted No crackles on examination, vitals stable on room air Continue Lasix A Fib - Eliquis held for GIB, resume if no GIB - Metoprolol held for bradycardia, though patient had not been taking Chronic Conditions: - Continue home medications unless otherwise noted above Code: Full Diet: HH IVF: None DVT Ppx: Eliquis held d/t GIB, OK to restart in AM Dispo: Medsurg Admission and Anticipated Discharge Date Admission Date: September 05, 2024 History of Present Illness Chief Complaint: Transfer from [facility] Ongoing care GIB Primary Care Provider: Nikki Haas MD Tristan is a 84M w/ PMH of A Fib, Critical , Anemia, venous insufficiency, FRANCHESKA, osteoarthritis, and seizure disorder who transferred to [facility] for management of obscure GIB 09/02/24 and is now being transferred back to [facility] for ongoing care. Patient underwent enteroscopy 09/03/24 w/ cauterization of angioectasia within the jejunum. No complications noted. Patient notes he feels wonderful and is looking forward to going home. He denies nausea, emesis, or abdominal pain and states that he has not had any BRBPM or melanotic stools since the procedure at [facility]. He states that he has been eating well over the last few days. He continues to stool and urinate w/o issue. Patient denies any chest pain, dyspnea, or edema. He notes a chronic abdominal hernia that does not hurt, even with palpation. He denies any lightheadedness or headaches. Last BM documented 09/03/24. Allergies Allergy/AdvReac Type Severity Reaction Status Date / Time bee venom protein (honey bee) Allergy Unknown UNKN Verified 09/01/24 10:03 No Known Drug Allergies Allergy Verified 08/31/24 15:05 lactose AdvReac Intermediate GI UPSET Verified 09/01/24 10:03 Home Medications Medication Instructions Recorded Confirmed Type Spacer for Inhaler #1 ea 11/27/23 08/31/24 Rx epinephrine 0.3 mg/0.3 mL 0.3 mg (0.3 mL) IM DIRECTED PRN 02/25/24 09/01/24 Rx injection, auto-injector Allergic Reaction #2 ea latanoprost 0.005 % eye drops 1 drp ophthalmic (eye) PM #2.5 mL 02/25/24 09/01/24 Rx (Xalatan) lactase 9,000 unit tablet (Lactaid 9,000 unit PO QID PRN Milk food 03/06/24 09/01/24 History Fast Act) products calcium 600 mg (as carbonate)-vit 1 tab PO BID #60 tabs 03/18/24 09/01/24 Rx D3 10 mcg (400 unit) chewable tablet (Calcium 600 with Vitamin D3) potassium chloride 10 mEq 10 meq PO DAILY #30 caps 03/18/24 09/01/24 Rx capsule,extended release levetiracetam 500 mg tablet 1,000 mg (2 x 500 mg) PO BID #120 08/10/24 09/01/24 Rx tabs acetaminophen 650 mg 1,300 mg PO Q12H PRN Pain 08/17/24 09/01/24 History tablet,extended release (Tylenol Arthritis Pain) furosemide 40 mg tablet 40 mg PO DAILY PRN Edema 08/17/24 09/01/24 History pantoprazole 40 mg tablet,delayed 40 mg PO QAM #30 tabs 08/23/24 09/01/24 Rx release simvastatin 40 mg tablet 40 mg PO QPM #90 tabs 08/31/24 09/01/24 Rx apixaban 5 mg tablet (Eliquis) 0 mg PO BID 09/01/24 09/01/24 History aspirin 81 mg chewable tablet 0 mg PO DAILY 09/01/24 09/01/24 History ferrous sulfate 325 mg (65 mg 0 mg PO DAILY 09/01/24 09/01/24 History iron) tablet lamotrigine 100 mg tablet See Rx Instructions .Route .COMPLEX 09/01/24 09/01/24 History lamotrigine 25 mg tablet See Rx Instructions .Route .COMPLEX 09/01/24 09/01/24 History Past Med/Surg History Problem List (Updated 09/01/24 @ 14:53 by Ju Ramos DO) Elevated brain natriuretic peptide (BNP) level (Acute) GI bleed (Acute) Elevated troponin (Acute) Elevated troponin Acute blood loss anemia Anemia (Acute) TALBERT (dyspnea on exertion) (Acute) Aortic stenosis Leg edema PAF (paroxysmal atrial fibrillation) Upper GI bleed Melena (Acute) Acute anemia (Acute) TALBERT (dyspnea on exertion) (Acute) Conductive hearing loss in right ear (Acute) Encephalopathy Moderate protein-calorie malnutrition C. 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) use of anticoagulants Cerebral hemorrhage Vascular insufficiency Dyslipidemia Atrial fibrillation CVA (cerebral vascular accident) Surgical History S/P hernia repair Vasectomy status H/O vasectomy Family History Other No pertinent family history Social History Smoking Status: Never smoker Second Hand Exposure: No; Do You Dip or Chew Tobacco: No; Hx Alcohol Use: No Hx Substance Use: No Preferred Language: Thai Communication Ability: Effective Visual Impairment: Diminished Hearing Ability: Hard of Hearing Foundation Relations Director Required: No Beliefs That Will Affect Care: None marital status: Current Living Situation: Spouse current occupational status: retired Feels Safe at Home: Yes Diet: regular caffeine: No Seatbelt Use: always Sunscreen Use: Yes Do you think of yourself as: straight/heterosexual Gender Identity: Male Assistive Devices: Wheelchair Physical Exam Physical Exam: General: NAD, pleasant, sitting upright on side of bed ENMT: MMM, external ears and nose without abnormality Neck: supple, no masses, no LAD Cardiac: normal rate;5/6 systolic murmur most appreciated in right upper sternal border Lungs:non-labored, CTAB, no wheezing/rhonchi/rales Abdomen: soft, large ventral hernia appreciated, difficult to reduce but not limited by pain (limited by size), no tenderness to palpation of abdomen, no evidence of bowel incarceration, active bowel sounds Extremities: trace pedal edema; moving all extremities; well-perfused Neuro: AO x 4 Skin: well perfused, no rashes or ulcerations Psych: mood euthymic, affect normal Supervising Physician Co-Signing Physician Notes Attending addendum: I have physically seen this patient, have supervised the medical residents activities, and agree with the H&P unless as otherwise noted. Assessment and Plan: GI bleed/jejunal angiectasia- Patient returns for readmission to [facility] after being evaluated at [facility]. Patient had angioectasia electrocauterized on 09/03 Was on Protonix 40 mg IV twice daily, and will now be changed to Protonix 40 mg p.o. twice daily Apixaban and aspirin held at recommendation 48 hours postprocedure Resume in a.m. if patient is stable and hemoglobin is acceptable Continue full diet Anemia requiring 2 units PRBCs at [facility] Follow serial H&H's With transfusion threshold of 8 PPI as noted above Severe aortic stenosis/atrial fibrillation- Status post KYRA at [facility], with EF 65-70% and severe with severe pulm hypertension noted Lasix has been resumed, monitor closely for preload issues Continue to hold metoprolol for bradycardia Resident Activity Tracking Resident Involvement: Resident Care Provided Care Provided: Adult Hospital Medicine
[2024-09-05] MEDS ORDERED: ONDANSETRON INJ 2 MG/ML 2 ML VIAL IV PRN (03:56)
[2024-09-05] MEDS ORDERED: ACETAMINOPHEN 325 MG TAB PO PRN (03:56)
[2024-09-05] MEDS ORDERED: POLYETHYLENE (MIRALAX) 17 GM PACK PO PRN (03:56)
[2024-09-05] MEDS ORDERED: MELATONIN 3 MG TAB PO PRN (03:56)
--- OUTSIDE RECORDS SUMMARY | 2024-09-05 05:27 | External Medical Summary | Summary of Care ---
Author Name Unknown Organization [facility] Address [address] [place] [address] Phone [phone] Care Team Providers Care Stretching Press Operator Name Role Phone Felipe Blackburn MD Primary Care Provider [phone] Reason for Visit * Reason Onset Date Comments Appointment 08/24/2024 VCE consent Encounter Details Date Type Department Care Team (Late st Contact Info) Description 08/24/2024 Telephone Gastroenterology, [facility] [address] [facility] [place] [address] Jose Pandya MD [address] [facility] [place] [address] Appointment (VCE consent ) Allergies Active Allergy Reactions Criticality Noted Date Comments Bee Venom 06/14/2005 purple blotches, localized swelling, throat swells shut documented as of this encounter (statuses as of 09/01/2024) Medications EPI E-Z PEN KITA 1:1000 IJ prn bee sting 0 0 5 Active latanoprost (XALATAN) 0.005 % ophthalmic solution Start: 06/05/17 9:16:00, 1 drop, right eye, Daily 7 Active ELIQUIS 5 MG Tablet ON HOLD AT THIS TIME OF 02/21/24 0 Active levETIRAcetam 100 MG/ML Oral Solution (Keppra)Indications :Seizure disorder (HCC) Take 10 mL by mouth in the morning and 10 mL before bedtime. 473 mL 4 Active Ascorbic Acid 500 MG Oral Tablet Take 1 Tablet by mouth in the morning and 1 Tablet in the evening. 60 Tablet 4 Active Aspirin 81 MG Oral Tablet Delayed Release Take 1 Tablet by mouth in the morning. 30 Tablet 4 Active Calcium Carb-Cholecalcifero l 600-5 MG-MCG Oral Tablet (Calcium 600 + D) Take 1 Tablet by mouth in the morning and 1 Tablet before bedtime. 60 Tablet 4 Active lamoTRIgine 150 MG Oral Tablet (LaMICtal)Indicatio ns:Seizure disorder (HCC) Take 1 Tablet by mouth in the morning and 1 Tablet before bedtime. 60 Tablet 4 Active Potassium Chloride ER 10 MEQ Oral Capsule Extended Release Take 1 Capsule by mouth in the morning. 30 Capsule 4 Active Simvastatin 40 MG Oral Tablet (Zocor)Indications: Coronary artery disease involving coronary bypass graft of sioux heart without angina pectoris,Dyslipidem ia, goal LDL below 100 Take 1 Tablet by mouth in the morning. 30 Tablet 4 Active Acetaminophen ER 650 MG Oral Tablet Extended Release (Tylenol ER)Indications:Oste oarthritis of both knees, unspecified osteoarthritis type Take 2 Tablets by mouth in the morning. 60 Tablet 4 Active Lactaid Fast Act 9000 UNIT Oral Tablet (Lactase) Take 1 Tablet by mouth as needed (dairy-conta ining meal). Active Zinc 50 MG Oral Tablet Take 1 Tablet by mouth in the morning. 30 Tablet 4 Active documented as of this encounter (statuses as of 09/01/2024) Active Problems Problem Noted Date Diagnosed Date PAF (paroxysmal atrial fibrillation) 02/06/2024 History of cerebrovascular accident 02/06/2024 Mild vascular dementia with agitation 02/06/2024 C. difficile diarrhea 02/06/2024 Moderate protein-calorie malnutrition 02/06/2024 FRANCHESKA (obstructive sleep apnea) 02/06/2024 Seizure disorder 02/06/2024 Dyslipidemia, goal LDL below 100 02/06/2024 Venous stasis dermatitis of both lower extremiti es 02/06/2024 Severe aortic stenosis 02/06/2024 Ventral hernia without obstruction or gangrene 0 02/06/2024 Coronary artery disease invo lving coronary bypass graft of sioux heart without angina pectoris 02/06/2024 Sinus pause 02/06/2024 Anemia 02/06/2024 Hx of nonmelanoma skin cancer 11/12/2019 Multiple actinic keratoses 02/17/2014 documented as of this encounter (statuses as of 09/01/2024) Resolved Problems Problem Noted Date Diagnosed Date Resolved Date ADVANCE DIRECTIVE INFORMATION 06/14/2005 07/20/2024 Overview (06/14/2005): No, Advance Directive brochure given to patient. documented as of this encounter (statuses as of 09/01/2024) Immunizations Name Administration Dates Next Due Pneumococcal Conjugate Vaccine, 20-valent (Prevn ar20) 02/17/2024 RSV Vac., Bivalent, Perfusion F, Pf,0.5 Ml (Abry svo) 02/17/2024 documented as of this encounter Social History Tobacco Use Types Packs/Day Years Used Date Smoking Tobacco: Never Alcohol Use Standard Drinks/Week Comments Yes 0 (1 standard drink = 0.6 oz pur e alcohol) Utilities Answer Date Recorded Do you have trouble paying y our heating, water, or electric bill? (Adult - for ages 18 years and over) Not on file 03/03/2024 Is your family able to pay t he heat, water, or electric bill? (Household - for ages 0-17 years) Not on file 03/03/2024 Does your family have access to good internet? (Household - for ages 0-17 years) Not on file 03/03/2024 Social Connections Answer Date Recorded How often do you feel lonely or isolated from those around you? 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 Pt was admitted to hospital. She will call to bryan. * Telephone Encounter - Nicole Martinez OSA - 08/24/2024 2:15 PM EST Pt's called back and she set up an appt on 09/02/24. She said she is not sure how this is going to work, and this is not what they talked about. * Telephone Encounter - Nicole Martinez OSA - 08/24/2024 11:21 AM EST Received a referral from [facility] to get pt set up for a VCE. Pt already had egd and colonoscopy. Called patient to set up office appt and lmm for patient to call office back. documented in this encounter Plan of Treatment Health Maintenance Due Date Last Done Comments Depression Screening 1952 DTap/Tdap Vaccines (1 - Tdap) 1960 Zoster Vaccines (1 of 2) 1991 COVID-19 Vaccine ( season) 2024 07/05/2023, 07/05/2023, 07/05/2023, Additional history exists Influenza Vaccine (FLU shot) (#1) 2024 06/23/2019 Pneumococcal Vaccine: 65+ Years Completed 02/17/2024, 07/31/2017, 09/26/2010 HPV (Gardasil) Vaccine Aged Out No lo nger eligible based on patient's age to complete this topic Hepatitis B Vaccine Aged Out No longe r eligible based on patient's age to complete this topic MENINGOCOCCAL (MENACTRA/MENVEO) Aged Out No longer eligible based on patient's age to complete this topic documented as of this encounter Medical Devices Not on filedocumented as of this encounter Care Teams Stretching Press Operator Relationship Specialty Start Date End Date Felipe Blackburn MD [address] [place] [address] PCP - General Pulmonary Diseases 06/15/13 documented as of this encounter
[2024-09-05 07:18] VITALS: BP 113/70; PULSE 60; RESP 18; TEMP 98.6; O2SAT 96
--- NOTE | 2024-09-05 07:41 | Hospitalist Progress Note ---
Date of Service September 05, 2024 Assessment & Plan (1) GI bleed: (2) Acute blood loss anemia: (3) Aortic stenosis: (4) PAF (paroxysmal atrial fibrillation): (5) Chronic venous insufficiency of lower extremity: (6) Obstructive sleep apnea syndrome: (7) Seizure disorder: Milan Hudson is a 84M w/ PMH of A Fib, Critical , Anemia, venous insufficiency, FRANCHESKA, osteoarthritis, and seizure disorder who transferred to [place] for management of obscure GIB 09/02/24 and is now being transferred back to [facility] for ongoing care. 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 - Presented to [facility] 09/02/24 for obscure GIB and was transferred to [facility] - Angioectasia electrocauterized 09/03 - Received Protonix 40 mg IV BID at [facility] Continue PO Protonix on admission - Apixaban/Aspirin held for surgery x 48h OK to resume in AM if no GIB Hemoccult stools ordered - Tolerated full diet well, continue on admission Acute Anemia 2/2 GI Blood Loss - S/p 2 units PRBC at [facility] - Received Iron sucrose 300 mg IV x 3 days - B12 and Folate wnl - Follow Hgb, transfusion threshold of 8 - CBC in AM Severe - KYRA performed at [facility] EF 65-70%, sclerotic aortic valve w/ severe , severe pulmonary hypertension - Had episode of O2 desaturation/crackles prior to d/c Home Lasix dosing was restarted No crackles on examination, vitals stable on room air Continue Lasix A Fib - Eliquis held for GIB, resume if no GIB - Metoprolol held for bradycardia, though patient had not been taking Chronic Conditions: - Continue home medications unless otherwise noted above Code: Full Diet: HH IVF: None DVT Ppx: Eliquis held d/t GIB, OK to restart in AM Dispo: Medsurg Admission and Anticipated Discharge Date Admission Date: September 05, 2024 Review of Systems Review of Systems: as per HPI Physical Exam Physical Exam: General: NAD, pleasant, sitting upright on side of bed ENMT: MMM, external ears and nose without abnormality Neck: supple, no masses, no LAD Cardiac: normal rate;5/6 systolic murmur most appreciated in right upper sternal border Lungs:non-labored, CTAB, no wheezing/rhonchi/rales Abdomen: soft, large ventral hernia appreciated, difficult to reduce but not limited by pain (limited by size), no tenderness to palpation of abdomen, no evidence of bowel incarceration, active bowel sounds Extremities: trace pedal edema; moving all extremities; well-perfused Neuro: AO x 4 Skin: well perfused, no rashes or ulcerations Psych: mood euthymic, affect normal Results & Data Results & Data Vital Signs (Past 12 Hours) Vital Signs Temp Pulse Resp BP Pulse Ox O2 Del Method 09/05/24 07:17 37.0 C 60 18 113/70 96 Room Air 09/05/24 03:38 Room Air 09/05/24 03:38 36.6 C 77 16 103/63 93 Room Air
[2024-09-05 08:21] LABS: Hematocrit (blood only) 26.7 % (42.0-52.0); Hemoglobin 8.2 g/dl (14.0-18.0); Mean Corpuscular Hemoglobin 27.9 pg (25.0-34.0); Mean Corpuscular Hgb Conc 30.7 g/dL (32.0-36.0); Mean Corpuscular Volume 90.8 fL (80.0-100.0); Mean Platelet Volume 10.4 fL (9.4-12.4); Platelet Count 189 K/uL (130-400); RDW Coefficient of Variation 16.8 % (11.5-14.5); RDW Standard Deviation 52.9 fL (36.4-46.3); Red Blood Count 2.94 M/uL (4.70-6.10); White Blood Count 6.61 K/ul (4.8-10.8)
[2024-09-05 08:35] LABS: Albumin Level 2.9 gm/dl (3.4-5.0); BUN Creatinine Ratio 12.8 (10-20); Bilirubin,Total 0.7 mg/dl (0.2-1.0); Calcium 8.3 mg/dl (8.6-10.3); Creatinine Clr Calc Pharmacy 68.1 ml/min; Globulin 2.8 gm/dl (2.5-4.0); Total Protein 5.7 gm/dl (6.0-8.3)
[2024-09-05] MEDS: lamoTRIgine 25 MG TAB PO SCH (08:43)
[2024-09-05] MEDS: PANTOprazole 40 MG TAB PO SCH (08:44)
[2024-09-05] MEDS: levETIRAcetam 500 MG TAB PO SCH (08:44)
[2024-09-05] MEDS: FERROUS SULFATE 325 MG TAB PO SCH (08:44)
[2024-09-05] MEDS: METOPROLOL SUCC 25MG EXT REL TAB PO SCH (08:44)
[2024-09-05] MEDS: FUROSEMIDE 40 MG TAB PO SCH (08:44)
--- NOTE | 2024-09-05 13:04 | Discharge Summary ---
Date of Service September 05, 2024 Admission HPI Per Admitting Provider Tristan is a 84M w/ PMH of A Fib, Critical , Anemia, venous insufficiency, FRANCHESKA, osteoarthritis, and seizure disorder who transferred to [facility] for management of obscure GIB 09/02/24 and is now being transferred back to [facility] for ongoing care. Patient underwent enteroscopy 09/03/24 w/ cauterization of angioectasia within the jejunum. No complications noted. Patient notes he feels wonderful and is looking forward to going home. He denies nausea, emesis, or abdominal pain and states that he has not had any BRBPM or melanotic stools since the procedure at [facility]. He states that he has been eating well over the last few days. He continues to stool and urinate w/o issue. Patient denies any chest pain, dyspnea, or edema. He notes a chronic abdominal hernia that does not hurt, even with palpation. He denies any lightheadedness or headaches. Last BM documented 09/03/24. Principal Diagnosis GI bleed Discharge Exam General: NAD, pleasant, sitting upright on side of bed ENMT: MMM, external ears and nose without abnormality Neck: supple, no masses, no LAD Cardiac: normal rate;5/6 systolic murmur most appreciated in right upper sternal border Lungs:non-labored, CTAB, no wheezing/rhonchi/rales Abdomen: soft, large ventral hernia appreciated, difficult to reduce but not limited by pain (limited by size), no tenderness to palpation of abdomen, no evidence of bowel incarceration, active bowel sounds Extremities: trace pedal edema; moving all extremities; well-perfused Neuro: AO x 4 Skin: well perfused, no rashes or ulcerations Psych: mood euthymic, affect normal Discharge Data Allergies Allergy/AdvReac Type Severity Reaction Status Date / Time bee venom protein (honey bee) Allergy Unknown UNKN Verified 09/01/24 10:03 No Known Drug Allergies Allergy Verified 08/31/24 15:05 lactose AdvReac Intermediate GI UPSET Verified 09/01/24 10:03 Hospital Course (1) GI bleed: (2) Acute blood loss anemia: (3) Aortic stenosis: (4) PAF (paroxysmal atrial fibrillation): (5) Chronic venous insufficiency of lower extremity: (6) Obstructive sleep apnea syndrome: (7) Seizure disorder: Milan Hudson is a 84M w/ PMH of A Fib, Critical , Anemia, venous insufficiency, FR[place], osteoarthritis, and seizure disorder who transferred to [facility] for management of obscure GIB 09/02/24 and is now being transferred back to [facility] for ongoing care. 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 - Presented to [facility] 09/02/24 for obscure GIB and was transferred to [facility] - Angioectasia electrocauterized 09/03 - Received Protonix 40 mg IV BID at [facility] Continue PO Protonix on admission - Apixaban/Aspirin held for surgery x 48h OK to resume in AM if no GIB Hemoccult stools ordered - Tolerated full diet well, continue on admission Acute Anemia 2/2 GI Blood Loss - S/p 2 units PRBC at [facility] - Received Iron sucrose 300 mg IV x 3 days - B12 and Folate wnl - Follow Hgb, transfusion threshold of 8 - CBC in AM Severe - KYRA performed at [facility] EF 65-70%, sclerotic aortic valve w/ severe , severe pulmonary hypertension - Had episode of O2 desaturation/crackles prior to d/c Home Lasix dosing was restarted No crackles on examination, vitals stable on room air Continue Lasix A Fib - Eliquis held for GIB, resume if no GIB - Metoprolol held for bradycardia, though patient had not been taking Chronic Conditions: - Continue home medications unless otherwise noted above Code: Full Diet: HH IVF: None DVT Ppx: Eliquis held d/t GIB, OK to restart in AM Dispo: Medsurg Total Time Total Time Spent Total Time Spent (In Minutes): As per attending physician attestation Discharge Plan Discharge Items Patient Disposition: Home - Self-Care Reason For Visit: GI BLEED Discharge Diagnosis: s/p Angioectasia electrocauterized Activity: Resume your previous activity Non-emergency contact: Primary Care Provider Call non-emergency contact if: your symptoms worsen Follow-up/Referrals: Nikki Haas MD [Primary Care Provider] - Diet: Regular Addtl Attending Provider Instructions: You were hospitalized for a bleed of your small intestines and acute blood loss. After transferring you to [facility], your underwent an electrocauterization of the vessels causing the bleeding as well as received 2 units of blood. Currently your hemoglobin level is stable, however, we would like you to return to the lab for blood work on 09/07/24. Please also make an appointment to follow up with your Primary Care Physician in the next 5-7 days. At that time, please discuss restarting your blood thinner, Eliquis. Return to the Emergency Room if you start feeling unusually short or breath, dizzy or faint. Pending Studies at Discharge: No Stand-Alone Forms: My [facility] hybris, Smoking Cessation Medications and DC Order Prescriptions: Continued epinephrine 0.3 mg/0.3 mL auto-injector 0.3 mg IM DIRECTED PRN (Reason: Allergic Reaction) Qty: 2 3RF latanoprost [Xalatan] 0.005 % drops 1 drp ophthalmic (eye) PM Qty: 2.5 11RF potassium chloride 10 mEq capsule, extended release 10 meq PO DAILY Qty: 30 11RF Rx Instructions: Switched from tablets as patient is unable to swallow pills whole, verbal order given to [facility] pharmacy on 11/19/23. Patient may sprinkle capsules into food. Calcium 600 with Vitamin D3 600 mg-10 mcg (400 unit) tablet,chewable 1 tab PO BID Qty: 60 11RF levetiracetam 500 mg tablet 1,000 mg PO BID Qty: 120 5RF simvastatin 40 mg tablet 40 mg PO QPM Qty: 90 3RF Rx Instructions: TAKE 1 TABLET BY MOUTH EVERY EVENING lactase [Lactaid Fast Act] 9,000 unit tablet 9,000 unit PO QID PRN (Reason: Milk food products) Rx Instructions: administer with meals and/or snacks (DME) Spacer for Inhaler Misc See Rx Instructions .Route Qty: 1 0RF Rx Instructions: As directed furosemide 40 mg tablet 40 mg PO DAILY PRN (Reason: Edema) Rx Instructions: 40 MG ORALLY DAILY NEEDED FOR EDEMA acetaminophen [Tylenol Arthritis Pain] 650 mg tablet extended release 1,300 mg PO Q12H PRN (Reason: Pain) pantoprazole 40 mg Tablet,Delayed Release (Dr/Ec) 40 mg PO QAM Qty: 30 0RF lamotrigine 100 mg tablet See Rx Instructions .ROUTE .COMPLEX Rx Instructions: Take 100mg w/ 50mg (25mg x2) by mouth to equal 150mg twice daily lamotrigine 25 mg tablet See Rx Instructions .ROUTE .COMPLEX Rx Instructions: Take 50mg (25mg x2) w/ 100mg by mouth to equal 150mg twice daily ferrous sulfate 325 mg (65 mg iron) tablet 0 mg PO DAILY Rx Instructions: Per spouse this medication is currently on hold. Original Directions: 325mg by mouth daily aspirin 81 mg tablet,chewable 0 mg PO DAILY Rx Instructions: Per spouse this medication is currently on hold. Original Directions: 81mg by mouth daily Held Eliquis 5 mg tablet 0 mg PO BID Hold Instructions: Resume on 09/12/24. Please discuss restarting with your PCP Rx Instructions: Per spouse this medication is currently on hold. Original Directions: 5mg by mouth twice daily Discharge Orders: Discharge Order (Routine); Ordered 09/05/24 Ordered By: Katherine Wiley/Other Patient Handouts: GI Bleeding Ch Admission Data Admit Date/Time: 09/05/24 02:53 Attending Provider: Neel Barrera Admit Provider: Krystal Edwards Primary Care Provider: Nikki Haas Other Interventions: Discharge Summary Assessment (RN) Last Done: 09/05/24 13:50 Supervising Physician Co-Signing Physician Notes I personally examined the patient and verified all aguilar points of history and exam, discussed case, and agree with decision making with Dr Miller feels really good. eating well. no stools (and therefore no melena or hematochezia) not weak/lightheaded/dizzy. would really like to go home today. vitals noted nad heent nc at mmm breathing unlabored no accessory muscles good effort skin without rashes pallor or icterus, neurologically intact. dressed in street clothes. we walk together down the [place] and back (~50[address]) unassisted wide based stable/steady gait - which he notes to be his baseline and appears chronic GI bleed/acute blood loss anemia - from small bowel angioectasia s/p cautery. looks and feels well. no signs of ongoing bleeding. hemodynamically stable. really wants to go home. understands "red flag" symptoms to watch for//willing to come back if they occur/lives with and not far from here; willing to get labs next week. safe/stable for home, CBC next week, outpt f/u next week. has apparently been self holding anticoagulation for months - was going to recommend resuming in a few days but with his prior holding it in mind - would have him discuss further with PCP (medically from what i see it would be OK to resume in a few days). otherwise as above
--- NOTE | 2024-09-05 15:17 | Billing Data ---
Date of Service September 05, 2024 Coding Level of Care Code 48273 IN/OBS DISCH 30 MIN/LESS
[2024-09-05] MEDS ORDERED: SIMVASTATIN 40 MG TAB PO SCH (21:00)
--- NOTE | 2024-09-05 22:16 | Billing Data ---
Date of Service September 05, 2024 Coding Level of Care Code 45171 INT INP/OBS CARE
== END 2024-09-05 19:04 | disposition home or self-care (01) ==
LOC: 3W 02:53 → INTOOBSV 02:53 → SUATTDRO 02:53